=== PATIENT | male | born 1970 | race African-American/Black ===

== ENCOUNTER 2016-08-08 04:26 | Emergency (ER) | payer MEDICAID ==
[~2016-08-08] VITALS: Ht 167.6 cm; Wt 82.0 kg
[~2016-08-08 04:26] MED LIST: ALLO100T PO; ATOR20TA PO; CARI350T27 PO; FOLI-43 PO; GABA-531 PO; KEPP500 PO; MAGN400C PO; OMEP20CA10 PO; ONDA4TAB5 PO; PHEN100C4 PO; QUET300T2 PO; [UNRECOGNIZED DRUG - OTHER]
[2016-08-08] MEDS ORDERED: SODIUM CHLORIDE 0.9% 1,000 ML IV ONE (07:51)
[2016-08-08] MEDS ORDERED: MORPHINE SULFATE 4 MG/ML CPJ (NOT FOR IM USE) IV STA (07:51)
[2016-08-08] MEDS ORDERED: ONDANSETRON HCL 4MG/2ML VIAL IV STA (07:51)
[2016-08-08 08:19] LABS: CLARITY URINE CLEAR (CLEAR); COLOR URINE YELLOW (YELLOW); GLUCOSE URINE NEGATIVE (NEGATIVE); KETONES URINE NEGATIVE (NEGATIVE); LEUKOCYTE ESTERASE URINE NEGATIVE (NEGATIVE); NITRITE URINE NEGATIVE (NEGATIVE); OCCULT BLOOD URINE NEGATIVE (NEGATIVE); PH URINE 7.5 (4.5-8.0); PROTEIN URINE TRACE (NEGATIVE); SPECIFIC GRAVITY URINE 1.008 (1.005-1.030); UROBILINOGEN URINE 0.2 E.U./dL (0.2-1.0)
[2016-08-08 08:21] LABS: HEMATOCRIT. 36.8 % (42.0-52.0); MEAN CORPUSCULAR HEMOGLOBIN 27.4 pg (28.0-32.0); MEAN CORPUSCULAR HGB CONC 32.7 g/dL (31.0-37.0); MEAN CORPUSCULAR VOLUME 83.7 fL (80.0-94.0); MEAN PLATELET VOLUME 7.6 fl (7.4-10.4); PLATELET 222 x1000/uL (130-400); WHITE BLOOD COUNT 5.9 x1000/uL (4.5-11.0)
[2016-08-08 08:22] LABS: BACTERIA URINE NONE SEEN; CALCIUM PHOSPHATE CRYSTALS UR NONE SEEN /lpf; RBC URINE NONE SEEN /hpf (0-2); SQUAMOUS EPITHELIAL CELL URINE NONE SEEN /lpf (RARE/1+); WAXY CASTS URINE NONE SEEN /lpf; WBC URINE NONE SEEN /hpf (0-2); YEAST URINE NONE SEEN
[2016-08-08 08:24] LABS: DIFFERENTIAL COMMENT 1
[2016-08-08 08:27] LABS: CHLORIDE 99 mEq/L (98-107); INDEX HEMOLYSI 1 (1-3); INDEX ICTERIC 1 (1-4); INDEX LIPEMIC 1 (1-3)
[2016-08-08 08:28] LABS: PROTHROMBIN TIME 10.2 sec
[2016-08-08 08:31] LABS: ALBUMIN 3.2 g/dL (3.4-5.0); ANION GAP 11; CALCIUM 9.4 mg/dL (8.5-10.1); CARBON DIOXIDE 33 mEq/L (21-32); LIPASE 399 IU/L (73-393); UREA NITROGEN BLOOD 9 mg/dL (7-21)
[2016-08-08 08:35] LABS: ALANINE AMINOTRANSFERASE 23 IU/L (13-61); PHENYTOIN 4.2 ug/mL (10-20); eGFR > 60 mL/min (>60)
[2016-08-08 08:39] LABS: ANISOCYTOSIS 1+; PLATELET ESTIMATE NORMAL
[2016-08-08] MEDS ORDERED: PHENYTOIN SODIUM 500 MG in SODIUM CHLORIDE 0.9% 50 ML IV NR (09:45)
[2016-08-08] MEDS ORDERED: FAMOTIDINE 20MG/2ML VIAL IV ONE (10:30)
[2016-08-08] MEDS ORDERED: MAGNESIUM/ALUMINUM HYDROXIDE/SIMETHICONE 30ML UDC PO ONE (10:30)
[2016-08-08] MEDS: HYDROCODONE/ACETAMINOPHEN 5/325MG TABLET PO NR ×2 (11:31→11:36)
[2016-08-08 12:10] VITALS: BP 114/77
== END 2016-08-08 12:20 | disposition home or self-care (01) ==
LOC: ER 04:49
DX: R10.9 Unspecified abdominal pain (principal); Z79.899 Other long term (current) drug therapy; J45.909 Unspecified asthma, uncomplicated; S42.402A Unspecified fracture of lower end of left humerus, initial encounter for closed fracture; Y93.89 Activity, other specified; Y99.9 Unspecified external cause status; Y92.89 Other specified places as the place of occurrence of the external cause
CPT/HCPCS: 36415; 73080; 76705; 80053; 80185; 81001; 83690; 85025; 85610; 96361; 96374; 96375; 99285; J1165; J2270; J2405; J3490; Z7610

== ENCOUNTER 2016-08-10 02:31 | Emergency (ER) | payer MEDICAID ==
[~2016-08-10] VITALS: Ht 170.2 cm; Wt 82.0 kg
[2016-08-10 03:34] LABS: HEMATOCRIT. 34.9 % (42.0-52.0); HEMOGLOBIN. 11.5 g/dL (14.0-18.0); MEAN CORPUSCULAR HEMOGLOBIN 27.2 pg (28.0-32.0); MEAN CORPUSCULAR HGB CONC 32.9 g/dL (31.0-37.0); MEAN CORPUSCULAR VOLUME 82.8 fL (80.0-94.0); MEAN PLATELET VOLUME 7.8 fl (7.4-10.4); PLATELET 230 x1000/uL (130-400); RED BLOOD CELL COUNT 4.22 mill/uL (4.7-6.1); RED CELL DISTRIBUTION WIDTH 14.6 % (11.6-14.6); WHITE BLOOD COUNT 4.2 x1000/uL (4.5-11.0)
[2016-08-10 03:35] LABS: DIFFERENTIAL COMMENT 1
[2016-08-10 03:49] LABS: ALANINE AMINOTRANSFERASE 15 IU/L (13-61); ANION GAP 12; CALCIUM 9.5 mg/dL (8.5-10.1); CARBON DIOXIDE 30 mEq/L (21-32); CHLORIDE 102 mEq/L (98-107); INDEX HEMOLYSI 1 (1-3); INDEX ICTERIC 1 (1-4); INDEX LIPEMIC 1 (1-3); UREA NITROGEN BLOOD 15 mg/dL (7-21); eGFR > 60 mL/min (>60)
[2016-08-10] MEDS ORDERED: VISCOUS LIDOCAINE 2% 15 ML UDC PO STA (04:29)
[2016-08-10] MEDS ORDERED: DICYCLOMINE 10 MG/5 ML ORAL SYR PO STA (04:29)
[2016-08-10] MEDS ORDERED: MAGNESIUM/ALUMINUM HYDROXIDE/SIMETHICONE 30ML UDC PO STA (04:29)
[2016-08-10 04:57] LABS: PLATELET ESTIMATE NORMAL
[2016-08-10 05:10] VITALS: BP 124/83
== END 2016-08-10 05:10 | disposition home or self-care (01) ==
LOC: ER 02:35
DX: K21.9 Gastro-esophageal reflux disease without esophagitis (principal); Z79.899 Other long term (current) drug therapy; M19.90 Unspecified osteoarthritis, unspecified site; J45.909 Unspecified asthma, uncomplicated; M10.9 Gout, unspecified; F17.200 Nicotine dependence, unspecified, uncomplicated; B19.20 Unspecified viral hepatitis C without hepatic coma
CPT/HCPCS: 36415; 71010; 80053; 85025; 93005; 99285

== ENCOUNTER 2016-09-16 07:02 | Emergency (ER) | payer MEDICAID ==
[~2016-09-16] VITALS: Ht 177.8 cm; Wt 82.0 kg
[2016-09-16] MEDS ORDERED: FAMOTIDINE 20MG/2ML VIAL IV STA (07:19)
[2016-09-16] MEDS ORDERED: ONDANSETRON HCL 4MG/2ML VIAL IV STA (07:19)
[2016-09-16] MEDS ORDERED: KETOROLAC 30MG/ML VIAL IV STA (07:19)
[2016-09-16] MEDS ORDERED: SODIUM CHLORIDE 0.9% 1,000 ML IV ONE (07:19)
[2016-09-16 07:50] LABS: BASOPHILS % 1.2 % (0.0-2.0); EOSINOPHILS % 0.6 % (0.0-5.0); HEMATOCRIT. 45.8 % (42.0-52.0); HEMOGLOBIN. 15.3 g/dL (14.0-18.0); LYMPHOCYTES % 42.9 % (20.0-50.0); MEAN CORPUSCULAR HEMOGLOBIN 26.8 pg (28.0-32.0); MEAN CORPUSCULAR HGB CONC 33.4 g/dL (31.0-37.0); MEAN CORPUSCULAR VOLUME 80.2 fL (80.0-94.0); MEAN PLATELET VOLUME 8.6 fl (7.4-10.4); NEUTROPHILS % 43.3 % (40.0-76.0); PLATELET 157 x1000/uL (130-400); RED BLOOD CELL COUNT 5.72 mill/uL (4.7-6.1); RED CELL DISTRIBUTION WIDTH 14.9 % (11.6-14.6); WHITE BLOOD COUNT 2.8 x1000/uL (4.5-11.0)
[2016-09-16 08:05] LABS: ALANINE AMINOTRANSFERASE 230 IU/L (13-61); ALBUMIN 3.6 g/dL (3.4-5.0); ANION GAP 21; CALCIUM 9.2 mg/dL (8.5-10.1); CARBON DIOXIDE 26 mEq/L (21-32); CHLORIDE 95 mEq/L (98-107); INDEX HEMOLYSI 1 (1-3); INDEX ICTERIC 1 (1-4); INDEX LIPEMIC 1 (1-3); LIPASE 367 IU/L (73-393); UREA NITROGEN BLOOD 23 mg/dL (7-21); eGFR > 60 mL/min (>60)
[2016-09-16 08:57] LABS: CLARITY URINE CLEAR (CLEAR); COLOR URINE DARK YELLOW (YELLOW); GLUCOSE URINE NEGATIVE (NEGATIVE); KETONES URINE NEGATIVE (NEGATIVE); LEUKOCYTE ESTERASE URINE TRACE (NEGATIVE); NITRITE URINE NEGATIVE (NEGATIVE); OCCULT BLOOD URINE NEGATIVE (NEGATIVE); PH URINE 5.5 (4.5-8.0); PROTEIN URINE 3+ (NEGATIVE); SPECIFIC GRAVITY URINE 1.026 (1.005-1.030)
[2016-09-16 09:20] LABS: BACTERIA URINE 1+
[2016-09-16 09:21] LABS: WBC URINE 15-25 /hpf (0-2)
[2016-09-16 09:22] LABS: MUCUS URINE TRACE /lpf (NONE/TRACE); SQUAMOUS EPITHELIAL CELL URINE FEW /lpf (RARE/1+)
[2016-09-16] MEDS ORDERED: MORPHINE SULFATE 4 MG/ML CPJ (NOT FOR IM USE) IV ONE (09:30)
[2016-09-16] MEDS ORDERED: ONDANSETRON HCL 4MG/2ML VIAL IV ONE (09:30)
[2016-09-16] MEDS ORDERED: LORAZEPAM 2MG/ML CPJ IV ONE (11:00)
[2016-09-16 13:01] LABS: *AMPHETAMINES SCREEN URINE NEGATIVE (NEGATIVE); *BARBITURATES SCREEN URINE NEGATIVE (NEGATIVE); *BENZODIAZEPINES SCREEN URINE NEGATIVE (NEGATIVE); *COCAINE SCREEN URINE NEGATIVE (NEGATIVE); CANNABINOID URINE SCREEN NEGATIVE (NEGATIVE); ECSTASY MDMA SCREEN URINE NEGATIVE (NEGATIVE); METHADONE URINE SCREEN NEGATIVE (NEGATIVE); OPIATES URINE SCREEN NEGATIVE (NEGATIVE); PHENCYCLIDINE URINE SCREEN NEGATIVE (NEGATIVE)
[2016-09-16 13:58] VITALS: BP 121/89
== END 2016-09-16 14:00 | disposition home or self-care (01) ==
LOC: ER 07:23
DX: K85.90 Acute pancreatitis without necrosis or infection, unspecified (principal); J45.909 Unspecified asthma, uncomplicated; F17.210 Nicotine dependence, cigarettes, uncomplicated; Z79.899 Other long term (current) drug therapy; Z82.49 Family history of ischemic heart disease and other diseases of the circulatory system
CPT/HCPCS: 36415; 76705; 80053; 80305; 81001; 83690; 85025; 96374; 96375; 96376; 99285; G0482; J1885; J2060; J2270; J2405; J3490; J7030

== ENCOUNTER 2016-09-25 20:01 | Emergency (ER) | payer MEDICAID ==
[~2016-09-25] VITALS: Ht 175.3 cm; Wt 82.0 kg
[2016-09-25] MEDS ORDERED: SODIUM CHLORIDE 0.9% 1,000 ML IV ONE (20:32)
[2016-09-25] MEDS ORDERED: ONDANSETRON HCL 4MG/2ML VIAL IV STA (20:32)
[2016-09-25 21:16] LABS: BASOPHILS % 1.2 % (0.0-2.0); EOSINOPHILS % 0.1 % (0.0-5.0); HEMATOCRIT. 37.9 % (42.0-52.0); HEMOGLOBIN. 12.6 g/dL (14.0-18.0); LYMPHOCYTES % 59.2 % (20.0-50.0); MEAN CORPUSCULAR HEMOGLOBIN 26.8 pg (28.0-32.0); MEAN CORPUSCULAR VOLUME 80.5 fL (80.0-94.0); MEAN PLATELET VOLUME 8.6 fl (7.4-10.4); MONOCYTES % 7.7 % (2.0-8.0); NEUTROPHILS % 31.8 % (40.0-76.0); PLATELET 157 x1000/uL (130-400); RED BLOOD CELL COUNT 4.71 mill/uL (4.7-6.1); RED CELL DISTRIBUTION WIDTH 14.8 % (11.6-14.6)
[2016-09-25 21:26] LABS: CARBON DIOXIDE 27 mEq/L (21-32); CHLORIDE 102 mEq/L (98-107); ETHANOL BLOOD 250 mg/dL; PHENYTOIN 0.5 ug/mL (10-20)
[2016-09-25] MEDS ORDERED: MAGNESIUM/ALUMINUM HYDROXIDE/SIMETHICONE 30ML UDC PO STA (21:57)
[2016-09-25] MEDS ORDERED: KETOROLAC 30MG/ML VIAL IV STA (21:57)
[2016-09-25] MEDS ORDERED: FAMOTIDINE 20MG/2ML VIAL IV STA (21:57)
[2016-09-25] MEDS ORDERED: PHENYTOIN SODIUM 1,000 MG in SODIUM CHLORIDE 0.9% 100 ML IV ONE (22:00)
[2016-09-26 04:43] VITALS: BP 134/77
== END 2016-09-26 11:14 | disposition home or self-care (01) ==
LOC: ER 20:01
DX: G40.909 Epilepsy, unspecified, not intractable, without status epilepticus (principal); F10.129 Alcohol abuse with intoxication, unspecified; K29.20 Alcoholic gastritis without bleeding; J45.909 Unspecified asthma, uncomplicated; Y90.8 Blood alcohol level of 240 mg/100 ml or more; Z91.018 Allergy to other foods; Z91.14 Patient's other noncompliance with medication regimen
CPT/HCPCS: 36415; 80053; 80185; 83690; 85025; 96361; 96365; 96375; 99285; G0482; J1165; J1885; J2405; J3490; Z7610; J7030; J7050

== ENCOUNTER 2016-09-27 23:24 | Emergency (ER) | payer MEDICAID ==
[~2016-09-27] VITALS: Ht 170.2 cm; Wt 82.2 kg
[2016-09-27] MEDS ORDERED: FAMOTIDINE 20MG/2ML VIAL IV STA (23:59)
[2016-09-27] MEDS ORDERED: MORPHINE SULFATE 4 MG/ML CPJ (NOT FOR IM USE) IV STA (23:59)
[2016-09-27] MEDS ORDERED: ONDANSETRON HCL 4MG/2ML VIAL IV STA (23:59)
[2016-09-28 00:16] LABS: HEMATOCRIT. 41.4 % (42.0-52.0); HEMOGLOBIN. 13.8 g/dL (14.0-18.0); MEAN CORPUSCULAR HEMOGLOBIN 26.7 pg (28.0-32.0); MEAN CORPUSCULAR VOLUME 80.1 fL (80.0-94.0); MEAN PLATELET VOLUME 7.9 fl (7.4-10.4); PLATELET 125 x1000/uL (130-400); RED BLOOD CELL COUNT 5.17 mill/uL (4.7-6.1); RED CELL DISTRIBUTION WIDTH 14.9 % (11.6-14.6)
[2016-09-28 00:26] LABS: CHLORIDE 99 mEq/L (98-107)
[2016-09-28 00:35] LABS: CARBON DIOXIDE 28 mEq/L (21-32)
[2016-09-28 00:43] LABS: PLATELET ESTIMATE SLIGHTLY DECREASED
[2016-09-28 01:33] VITALS: BP 143/73
== END 2016-09-28 02:08 | disposition home or self-care (01) ==
LOC: ER 23:32
DX: K29.20 Alcoholic gastritis without bleeding (principal); M79.671 Pain in right foot; J45.909 Unspecified asthma, uncomplicated
CPT/HCPCS: 36415; 73630; 80053; 83690; 85025; 96374; 96375; 99285; J2270; J2405; J3490; Z7610

== ENCOUNTER 2016-09-28 06:10 | Emergency (ER) | payer MEDICAID ==
[~2016-09-28] VITALS: Ht 170.2 cm; Wt 82.0 kg
[2016-09-28] MEDS ORDERED: ONDANSETRON 4MG ODT PO ONE (08:30)
[2016-09-28] MEDS ORDERED: MORPHINE SULFATE 10 MG/ML CPJ SUBCUT ONE (08:30)
[2016-09-28 08:57] VITALS: BP 142/97
[2016-09-28 09:34] LABS: CLARITY URINE CLEAR (CLEAR); COLOR URINE DARK YELLOW (YELLOW); GLUCOSE URINE NEGATIVE (NEGATIVE); KETONES URINE TRACE (NEGATIVE); LEUKOCYTE ESTERASE URINE TRACE (NEGATIVE); NITRITE URINE NEGATIVE (NEGATIVE); OCCULT BLOOD URINE NEGATIVE (NEGATIVE); PROTEIN URINE 2+ (NEGATIVE); SPECIFIC GRAVITY URINE 1.022 (1.005-1.030)
== END 2016-09-28 10:05 | disposition home or self-care (01) ==
LOC: ER 08:16
DX: N20.0 Calculus of kidney (principal); J45.909 Unspecified asthma, uncomplicated; M10.9 Gout, unspecified; Z79.899 Other long term (current) drug therapy; M79.671 Pain in right foot
CPT/HCPCS: 74176; 81001; 96372; 99285; J2270; Q0162; Z7610

== ENCOUNTER 2016-10-03 20:36 | Emergency (ER) | payer MEDICAID ==
[~2016-10-03] VITALS: Ht 177.8 cm; Wt 84.0 kg
[2016-10-03] MEDS ORDERED: KETOROLAC 30MG/ML VIAL IV STA (22:25)
[2016-10-03] MEDS ORDERED: ONDANSETRON HCL 4MG/2ML VIAL IV STA (22:25)
[2016-10-03] MEDS ORDERED: SODIUM CHLORIDE 0.9% 1,000 ML IV ONE (22:25)
[2016-10-03] MEDS ORDERED: LEVETIRACETAM 500MG/5ML CUP PO ONE (22:30)
[2016-10-03] MEDS ORDERED: PHENYTOIN SODIUM EXTENDED 100MG CAPSULE PO ONE (22:30)
[2016-10-03] MEDS ORDERED: ONDANSETRON 4MG ODT PO ONE (23:00)
[2016-10-03] MEDS ORDERED: KETOROLAC 60MG/2ML VIAL IM ONE (23:00)
[2016-10-04 00:24] LABS: BASOPHILS % 0.9 % (0.0-2.0); HEMATOCRIT. 36.2 % (42.0-52.0); LYMPHOCYTES % 36.9 % (20.0-50.0); MEAN CORPUSCULAR HEMOGLOBIN 26.7 pg (28.0-32.0); MEAN CORPUSCULAR VOLUME 80.7 fL (80.0-94.0); MEAN PLATELET VOLUME 7.9 fl (7.4-10.4); MONOCYTES % 8.2 % (2.0-8.0); PLATELET 155 x1000/uL (130-400); RED BLOOD CELL COUNT 4.49 mill/uL (4.7-6.1); RED CELL DISTRIBUTION WIDTH 15.5 % (11.6-14.6)
[2016-10-04 00:28] LABS: CHLORIDE 100 mEq/L (98-107)
[2016-10-04] MEDS ORDERED: ACETAMINOPHEN WITH CODEINE 300/30MG TABLET PO ONE (00:30)
[2016-10-04 00:37] LABS: CARBON DIOXIDE 34 mEq/L (21-32); ETHANOL BLOOD 200 mg/dL
[2016-10-04] MEDS ORDERED: LORAZEPAM 1MG TABLET PO ONE (01:00)
[2016-10-04 01:14] LABS: CLARITY URINE CLEAR (CLEAR); COLOR URINE YELLOW (YELLOW); GLUCOSE URINE NEGATIVE (NEGATIVE); KETONES URINE NEGATIVE (NEGATIVE); LEUKOCYTE ESTERASE URINE NEGATIVE (NEGATIVE); NITRITE URINE NEGATIVE (NEGATIVE); OCCULT BLOOD URINE NEGATIVE (NEGATIVE); PH URINE 7.5 (4.5-8.0); PROTEIN URINE TRACE (NEGATIVE); SPECIFIC GRAVITY URINE 1.014 (1.005-1.030); UROBILINOGEN URINE 0.2 E.U./dL (0.2-1.0)
[2016-10-04] MEDS ORDERED: PHENYTOIN SODIUM EXTENDED 100MG CAPSULE PO ONE (02:00)
[2016-10-04] MEDS ORDERED: ONDANSETRON HCL 4MG/2ML VIAL IM ONE (02:15)
[2016-10-04] MEDS ORDERED: MORPHINE SULFATE 10 MG/ML CPJ IM ONE (02:15)
[2016-10-04 19:35] VITALS: BP 136/83
== END 2016-10-04 20:30 | disposition home or self-care (01) ==
LOC: ER 21:00
DX: R10.84 Generalized abdominal pain (principal); F10.129 Alcohol abuse with intoxication, unspecified; R56.9 Unspecified convulsions; F32.9 Major depressive disorder, single episode, unspecified; Z98.890 Other specified postprocedural states
CPT/HCPCS: 36415; 80053; 80185; 81001; 83690; 85025; 96372; 99285; G0482; J1885; J2270; J2405; Q0162; Z7610; J7030

== ENCOUNTER 2016-10-17 17:05 | Emergency (ER) | payer MEDICAID ==
[~2016-10-17] VITALS: Ht 172.7 cm; Wt 75.0 kg
[2016-10-17 17:07] VITALS: BP 148/87
== END 2016-10-17 22:40 | disposition left against medical advice (07) ==
LOC: ER 17:21
DX: R45.851 Suicidal ideations (principal); Z53.21 Procedure and treatment not carried out due to patient leaving prior to being seen by health care provider
CPT/HCPCS: Z7610 ×2

== ENCOUNTER 2017-10-29 01:32 | Emergency (ER) | payer MEDICAID ==
[~2017-10-29] VITALS: Ht 172.7 cm; Wt 75.0 kg
[~2017-10-29 01:32] MED LIST changes: +HYDR-4009 MT
[2017-10-29 04:15] VITALS: BP 120/75
== END 2017-10-29 08:13 | disposition left against medical advice (07) ==
LOC: ER 07:01
DX: M79.604 Pain in right leg (principal); Z53.21 Procedure and treatment not carried out due to patient leaving prior to being seen by health care provider
CPT/HCPCS: 99283

== ENCOUNTER 2017-11-17 07:18 | Emergency (ER) | payer MEDICAID ==
[~2017-11-17] VITALS: Ht 177.8 cm; Wt 79.0 kg
[2017-11-17] MEDS ORDERED: MORPHINE SULFATE 4 MG/ML CPJ (NOT FOR IM USE) IV STA (08:43)
[2017-11-17] MEDS ORDERED: SODIUM CHLORIDE 0.9% 1,000 ML IV ONE (08:43)
[2017-11-17] MEDS ORDERED: ONDANSETRON HCL 4MG/2ML VIAL IV STA (08:43)
[2017-11-17 09:27] LABS: BASOPHILS % 0.6 % (0.0-2.0); HEMATOCRIT. 42.8 % (42.0-52.0); HEMOGLOBIN. 14.2 g/dL (14.0-18.0); LYMPHOCYTES % 14.9 % (20.0-50.0); MEAN CORPUSCULAR HEMOGLOBIN 27.6 pg (28.0-32.0); MEAN PLATELET VOLUME 7.9 fl (7.4-10.4); MONOCYTES % 6.5 % (2.0-8.0); PLATELET 174 x1000/uL (130-400); RED BLOOD CELL COUNT 5.16 mill/uL (4.7-6.1); RED CELL DISTRIBUTION WIDTH 15.9 % (11.6-14.6)
[2017-11-17 09:28] LABS: CHLORIDE 101 mEq/L (98-107)
[2017-11-17 09:30] LABS: PROTHROMBIN TIME 10.2 sec (9.4-11.6)
[2017-11-17 09:34] LABS: ETHANOL BLOOD 32 mg/dL
[2017-11-17 09:47] LABS: CARBAMAZEPINE < 0.5 ug/mL (4-12); PHENOBARBITAL < 2.1 ug/mL (15.0-40.0); VALPROIC ACID < 3.0 ug/mL (50-100)
[2017-11-17] MEDS ORDERED: METOCLOPRAMIDE HCL 10MG/2ML VIAL IV ONE (11:00)
[2017-11-17] MEDS ORDERED: IOHEXOL-300 100 ML BOTTLE ONE (11:44)
[2017-11-17 13:11] LABS: CLARITY URINE CLEAR (CLEAR); COLOR URINE YELLOW (YELLOW); KETONES URINE TRACE (NEGATIVE); LEUKOCYTE ESTERASE URINE 1+ (NEGATIVE); NITRITE URINE NEGATIVE (NEGATIVE); OCCULT BLOOD URINE NEGATIVE (NEGATIVE); PROTEIN URINE 3+ (NEGATIVE); SPECIFIC GRAVITY URINE 1.024 (1.005-1.030); UROBILINOGEN URINE 0.2 E.U./dL (0.2-1.0)
[2017-11-17] MEDS ORDERED: LEVOFLOXACIN 250MG TABLET PO ONE (13:45)
[2017-11-17 14:54] VITALS: BP 145/87
== END 2017-11-17 14:56 | disposition home or self-care (01) ==
LOC: ER 07:25
DX: N39.0 Urinary tract infection, site not specified (principal); R19.7 Diarrhea, unspecified; F17.200 Nicotine dependence, unspecified, uncomplicated; I10 Essential (primary) hypertension; F10.20 Alcohol dependence, uncomplicated; Z79.899 Other long term (current) drug therapy; Z86.11 Personal history of tuberculosis; Y90.1 Blood alcohol level of 20-39 mg/100 ml
CPT/HCPCS: 36415; 74177; 80053; 80156; 80165; 80184; 80185; 81003; 83690; 85025; 85610; 87086; 96361; 96374; 96375; 99285; G0482; J2270; J2405; J2765; J7030; Q9967; Z7610

== ENCOUNTER 2017-11-18 05:56 | Emergency (ER) | payer MEDICAID ==
[~2017-11-18] VITALS: Ht 177.8 cm; Wt 82.0 kg
[2017-11-18] MEDS ORDERED: SODIUM CHLORIDE 0.9% 1,000 ML IV ONE (08:53)
[2017-11-18] MEDS ORDERED: ONDANSETRON HCL 4MG/2ML VIAL IV STA (08:53)
[2017-11-18 09:22] LABS: HEMATOCRIT. 37.7 % (42.0-52.0); HEMOGLOBIN. 12.5 g/dL (14.0-18.0); MEAN CORPUSCULAR HEMOGLOBIN 27.6 pg (28.0-32.0); MEAN CORPUSCULAR VOLUME 82.7 fL (80.0-94.0); PLATELET 142 x1000/uL (130-400); RED BLOOD CELL COUNT 4.55 mill/uL (4.7-6.1); RED CELL DISTRIBUTION WIDTH 15.6 % (11.6-14.6)
[2017-11-18 09:24] LABS: CHLORIDE 98 mEq/L (98-107)
[2017-11-18 09:28] LABS: ETHANOL BLOOD < 10 mg/dL
[2017-11-18 09:44] LABS: PLATELET ESTIMATE NORMAL
[2017-11-18 09:51] LABS: INR 1.1; PROTHROMBIN TIME 11.3 sec (9.4-11.6)
[2017-11-18 12:04] LABS: CLARITY URINE CLOUDY (CLEAR); COLOR URINE YELLOW (YELLOW); KETONES URINE 1+ (NEGATIVE); LEUKOCYTE ESTERASE URINE 2+ (NEGATIVE); NITRITE URINE NEGATIVE (NEGATIVE); OCCULT BLOOD URINE TRACE (NEGATIVE); PROTEIN URINE 3+ (NEGATIVE); SPECIFIC GRAVITY URINE 1.025 (1.005-1.030)
[2017-11-18 12:35] VITALS: BP 127/82
== END 2017-11-18 13:54 | disposition home or self-care (01) ==
LOC: ER 05:56
DX: N39.0 Urinary tract infection, site not specified (principal); N28.1 Cyst of kidney, acquired; I10 Essential (primary) hypertension; G40.909 Epilepsy, unspecified, not intractable, without status epilepticus; J45.909 Unspecified asthma, uncomplicated; D64.9 Anemia, unspecified; D72.819 Decreased white blood cell count, unspecified; Z91.018 Allergy to other foods
CPT/HCPCS: 36415; 76770; 80053; 81003; 83690; 84484; 85025; 85610; 93005; 96361; 96374; 99285; G0482; J2405; J7030

== ENCOUNTER 2017-12-11 01:49 | Emergency (ER) | payer MEDICAID ==
[~2017-12-11] VITALS: Ht 172.7 cm; Wt 93.0 kg
[2017-12-11] MEDS ORDERED: SODIUM CHLORIDE 0.9% 1,000 ML IV ONE (02:16)
[2017-12-11] MEDS ORDERED: ONDANSETRON HCL 4MG/2ML VIAL IV STA (02:16)
[2017-12-11] MEDS ORDERED: FAMOTIDINE 20MG/2ML VIAL IV ONE (02:30)
[2017-12-11 03:15] LABS: BASOPHILS % 0.7 % (0.0-2.0); HEMATOCRIT. 42.7 % (42.0-52.0); HEMOGLOBIN. 14.3 g/dL (14.0-18.0); LYMPHOCYTES % 19.4 % (20.0-50.0); MEAN CORPUSCULAR HEMOGLOBIN 27.7 pg (28.0-32.0); MEAN CORPUSCULAR VOLUME 82.5 fL (80.0-94.0); MEAN PLATELET VOLUME 8.2 fl (7.4-10.4); NEUTROPHILS % 71.9 % (40.0-76.0); PLATELET 109 x1000/uL (130-400); RED BLOOD CELL COUNT 5.18 mill/uL (4.7-6.1); RED CELL DISTRIBUTION WIDTH 15.7 % (11.6-14.6)
[2017-12-11 03:22] LABS: INR 1.1; PROTHROMBIN TIME 10.8 sec (9.1-11.1)
[2017-12-11 03:24] LABS: CHLORIDE 97 mEq/L (98-107)
[2017-12-11] MEDS ORDERED: ACETAMINOPHEN 500MG TABLET PO NR (05:00)
[2017-12-11] MEDS ORDERED: POTASSIUM CHLORIDE 20MEQ TABLET SR PO NR (05:30)
[2017-12-11 05:33] VITALS: BP 139/101
[2017-12-11 07:29] LABS: CLARITY URINE CLEAR (CLEAR); COLOR URINE YELLOW (YELLOW); KETONES URINE 1+ (NEGATIVE); LEUKOCYTE ESTERASE URINE 1+ (NEGATIVE); NITRITE URINE NEGATIVE (NEGATIVE); OCCULT BLOOD URINE TRACE (NEGATIVE); PH URINE 6.5 (4.5-8.0); PROTEIN URINE 3+ (NEGATIVE); SPECIFIC GRAVITY URINE 1.023 (1.005-1.030)
== END 2017-12-11 05:54 | disposition home or self-care (01) ==
LOC: ER 01:49
DX: K29.00 Acute gastritis without bleeding (principal); E87.6 Hypokalemia
CPT/HCPCS: 36415; 80053; 81003; 83690; 85025; 85610; 87086; 96361; 96374; 96375; 99284; J2405; J3490; J7030; Z7610

== ENCOUNTER 2017-12-29 19:58 | Inpatient (IN) | payer MEDICAID ==
[~2017-12-29] VITALS: Ht 167.6 cm; Wt 71.7 kg
[2017-12-29] MEDS ORDERED: SODIUM CHLORIDE 0.9% 1,000 ML IV ONE (20:17)
[2017-12-29] MEDS ORDERED: KETOROLAC 30MG/ML VIAL IV STA (20:17)
[2017-12-29] MEDS ORDERED: ONDANSETRON HCL 4MG/2ML VIAL IV STA ×2 (20:17→22:12)
[2017-12-29] MEDS ORDERED: LEVETIRACETAM 500MG TABLET PO ONE (20:30)
[2017-12-29 21:31] LABS: BASOPHILS % 0.6 % (0.0-2.0); EOSINOPHILS % 0.2 % (0.0-5.0); HEMATOCRIT. 41.3 % (42.0-52.0); HEMOGLOBIN. 13.8 g/dL (14.0-18.0); LYMPHOCYTES % 50.7 % (20.0-50.0); MEAN CORPUSCULAR HEMOGLOBIN 27.7 pg (28.0-32.0); MEAN CORPUSCULAR VOLUME 83.1 fL (80.0-94.0); MEAN PLATELET VOLUME 7.9 fl (7.4-10.4); MONOCYTES % 12.7 % (2.0-8.0); NEUTROPHILS % 35.8 % (40.0-76.0); PLATELET 210 x1000/uL (130-400); RED BLOOD CELL COUNT 4.97 mill/uL (4.7-6.1); RED CELL DISTRIBUTION WIDTH 15.7 % (11.6-14.6)
[2017-12-29 21:37] LABS: CHLORIDE 98 mEq/L (98-107)
[2017-12-29 22:10] LABS: ETHANOL BLOOD 362 mg/dL
[2017-12-29] MEDS ORDERED: MORPHINE SULFATE 4 MG/ML CPJ (NOT FOR IM USE) IV STA (22:12)
[2017-12-29] MEDS ORDERED: PHENYTOIN SODIUM 500 MG in SODIUM CHLORIDE 0.9% 50 ML IV ONE (22:15)
[2017-12-29] MEDS ORDERED: PHENYTOIN SODIUM EXTENDED 100MG CAPSULE PO ONE (22:15)
[2017-12-29] MEDS ORDERED: QUETIAPINE FUMARATE 50MG TABLET PO SCH (23:15)
[2017-12-29] MEDS ORDERED: LORAZEPAM 2MG/ML CPJ IV ONE (23:15)
[2017-12-29] MEDS ORDERED: DOCUSATE SODIUM 100MG CAPSULE PO PRN (23:30)
[2017-12-29] MEDS ORDERED: CLONIDINE 0.1MG TABLET PO PRN (23:30)
[2017-12-29] MEDS ORDERED: DIPHENHYDRAMINE 50MG/ML VIAL IV PRN (23:30)
[2017-12-29] MEDS ORDERED: HYDROCODONE/ACETAMINOPHEN 10/325MG TABLET PO PRN (23:30)
[2017-12-29] MEDS ORDERED: ONDANSETRON HCL 4MG/2ML VIAL IV PRN (23:30)
[2017-12-29] MEDS ORDERED: MAGNESIUM/ALUMINUM HYDROXIDE/SIMETHICONE 30ML UDC PO PRN (23:30)
[2017-12-29] MEDS ORDERED: IPRATROPIUM/ALBUTEROL 0.5-3(2.5)MG/3ML NEB INH PRN (23:30)
[2017-12-29] MEDS ORDERED: ACETAMINOPHEN 325MG TABLET PO PRN (23:30)
[2017-12-29] MEDS ORDERED: SODIUM CHLORIDE 0.45% 1,000 ML IV SCH (23:30)
[2017-12-29] MEDS ORDERED: LORAZEPAM 2MG/ML CPJ IV PRN (23:30)
[2017-12-29] MEDS ORDERED: NA PHOS,M-B/NA PHOS,DI-BA ENEMA 118ML PR PRN (23:30)
[2017-12-29] MEDS ORDERED: GUAIFENESIN 200MG/10ML SUGAR FREE UDC PO PRN (23:30)
[2017-12-29] MEDS ORDERED: LEVOFLOXACIN 500MG PREMIX 100 ML IV NR (23:31)
[2017-12-29] MEDS ORDERED: MORPHINE SULFATE 4 MG/ML CPJ (NOT FOR IM USE) IV PRN (23:33)
[2017-12-30 00:10] LABS: CHLORIDE 100 mEq/L (98-107)
[2017-12-30 00:35] VITALS: BP 113/79
[2017-12-30 01:08] VITALS: BP 113/79
[2017-12-30] MEDS ORDERED: LEVOFLOXACIN 500MG PREMIX 100 ML IV SCH (02:00)
[2017-12-30] MEDS ORDERED: METRONIDAZOLE 500 MG PREMIX 100 ML IV SCH (03:00)
[2017-12-30 05:46] VITALS: BP 92/57
[2017-12-30 06:39] VITALS: BP 91/55
[2017-12-30 07:04] LABS: BASOPHILS % 0.5 % (0.0-2.0); HEMATOCRIT. 38.8 % (42.0-52.0); HEMOGLOBIN. 12.8 g/dL (14.0-18.0); LYMPHOCYTES % 26.4 % (20.0-50.0); MEAN CORPUSCULAR HEMOGLOBIN 27.9 pg (28.0-32.0); MEAN CORPUSCULAR VOLUME 84.3 fL (80.0-94.0); MEAN PLATELET VOLUME 8.1 fl (7.4-10.4); MONOCYTES % 8.8 % (2.0-8.0); NEUTROPHILS % 64.3 % (40.0-76.0); PLATELET 157 x1000/uL (130-400); RED CELL DISTRIBUTION WIDTH 15.5 % (11.6-14.6)
[2017-12-30 07:20] LABS: CHLORIDE 101 mEq/L (98-107)
[2017-12-30 07:48] LABS: T4 FREE 0.99 ng/dL (0.76-1.46)
[2017-12-30 07:53] LABS: LDL CHOLESTEROL 97 mg/dL (5-100)
[2017-12-30 08:06] LABS: HDL CHOLESTEROL 141 mg/dL (40-59)
[2017-12-30] MEDS ORDERED: ENOXAPARIN 40MG/0.4ML SYR SUBCUT SCH (09:00)
[2017-12-30 09:01] VITALS: BP 89/50
== END 2017-12-30 09:50 | disposition home or self-care (01) | DRG 282 ==
LOC: ER 19:58 → 8WST 23:03 → EDBEDREQSVC 23:04 → EDBEDREQTM 23:04 → EDBEDREQ 23:04 → ENRESERV 23:45
PROVIDERS: ADMIT Internal Medicine; ATTEND Internal Medicine
DX: K85.20 Alcohol induced acute pancreatitis without necrosis or infection (principal); R56.9 Unspecified convulsions; E86.0 Dehydration; J45.909 Unspecified asthma, uncomplicated; I10 Essential (primary) hypertension; Y90.8 Blood alcohol level of 240 mg/100 ml or more; Z86.11 Personal history of tuberculosis; Z82.49 Family history of ischemic heart disease and other diseases of the circulatory system; Z79.899 Other long term (current) drug therapy; Z91.018 Allergy to other foods
CPT/HCPCS: 36415; 70450; 74176; 80048; 80053; 80061; 80185; 83690; 84439; 84443; 85025; 96365; 96366; 96375; 96376; 99285; G0482; J1165; J1885; J1956; J2060; J2270; J2405; J3490; J7030

== ENCOUNTER 2018-01-02 00:18 | Emergency (ER) | payer MEDICAID ==
[~2018-01-02] VITALS: Ht 177.8 cm; Wt 82.0 kg
[2018-01-02] MEDS ORDERED: ONDANSETRON HCL 4MG/2ML INJ IV STA (02:35)
[2018-01-02] MEDS ORDERED: SODIUM CHLORIDE 0.9% 1,000 ML IV ONE (02:35)
[2018-01-02 03:09] LABS: HEMATOCRIT. 40.5 % (42.0-52.0); HEMOGLOBIN. 13.5 g/dL (14.0-18.0); MEAN CORPUSCULAR HEMOGLOBIN 27.7 pg (28.0-32.0); MEAN CORPUSCULAR VOLUME 83.4 fL (80.0-94.0); MEAN PLATELET VOLUME 8.3 fl (7.4-10.4); PLATELET 136 x1000/uL (130-400); RED BLOOD CELL COUNT 4.86 mill/uL (4.7-6.1); RED CELL DISTRIBUTION WIDTH 15.6 % (11.6-14.6)
[2018-01-02 03:13] LABS: CHLORIDE 105 mEq/L (98-107)
[2018-01-02 03:23] LABS: ETHANOL BLOOD 297 mg/dL
[2018-01-02] MEDS ORDERED: MORPHINE SULFATE 10 MG/ML CPJ IM ONE (04:00)
[2018-01-02 05:13] LABS: PLATELET ESTIMATE NORMAL
[2018-01-02 06:24] LABS: CLARITY URINE CLEAR (CLEAR); COLOR URINE YELLOW (YELLOW); KETONES URINE NEGATIVE (NEGATIVE); LEUKOCYTE ESTERASE URINE NEGATIVE (NEGATIVE); NITRITE URINE NEGATIVE (NEGATIVE); OCCULT BLOOD URINE NEGATIVE (NEGATIVE); PH URINE 5.5 (4.5-8.0); PROTEIN URINE NEGATIVE (NEGATIVE); SPECIFIC GRAVITY URINE 1.002 (1.005-1.030); UROBILINOGEN URINE 0.2 E.U./dL (0.2-1.0)
[2018-01-02 06:45] LABS: *AMPHETAMINES SCREEN URINE NEGATIVE (NEGATIVE); *BARBITURATES SCREEN URINE NEGATIVE (NEGATIVE); *BENZODIAZEPINES SCREEN URINE NEGATIVE (NEGATIVE); *COCAINE SCREEN URINE NEGATIVE (NEGATIVE); CANNABINOID URINE SCREEN NEGATIVE (NEGATIVE); PHENCYCLIDINE URINE SCREEN NEGATIVE (NEGATIVE)
[2018-01-02 06:46] LABS: METHADONE URINE SCREEN NEGATIVE (NEGATIVE); OPIATES URINE SCREEN NEGATIVE (NEGATIVE)
[2018-01-02 06:55] VITALS: BP 109/68
== END 2018-01-02 06:57 | disposition home or self-care (01) ==
LOC: ER 01:29
DX: F10.129 Alcohol abuse with intoxication, unspecified (principal); I10 Essential (primary) hypertension; J45.909 Unspecified asthma, uncomplicated; Y90.8 Blood alcohol level of 240 mg/100 ml or more; Z76.0 Encounter for issue of repeat prescription; Z79.899 Other long term (current) drug therapy
CPT/HCPCS: 36415; 80053; 80305; 81003; 82962; 83690; 85025; 96361; 96372; 96374; 99285; G0482; J2270; J2405; J7030; Z7610

== ENCOUNTER 2018-02-28 06:32 | Inpatient (IN) | payer MEDICAID ==
[~2018-02-28] VITALS: Ht 170.2 cm; Wt 80.7 kg
[2018-02-28] MEDS ORDERED: ONDANSETRON HCL 4MG/2ML INJ IV STA ×2 (07:03→10:32)
[2018-02-28] MEDS ORDERED: MORPHINE SULFATE 4 MG/ML CPJ (NOT FOR IM USE) IV STA ×2 (07:03→09:46)
[2018-02-28 08:29] LABS: HEMATOCRIT. 42.5 % (42.0-52.0); HEMOGLOBIN. 14.1 g/dL (14.0-18.0); MEAN CORPUSCULAR VOLUME 84.6 fL (80.0-94.0); RED BLOOD CELL COUNT 5.02 mill/uL (4.7-6.1); RED CELL DISTRIBUTION WIDTH 16.3 % (11.6-14.6)
[2018-02-28 08:45] LABS: MEAN PLATELET VOLUME 8.6 fl (7.4-10.4); PLATELET 108 x1000/uL (130-400)
[2018-02-28 08:51] LABS: PLATELET ESTIMATE DECREASED
[2018-02-28] MEDS ORDERED: SODIUM CHLORIDE 0.9% 1,000 ML IV ONE ×2 (09:01→10:14)
[2018-02-28 10:24] LABS: CHLORIDE 101 mEq/L (98-107)
[2018-02-28 10:28] LABS: ETHANOL BLOOD 24 mg/dL; LDL CHOLESTEROL 83 mg/dL (5-100)
[2018-02-28 10:51] LABS: CLARITY URINE CLEAR (CLEAR); COLOR URINE YELLOW (YELLOW); KETONES URINE TRACE (NEGATIVE); LEUKOCYTE ESTERASE URINE NEGATIVE (NEGATIVE); NITRITE URINE NEGATIVE (NEGATIVE); OCCULT BLOOD URINE NEGATIVE (NEGATIVE); PROTEIN URINE 3+ (NEGATIVE); SPECIFIC GRAVITY URINE 1.018 (1.005-1.030)
[2018-02-28] MEDS ORDERED: DEXTROSE 50% WATER 50ML SYRINGE IV ONE (11:00)
[2018-02-28 11:07] LABS: HDL CHOLESTEROL 169 mg/dL (40-59)
[2018-02-28 11:12] LABS: *AMPHETAMINES SCREEN URINE NEGATIVE (NEGATIVE); *BARBITURATES SCREEN URINE NEGATIVE (NEGATIVE); *BENZODIAZEPINES SCREEN URINE NEGATIVE (NEGATIVE); *COCAINE SCREEN URINE NEGATIVE (NEGATIVE)
[2018-02-28 11:13] LABS: CANNABINOID URINE SCREEN PRESUMTIVE POSITIVE (NEGATIVE); METHADONE URINE SCREEN NEGATIVE (NEGATIVE); OPIATES URINE SCREEN PRESUMTIVE POSITIVE (NEGATIVE); PHENCYCLIDINE URINE SCREEN NEGATIVE (NEGATIVE)
[2018-02-28] MEDS ORDERED: DIPHENHYDRAMINE 50MG CAPSULE PO ONE (11:45)
[2018-02-28] MEDS ORDERED: LORAZEPAM 2MG/ML CPJ IV PRN (12:45)
[2018-02-28 13:30] VITALS: BP 134/74
[2018-02-28] MEDS: CHLORDIAZEPOXIDE 25MG CAPSULE PO SCH ×2 (14:16→21:13)
[2018-02-28] MEDS: MORPHINE SULFATE 4 MG/ML CPJ (NOT FOR IM USE) IV PRN ×3 (14:25→23:59)
[2018-02-28] MEDS: DEXT 5%/0.45% NACL 1000ML 1,000 ML IV SCH (14:25)
[2018-02-28] MEDS: ONDANSETRON HCL 4MG/2ML INJ IV PRN ×2 (14:32→21:13)
[2018-02-28] MEDS: FOLIC ACID 1 MG, THIAMINE HCL 100 MG, MVI, ADULT NO.1 10 ML in DEXTROSE 5% WATER 1,000 ML IV SCH ×8 (15:00→21:54)
[2018-02-28 16:00] VITALS: BP 134/74
[2018-02-28] MEDS: ALLOPURINOL 100 MG TABLET PO SCH (16:14)
[2018-02-28] MEDS: PANTOPRAZOLE SODIUM 40 MG/VIAL IV SCH (19:01)
[2018-02-28 20:00] VITALS: BP 169/89
[2018-02-28] MEDS ORDERED: LEVETIRACETAM 500MG TABLET PO SCH (23:30)
[2018-02-28] MEDS: QUETIAPINE FUMARATE 100MG TABLET PO SCH (23:30)
[2018-03-01] VITALS: BP 122/85
[2018-03-01 04:00] VITALS: BP 111/72
[2018-03-01] MEDS: CHLORDIAZEPOXIDE 25MG CAPSULE PO SCH ×3 (06:41→22:46)
[2018-03-01] MEDS: OMEPRAZOLE 20MG CAPSULE EXTENDED RELEASE PO SCH (06:42)
[2018-03-01 06:50] LABS: BASOPHILS % 0.8 % (0.0-2.0); EOSINOPHILS % 0.6 % (0.0-5.0); HEMATOCRIT. 36.9 % (42.0-52.0); HEMOGLOBIN. 12.1 g/dL (14.0-18.0); LYMPHOCYTES % 32.7 % (20.0-50.0); MEAN CORPUSCULAR HEMOGLOBIN 27.9 pg (28.0-32.0); MEAN PLATELET VOLUME 8.5 fl (7.4-10.4); MONOCYTES % 13.6 % (2.0-8.0); NEUTROPHILS % 52.3 % (40.0-76.0); PLATELET 71 x1000/uL (130-400); RED BLOOD CELL COUNT 4.35 mill/uL (4.7-6.1)
[2018-03-01 07:37] LABS: CHLORIDE 97 mEq/L (98-107)
[2018-03-01 08:00] VITALS: BP 105/72
[2018-03-01] MEDS: QUETIAPINE FUMARATE 100MG TABLET PO SCH ×2 (09:14→17:45)
[2018-03-01] MEDS: LEVETIRACETAM 500MG TABLET PO SCH ×2 (09:14→22:45)
[2018-03-01] MEDS: ALLOPURINOL 100 MG TABLET PO SCH (09:14)
[2018-03-01] MEDS: PANTOPRAZOLE SODIUM 40 MG/VIAL IV SCH (09:14)
[2018-03-01] MEDS: DEXT 5%/0.45% NACL 1000ML 1,000 ML IV SCH (10:17)
[2018-03-01] MEDS ORDERED: POTASSIUM CHLORIDE 20MEQ TABLET SR PO SCH (11:15)
[2018-03-01 12:00] VITALS: BP 112/78
[2018-03-01 16:00] VITALS: BP 92/62
[2018-03-01] MEDS ORDERED: LORAZEPAM 2MG/ML CPJ IV PRN (18:45)
[2018-03-01] MEDS: MORPHINE SULFATE 4 MG/ML CPJ (NOT FOR IM USE) IV PRN (19:45)
[2018-03-01 20:00] VITALS: BP 104/72
[2018-03-01] MEDS: ONDANSETRON HCL 4MG/2ML INJ IV PRN (20:32)
[2018-03-02] VITALS: BP 120/86
[2018-03-02] MEDS: MORPHINE SULFATE 4 MG/ML CPJ (NOT FOR IM USE) IV PRN (00:12)
[2018-03-02] MEDS: DEXT 5%/0.45% NACL 1000ML 1,000 ML IV SCH (00:51)
[2018-03-02] MEDS ORDERED: QUETIAPINE FUMARATE 100MG TABLET PO SCH (02:30)
[2018-03-02] MEDS ORDERED: HALOPERIDOL LACTATE 5MG/ML VIAL IM PRN (02:30)
[2018-03-02] MEDS: OMEPRAZOLE 20MG CAPSULE EXTENDED RELEASE PO SCH (06:31)
[2018-03-02] MEDS: CHLORDIAZEPOXIDE 25MG CAPSULE PO SCH ×2 (06:34→16:40)
[2018-03-02] MEDS: ALLOPURINOL 100 MG TABLET PO SCH (08:56)
[2018-03-02] MEDS: LEVETIRACETAM 500MG TABLET PO SCH (08:56)
[2018-03-02] MEDS: PANTOPRAZOLE SODIUM 40 MG/VIAL IV SCH (09:00)
[2018-03-02 12:00] VITALS: BP 113/78
[2018-03-02] MEDS ORDERED: HYDROCODONE/ACETAMINOPHEN 5/325MG TABLET PO PRN (14:00)
[2018-03-02 16:00] VITALS: BP 149/91
[2018-03-02 17:06] VITALS: BP 149/91
== END 2018-03-02 18:11 | disposition home or self-care (01) | DRG 241 ==
LOC: ER 06:32 → 6EST 11:31 → EDBEDREQ 11:37 → EDBEDREQSVC 11:37 → ENRESERV 12:21 → 6EST 03-02 03:00
PROVIDERS: ADMIT Internal Medicine; ATTEND Internal Medicine
DX: K29.20 Alcoholic gastritis without bleeding (principal); E44.1 Mild protein-calorie malnutrition; G40.909 Epilepsy, unspecified, not intractable, without status epilepticus; F41.9 Anxiety disorder, unspecified; M10.9 Gout, unspecified; M19.90 Unspecified osteoarthritis, unspecified site; F12.90 Cannabis use, unspecified, uncomplicated; Z71.41 Alcohol abuse counseling and surveillance of alcoholic; F10.10 Alcohol abuse, uncomplicated; Z68.27 Body mass index [BMI] 27.0-27.9, adult; Z91.018 Allergy to other foods; Z79.899 Other long term (current) drug therapy
CPT/HCPCS: 36415; 71045; 74176; 80048; 80061; 80305; 82962; 83605; 84484; 93005; 96361; 96374; 96375; 99285; C9113; G0482; J1630; J2060; J2270; J2405; J3411; J3490; J7030; J7070; Q0163

== ENCOUNTER 2018-03-03 18:32 | Inpatient (IN) | payer MEDICAID ==
[~2018-03-03] VITALS: Ht 165.1 cm; Wt 68.0 kg
[2018-03-03] MEDS ORDERED: FAMOTIDINE 20MG/2ML VIAL IV STA (19:28)
[2018-03-03] MEDS ORDERED: MORPHINE SULFATE 4 MG/ML CPJ (NOT FOR IM USE) IV STA (19:28)
[2018-03-03] MEDS ORDERED: SODIUM CHLORIDE 0.9% 1,000 ML IV ONE (19:28)
[2018-03-03 20:15] LABS: HEMATOCRIT. 34.7 % (42.0-52.0); HEMOGLOBIN. 11.7 g/dL (14.0-18.0); MEAN CORPUSCULAR HEMOGLOBIN 28.7 pg (28.0-32.0); MEAN CORPUSCULAR VOLUME 84.7 fL (80.0-94.0); MEAN PLATELET VOLUME 9.3 fl (7.4-10.4); PLATELET 78 x1000/uL (130-400); RED CELL DISTRIBUTION WIDTH 15.8 % (11.6-14.6)
[2018-03-03 20:20] LABS: CHLORIDE 100 mEq/L (98-107)
[2018-03-03 20:23] LABS: ETHANOL BLOOD < 10 mg/dL
[2018-03-03 20:57] LABS: PLATELET ESTIMATE DECREASED
[2018-03-03] MEDS ORDERED: LEVETIRACETAM 500MG PREMIX 100 ML IV NR (22:00)
[2018-03-04 00:15] LABS: CLARITY URINE CLEAR (CLEAR); COLOR URINE YELLOW (YELLOW); KETONES URINE NEGATIVE (NEGATIVE); LEUKOCYTE ESTERASE URINE NEGATIVE (NEGATIVE); NITRITE URINE NEGATIVE (NEGATIVE); OCCULT BLOOD URINE NEGATIVE (NEGATIVE); PH URINE 6.5 (4.5-8.0); PROTEIN URINE 1+ (NEGATIVE); SPECIFIC GRAVITY URINE 1.012 (1.005-1.030)
[2018-03-04 00:58] LABS: *AMPHETAMINES SCREEN URINE NEGATIVE (NEGATIVE); *BARBITURATES SCREEN URINE NEGATIVE (NEGATIVE); *BENZODIAZEPINES SCREEN URINE PRESUMTIVE POSITIVE (NEGATIVE)
[2018-03-04 01:07] LABS: *COCAINE SCREEN URINE NEGATIVE (NEGATIVE); CANNABINOID URINE SCREEN NEGATIVE (NEGATIVE); METHADONE URINE SCREEN NEGATIVE (NEGATIVE); OPIATES URINE SCREEN PRESUMTIVE POSITIVE (NEGATIVE); PHENCYCLIDINE URINE SCREEN NEGATIVE (NEGATIVE)
[2018-03-04 09:00] VITALS: BP 130/83
[2018-03-04] MEDS: OMEPRAZOLE 20MG CAPSULE EXTENDED RELEASE PO SCH (10:55)
[2018-03-04] MEDS: QUETIAPINE FUMARATE 100MG TABLET PO SCH (10:55)
[2018-03-04] MEDS: LEVETIRACETAM 500MG TABLET PO SCH ×2 (10:56→21:34)
[2018-03-04 12:00] VITALS: BP 128/79
[2018-03-04] MEDS: CHLORDIAZEPOXIDE 25MG CAPSULE PO SCH ×2 (12:27→21:34)
[2018-03-04] MEDS: FOLIC ACID 1 MG, THIAMINE HCL 100 MG, MVI, ADULT NO.1 10 ML in DEXTROSE 5% WATER 1,000 ML IV SCH ×4 (12:27)
[2018-03-04] MEDS: PHENYTOIN SODIUM EXTENDED 100MG CAPSULE PO SCH ×2 (12:27→21:34)
[2018-03-04] MEDS: MORPHINE SULFATE 4 MG/ML CPJ (NOT FOR IM USE) IV PRN (13:25)
[2018-03-04 16:00] VITALS: BP 96/58
[2018-03-05] VITALS: BP 138/87
[2018-03-05] MEDS: MORPHINE SULFATE 4 MG/ML CPJ (NOT FOR IM USE) IV PRN ×2 (01:37→11:51)
[2018-03-05] MEDS: ONDANSETRON HCL 4MG/2ML INJ IV PRN (01:37)
[2018-03-05 04:00] VITALS: BP 113/78
[2018-03-05] MEDS: LORAZEPAM 2MG/ML CPJ IV PRN (05:24)
[2018-03-05] MEDS: CHLORDIAZEPOXIDE 25MG CAPSULE PO SCH ×3 (06:18→22:58)
[2018-03-05] MEDS: PHENYTOIN SODIUM EXTENDED 100MG CAPSULE PO SCH ×3 (06:18→22:58)
[2018-03-05 08:00] VITALS: BP 150/87
[2018-03-05 08:12] LABS: HEMATOCRIT. 33.2 % (42.0-52.0); MEAN CORPUSCULAR HEMOGLOBIN 28.5 pg (28.0-32.0); MEAN CORPUSCULAR VOLUME 85.6 fL (80.0-94.0); PLATELET 97 x1000/uL (130-400); RED BLOOD CELL COUNT 3.88 mill/uL (4.7-6.1); RED CELL DISTRIBUTION WIDTH 15.5 % (11.6-14.6)
[2018-03-05 08:50] LABS: CHLORIDE 98 mEq/L (98-107)
[2018-03-05] MEDS: LEVETIRACETAM 500MG TABLET PO SCH ×2 (09:06→22:57)
[2018-03-05] MEDS: FOLIC ACID 1 MG, THIAMINE HCL 100 MG, MVI, ADULT NO.1 10 ML in DEXTROSE 5% WATER 1,000 ML IV SCH ×4 (09:06)
[2018-03-05] MEDS: QUETIAPINE FUMARATE 100MG TABLET PO SCH (09:06)
[2018-03-05] MEDS: OMEPRAZOLE 20MG CAPSULE EXTENDED RELEASE PO SCH (09:07)
[2018-03-05 12:00] VITALS: BP 127/80
[2018-03-05 13:27] LABS: NUCLEATED RED BLOOD CELLS 2 /100 WBC
[2018-03-05 13:28] LABS: PLATELET ESTIMATE SLIGHTLY DECREASED
[2018-03-05 16:00] VITALS: BP 96/53
[2018-03-05 20:00] VITALS: BP 127/83
[2018-03-05] MEDS: AMLODIPINE 5MG TABLET PO SCH (22:58)
[2018-03-05] MEDS: HYDROCODONE/ACETAMINOPHEN 5/325MG TABLET PO PRN (23:00)
[2018-03-06] VITALS: BP 103/64
[2018-03-06 04:00] VITALS: BP 96/58
[2018-03-06] MEDS: CHLORDIAZEPOXIDE 25MG CAPSULE PO SCH ×3 (06:09→21:36)
[2018-03-06] MEDS: PHENYTOIN SODIUM EXTENDED 100MG CAPSULE PO SCH ×3 (06:09→21:37)
[2018-03-06 08:00] VITALS: BP 162/90
[2018-03-06 08:02] LABS: HEMATOCRIT. 31.3 % (42.0-52.0); HEMOGLOBIN. 10.3 g/dL (14.0-18.0); MEAN CORPUSCULAR HEMOGLOBIN 28.1 pg (28.0-32.0); MEAN CORPUSCULAR VOLUME 85.1 fL (80.0-94.0); MEAN PLATELET VOLUME 9.1 fl (7.4-10.4); PLATELET 139 x1000/uL (130-400); RED BLOOD CELL COUNT 3.68 mill/uL (4.7-6.1); RED CELL DISTRIBUTION WIDTH 15.3 % (11.6-14.6)
[2018-03-06 09:22] LABS: CHLORIDE 97 mEq/L (98-107)
[2018-03-06] MEDS: QUETIAPINE FUMARATE 100MG TABLET PO SCH (09:52)
[2018-03-06] MEDS: AMLODIPINE 5MG TABLET PO SCH ×2 (09:53→21:38)
[2018-03-06] MEDS: LEVETIRACETAM 500MG TABLET PO SCH ×2 (09:53→21:36)
[2018-03-06] MEDS: OMEPRAZOLE 20MG CAPSULE EXTENDED RELEASE PO SCH (09:53)
[2018-03-06] MEDS: ONDANSETRON HCL 4MG/2ML INJ IV PRN (09:54)
[2018-03-06] MEDS: MORPHINE SULFATE 4 MG/ML CPJ (NOT FOR IM USE) IV PRN ×2 (09:55→19:55)
[2018-03-06] MEDS: FOLIC ACID 1 MG, THIAMINE HCL 100 MG, MVI, ADULT NO.1 10 ML in DEXTROSE 5% WATER 1,000 ML IV SCH ×4 (11:33)
[2018-03-06 12:00] VITALS: BP 148/79
[2018-03-06] MEDS: LORAZEPAM 2MG/ML CPJ IV PRN (13:49)
[2018-03-06 15:50] LABS: PLATELET ESTIMATE NORMAL
[2018-03-06 16:00] VITALS: BP 136/83
[2018-03-07 00:35] VITALS: BP 128/82
[2018-03-07] MEDS: PHENYTOIN SODIUM EXTENDED 100MG CAPSULE PO SCH ×3 (05:39→21:12)
[2018-03-07] MEDS: CHLORDIAZEPOXIDE 25MG CAPSULE PO SCH ×3 (05:51→21:10)
[2018-03-07 08:00] VITALS: BP 146/71
[2018-03-07] MEDS: QUETIAPINE FUMARATE 100MG TABLET PO SCH (09:09)
[2018-03-07] MEDS: LEVETIRACETAM 500MG TABLET PO SCH ×2 (09:09→21:10)
[2018-03-07] MEDS: FAMOTIDINE 20MG TABLET PO SCH ×2 (09:09→17:00)
[2018-03-07] MEDS: AMLODIPINE 5MG TABLET PO SCH ×2 (09:10→21:11)
[2018-03-07 12:00] VITALS: BP 109/69
[2018-03-07] MEDS: FOLIC ACID 1 MG, THIAMINE HCL 100 MG, MVI, ADULT NO.1 10 ML in DEXTROSE 5% WATER 1,000 ML IV SCH ×4 (12:00)
[2018-03-07 16:00] VITALS: BP 108/75
[2018-03-07 16:41] LABS: HEMATOCRIT. 30.3 % (42.0-52.0); HEMOGLOBIN. 10.2 g/dL (14.0-18.0); MEAN CORPUSCULAR HEMOGLOBIN 28.4 pg (28.0-32.0); MEAN CORPUSCULAR VOLUME 84.5 fL (80.0-94.0); MEAN PLATELET VOLUME 8.5 fl (7.4-10.4); PLATELET 205 x1000/uL (130-400); RED BLOOD CELL COUNT 3.58 mill/uL (4.7-6.1); RED CELL DISTRIBUTION WIDTH 16.2 % (11.6-14.6)
[2018-03-07 16:51] LABS: CHLORIDE 96 mEq/L (98-107)
[2018-03-07 17:03] LABS: PLATELET ESTIMATE NORMAL
[2018-03-07] MEDS ORDERED: PHENYTOIN SODIUM EXTENDED 100MG CAPSULE PO NR (18:30)
[2018-03-08] VITALS: BP 127/83
[2018-03-08 04:00] VITALS: BP 97/60
[2018-03-08] MEDS: PHENYTOIN SODIUM EXTENDED 100MG CAPSULE PO SCH (05:53)
[2018-03-08] MEDS: CHLORDIAZEPOXIDE 25MG CAPSULE PO SCH ×3 (05:53→21:01)
[2018-03-08 08:00] VITALS: BP_SYST 121; BP_SYST 91; BP_DIAS 61; BP_DIAS 75
[2018-03-08] MEDS: LEVETIRACETAM 500MG TABLET PO SCH ×2 (09:02→21:00)
[2018-03-08] MEDS: QUETIAPINE FUMARATE 100MG TABLET PO SCH (09:03)
[2018-03-08] MEDS: AMLODIPINE 5MG TABLET PO SCH ×2 (09:03→21:00)
[2018-03-08] MEDS: FAMOTIDINE 20MG TABLET PO SCH ×2 (09:03→17:15)
[2018-03-08] MEDS: FOLIC ACID 1 MG, THIAMINE HCL 100 MG, MVI, ADULT NO.1 10 ML in DEXTROSE 5% WATER 1,000 ML IV SCH ×4 (09:11)
[2018-03-08] MEDS ORDERED: PHENYTOIN SODIUM 700 MG in SODIUM CHLORIDE 0.9% 100 ML IV NR (09:30)
[2018-03-08] MEDS: LORAZEPAM 2MG/ML CPJ IV PRN ×2 (09:42→21:33)
[2018-03-08] MEDS: HYDROCODONE/ACETAMINOPHEN 5/325MG TABLET PO PRN (09:43)
[2018-03-08 12:00] VITALS: BP 91/61
[2018-03-08 16:00] VITALS: BP 114/70
[2018-03-08 20:00] VITALS: BP 103/69
[2018-03-08] MEDS ORDERED: PHENYTOIN SODIUM EXTENDED 100MG CAPSULE PO SCH (21:00)
[2018-03-09] VITALS: BP 121/80
[2018-03-09 04:00] VITALS: BP 118/82
[2018-03-09] MEDS: CHLORDIAZEPOXIDE 25MG CAPSULE PO SCH ×2 (05:48→12:43)
[2018-03-09] MEDS: FAMOTIDINE 20MG TABLET PO SCH ×2 (07:55→17:00)
[2018-03-09] MEDS: LEVETIRACETAM 500MG TABLET PO SCH ×2 (07:55→20:36)
[2018-03-09] MEDS: QUETIAPINE FUMARATE 100MG TABLET PO SCH (07:55)
[2018-03-09] MEDS: AMLODIPINE 5MG TABLET PO SCH ×2 (07:56→20:35)
[2018-03-09 08:00] VITALS: BP 115/71
[2018-03-09] MEDS: FOLIC ACID 1 MG, THIAMINE HCL 100 MG, MVI, ADULT NO.1 10 ML in DEXTROSE 5% WATER 1,000 ML IV SCH ×4 (10:17)
[2018-03-09 12:00] VITALS: BP 104/71
[2018-03-09 16:00] VITALS: BP 128/89
[2018-03-09 20:00] VITALS: BP 114/77
[2018-03-09] MEDS: HYDROCODONE/ACETAMINOPHEN 5/325MG TABLET PO PRN (23:56)
[2018-03-10] VITALS: BP 111/74
[2018-03-10 04:00] VITALS: BP 115/69
[2018-03-10 08:00] VITALS: BP 111/75
[2018-03-10] MEDS: FAMOTIDINE 20MG TABLET PO SCH ×2 (09:11→17:16)
[2018-03-10] MEDS: QUETIAPINE FUMARATE 100MG TABLET PO SCH (09:11)
[2018-03-10] MEDS: LEVETIRACETAM 500MG TABLET PO SCH ×2 (09:11→21:48)
[2018-03-10] MEDS: AMLODIPINE 5MG TABLET PO SCH ×2 (09:12→21:00)
[2018-03-10] MEDS: FOLIC ACID 1 MG, THIAMINE HCL 100 MG, MVI, ADULT NO.1 10 ML in DEXTROSE 5% WATER 1,000 ML IV SCH ×4 (10:22)
[2018-03-10 12:00] VITALS: BP 128/96
[2018-03-10] MEDS: HYDROCODONE/ACETAMINOPHEN 5/325MG TABLET PO PRN (12:31)
[2018-03-10 16:00] VITALS: BP 93/58
[2018-03-10] MEDS: ONDANSETRON HCL 4MG/2ML INJ IV PRN (21:46)
[2018-03-10] MEDS: PHENYTOIN SODIUM EXTENDED 100MG CAPSULE PO SCH (21:47)
[2018-03-11 00:28] VITALS: BP 132/77
[2018-03-11 04:00] VITALS: BP 111/77
[2018-03-11] MEDS: AMLODIPINE 5MG TABLET PO SCH ×2 (09:00→21:00)
[2018-03-11] MEDS: LEVETIRACETAM 500MG TABLET PO SCH ×2 (09:00→22:32)
[2018-03-11] MEDS: FAMOTIDINE 20MG TABLET PO SCH ×2 (09:00→11:26)
[2018-03-11] MEDS: QUETIAPINE FUMARATE 100MG TABLET PO SCH (09:00)
[2018-03-11 10:29] LABS: BASOPHILS % 0.8 % (0.0-2.0); EOSINOPHILS % 0.7 % (0.0-5.0); HEMATOCRIT. 34.2 % (42.0-52.0); HEMOGLOBIN. 11.1 g/dL (14.0-18.0); LYMPHOCYTES % 21.1 % (20.0-50.0); MEAN CORPUSCULAR HEMOGLOBIN 27.5 pg (28.0-32.0); MEAN CORPUSCULAR VOLUME 84.3 fL (80.0-94.0); MEAN PLATELET VOLUME 7.4 fl (7.4-10.4); MONOCYTES % 9.7 % (2.0-8.0); NEUTROPHILS % 67.7 % (40.0-76.0); PLATELET 422 x1000/uL (130-400); RED BLOOD CELL COUNT 4.05 mill/uL (4.7-6.1); RED CELL DISTRIBUTION WIDTH 15.9 % (11.6-14.6)
[2018-03-11 10:40] LABS: CHLORIDE 96 mEq/L (98-107)
[2018-03-11 12:00] VITALS: BP 115/77
[2018-03-11 16:00] VITALS: BP 104/60
[2018-03-11] MEDS: HYDROCODONE/ACETAMINOPHEN 10/325MG TABLET PO PRN (19:05)
[2018-03-11 21:20] VITALS: BP 99/62
[2018-03-11] MEDS: PHENYTOIN SODIUM EXTENDED 100MG CAPSULE PO SCH (22:32)
[2018-03-12] VITALS: BP 92/58
[2018-03-12 04:00] VITALS: BP 134/90
[2018-03-12 08:00] VITALS: BP 152/100
[2018-03-12] MEDS: QUETIAPINE FUMARATE 100MG TABLET PO SCH (08:30)
[2018-03-12] MEDS: AMLODIPINE 5MG TABLET PO SCH ×2 (08:31→21:00)
[2018-03-12] MEDS: LEVETIRACETAM 500MG TABLET PO SCH ×2 (08:31→22:20)
[2018-03-12] MEDS: FAMOTIDINE 20MG TABLET PO SCH ×2 (08:31→16:30)
[2018-03-12 12:00] VITALS: BP 100/65
[2018-03-12 16:00] VITALS: BP 116/76
[2018-03-12] MEDS: ONDANSETRON HCL 4MG/2ML INJ IV PRN (16:28)
[2018-03-12] MEDS: HYDROCODONE/ACETAMINOPHEN 10/325MG TABLET PO PRN (16:30)
[2018-03-12 20:00] VITALS: BP 99/65
[2018-03-12] MEDS: PHENYTOIN SODIUM EXTENDED 100MG CAPSULE PO SCH (22:20)
[2018-03-13] VITALS (7 sets, daily range): BP systolic 99–121; BP diastolic 54–99
[2018-03-13] MEDS: HYDROCODONE/ACETAMINOPHEN 10/325MG TABLET PO PRN ×4 (00:49→20:10)
[2018-03-13] MEDS: LEVETIRACETAM 500MG TABLET PO SCH ×2 (09:58→20:09)
[2018-03-13] MEDS: FAMOTIDINE 20MG TABLET PO SCH ×2 (09:58→17:00)
[2018-03-13] MEDS: QUETIAPINE FUMARATE 100MG TABLET PO SCH (09:58)
[2018-03-13] MEDS: AMLODIPINE 5MG TABLET PO SCH ×2 (09:58→20:09)
[2018-03-13] MEDS: PHENYTOIN SODIUM EXTENDED 100MG CAPSULE PO SCH (20:09)
[2018-03-14] VITALS: BP 107/78
[2018-03-14] MEDS: ONDANSETRON HCL 4MG/2ML INJ IV PRN (00:38)
[2018-03-14] MEDS: HYDROCODONE/ACETAMINOPHEN 10/325MG TABLET PO PRN ×3 (01:39→18:04)
[2018-03-14 04:00] VITALS: BP 117/81
[2018-03-14 08:00] VITALS: BP 128/93
[2018-03-14] MEDS: AMLODIPINE 5MG TABLET PO SCH ×2 (08:39→20:42)
[2018-03-14] MEDS: QUETIAPINE FUMARATE 100MG TABLET PO SCH (08:40)
[2018-03-14] MEDS: FAMOTIDINE 20MG TABLET PO SCH ×2 (08:41→17:36)
[2018-03-14] MEDS: LEVETIRACETAM 500MG TABLET PO SCH ×2 (08:41→20:43)
[2018-03-14] MEDS ORDERED: HALOPERIDOL 2MG TABLET PO PRN (11:45)
[2018-03-14 12:00] VITALS: BP 103/78
[2018-03-14 16:00] VITALS: BP 105/68
[2018-03-14 20:00] VITALS: BP 108/71
[2018-03-14] MEDS: PHENYTOIN SODIUM EXTENDED 100MG CAPSULE PO SCH (20:43)
[2018-03-15] VITALS: BP_SYST 104; BP_SYST 92; BP_DIAS 53; BP_DIAS 67
[2018-03-15 04:00] VITALS: BP 115/59
[2018-03-15] MEDS: HYDROCODONE/ACETAMINOPHEN 10/325MG TABLET PO PRN (05:00)
[2018-03-15 08:00] VITALS: BP 114/75
[2018-03-15] MEDS: LEVETIRACETAM 500MG TABLET PO SCH (08:45)
[2018-03-15] MEDS: QUETIAPINE FUMARATE 100MG TABLET PO SCH (08:46)
[2018-03-15] MEDS: AMLODIPINE 5MG TABLET PO SCH (08:50)
[2018-03-15] MEDS: FAMOTIDINE 20MG TABLET PO SCH (08:51)
[2018-03-15 10:39] VITALS: BP 111/71
[2018-03-15 12:00] VITALS: BP 102/70
== END 2018-03-15 15:46 | disposition home or self-care (01) | DRG 241 ==
LOC: ER 18:32 → 7WST 21:36 → ENRESERV 03-04 07:33
PROVIDERS: ADMIT Internal Medicine; ATTEND Internal Medicine
PROC: 02HV33Z Insertion of Infusion Device into Superior Vena Cava, Percutaneous Approach (ICD-10-PCS; 2018-03-04)
PROC: B5181ZA Fluoroscopy of Superior Vena Cava using Low Osmolar Contrast, Guidance (ICD-10-PCS; 2018-03-04)
PROC: B548ZZA Ultrasonography of Superior Vena Cava, Guidance (ICD-10-PCS; 2018-03-04)
PROC: 4A00X4Z Measurement of Central Nervous Electrical Activity, External Approach (ICD-10-PCS; principal; 2018-03-06)
DX: K29.70 Gastritis, unspecified, without bleeding (principal); D69.6 Thrombocytopenia, unspecified; E44.0 Moderate protein-calorie malnutrition; G40.409 Other generalized epilepsy and epileptic syndromes, not intractable, without status epilepticus; F20.9 Schizophrenia, unspecified; D64.9 Anemia, unspecified; E11.9 Type 2 diabetes mellitus without complications; E78.00 Pure hypercholesterolemia, unspecified; E87.6 Hypokalemia; F10.10 Alcohol abuse, uncomplicated; Y90.0 Blood alcohol level of less than 20 mg/100 ml; G31.9 Degenerative disease of nervous system, unspecified; I10 Essential (primary) hypertension; S62.307A Unspecified fracture of fifth metacarpal bone, left hand, initial encounter for closed fracture; J45.909 Unspecified asthma, uncomplicated; M10.9 Gout, unspecified; M79.641 Pain in right hand; Z91.14 Patient's other noncompliance with medication regimen; Z91.19 Patient's noncompliance with other medical treatment and regimen; Z68.25 Body mass index [BMI] 25.0-25.9, adult; Z91.018 Allergy to other foods; Z86.11 Personal history of tuberculosis; Z79.899 Other long term (current) drug therapy; W18.39XA Other fall on same level, initial encounter; Y93.89 Activity, other specified; Y92.89 Other specified places as the place of occurrence of the external cause; Y99.8 Other external cause status
CPT/HCPCS: 36415; 36569; 70551; 73110; 73120; 73130; 73560; 76937; 77001; 80048; 80185; 80305; 82140; 82962; 93005; 96361; 96365; 96375; 97162; 97166; 97530; 97535; 99285; A6261; C1725; G0482; J1165; J1953; J2060; J2270; J2405; J3411; J3490; J7030; J7050; J7070

== ENCOUNTER 2018-04-23 15:30 | Emergency (ER) | payer MEDICAID ==
[~2018-04-23] VITALS: Ht 170.2 cm; Wt 91.0 kg
[2018-04-23] MEDS: SODIUM CHLORIDE 0.9% 1,000 ML IV ONE (21:11)
[2018-04-23] MEDS: ONDANSETRON HCL 4MG/2ML INJ IV STA (21:12)
[2018-04-23] MEDS: FAMOTIDINE 20MG/2ML VIAL IV STA (21:12)
[2018-04-23] MEDS: KETOROLAC 30MG/ML VIAL IV STA (21:12)
[2018-04-23 21:55] LABS: CLARITY URINE CLEAR (CLEAR); COLOR URINE YELLOW (YELLOW); KETONES URINE 1+ (NEGATIVE); LEUKOCYTE ESTERASE URINE NEGATIVE (NEGATIVE); NITRITE URINE NEGATIVE (NEGATIVE); OCCULT BLOOD URINE TRACE (NEGATIVE); PROTEIN URINE 3+ (NEGATIVE); SPECIFIC GRAVITY URINE 1.022 (1.005-1.030)
[2018-04-23 21:57] LABS: BASOPHILS % 0.7 % (0.0-2.0); HEMATOCRIT. 42.7 % (42.0-52.0); HEMOGLOBIN. 14.1 g/dL (14.0-18.0); LYMPHOCYTES % 19.8 % (20.0-50.0); MEAN CORPUSCULAR HEMOGLOBIN 27.7 pg (28.0-32.0); MEAN PLATELET VOLUME 8.6 fl (7.4-10.4); NEUTROPHILS % 69.5 % (40.0-76.0); PLATELET 136 x1000/uL (130-400); RED BLOOD CELL COUNT 5.08 mill/uL (4.7-6.1); RED CELL DISTRIBUTION WIDTH 17.1 % (11.6-14.6)
[2018-04-23 22:00] LABS: CHLORIDE 97 mEq/L (98-107)
[2018-04-23 22:02] LABS: INR 1.1; PROTHROMBIN TIME 10.7 sec (9.1-11.1)
[2018-04-23 22:05] LABS: *AMPHETAMINES SCREEN URINE NEGATIVE (NEGATIVE); *BARBITURATES SCREEN URINE NEGATIVE (NEGATIVE); *BENZODIAZEPINES SCREEN URINE PRESUMTIVE POSITIVE (NEGATIVE); *COCAINE SCREEN URINE NEGATIVE (NEGATIVE)
[2018-04-23 22:06] LABS: ETHANOL BLOOD < 10 mg/dL
[2018-04-23 22:06] LABS: CANNABINOID URINE SCREEN NEGATIVE (NEGATIVE); METHADONE URINE SCREEN NEGATIVE (NEGATIVE); OPIATES URINE SCREEN NEGATIVE (NEGATIVE); PHENCYCLIDINE URINE SCREEN NEGATIVE (NEGATIVE)
[2018-04-24] MEDS: LEVETIRACETAM 500MG TABLET PO ONE (00:02)
[2018-04-24 00:08] VITALS: BP 141/89
== END 2018-04-24 00:53 | disposition home or self-care (01) ==
LOC: ER 15:30
DX: R10.13 Epigastric pain (principal); R11.2 Nausea with vomiting, unspecified; F10.10 Alcohol abuse, uncomplicated; J45.909 Unspecified asthma, uncomplicated; E11.9 Type 2 diabetes mellitus without complications; I10 Essential (primary) hypertension; R56.9 Unspecified convulsions; Z79.899 Other long term (current) drug therapy; Y90.0 Blood alcohol level of less than 20 mg/100 ml
CPT/HCPCS: 36415; 80053; 80185; 80305; 81003; 83690; 85025; 85610; 96361; 96374; 96375; 99283; G0482; J1885; J2405; J3490; J7030

== ENCOUNTER 2018-04-24 05:26 | Emergency (ER) | payer MEDICAID ==
[~2018-04-24] VITALS: Ht 167.6 cm; Wt 73.0 kg
[2018-04-24] MEDS ORDERED: ONDANSETRON 4MG ODT PO ONE (06:30)
[2018-04-24 06:52] VITALS: BP 124/75
== END 2018-04-24 06:53 | disposition home or self-care (01) ==
LOC: ER 05:26
DX: R11.0 Nausea (principal); E11.9 Type 2 diabetes mellitus without complications; J45.909 Unspecified asthma, uncomplicated; I10 Essential (primary) hypertension; Z79.899 Other long term (current) drug therapy
CPT/HCPCS: 99283; Q0162

== ENCOUNTER 2018-05-06 06:34 | Emergency (ER) | payer MEDICAID ==
[~2018-05-06] VITALS: Ht 167.6 cm; Wt 100.0 kg
[2018-05-06] MEDS ORDERED: SODIUM CHLORIDE 0.9% 1,000 ML IV ONE (09:48)
[2018-05-06] MEDS ORDERED: MORPHINE SULFATE 4 MG/ML CPJ (NOT FOR IM USE) IV STA (09:48)
[2018-05-06] MEDS ORDERED: FAMOTIDINE 20MG/2ML VIAL IV STA (09:48)
[2018-05-06] MEDS ORDERED: ONDANSETRON HCL 4MG/2ML INJ IV STA (09:48)
[2018-05-06 11:05] LABS: CLARITY URINE CLEAR (CLEAR); COLOR URINE YELLOW (YELLOW); KETONES URINE 1+ (NEGATIVE); LEUKOCYTE ESTERASE URINE NEGATIVE (NEGATIVE); NITRITE URINE NEGATIVE (NEGATIVE); OCCULT BLOOD URINE 1+ (NEGATIVE); PH URINE 6.5 (4.5-8.0); PROTEIN URINE 3+ (NEGATIVE); SPECIFIC GRAVITY URINE 1.021 (1.005-1.030)
[2018-05-06 11:44] LABS: *AMPHETAMINES SCREEN URINE NEGATIVE (NEGATIVE); *BARBITURATES SCREEN URINE NEGATIVE (NEGATIVE); *BENZODIAZEPINES SCREEN URINE NEGATIVE (NEGATIVE); *COCAINE SCREEN URINE NEGATIVE (NEGATIVE)
[2018-05-06 11:45] LABS: CANNABINOID URINE SCREEN NEGATIVE (NEGATIVE); METHADONE URINE SCREEN NEGATIVE (NEGATIVE); OPIATES URINE SCREEN NEGATIVE (NEGATIVE); PHENCYCLIDINE URINE SCREEN NEGATIVE (NEGATIVE)
[2018-05-06 12:48] LABS: BASOPHILS % 0.9 % (0.0-2.0); CHLORIDE 100 mEq/L (98-107); EOSINOPHILS % 0.1 % (0.0-5.0); HEMATOCRIT. 38.5 % (42.0-52.0); HEMOGLOBIN. 12.9 g/dL (14.0-18.0); LYMPHOCYTES % 19.7 % (20.0-50.0); MEAN CORPUSCULAR HEMOGLOBIN 27.8 pg (28.0-32.0); MEAN CORPUSCULAR VOLUME 83.1 fL (80.0-94.0); MEAN PLATELET VOLUME 8.2 fl (7.4-10.4); MONOCYTES % 10.4 % (2.0-8.0); NEUTROPHILS % 68.9 % (40.0-76.0); RED BLOOD CELL COUNT 4.64 mill/uL (4.7-6.1); RED CELL DISTRIBUTION WIDTH 16.9 % (11.6-14.6)
[2018-05-06 12:49] LABS: INR 1.1; PROTHROMBIN TIME 10.7 sec (9.1-11.1)
[2018-05-06 12:50] LABS: PLATELET 121 x1000/uL (130-400)
[2018-05-06 12:52] LABS: ETHANOL BLOOD 10 mg/dL
[2018-05-06] MEDS ORDERED: FENTANYL CITRATE/PF 50MCG/ML 2ML VIAL IV ONE (16:00)
[2018-05-06] MEDS ORDERED: PIPERACILLIN/TAZ 3.375G PREMIX 50 ML IV ONE (16:00)
[2018-05-06] MEDS ORDERED: IOHEXOL-300 100 ML BOTTLE ONE (18:59)
[2018-05-06 19:55] VITALS: BP 142/89
== END 2018-05-06 19:58 | disposition home or self-care (01) ==
LOC: ER 06:34 → CANBEDREQ 21:18
DX: S02.609A Fracture of mandible, unspecified, initial encounter for closed fracture (principal); R10.817 Generalized abdominal tenderness; R10.13 Epigastric pain; J45.909 Unspecified asthma, uncomplicated; E11.9 Type 2 diabetes mellitus without complications; I10 Essential (primary) hypertension; R19.7 Diarrhea, unspecified; R11.10 Vomiting, unspecified; Z79.899 Other long term (current) drug therapy; X58.XXXA Exposure to other specified factors, initial encounter; Y93.89 Activity, other specified; Y92.89 Other specified places as the place of occurrence of the external cause; Y99.8 Other external cause status
CPT/HCPCS: 36415; 70486; 71045; 74177; 80053; 80305; 81003; 83605; 83690; 85025; 85610; 93005; 96361; 96365; 96375; 99284; G0482; J2270; J2405; J2543; J3010; J3490; J7030; Q9967

== ENCOUNTER 2018-05-17 18:20 | Inpatient (IN) | payer MEDICAID ==
[~2018-05-17] VITALS: Ht 175.3 cm; Wt 99.8 kg
[2018-05-17] MEDS ORDERED: ACETAMINOPHEN 325MG TABLET PO STA (19:27)
[2018-05-17] MEDS ORDERED: SODIUM CHLORIDE 0.9% 1,000 ML IV ONE (19:27)
[2018-05-17 21:59] LABS: BASOPHILS % 0.9 % (0.0-2.0); EOSINOPHILS % 0.1 % (0.0-5.0); HEMATOCRIT. 38.6 % (42.0-52.0); HEMOGLOBIN. 12.6 g/dL (14.0-18.0); LYMPHOCYTES % 45.9 % (20.0-50.0); MEAN CORPUSCULAR HEMOGLOBIN 27.6 pg (28.0-32.0); MEAN CORPUSCULAR VOLUME 84.7 fL (80.0-94.0); MEAN PLATELET VOLUME 7.3 fl (7.4-10.4); MONOCYTES % 11.5 % (2.0-8.0); NEUTROPHILS % 41.6 % (40.0-76.0); PLATELET 135 x1000/uL (130-400); RED BLOOD CELL COUNT 4.55 mill/uL (4.7-6.1); RED CELL DISTRIBUTION WIDTH 15.9 % (11.6-14.6)
[2018-05-17 22:00] LABS: CLARITY URINE CLEAR (CLEAR); COLOR URINE YELLOW (YELLOW); KETONES URINE NEGATIVE (NEGATIVE); LEUKOCYTE ESTERASE URINE NEGATIVE (NEGATIVE); NITRITE URINE NEGATIVE (NEGATIVE); OCCULT BLOOD URINE TRACE (NEGATIVE); PROTEIN URINE 1+ (NEGATIVE); SPECIFIC GRAVITY URINE 1.003 (1.005-1.030); UROBILINOGEN URINE 0.2 E.U./dL (0.2-1.0)
[2018-05-17 22:04] LABS: CHLORIDE 103 mEq/L (98-107)
[2018-05-17 22:06] LABS: PROTHROMBIN TIME 9.7 sec (9.1-11.1)
[2018-05-17] MEDS ORDERED: MORPHINE SULFATE 4 MG/ML CPJ (NOT FOR IM USE) IV ONE (22:30)
[2018-05-17 23:06] LABS: *COCAINE SCREEN URINE NEGATIVE (NEGATIVE)
[2018-05-17 23:07] LABS: *AMPHETAMINES SCREEN URINE NEGATIVE (NEGATIVE); *BARBITURATES SCREEN URINE NEGATIVE (NEGATIVE); CANNABINOID URINE SCREEN NEGATIVE (NEGATIVE); METHADONE URINE SCREEN NEGATIVE (NEGATIVE); OPIATES URINE SCREEN NEGATIVE (NEGATIVE); PHENCYCLIDINE URINE SCREEN NEGATIVE (NEGATIVE)
[2018-05-17 23:08] LABS: *BENZODIAZEPINES SCREEN URINE NEGATIVE (NEGATIVE)
[2018-05-18 03:15] VITALS: BP 128/78
[2018-05-18 04:00] VITALS: BP_SYST 116; BP_SYST 124; BP_DIAS 79; BP_DIAS 80
[2018-05-18] MEDS: DEXT 5%/0.45% NACL 1000ML 1,000 ML IV SCH (04:30)
[2018-05-18] MEDS: ONDANSETRON HCL 4MG/2ML INJ IV PRN ×3 (04:52→16:52)
[2018-05-18] MEDS: MORPHINE SULFATE 4 MG/ML CPJ (NOT FOR IM USE) IV PRN ×4 (04:53→16:53)
[2018-05-18] MEDS ORDERED: FOLIC ACID 1 MG, MVI, ADULT NO.1 10 ML in DEXTROSE 5% WATER 1,000 ML IV SCH ×3 (05:00)
[2018-05-18 08:00] VITALS: BP 128/84
[2018-05-18] MEDS ORDERED: PANTOPRAZOLE SODIUM 40 MG/VIAL IV SCH (09:00)
[2018-05-18] MEDS ORDERED: QUETIAPINE FUMARATE 100MG TABLET PO SCH ×2 (09:45→21:00)
[2018-05-18 09:58] LABS: HEMOGLOBIN. 12.1 g/dL (14.0-18.0); MEAN CORPUSCULAR HEMOGLOBIN 27.7 pg (28.0-32.0); MEAN PLATELET VOLUME 7.7 fl (7.4-10.4); PLATELET 115 x1000/uL (130-400); RED BLOOD CELL COUNT 4.35 mill/uL (4.7-6.1); RED CELL DISTRIBUTION WIDTH 15.8 % (11.6-14.6)
[2018-05-18] MEDS: ALLOPURINOL 100 MG TABLET PO SCH (10:18)
[2018-05-18] MEDS: LEVETIRACETAM 500MG TABLET PO SCH ×2 (10:18→18:03)
[2018-05-18 10:25] LABS: CHLORIDE 103 mEq/L (98-107)
[2018-05-18 10:30] LABS: PLATELET ESTIMATE SLIGHTLY DECREASED
[2018-05-18 10:35] LABS: LDL CHOLESTEROL 75 mg/dL (5-100)
[2018-05-18 10:39] LABS: HDL CHOLESTEROL 144 mg/dL (40-59)
[2018-05-18 12:00] VITALS: BP 132/85
[2018-05-18] MEDS: GABAPENTIN 300MG CAPSULE PO SCH ×3 (12:31→18:03)
[2018-05-18] MEDS: PHENYTOIN SODIUM EXTENDED 100MG CAPSULE PO SCH ×2 (13:38→21:05)
[2018-05-18] MEDS: CHLORDIAZEPOXIDE 25MG CAPSULE PO SCH ×2 (13:38→21:05)
[2018-05-18] MEDS ORDERED: LIDOCAINE HCL 1% 20ML VIAL (Pyxis) INJ ONE (15:00)
[2018-05-18] MEDS ORDERED: SODIUM BICARBONATE 4% (2.4MEQ) 5ML VIAL IV ONE (15:00)
[2018-05-18 16:00] VITALS: BP 113/71
[2018-05-18] MEDS: CARISOPRODOL 350 MG TABLET PO SCH (18:03)
[2018-05-18 20:00] VITALS: BP 132/86
[2018-05-18] MEDS: ENOXAPARIN 30MG/0.3ML SYR SUBCUT SCH (20:07)
[2018-05-18] MEDS ORDERED: ATORVASTATIN CALCIUM 20MG TABLET PO SCH (21:00)
[2018-05-19] VITALS: BP 105/62
[2018-05-19] MEDS: DEXT 5%/0.45% NACL 1000ML 1,000 ML IV SCH ×2 (01:02→12:09)
[2018-05-19 04:00] VITALS: BP 143/68
[2018-05-19] MEDS: PHENYTOIN SODIUM EXTENDED 100MG CAPSULE PO SCH ×2 (05:53→13:19)
[2018-05-19] MEDS: CHLORDIAZEPOXIDE 25MG CAPSULE PO SCH ×2 (05:53→13:19)
[2018-05-19] MEDS ORDERED: FOLIC ACID 1 MG, MVI, ADULT NO.1 10 ML in DEXTROSE 5% WATER 1,000 ML IV SCH ×3 (06:00)
[2018-05-19] MEDS ORDERED: OMEPRAZOLE 20MG CAPSULE EXTENDED RELEASE PO SCH (07:20)
[2018-05-19 08:00] VITALS: BP 106/67
[2018-05-19 08:10] LABS: CHLORIDE 98 mEq/L (98-107)
[2018-05-19] MEDS ORDERED: FOLIC ACID 1MG TABLET PO SCH (09:00)
[2018-05-19] MEDS ORDERED: THIAMINE HCL 100MG TABLET PO SCH (09:00)
[2018-05-19] MEDS: GABAPENTIN 300MG CAPSULE PO SCH ×3 (09:18→17:00)
[2018-05-19] MEDS: ENOXAPARIN 30MG/0.3ML SYR SUBCUT SCH (09:18)
[2018-05-19] MEDS: ALLOPURINOL 100 MG TABLET PO SCH (09:18)
[2018-05-19] MEDS: CARISOPRODOL 350 MG TABLET PO SCH ×2 (09:19→17:00)
[2018-05-19] MEDS: LEVETIRACETAM 500MG TABLET PO SCH ×2 (09:19→17:00)
[2018-05-19 10:37] LABS: BASOPHILS % 0.6 % (0.0-2.0); EOSINOPHILS % 0.3 % (0.0-5.0); HEMATOCRIT. 40.5 % (42.0-52.0); LYMPHOCYTES % 21.7 % (20.0-50.0); MEAN CORPUSCULAR HEMOGLOBIN 27.7 pg (28.0-32.0); MEAN CORPUSCULAR VOLUME 86.3 fL (80.0-94.0); MEAN PLATELET VOLUME 8.4 fl (7.4-10.4); MONOCYTES % 13.8 % (2.0-8.0); NEUTROPHILS % 63.6 % (40.0-76.0); PLATELET 81 x1000/uL (130-400); RED BLOOD CELL COUNT 4.69 mill/uL (4.7-6.1); RED CELL DISTRIBUTION WIDTH 15.8 % (11.6-14.6)
[2018-05-19] MEDS: MORPHINE SULFATE 4 MG/ML CPJ (NOT FOR IM USE) IV PRN (11:57)
[2018-05-19] MEDS: ONDANSETRON HCL 4MG/2ML INJ IV PRN (11:58)
[2018-05-19 12:00] VITALS: BP 121/74
[2018-05-19 16:00] VITALS: BP 120/60
[2018-05-19 16:26] VITALS: BP 121/74
== END 2018-05-19 17:40 | disposition home or self-care (01) | DRG 282 ==
LOC: ER 18:20 → 6EST 22:29 → ENRESERV 05-18 01:47
PROVIDERS: ADMIT Internal Medicine; ATTEND Internal Medicine
PROC: B548ZZA Ultrasonography of Superior Vena Cava, Guidance (ICD-10-PCS; principal; 2018-05-18)
PROC: B548ZZA Ultrasonography of Superior Vena Cava, Guidance (ICD-10-PCS; 2018-05-18)
PROC: 02HV33Z Insertion of Infusion Device into Superior Vena Cava, Percutaneous Approach (ICD-10-PCS; 2018-05-18)
DX: K85.20 Alcohol induced acute pancreatitis without necrosis or infection (principal); D61.818 Other pancytopenia; E44.1 Mild protein-calorie malnutrition; F20.9 Schizophrenia, unspecified; E66.9 Obesity, unspecified; E78.5 Hyperlipidemia, unspecified; F10.10 Alcohol abuse, uncomplicated; F44.5 Conversion disorder with seizures or convulsions; G89.29 Other chronic pain; I10 Essential (primary) hypertension; J45.909 Unspecified asthma, uncomplicated; Y90.8 Blood alcohol level of 240 mg/100 ml or more; M10.9 Gout, unspecified; M19.90 Unspecified osteoarthritis, unspecified site; Z79.899 Other long term (current) drug therapy; Z82.49 Family history of ischemic heart disease and other diseases of the circulatory system; Z79.1 Long term (current) use of non-steroidal anti-inflammatories (NSAID); Z68.32 Body mass index [BMI] 32.0-32.9, adult
CPT/HCPCS: 36415; 36569; 76937; 77001; 80048; 80061; 80305; 96361; 96365; 96375; 97162; 99285; C1725; C1893; C9113; G0482; J1650; J2270; J2405; J3490; J7030; J7070

== ENCOUNTER 2018-05-20 07:17 | Emergency (ER) | payer MEDICAID ==
[~2018-05-20] VITALS: Ht 172.7 cm; Wt 82.0 kg
[2018-05-20 07:21] VITALS: BP 134/80
== END 2018-05-20 09:01 | disposition left against medical advice (07) ==
LOC: ER 07:35
DX: R11.2 Nausea with vomiting, unspecified (principal); Z53.21 Procedure and treatment not carried out due to patient leaving prior to being seen by health care provider

== ENCOUNTER 2018-06-03 20:01 | Inpatient (IN) | payer MEDICAID ==
[~2018-06-03] VITALS: Ht 170.2 cm; Wt 82.1 kg
[~2018-06-03 20:01] MED LIST changes: -[UNRECOGNIZED DRUG - OTHER]
[2018-06-03] MEDS ORDERED: KETOROLAC 30MG/ML VIAL IV STA (20:29)
[2018-06-03] MEDS ORDERED: SODIUM CHLORIDE 0.9% 1,000 ML IV ONE (20:29)
[2018-06-03 21:49] LABS: CLARITY URINE CLEAR (CLEAR); COLOR URINE YELLOW (YELLOW); KETONES URINE NEGATIVE (NEGATIVE); LEUKOCYTE ESTERASE URINE NEGATIVE (NEGATIVE); NITRITE URINE NEGATIVE (NEGATIVE); OCCULT BLOOD URINE NEGATIVE (NEGATIVE); PROTEIN URINE 1+ (NEGATIVE); SPECIFIC GRAVITY URINE 1.004 (1.005-1.030); UROBILINOGEN URINE 0.2 E.U./dL (0.2-1.0)
[2018-06-03 22:12] LABS: *BENZODIAZEPINES SCREEN URINE NEGATIVE (NEGATIVE); *COCAINE SCREEN URINE NEGATIVE (NEGATIVE)
[2018-06-03 22:13] LABS: *BARBITURATES SCREEN URINE NEGATIVE (NEGATIVE); CANNABINOID URINE SCREEN NEGATIVE (NEGATIVE); METHADONE URINE SCREEN NEGATIVE (NEGATIVE); OPIATES URINE SCREEN NEGATIVE (NEGATIVE); PHENCYCLIDINE URINE SCREEN NEGATIVE (NEGATIVE)
[2018-06-03 22:14] LABS: *AMPHETAMINES SCREEN URINE NEGATIVE (NEGATIVE)
[2018-06-04 00:01] LABS: BASOPHILS % 0.9 % (0.0-2.0); EOSINOPHILS % 0.2 % (0.0-5.0); HEMATOCRIT. 37.5 % (42.0-52.0); HEMOGLOBIN. 12.2 g/dL (14.0-18.0); LYMPHOCYTES % 51.9 % (20.0-50.0); MEAN CORPUSCULAR HEMOGLOBIN 27.6 pg (28.0-32.0); MEAN CORPUSCULAR VOLUME 84.7 fL (80.0-94.0); MONOCYTES % 10.8 % (2.0-8.0); NEUTROPHILS % 36.2 % (40.0-76.0); PLATELET 129 x1000/uL (130-400); RED BLOOD CELL COUNT 4.42 mill/uL (4.7-6.1); RED CELL DISTRIBUTION WIDTH 15.8 % (11.6-14.6)
[2018-06-04 00:08] LABS: CHLORIDE 102 mEq/L (98-107)
[2018-06-04] MEDS ORDERED: LEVETIRACETAM 500MG TABLET PO ONE (00:45)
[2018-06-04 00:47] LABS: ETHANOL BLOOD 302 mg/dL
[2018-06-04] MEDS ORDERED: PHENYTOIN SODIUM EXTENDED 100MG CAPSULE PO ONE (01:00)
[2018-06-04 03:41] VITALS: BP 130/82
[2018-06-04 04:00] VITALS: BP 130/82
[2018-06-04] MEDS ORDERED: IPRATROPIUM/ALBUTEROL 0.5-3(2.5)MG/3ML NEB HHN PRN (06:45)
[2018-06-04] MEDS ORDERED: PHENYTOIN SODIUM EXTENDED 100MG CAPSULE PO SCH (07:00)
[2018-06-04] MEDS: HYDROMORPHONE HCL/PF 2MG/ML CPJ IV PRN ×4 (07:01→21:09)
[2018-06-04] MEDS: SODIUM CHLORIDE 0.9% 1,000 ML IV SCH ×2 (07:07→16:55)
[2018-06-04] MEDS: ONDANSETRON HCL 4MG/2ML INJ IV PRN ×3 (07:07→22:56)
[2018-06-04 08:00] VITALS: BP_SYST 113; BP_SYST 128; BP_DIAS 64; BP_DIAS 66
[2018-06-04] MEDS: CARISOPRODOL 350 MG TABLET PO SCH ×2 (08:54→16:55)
[2018-06-04] MEDS: OMEPRAZOLE 20MG CAPSULE EXTENDED RELEASE PO SCH (08:54)
[2018-06-04] MEDS: ENOXAPARIN 40MG/0.4ML SYR SUBCUT SCH (08:54)
[2018-06-04] MEDS: GABAPENTIN 300MG CAPSULE PO SCH ×3 (08:54→16:55)
[2018-06-04] MEDS: LEVETIRACETAM 500MG TABLET PO SCH ×2 (08:54→16:55)
[2018-06-04] MEDS: FOLIC ACID 1MG TABLET PO SCH (08:54)
[2018-06-04] MEDS: ALLOPURINOL 100 MG TABLET PO SCH (08:55)
[2018-06-04] MEDS: MAGNESIUM OXIDE 400MG TABLET PO SCH ×2 (08:55→16:55)
[2018-06-04] MEDS ORDERED: MEDICATION NOT ON FORMULARY EA (Folic Acid 1 TAB) PO SCH (09:00)
[2018-06-04] MEDS ORDERED: MEDICATION NOT ON FORMULARY EA (Gabapentin 300 MG) PO SCH (09:00)
[2018-06-04] MEDS ORDERED: MEDICATION NOT ON FORMULARY EA (Carisoprodol 350 MG) PO SCH (09:00)
[2018-06-04] MEDS ORDERED: FOLIC ACID 1 MG, THIAMINE HCL 100 MG, MVI, ADULT NO.1 10 ML in DEXTROSE 5% WATER 1,000 ML IV SCH ×4 (09:00)
[2018-06-04] MEDS ORDERED: MEDICATION NOT ON FORMULARY EA (Quetiapine Fumarate (Seroquel) 300 MG) PO SCH (09:00)
[2018-06-04] MEDS ORDERED: MAGNESIUM OXIDE PO SCH (09:00)
[2018-06-04] MEDS ORDERED: MEDICATION NOT ON FORMULARY EA (Allopurinol 100 MG) PO SCH (09:00)
[2018-06-04] MEDS: FOLIC ACID 1 MG, MVI, ADULT NO.1 10 ML in DEXTROSE 5% WATER 1,000 ML IV SCH ×3 (09:49)
[2018-06-04 12:00] VITALS: BP_SYST 109; BP_SYST 126; BP_DIAS 62; BP_DIAS 68
[2018-06-04 13:24] LABS: BASOPHILS % 0.6 % (0.0-2.0); EOSINOPHILS % 0.4 % (0.0-5.0); HEMATOCRIT. 36.2 % (42.0-52.0); HEMOGLOBIN. 11.8 g/dL (14.0-18.0); LYMPHOCYTES % 37.6 % (20.0-50.0); MEAN CORPUSCULAR HEMOGLOBIN 27.8 pg (28.0-32.0); MEAN CORPUSCULAR VOLUME 85.3 fL (80.0-94.0); NEUTROPHILS % 50.4 % (40.0-76.0); PLATELET 106 x1000/uL (130-400); RED BLOOD CELL COUNT 4.24 mill/uL (4.7-6.1); RED CELL DISTRIBUTION WIDTH 15.7 % (11.6-14.6)
[2018-06-04 13:42] LABS: CHLORIDE 104 mEq/L (98-107)
[2018-06-04 13:51] LABS: AMYLASE 182 IU/L (25-115)
[2018-06-04] MEDS: PHENYTOIN SODIUM EXTENDED 100MG CAPSULE PO SCH ×2 (14:30→21:09)
[2018-06-04 16:00] VITALS: BP_SYST 126; BP_DIAS 70; BP_DIAS 83
[2018-06-04 20:00] VITALS: BP 116/63
[2018-06-04] MEDS: ATORVASTATIN CALCIUM 20MG TABLET PO SCH (21:09)
[2018-06-04] MEDS: QUETIAPINE FUMARATE 100MG TABLET PO SCH (21:09)
[2018-06-05] VITALS: BP_SYST 110; BP_SYST 120; BP_DIAS 69; BP_DIAS 75
[2018-06-05] MEDS: SODIUM CHLORIDE 0.9% 1,000 ML IV SCH ×3 (02:46→22:45)
[2018-06-05 04:00] VITALS: BP 101/53
[2018-06-05] MEDS: PHENYTOIN SODIUM EXTENDED 100MG CAPSULE PO SCH ×3 (06:21→22:14)
[2018-06-05] MEDS: OMEPRAZOLE 20MG CAPSULE EXTENDED RELEASE PO SCH (06:21)
[2018-06-05] MEDS: FOLIC ACID 1MG TABLET PO SCH (08:43)
[2018-06-05] MEDS: GABAPENTIN 300MG CAPSULE PO SCH ×3 (08:43→17:41)
[2018-06-05] MEDS: ALLOPURINOL 100 MG TABLET PO SCH (08:43)
[2018-06-05] MEDS: MAGNESIUM OXIDE 400MG TABLET PO SCH ×2 (08:43→17:40)
[2018-06-05] MEDS: LEVETIRACETAM 500MG TABLET PO SCH ×2 (08:43→17:41)
[2018-06-05] MEDS: CARISOPRODOL 350 MG TABLET PO SCH ×2 (08:43→17:40)
[2018-06-05] MEDS: ENOXAPARIN 40MG/0.4ML SYR SUBCUT SCH (08:44)
[2018-06-05] MEDS: FOLIC ACID 1 MG, MVI, ADULT NO.1 10 ML in DEXTROSE 5% WATER 1,000 ML IV SCH ×3 (08:57)
[2018-06-05 10:50] LABS: AMYLASE 125 IU/L (25-115)
[2018-06-05] MEDS ORDERED: FOLIC ACID 1 MG, THIAMINE HCL 100 MG, MVI, ADULT NO.1 10 ML in DEXTROSE 5% WATER 1,000 ML IV ONE ×4 (12:15)
[2018-06-05 12:26] VITALS: BP 141/88
[2018-06-05] MEDS: MULTIVITAMINS,THER W-MINERALS TABLET PO SCH (15:46)
[2018-06-05] MEDS: THIAMINE HCL 100MG TABLET PO SCH (15:46)
[2018-06-05 16:00] VITALS: BP 105/60
[2018-06-05 20:00] VITALS: BP 112/61
[2018-06-05] MEDS: QUETIAPINE FUMARATE 100MG TABLET PO SCH (22:14)
[2018-06-05] MEDS: ATORVASTATIN CALCIUM 20MG TABLET PO SCH (22:14)
[2018-06-06] VITALS: BP 120/75
[2018-06-06] MEDS: ONDANSETRON HCL 4MG/2ML INJ IV PRN (03:23)
[2018-06-06] MEDS: HYDROMORPHONE HCL/PF 2MG/ML CPJ IV PRN (03:23)
[2018-06-06 04:00] VITALS: BP 138/85
[2018-06-06] MEDS: OMEPRAZOLE 20MG CAPSULE EXTENDED RELEASE PO SCH (06:24)
[2018-06-06] MEDS: PHENYTOIN SODIUM EXTENDED 100MG CAPSULE PO SCH ×2 (06:25→13:25)
[2018-06-06 08:00] VITALS: BP 108/77
[2018-06-06] MEDS: MAGNESIUM OXIDE 400MG TABLET PO SCH (08:12)
[2018-06-06] MEDS: LEVETIRACETAM 500MG TABLET PO SCH (08:12)
[2018-06-06] MEDS: THIAMINE HCL 100MG TABLET PO SCH (08:12)
[2018-06-06] MEDS: GABAPENTIN 300MG CAPSULE PO SCH ×2 (08:12→13:25)
[2018-06-06] MEDS: ALLOPURINOL 100 MG TABLET PO SCH (08:12)
[2018-06-06] MEDS: CARISOPRODOL 350 MG TABLET PO SCH (08:12)
[2018-06-06] MEDS: ENOXAPARIN 40MG/0.4ML SYR SUBCUT SCH (08:13)
[2018-06-06] MEDS: FOLIC ACID 1MG TABLET PO SCH (08:13)
[2018-06-06] MEDS: MULTIVITAMINS,THER W-MINERALS TABLET PO SCH (08:13)
[2018-06-06] MEDS: SODIUM CHLORIDE 0.9% 1,000 ML IV SCH (08:13)
[2018-06-06 12:00] VITALS: BP 110/74
[2018-06-06 12:36] VITALS: BP 110/74
== END 2018-06-06 13:56 | disposition home or self-care (01) | DRG 282 ==
LOC: ER 20:01 → 6EST 06-04 00:47 → ENRESERV 06-04 02:13
PROVIDERS: ADMIT Internal Medicine; ATTEND Internal Medicine
DX: K85.90 Acute pancreatitis without necrosis or infection, unspecified (principal); D61.818 Other pancytopenia; K76.0 Fatty (change of) liver, not elsewhere classified; F20.9 Schizophrenia, unspecified; E44.1 Mild protein-calorie malnutrition; N13.30 Unspecified hydronephrosis; K86.0 Alcohol-induced chronic pancreatitis; F10.229 Alcohol dependence with intoxication, unspecified; F17.200 Nicotine dependence, unspecified, uncomplicated; G40.909 Epilepsy, unspecified, not intractable, without status epilepticus; I10 Essential (primary) hypertension; J45.909 Unspecified asthma, uncomplicated; M19.90 Unspecified osteoarthritis, unspecified site; M10.9 Gout, unspecified; Z82.49 Family history of ischemic heart disease and other diseases of the circulatory system
CPT/HCPCS: 36415; 74176; 80048; 80185; 80305; 82150; 84450; 96374; 99285; C1893; J1170; J1650; J1885; J2405; J3411; J3490; J7030; J7070

== ENCOUNTER 2018-06-06 23:19 | Inpatient (IN) | payer MEDICAID ==
[~2018-06-06] VITALS: Ht 165.1 cm; Wt 81.2 kg
[2018-06-06] MEDS ORDERED: ONDANSETRON HCL 4MG/2ML INJ IV STA (23:34)
[2018-06-06] MEDS ORDERED: SODIUM CHLORIDE 0.9% 1000ML BAG (SEPSIS BOLUS) IV ONE (23:45)
[2018-06-06] MEDS ORDERED: CEFTRIAXONE 1 G PREMIX 50 ML IV ONE (23:45)
[2018-06-07 00:35] LABS: BASOPHILS % 0.3 % (0.0-2.0); EOSINOPHILS % 0.4 % (0.0-5.0); HEMATOCRIT. 39.2 % (42.0-52.0); HEMOGLOBIN. 12.7 g/dL (14.0-18.0); LYMPHOCYTES % 11.6 % (20.0-50.0); MEAN CORPUSCULAR HEMOGLOBIN 27.6 pg (28.0-32.0); MEAN CORPUSCULAR VOLUME 85.2 fL (80.0-94.0); MEAN PLATELET VOLUME 8.3 fl (7.4-10.4); MONOCYTES % 8.7 % (2.0-8.0); PLATELET 71 x1000/uL (130-400); RED CELL DISTRIBUTION WIDTH 15.3 % (11.6-14.6)
[2018-06-07 00:39] LABS: CHLORIDE 102 mEq/L (98-107)
[2018-06-07 00:59] LABS: PROTHROMBIN TIME 10.1 sec (9.1-11.1)
[2018-06-07] MEDS ORDERED: KETOROLAC 30MG/ML VIAL IV SCH (05:00)
[2018-06-07] MEDS ORDERED: KETOROLAC 30MG/ML VIAL ONE (05:06)
[2018-06-07 10:12] VITALS: BP 128/89
[2018-06-07 12:00] VITALS: BP 149/96
[2018-06-07] MEDS ORDERED: ACETAMINOPHEN 325MG TABLET PO PRN (12:00)
[2018-06-07] MEDS ORDERED: KETOROLAC 10MG TABLET PO PRN (12:00)
[2018-06-07] MEDS: SODIUM CHLORIDE 0.9% 1,000 ML IV SCH (12:00)
[2018-06-07] MEDS ORDERED: ONDANSETRON HCL 4MG TABLET PO PRN (12:15)
[2018-06-07] MEDS ORDERED: OMEPRAZOLE 20MG CAPSULE EXTENDED RELEASE PO SCH (12:15)
[2018-06-07] MEDS ORDERED: KETOROLAC 30MG/ML VIAL IV PRN (12:30)
[2018-06-07] MEDS: QUETIAPINE FUMARATE 100MG TABLET PO SCH ×2 (13:05→20:10)
[2018-06-07] MEDS: PHENYTOIN SODIUM EXTENDED 100MG CAPSULE PO SCH ×2 (13:05→20:09)
[2018-06-07] MEDS: PANTOPRAZOLE SODIUM 40 MG/VIAL IV SCH (13:05)
[2018-06-07] MEDS: GABAPENTIN 300MG CAPSULE PO SCH ×2 (13:05→20:10)
[2018-06-07] MEDS: ONDANSETRON HCL 4MG/2ML INJ IV PRN ×2 (13:06→20:17)
[2018-06-07 16:00] VITALS: BP 122/64
[2018-06-07] MEDS: MAGNESIUM OXIDE 400MG TABLET PO SCH (17:00)
[2018-06-07] MEDS: CARISOPRODOL 350 MG TABLET PO SCH (17:00)
[2018-06-07 20:00] VITALS: BP 112/72
[2018-06-07] MEDS: LEVETIRACETAM 500MG TABLET PO SCH (20:10)
[2018-06-07] MEDS: COLCHICINE 0.6MG TABLET PO SCH (20:10)
[2018-06-07] MEDS: KETOROLAC 15MG/ML VIAL IV PRN (20:11)
[2018-06-07] MEDS ORDERED: ATORVASTATIN CALCIUM 20MG TABLET PO SCH (21:00)
[2018-06-07] MEDS: GUAIFENESIN 200MG/10ML SUGAR FREE UDC PO PRN (22:08)
[2018-06-08] VITALS: BP 129/82
[2018-06-08] MEDS: SODIUM CHLORIDE 0.9% 1,000 ML IV SCH (01:20)
[2018-06-08] MEDS: KETOROLAC 15MG/ML VIAL IV PRN ×2 (02:24→09:23)
[2018-06-08] MEDS: ONDANSETRON HCL 4MG/2ML INJ IV PRN (02:24)
[2018-06-08] MEDS: GUAIFENESIN 200MG/10ML SUGAR FREE UDC PO PRN (02:26)
[2018-06-08 04:00] VITALS: BP 133/90
[2018-06-08] MEDS: QUETIAPINE FUMARATE 100MG TABLET PO SCH (05:36)
[2018-06-08] MEDS: PHENYTOIN SODIUM EXTENDED 100MG CAPSULE PO SCH (05:36)
[2018-06-08] MEDS: GABAPENTIN 300MG CAPSULE PO SCH (05:36)
[2018-06-08 07:59] LABS: EOSINOPHILS % 1.6 % (0.0-5.0); HEMATOCRIT. 36.1 % (42.0-52.0); HEMOGLOBIN. 11.6 g/dL (14.0-18.0); LYMPHOCYTES % 20.7 % (20.0-50.0); MEAN CORPUSCULAR HEMOGLOBIN 27.8 pg (28.0-32.0); MEAN CORPUSCULAR VOLUME 86.8 fL (80.0-94.0); MONOCYTES % 12.1 % (2.0-8.0); NEUTROPHILS % 64.6 % (40.0-76.0); RED BLOOD CELL COUNT 4.16 mill/uL (4.7-6.1); RED CELL DISTRIBUTION WIDTH 15.2 % (11.6-14.6)
[2018-06-08 08:00] VITALS: BP 138/96
[2018-06-08 08:06] LABS: CHLORIDE 106 mEq/L (98-107)
[2018-06-08 08:16] LABS: AMYLASE 136 IU/L (25-115)
[2018-06-08] MEDS ORDERED: FOLIC ACID 1MG TABLET PO SCH (09:00)
[2018-06-08] MEDS ORDERED: ALLOPURINOL 100 MG TABLET PO SCH (09:00)
[2018-06-08] MEDS: MAGNESIUM OXIDE 400MG TABLET PO SCH (09:23)
[2018-06-08] MEDS: CARISOPRODOL 350 MG TABLET PO SCH (09:23)
[2018-06-08] MEDS: COLCHICINE 0.6MG TABLET PO SCH (09:23)
[2018-06-08] MEDS: PANTOPRAZOLE SODIUM 40 MG/VIAL IV SCH (09:23)
[2018-06-08] MEDS: LEVETIRACETAM 500MG TABLET PO SCH (09:23)
[2018-06-08 12:41] VITALS: BP 119/84
== END 2018-06-08 14:06 | disposition home or self-care (01) | DRG 720 ==
LOC: ER 23:19 → EDBEDREQSVC 06-07 06:32 → EDBEDREQTM 06-07 06:32 → EDBEDREQ 06-07 06:32 → 7WST 06-07 06:35 → ENRESERV 06-07 07:08
PROVIDERS: ADMIT Internal Medicine; ATTEND Internal Medicine
DX: A41.9 Sepsis, unspecified organism (principal); D61.818 Other pancytopenia; F20.9 Schizophrenia, unspecified; K86.1 Other chronic pancreatitis; E44.1 Mild protein-calorie malnutrition; G40.909 Epilepsy, unspecified, not intractable, without status epilepticus; F17.200 Nicotine dependence, unspecified, uncomplicated; I10 Essential (primary) hypertension; J45.909 Unspecified asthma, uncomplicated; M10.9 Gout, unspecified; M19.90 Unspecified osteoarthritis, unspecified site; F10.20 Alcohol dependence, uncomplicated; K29.20 Alcoholic gastritis without bleeding; Z82.49 Family history of ischemic heart disease and other diseases of the circulatory system
CPT/HCPCS: 36415; 71045; 80048; 82150; 83605; 84145; 84484; 87804; 93005; 96365; 96375; 99285; C9113; J0696; J1885; J2405; J7030

== ENCOUNTER 2018-07-07 18:28 | Emergency (ER) | payer MEDICAID ==
[~2018-07-07] VITALS: Ht 180.3 cm; Wt 80.0 kg
[~2018-07-07 18:28] MED LIST changes: -HYDR-4009 MT
[2018-07-07] MEDS ORDERED: ONDANSETRON HCL 4MG/2ML INJ IV ONE (19:30)
[2018-07-07] MEDS ORDERED: SODIUM CHLORIDE 0.9% 1,000 ML IV ONE (19:30)
[2018-07-07 19:45] LABS: BASOPHILS % 1.1 % (0.0-2.0); EOSINOPHILS % 0.1 % (0.0-5.0); HEMATOCRIT. 40.3 % (42.0-52.0); HEMOGLOBIN. 13.2 g/dL (14.0-18.0); LYMPHOCYTES % 38.7 % (20.0-50.0); MEAN CORPUSCULAR HEMOGLOBIN 27.6 pg (28.0-32.0); MEAN CORPUSCULAR VOLUME 84.4 fL (80.0-94.0); MEAN PLATELET VOLUME 7.4 fl (7.4-10.4); MONOCYTES % 4.1 % (2.0-8.0); PLATELET 299 x1000/uL (130-400); RED BLOOD CELL COUNT 4.78 mill/uL (4.7-6.1); RED CELL DISTRIBUTION WIDTH 15.5 % (11.6-14.6)
[2018-07-07 19:51] LABS: CHLORIDE 101 mEq/L (98-107)
[2018-07-07 20:16] LABS: ETHANOL BLOOD 322 mg/dL
[2018-07-07 21:12] LABS: *COCAINE SCREEN URINE NEGATIVE (NEGATIVE); CANNABINOID URINE SCREEN NEGATIVE (NEGATIVE); METHADONE URINE SCREEN NEGATIVE (NEGATIVE); OPIATES URINE SCREEN NEGATIVE (NEGATIVE); PHENCYCLIDINE URINE SCREEN NEGATIVE (NEGATIVE)
[2018-07-07 21:13] LABS: *AMPHETAMINES SCREEN URINE NEGATIVE (NEGATIVE); *BARBITURATES SCREEN URINE NEGATIVE (NEGATIVE); *BENZODIAZEPINES SCREEN URINE NEGATIVE (NEGATIVE)
[2018-07-07] MEDS ORDERED: KETOROLAC 30MG/ML VIAL IV NR (23:00)
[2018-07-08 00:26] VITALS: BP 126/66
== END 2018-07-08 00:32 | disposition home or self-care (01) ==
LOC: ER 18:53
DX: F10.229 Alcohol dependence with intoxication, unspecified (principal); I10 Essential (primary) hypertension; J45.909 Unspecified asthma, uncomplicated; R56.9 Unspecified convulsions; Z79.899 Other long term (current) drug therapy; Y90.8 Blood alcohol level of 240 mg/100 ml or more
CPT/HCPCS: 36415; 71045; 80053; 80305; 80320; 83880; 84484; 85025; 93005; 96361; 96374; 96375; 99284; J1885; J2405; J7030; G0480

== ENCOUNTER 2018-07-26 23:00 | Emergency (ER) | payer MEDICAID ==
[~2018-07-26] VITALS: Ht 177.8 cm; Wt 77.0 kg
[2018-07-26] MEDS ORDERED: SODIUM CHLORIDE 0.9% 1,000 ML IV ONE (23:38)
[2018-07-27 01:04] LABS: BASOPHILS % 0.7 % (0.0-2.0); EOSINOPHILS % 0.2 % (0.0-5.0); HEMATOCRIT. 37.2 % (42.0-52.0); HEMOGLOBIN. 12.1 g/dL (14.0-18.0); LYMPHOCYTES % 48.3 % (20.0-50.0); MEAN CORPUSCULAR HEMOGLOBIN 27.2 pg (28.0-32.0); MEAN CORPUSCULAR VOLUME 83.4 fL (80.0-94.0); MEAN PLATELET VOLUME 7.4 fl (7.4-10.4); MONOCYTES % 11.1 % (2.0-8.0); NEUTROPHILS % 39.7 % (40.0-76.0); PLATELET 135 x1000/uL (130-400); RED BLOOD CELL COUNT 4.47 mill/uL (4.7-6.1); RED CELL DISTRIBUTION WIDTH 17.1 % (11.6-14.6)
[2018-07-27 01:10] LABS: CHLORIDE 104 mEq/L (98-107)
[2018-07-27] MEDS ORDERED: MAGNESIUM/ALUMINUM HYDROXIDE/SIMETHICONE 30ML UDC PO STA (01:10)
[2018-07-27 01:14] LABS: PROTHROMBIN TIME 10.4 sec (9.1-11.1)
[2018-07-27 01:45] LABS: ETHANOL BLOOD 377 mg/dL
[2018-07-27] MEDS ORDERED: ACETAMINOPHEN 325MG TABLET PO ONE (08:45)
[2018-07-27 09:52] VITALS: BP 100/64
== END 2018-07-27 10:15 | disposition home or self-care (01) ==
LOC: ER 23:00
DX: F10.229 Alcohol dependence with intoxication, unspecified (principal); Y90.8 Blood alcohol level of 240 mg/100 ml or more; J45.909 Unspecified asthma, uncomplicated; I10 Essential (primary) hypertension; K85.20 Alcohol induced acute pancreatitis without necrosis or infection; Z79.899 Other long term (current) drug therapy
CPT/HCPCS: 36415; 70450; 80053; 80320; 83690; 85025; 85610; 99284; J7030; G0480

== ENCOUNTER 2018-07-29 19:57 | Inpatient (IN) | payer MEDICAID ==
[~2018-07-29] VITALS: Ht 170.2 cm; Wt 75.7 kg
[2018-07-30] MEDS ORDERED: MORPHINE SULFATE 4 MG/ML CPJ (NOT FOR IM USE) IV STA (00:13)
[2018-07-30] MEDS ORDERED: SODIUM CHLORIDE 0.9% 1,000 ML IV ONE (00:13)
[2018-07-30] MEDS ORDERED: ONDANSETRON HCL 4MG/2ML INJ IV STA (00:13)
[2018-07-30 00:50] LABS: BASOPHILS % 1.1 % (0.0-2.0); EOSINOPHILS % 0.1 % (0.0-5.0); HEMATOCRIT. 38.1 % (42.0-52.0); HEMOGLOBIN. 12.6 g/dL (14.0-18.0); LYMPHOCYTES % 45.5 % (20.0-50.0); MEAN CORPUSCULAR HEMOGLOBIN 27.6 pg (28.0-32.0); MEAN CORPUSCULAR VOLUME 83.5 fL (80.0-94.0); MEAN PLATELET VOLUME 7.4 fl (7.4-10.4); MONOCYTES % 7.8 % (2.0-8.0); NEUTROPHILS % 45.5 % (40.0-76.0); PLATELET 151 x1000/uL (130-400); RED BLOOD CELL COUNT 4.56 mill/uL (4.7-6.1); RED CELL DISTRIBUTION WIDTH 17.4 % (11.6-14.6)
[2018-07-30 00:55] LABS: CHLORIDE 103 mEq/L (98-107)
[2018-07-30 01:02] LABS: INR 1.1; PARTIAL THROMBOPLASTIN TIME 26.8 sec (23.4-31.0); PROTHROMBIN TIME 10.6 sec (9.1-11.1)
[2018-07-30 01:08] LABS: CLARITY URINE CLEAR (CLEAR); COLOR URINE YELLOW (YELLOW); KETONES URINE NEGATIVE (NEGATIVE); LEUKOCYTE ESTERASE URINE NEGATIVE (NEGATIVE); NITRITE URINE NEGATIVE (NEGATIVE); OCCULT BLOOD URINE TRACE (NEGATIVE); PROTEIN URINE 3+ (NEGATIVE); SPECIFIC GRAVITY URINE 1.009 (1.005-1.030); UROBILINOGEN URINE 0.2 E.U./dL (0.2-1.0)
[2018-07-30] MEDS ORDERED: PHENYTOIN SODIUM 1,000 MG in SODIUM CHLORIDE 0.9% 100 ML IV ONE (01:30)
[2018-07-30 02:10] LABS: *AMPHETAMINES SCREEN URINE NEGATIVE (NEGATIVE); *BARBITURATES SCREEN URINE NEGATIVE (NEGATIVE); *BENZODIAZEPINES SCREEN URINE NEGATIVE (NEGATIVE); *COCAINE SCREEN URINE NEGATIVE (NEGATIVE)
[2018-07-30 02:11] LABS: CANNABINOID URINE SCREEN NEGATIVE (NEGATIVE); METHADONE URINE SCREEN NEGATIVE (NEGATIVE); OPIATES URINE SCREEN NEGATIVE (NEGATIVE); PHENCYCLIDINE URINE SCREEN NEGATIVE (NEGATIVE)
[2018-07-30 02:17] LABS: ETHANOL BLOOD 301 mg/dL
[2018-07-30] MEDS ORDERED: MORPHINE SULFATE 4 MG/ML CPJ (NOT FOR IM USE) IV ONE (04:30)
[2018-07-30 06:00] VITALS: BP 138/70
[2018-07-30 08:00] VITALS: BP 103/60
[2018-07-30] MEDS ORDERED: GUAIFENESIN 200MG/10ML SUGAR FREE UDC PO PRN (09:15)
[2018-07-30] MEDS ORDERED: MAGNESIUM/ALUMINUM HYDROXIDE/SIMETHICONE 30ML UDC PO PRN (09:15)
[2018-07-30] MEDS ORDERED: DOCUSATE SODIUM 100MG CAPSULE PO PRN (09:15)
[2018-07-30] MEDS ORDERED: NA PHOS,M-B/NA PHOS,DI-BA ENEMA 118ML PR PRN (09:15)
[2018-07-30] MEDS ORDERED: HYDROCODONE/ACETAMINOPHEN 5/325MG TABLET PO PRN (09:15)
[2018-07-30] MEDS ORDERED: LORAZEPAM 2MG/ML CPJ IV PRN (09:15)
[2018-07-30] MEDS ORDERED: ACETAMINOPHEN 325MG TABLET PO PRN (09:15)
[2018-07-30] MEDS ORDERED: CLONIDINE 0.1MG TABLET PO PRN (09:15)
[2018-07-30] MEDS ORDERED: IPRATROPIUM/ALBUTEROL 0.5-3(2.5)MG/3ML NEB INH PRN (09:15)
[2018-07-30] MEDS: SODIUM CHLORIDE 0.45% 1,000 ML IV SCH ×2 (10:00→20:11)
[2018-07-30] MEDS: HYDROMORPHONE HCL/PF 2MG/ML CPJ IV PRN ×2 (10:00→21:52)
[2018-07-30] MEDS: ENOXAPARIN 40MG/0.4ML SYR SUBCUT SCH (10:01)
[2018-07-30 11:44] LABS: CHLORIDE 103 mEq/L (98-107)
[2018-07-30] MEDS: ONDANSETRON HCL 4MG/2ML INJ IV PRN (13:20)
[2018-07-30] MEDS: DIPHENHYDRAMINE 50MG/ML VIAL IV PRN (14:57)
[2018-07-30 16:00] VITALS: BP 126/63
[2018-07-30 20:00] VITALS: BP 114/76
[2018-07-31] VITALS: BP 137/94
[2018-07-31] MEDS: DIPHENHYDRAMINE 50MG/ML VIAL IV PRN ×3 (00:25→23:17)
[2018-07-31 04:00] VITALS: BP 132/87
[2018-07-31] MEDS: ONDANSETRON HCL 4MG/2ML INJ IV PRN ×3 (05:06→20:32)
[2018-07-31] MEDS: HYDROMORPHONE HCL/PF 2MG/ML CPJ IV PRN ×5 (05:09→22:01)
[2018-07-31 06:32] LABS: HEMATOCRIT. 35.8 % (42.0-52.0); HEMOGLOBIN. 11.8 g/dL (14.0-18.0); MEAN CORPUSCULAR HEMOGLOBIN 27.6 pg (28.0-32.0); MEAN CORPUSCULAR VOLUME 84.2 fL (80.0-94.0); MEAN PLATELET VOLUME 7.9 fl (7.4-10.4); PLATELET 113 x1000/uL (130-400); RED BLOOD CELL COUNT 4.26 mill/uL (4.7-6.1); RED CELL DISTRIBUTION WIDTH 17.2 % (11.6-14.6)
[2018-07-31 07:01] LABS: CHLORIDE 97 mEq/L (98-107)
[2018-07-31 07:10] LABS: LDL CHOLESTEROL 84 mg/dL (5-100)
[2018-07-31 07:12] LABS: T4 FREE 1.17 ng/dL (0.76-1.46)
[2018-07-31 08:00] VITALS: BP 135/83
[2018-07-31] MEDS: ENOXAPARIN 40MG/0.4ML SYR SUBCUT SCH (08:10)
[2018-07-31 09:42] LABS: HDL CHOLESTEROL 153 mg/dL (40-59)
[2018-07-31] MEDS: SODIUM CHLORIDE 0.45% 1,000 ML IV SCH (11:38)
[2018-07-31 12:00] VITALS: BP 132/94
[2018-07-31 13:13] LABS: PLATELET ESTIMATE SLIGHTLY DECREASED
[2018-07-31 16:00] VITALS: BP 135/87
[2018-07-31 20:00] VITALS: BP 120/87
[2018-08-01] VITALS: BP 120/90
[2018-08-01] MEDS: ONDANSETRON HCL 4MG/2ML INJ IV PRN ×2 (02:40→14:07)
[2018-08-01] MEDS: HYDROMORPHONE HCL/PF 2MG/ML CPJ IV PRN ×2 (02:43→09:24)
[2018-08-01 04:00] VITALS: BP 135/89
[2018-08-01] MEDS: SODIUM CHLORIDE 0.45% 1,000 ML IV SCH ×2 (04:29→14:54)
[2018-08-01] MEDS: DIPHENHYDRAMINE 50MG/ML VIAL IV PRN ×2 (05:51→14:07)
[2018-08-01 08:10] VITALS: BP 122/72
[2018-08-01] MEDS: ENOXAPARIN 40MG/0.4ML SYR SUBCUT SCH (09:17)
[2018-08-01 12:00] VITALS: BP 134/85
[2018-08-01 14:14] VITALS: BP 134/85
== END 2018-08-01 15:15 | disposition home or self-care (01) | DRG 53 ==
LOC: ER 20:07 → ENRESERV 07-30 03:43 → 5WST 07-30 05:22
PROVIDERS: ADMIT Internal Medicine; ATTEND Internal Medicine
DX: G40.909 Epilepsy, unspecified, not intractable, without status epilepticus (principal); K85.90 Acute pancreatitis without necrosis or infection, unspecified; D64.9 Anemia, unspecified; I10 Essential (primary) hypertension; K21.9 Gastro-esophageal reflux disease without esophagitis; J45.909 Unspecified asthma, uncomplicated; F10.20 Alcohol dependence, uncomplicated; S00.81XA Abrasion of other part of head, initial encounter; X58.XXXA Exposure to other specified factors, initial encounter; Y93.89 Activity, other specified; Y92.89 Other specified places as the place of occurrence of the external cause; Y99.8 Other external cause status; Z82.49 Family history of ischemic heart disease and other diseases of the circulatory system; Z79.899 Other long term (current) drug therapy; Z91.018 Allergy to other foods
CPT/HCPCS: 36415; 71045; 74176; 80048; 80061; 80185; 80305; 80320; 84439; 84443; 84484; 93005; 96361; 96365; 96372; 96375; 96376; 99285; J1165; J1170; J1200; J1650; J2270; J2405; J7030; J7050; G0480

== ENCOUNTER 2018-08-02 21:01 | Emergency (ER) | payer MEDICAID ==
[~2018-08-02] VITALS: Ht 177.8 cm; Wt 73.0 kg
[2018-08-02] MEDS ORDERED: LORAZEPAM 2MG/ML CPJ IV ONE (21:45)
[2018-08-02] MEDS ORDERED: LEVETIRACETAM 1000MG/100ML 100 ML IV ONE (21:45)
[2018-08-02 22:34] LABS: HEMATOCRIT. 34.5 % (42.0-52.0); HEMOGLOBIN. 11.5 g/dL (14.0-18.0); MEAN CORPUSCULAR HEMOGLOBIN 27.8 pg (28.0-32.0); MEAN CORPUSCULAR VOLUME 83.6 fL (80.0-94.0); PLATELET 124 x1000/uL (130-400); RED BLOOD CELL COUNT 4.13 mill/uL (4.7-6.1); RED CELL DISTRIBUTION WIDTH 16.6 % (11.6-14.6)
[2018-08-02 22:37] LABS: CHLORIDE 102 mEq/L (98-107)
[2018-08-02 22:39] LABS: INR 0.9; PROTHROMBIN TIME 9.4 sec (9.6-11.0)
[2018-08-02 22:41] LABS: ETHANOL BLOOD 228 mg/dL
[2018-08-02 23:02] LABS: PLATELET ESTIMATE DECREASED
[2018-08-02 23:30] LABS: CLARITY URINE CLEAR (CLEAR); COLOR URINE YELLOW (YELLOW); KETONES URINE NEGATIVE (NEGATIVE); LEUKOCYTE ESTERASE URINE NEGATIVE (NEGATIVE); NITRITE URINE NEGATIVE (NEGATIVE); OCCULT BLOOD URINE NEGATIVE (NEGATIVE); PH URINE 5.5 (4.5-8.0); PROTEIN URINE NEGATIVE (NEGATIVE); SPECIFIC GRAVITY URINE 1.003 (1.005-1.030); UROBILINOGEN URINE 0.2 E.U./dL (0.2-1.0)
[2018-08-02 23:46] LABS: METHADONE URINE SCREEN NEGATIVE (NEGATIVE)
[2018-08-02 23:47] LABS: *AMPHETAMINES SCREEN URINE NEGATIVE (NEGATIVE); *BARBITURATES SCREEN URINE NEGATIVE (NEGATIVE); *BENZODIAZEPINES SCREEN URINE NEGATIVE (NEGATIVE); CANNABINOID URINE SCREEN NEGATIVE (NEGATIVE); OPIATES URINE SCREEN NEGATIVE (NEGATIVE); PHENCYCLIDINE URINE SCREEN NEGATIVE (NEGATIVE)
[2018-08-02 23:48] LABS: *COCAINE SCREEN URINE NEGATIVE (NEGATIVE)
[2018-08-03] MEDS ORDERED: PHENYTOIN 100 MG/4 ML UDC NG ONE
[2018-08-03 02:09] VITALS: BP 120/70
== END 2018-08-03 02:09 | disposition home or self-care (01) ==
LOC: ER 21:01
DX: T51.0X1A Toxic effect of ethanol, accidental (unintentional), initial encounter (principal); R10.13 Epigastric pain; G40.909 Epilepsy, unspecified, not intractable, without status epilepticus; J45.909 Unspecified asthma, uncomplicated; E11.9 Type 2 diabetes mellitus without complications; K75.9 Inflammatory liver disease, unspecified; F20.9 Schizophrenia, unspecified; A15.9 Respiratory tuberculosis unspecified; F17.200 Nicotine dependence, unspecified, uncomplicated; Z79.899 Other long term (current) drug therapy; Z98.890 Other specified postprocedural states; Y92.89 Other specified places as the place of occurrence of the external cause
CPT/HCPCS: 36415; 80053; 80185; 80305; 80320; 81003; 83690; 85025; 85610; 96365; 96375; 99283; J1953; J2060; Z7610; G0480

== ENCOUNTER 2018-08-26 01:08 | Emergency (ER) | payer MEDICAID ==
[~2018-08-26] VITALS: Ht 180.3 cm; Wt 82.0 kg
[2018-08-26 01:10] VITALS: BP 162/89
== END 2018-08-26 07:02 | disposition left against medical advice (07) ==
LOC: ER 01:08
DX: F10.129 Alcohol abuse with intoxication, unspecified (principal); Y90.0 Blood alcohol level of less than 20 mg/100 ml; Z53.21 Procedure and treatment not carried out due to patient leaving prior to being seen by health care provider
CPT/HCPCS: 82962

== ENCOUNTER 2018-10-07 17:53 | Emergency (ER) | payer MEDICAID ==
[~2018-10-07] VITALS: Ht 177.8 cm; Wt 82.0 kg
[~2018-10-07 17:53] MED LIST changes: -OMEP20CA10 PO; +OMEP20CA5 PO
[2018-10-07] MEDS ORDERED: SODIUM CHLORIDE 0.9% 1,000 ML IV ONE (18:38)
[2018-10-07] MEDS ORDERED: KETOROLAC 30MG/ML VIAL IV STA (18:38)
[2018-10-07] MEDS ORDERED: ONDANSETRON HCL 4MG/2ML INJ IV STA (18:38)
[2018-10-07 19:21] LABS: CLARITY URINE CLEAR (CLEAR); COLOR URINE YELLOW (YELLOW); KETONES URINE NEGATIVE (NEGATIVE); LEUKOCYTE ESTERASE URINE NEGATIVE (NEGATIVE); NITRITE URINE NEGATIVE (NEGATIVE); OCCULT BLOOD URINE NEGATIVE (NEGATIVE); PROTEIN URINE 2+ (NEGATIVE); SPECIFIC GRAVITY URINE 1.005 (1.005-1.030); UROBILINOGEN URINE 0.2 E.U./dL (0.2-1.0)
[2018-10-07 19:37] LABS: *AMPHETAMINES SCREEN URINE NEGATIVE (NEGATIVE); *BARBITURATES SCREEN URINE NEGATIVE (NEGATIVE); *BENZODIAZEPINES SCREEN URINE NEGATIVE (NEGATIVE); *COCAINE SCREEN URINE NEGATIVE (NEGATIVE); CANNABINOID URINE SCREEN NEGATIVE (NEGATIVE); METHADONE URINE SCREEN NEGATIVE (NEGATIVE); OPIATES URINE SCREEN NEGATIVE (NEGATIVE); PHENCYCLIDINE URINE SCREEN NEGATIVE (NEGATIVE)
[2018-10-07 19:43] LABS: BASOPHILS % 0.9 % (0.0-2.0); EOSINOPHILS % 0.1 % (0.0-5.0); HEMATOCRIT. 40.2 % (42.0-52.0); HEMOGLOBIN. 13.3 g/dL (14.0-18.0); LYMPHOCYTES % 41.9 % (20.0-50.0); MEAN CORPUSCULAR HEMOGLOBIN 28.1 pg (28.0-32.0); MEAN CORPUSCULAR VOLUME 84.7 fL (80.0-94.0); MEAN PLATELET VOLUME 7.6 fl (7.4-10.4); MONOCYTES % 13.6 % (2.0-8.0); NEUTROPHILS % 43.5 % (40.0-76.0); PLATELET 163 x1000/uL (130-400); RED BLOOD CELL COUNT 4.74 mill/uL (4.7-6.1); RED CELL DISTRIBUTION WIDTH 14.8 % (11.6-14.6)
[2018-10-07 19:50] LABS: CHLORIDE 96 mEq/L (98-107)
[2018-10-07 19:56] LABS: ETHANOL BLOOD 255 mg/dL
[2018-10-07] MEDS ORDERED: PHENYTOIN SODIUM EXTENDED 100MG CAPSULE PO ONE (20:30)
[2018-10-07] MEDS ORDERED: POTASSIUM CHLORIDE 20MEQ TABLET SR PO ONE (20:30)
[2018-10-07] MEDS ORDERED: PHENYTOIN 100 MG/4 ML UDC NG ONE (20:30)
[2018-10-07 23:24] VITALS: BP 131/87
== END 2018-10-07 23:28 | disposition home or self-care (01) ==
LOC: ER 17:55
DX: T51.0X1A Toxic effect of ethanol, accidental (unintentional), initial encounter (principal); Y92.89 Other specified places as the place of occurrence of the external cause; R10.13 Epigastric pain; E11.9 Type 2 diabetes mellitus without complications; Z79.899 Other long term (current) drug therapy
CPT/HCPCS: 36415; 80053; 80185; 80305; 80320; 81003; 83690; 85025; 96361; 96374; 96375; 99283; J1885; J2405; J7030; Z7610; G0480

== ENCOUNTER 2018-10-27 08:18 | Emergency (ER) | payer MEDICAID ==
[~2018-10-27] VITALS: Ht 177.8 cm; Wt 82.0 kg
[2018-10-27] MEDS ORDERED: SODIUM CHLORIDE 0.9% 1,000 ML IV ONE (08:48)
[2018-10-27] MEDS ORDERED: ONDANSETRON HCL 4MG/2ML INJ IV STA (08:48)
[2018-10-27 09:57] LABS: BASOPHILS % 0.2 % (0.0-2.0); EOSINOPHILS % 0.2 % (0.0-5.0); HEMATOCRIT. 47.9 % (42.0-52.0); HEMOGLOBIN. 15.9 g/dL (14.0-18.0); LYMPHOCYTES % 12.9 % (20.0-50.0); MEAN CORPUSCULAR VOLUME 84.3 fL (80.0-94.0); MONOCYTES % 11.5 % (2.0-8.0); NEUTROPHILS % 75.2 % (40.0-76.0); PLATELET 144 x1000/uL (130-400); RED BLOOD CELL COUNT 5.67 mill/uL (4.7-6.1); RED CELL DISTRIBUTION WIDTH 14.9 % (11.6-14.6)
[2018-10-27 10:02] LABS: CLARITY URINE CLOUDY (CLEAR); COLOR URINE DARK YELLOW (YELLOW); KETONES URINE 1+ (NEGATIVE); LEUKOCYTE ESTERASE URINE 1+ (NEGATIVE); NITRITE URINE NEGATIVE (NEGATIVE); OCCULT BLOOD URINE 1+ (NEGATIVE); PH URINE 6.5 (4.5-8.0); PROTEIN URINE 4+ (NEGATIVE); SPECIFIC GRAVITY URINE 1.027 (1.005-1.030)
[2018-10-27 10:04] LABS: CHLORIDE 96 mEq/L (98-107)
[2018-10-27 10:05] LABS: INR 1.1; PROTHROMBIN TIME 10.8 sec (9.6-11.0)
[2018-10-27 10:08] LABS: ETHANOL BLOOD < 10 mg/dL
[2018-10-27 10:10] LABS: *BENZODIAZEPINES SCREEN URINE NEGATIVE (NEGATIVE); *COCAINE SCREEN URINE NEGATIVE (NEGATIVE); METHADONE URINE SCREEN NEGATIVE (NEGATIVE); OPIATES URINE SCREEN NEGATIVE (NEGATIVE)
[2018-10-27 10:11] LABS: *AMPHETAMINES SCREEN URINE NEGATIVE (NEGATIVE); *BARBITURATES SCREEN URINE NEGATIVE (NEGATIVE); CANNABINOID URINE SCREEN NEGATIVE (NEGATIVE); PHENCYCLIDINE URINE SCREEN NEGATIVE (NEGATIVE)
[2018-10-27] MEDS ORDERED: MORPHINE SULFATE 4 MG/ML CPJ (NOT FOR IM USE) IV NR (11:52)
[2018-10-27 12:17] VITALS: BP 133/94
[2018-10-27] MEDS ORDERED: IOHEXOL-300 100 ML BOTTLE ONE (13:06)
== END 2018-10-27 14:52 | disposition home or self-care (01) ==
LOC: ER 08:18
DX: R10.0 Acute abdomen (principal)
CPT/HCPCS: 36415; 70450; 74177; 80053; 80305; 80320; 81003; 83690; 85025; 85610; 86850; 86900; 86901; 87086; 96361; 96374; 96375; 99284; J2270; J2405; J7030; Q9967; G0480

== ENCOUNTER 2018-11-11 07:57 | Inpatient (IN) | payer MEDICAID ==
[~2018-11-11] VITALS: Ht 170.2 cm; Wt 81.6 kg
[2018-11-11] MEDS ORDERED: SODIUM CHLORIDE 0.9% 1,000 ML IV ONE (08:44)
[2018-11-11] MEDS ORDERED: MORPHINE SULFATE 4 MG/ML CPJ (NOT FOR IM USE) IV STA (08:44)
[2018-11-11] MEDS ORDERED: ONDANSETRON HCL 4MG/2ML INJ IV STA (08:44)
[2018-11-11 09:02] LABS: BASOPHILS % 0.9 % (0.0-2.0); EOSINOPHILS % 0.1 % (0.0-5.0); HEMATOCRIT. 42.6 % (42.0-52.0); HEMOGLOBIN. 14.7 g/dL (14.0-18.0); LYMPHOCYTES % 15.7 % (20.0-50.0); MEAN CORPUSCULAR HEMOGLOBIN 28.7 pg (28.0-32.0); MEAN PLATELET VOLUME 7.6 fl (7.4-10.4); NEUTROPHILS % 75.3 % (40.0-76.0); PLATELET 181 x1000/uL (130-400); RED BLOOD CELL COUNT 5.13 mill/uL (4.7-6.1)
[2018-11-11 09:10] LABS: CHLORIDE 102 mEq/L (98-107)
[2018-11-11 09:14] LABS: ETHANOL BLOOD 84 mg/dL
[2018-11-11] MEDS ORDERED: PANTOPRAZOLE SODIUM 40 MG/VIAL IV ONE (10:00)
[2018-11-11] MEDS ORDERED: MORPHINE SULFATE 4 MG/ML CPJ (NOT FOR IM USE) IV ONE (12:00)
[2018-11-11] MEDS ORDERED: ONDANSETRON HCL 4MG/2ML INJ IV ONE (12:00)
[2018-11-11] MEDS ORDERED: LORAZEPAM 2MG/ML CPJ IV PRN (13:00)
[2018-11-11 15:17] VITALS: BP 139/98
[2018-11-11 16:27] VITALS: BP 139/98
[2018-11-11] MEDS ORDERED: FOLIC ACID 1 MG, THIAMINE HCL 100 MG, MVI, ADULT NO.1 10 ML in DEXTROSE 5% WATER 1,000 ML IV SCH ×4 (18:00)
[2018-11-11] MEDS: LEVETIRACETAM 500MG TABLET PO SCH (18:03)
[2018-11-11] MEDS: ONDANSETRON HCL 4MG/2ML INJ IV PRN ×2 (18:08→22:58)
[2018-11-11 20:00] VITALS: BP 147/85
[2018-11-11] MEDS ORDERED: PHENYTOIN SODIUM EXTENDED 100MG CAPSULE PO SCH (21:00)
[2018-11-11] MEDS: MORPHINE SULFATE 2 MG/ML CPJ (NOT FOR IM USE) IV PRN (21:12)
[2018-11-12] VITALS (7 sets, daily range): BP systolic 116–138; BP diastolic 63–93
[2018-11-12] MEDS: ONDANSETRON HCL 4MG/2ML INJ IV PRN (06:36)
[2018-11-12 07:05] LABS: BASOPHILS % 0.7 % (0.0-2.0); CHLORIDE 99 mEq/L (98-107); EOSINOPHILS % 0.2 % (0.0-5.0); HEMATOCRIT. 40.3 % (42.0-52.0); HEMOGLOBIN. 13.4 g/dL (14.0-18.0); LYMPHOCYTES % 19.7 % (20.0-50.0); MEAN CORPUSCULAR HEMOGLOBIN 28.1 pg (28.0-32.0); MEAN CORPUSCULAR VOLUME 84.6 fL (80.0-94.0); MEAN PLATELET VOLUME 8.2 fl (7.4-10.4); MONOCYTES % 10.7 % (2.0-8.0); NEUTROPHILS % 68.7 % (40.0-76.0); PLATELET 111 x1000/uL (130-400); RED BLOOD CELL COUNT 4.76 mill/uL (4.7-6.1); RED CELL DISTRIBUTION WIDTH 15.2 % (11.6-14.6)
[2018-11-12] MEDS ORDERED: DEXTROSE 50% WATER 50ML SYRINGE IV PRN (08:00)
[2018-11-12] MEDS: BLOOD SUGAR DIAGNOSTIC STRIP TEST SCH ×3 (08:12→17:16)
[2018-11-12] MEDS: INSULIN LISPRO 100 UNITS/ML SUBCUT SCH ×3 (08:13→17:50)
[2018-11-12] MEDS ORDERED: PANTOPRAZOLE SODIUM 40 MG/VIAL IV SCH (09:00)
[2018-11-12] MEDS: LEVETIRACETAM 500MG TABLET PO SCH ×2 (09:30→17:22)
[2018-11-12] MEDS: MORPHINE SULFATE 2 MG/ML CPJ (NOT FOR IM USE) IV PRN (11:12)
[2018-11-12] MEDS ORDERED: DIPHENHYDRAMINE 25MG CAPSULE PO NR (15:33)
== END 2018-11-12 18:15 | disposition home or self-care (01) | DRG 241 ==
LOC: ER 08:10 → EDBEDREQ 12:36 → 6EST 12:40 → EDBEDREQ 12:50 → ENRESERV 14:17 → 6EST 18:11
PROVIDERS: ADMIT Internal Medicine; ATTEND Internal Medicine
DX: K29.20 Alcoholic gastritis without bleeding (principal); E11.9 Type 2 diabetes mellitus without complications; F10.10 Alcohol abuse, uncomplicated; G40.909 Epilepsy, unspecified, not intractable, without status epilepticus; F17.210 Nicotine dependence, cigarettes, uncomplicated; Z91.018 Allergy to other foods; Z79.899 Other long term (current) drug therapy; Z71.6 Tobacco abuse counseling; Z71.41 Alcohol abuse counseling and surveillance of alcoholic
CPT/HCPCS: 36415; 74176; 80048; 80185; 80320; 82962; 93970; 96361; 96374; 96375; 96376; 99285; C9113; J2060; J2270; J2405; J3411; J3490; J7030; J7070; Q0163; G0480

== ENCOUNTER 2018-11-15 20:49 | Emergency (ER) | payer MEDICAID ==
[~2018-11-15] VITALS: Ht 180.3 cm; Wt 104.0 kg
[2018-11-15] MEDS ORDERED: ONDANSETRON HCL 4MG/2ML INJ IV STA (22:45)
[2018-11-15] MEDS ORDERED: PHENYTOIN SODIUM 500 MG in SODIUM CHLORIDE 0.9% 50 ML IV ONE (22:45)
[2018-11-15] MEDS ORDERED: AMOXICILLIN/POTASSIUM CLAVULANATE 875/125MG TAB PO ONE (22:45)
[2018-11-15] MEDS ORDERED: KETOROLAC 30MG/ML VIAL IV STA (22:45)
[2018-11-15] MEDS ORDERED: TETANUS, DIPHTHERIA, PERTUSSIS VAC/PF 0.5ML (>7YR OLD) IM ONE (22:45)
[2018-11-16 00:06] LABS: BASOPHILS % 0.6 % (0.0-2.0); EOSINOPHILS % 0.5 % (0.0-5.0); HEMOGLOBIN. 12.8 g/dL (14.0-18.0); LYMPHOCYTES % 33.5 % (20.0-50.0); MEAN CORPUSCULAR HEMOGLOBIN 28.2 pg (28.0-32.0); MEAN CORPUSCULAR VOLUME 83.9 fL (80.0-94.0); MEAN PLATELET VOLUME 8.3 fl (7.4-10.4); MONOCYTES % 11.1 % (2.0-8.0); NEUTROPHILS % 54.3 % (40.0-76.0); PLATELET 133 x1000/uL (130-400); RED BLOOD CELL COUNT 4.53 mill/uL (4.7-6.1); RED CELL DISTRIBUTION WIDTH 15.2 % (11.6-14.6)
[2018-11-16 00:15] LABS: CHLORIDE 101 mEq/L (98-107); PROTHROMBIN TIME 10.3 sec (9.6-11.0)
[2018-11-16 03:00] VITALS: BP 135/86
== END 2018-11-16 03:23 | disposition home or self-care (01) ==
LOC: ER 21:45
DX: S80.212A Abrasion, left knee, initial encounter (principal); F10.20 Alcohol dependence, uncomplicated; Y90.0 Blood alcohol level of less than 20 mg/100 ml; Z91.14 Patient's other noncompliance with medication regimen; W54.0XXA Bitten by dog, initial encounter; Y93.89 Activity, other specified; Y92.89 Other specified places as the place of occurrence of the external cause; Y99.8 Other external cause status; J45.909 Unspecified asthma, uncomplicated; E11.9 Type 2 diabetes mellitus without complications; Z79.899 Other long term (current) drug therapy; Z91.018 Allergy to other foods
CPT/HCPCS: 36415; 70450; 80053; 80185; 83690; 85025; 85610; 85730; 86850; 86900; 86901; 90471; 90715; 96365; 96375; 99284; J1165; J1885; J2405; Z7610

== ENCOUNTER 2019-03-15 21:11 | Emergency (ER) | payer MEDICAID ==
[~2019-03-15] VITALS: Ht 167.6 cm; Wt 75.0 kg
[2019-03-15] MEDS ORDERED: ACETAMINOPHEN 325MG TABLET PO STA (22:51)
[2019-03-15 23:30] VITALS: BP 132/93
[2019-03-16 00:32] LABS: CHLORIDE 98 mEq/L (98-107)
[2019-03-16 00:40] LABS: HEMATOCRIT. 37.6 % (42.0-52.0); HEMOGLOBIN. 12.6 g/dL (14.0-18.0); MEAN CORPUSCULAR HEMOGLOBIN 28.1 pg (28.0-32.0); MEAN PLATELET VOLUME 7.6 fl (7.4-10.4); PLATELET 138 x1000/uL (130-400); RED BLOOD CELL COUNT 4.48 mill/uL (4.7-6.1); RED CELL DISTRIBUTION WIDTH 14.9 % (11.6-14.6)
[2019-03-16 01:31] LABS: ATYPICAL LYMPHOCYTES 1; PLATELET ESTIMATE NORMAL
[2019-03-16] MEDS ORDERED: IBUPROFEN 600MG TABLET PO ONE (03:00)
== END 2019-03-16 04:00 | disposition home or self-care (01) ==
LOC: ER 21:11
DX: F10.229 Alcohol dependence with intoxication, unspecified (principal); Y90.6 Blood alcohol level of 120-199 mg/100 ml; R10.9 Unspecified abdominal pain; G89.29 Other chronic pain; M25.561 Pain in right knee
CPT/HCPCS: 36415; 80320; 99283; G0480

== ENCOUNTER 2019-03-16 05:29 | Emergency (ER) | payer MEDICAID ==
[~2019-03-16] VITALS: Ht 170.2 cm; Wt 83.0 kg
[2019-03-16] MEDS ORDERED: KETOROLAC 30MG/ML VIAL IV STA (06:43)
[2019-03-16] MEDS ORDERED: ONDANSETRON HCL 4MG/2ML INJ IV STA (06:43)
[2019-03-16 07:22] LABS: CLARITY URINE CLEAR (CLEAR); COLOR URINE YELLOW (YELLOW); KETONES URINE NEGATIVE (NEGATIVE); LEUKOCYTE ESTERASE URINE 1+ (NEGATIVE); NITRITE URINE NEGATIVE (NEGATIVE); OCCULT BLOOD URINE NEGATIVE (NEGATIVE); PROTEIN URINE 2+ (NEGATIVE); SPECIFIC GRAVITY URINE 1.005 (1.005-1.030); UROBILINOGEN URINE 0.2 E.U./dL (0.2-1.0)
[2019-03-16 08:37] LABS: HEMATOCRIT. 40.4 % (42.0-52.0); HEMOGLOBIN. 13.4 g/dL (14.0-18.0); MEAN CORPUSCULAR VOLUME 84.5 fL (80.0-94.0); PLATELET 142 x1000/uL (130-400); RED BLOOD CELL COUNT 4.78 mill/uL (4.7-6.1); RED CELL DISTRIBUTION WIDTH 15.1 % (11.6-14.6)
[2019-03-16 08:42] LABS: PROTHROMBIN TIME 10.2 sec (9.6-11.0)
[2019-03-16 08:44] LABS: CHLORIDE 98 mEq/L (98-107)
[2019-03-16] MEDS ORDERED: LEVETIRACETAM 500MG TABLET PO ONE (08:45)
[2019-03-16 09:47] LABS: PLATELET ESTIMATE NORMAL
[2019-03-16 10:12] VITALS: BP 116/78
== END 2019-03-16 10:13 | disposition home or self-care (01) ==
LOC: ER 05:29
DX: R10.30 Lower abdominal pain, unspecified (principal); R11.2 Nausea with vomiting, unspecified; R19.7 Diarrhea, unspecified; G89.29 Other chronic pain; M25.561 Pain in right knee; F17.210 Nicotine dependence, cigarettes, uncomplicated; Z71.6 Tobacco abuse counseling
CPT/HCPCS: 36415; 80053; 81003; 83690; 85025; 85610; 93005; 96374; 96375; 99284; 99406; J1885; J2405; Z7610

== ENCOUNTER 2019-08-12 02:36 | Emergency (ER) | payer MEDICAID ==
[~2019-08-12] VITALS: Ht 170.2 cm; Wt 83.0 kg
[~2019-08-12 02:36] MED LIST changes: +OMEP20CA14 PO; -OMEP20CA5 PO
[2019-08-12] MEDS ORDERED: SODIUM CHLORIDE 0.9% 1,000 ML IV ONE ×2 (03:19→06:24)
[2019-08-12] MEDS ORDERED: ONDANSETRON HCL 4MG/2ML INJ IV STA (03:19)
[2019-08-12 03:29] LABS: HEMATOCRIT. 40.7 % (42.0-52.0); HEMOGLOBIN. 13.7 g/dL (14.0-18.0); MEAN CORPUSCULAR HEMOGLOBIN 28.7 pg (28.0-32.0); MEAN CORPUSCULAR VOLUME 84.9 fL (80.0-94.0); MEAN PLATELET VOLUME 7.9 fl (7.4-10.4); PLATELET 70 x1000/uL (130-400); RED BLOOD CELL COUNT 4.79 mill/uL (4.7-6.1); RED CELL DISTRIBUTION WIDTH 15.5 % (11.6-14.6)
[2019-08-12 03:33] LABS: INR 1.1; PROTHROMBIN TIME 11.4 sec (9.6-11.0)
[2019-08-12 03:34] LABS: CHLORIDE 100 mEq/L (98-107)
[2019-08-12] MEDS ORDERED: KETOROLAC 30MG/ML VIAL IV ONE (03:45)
[2019-08-12 03:50] LABS: CLARITY URINE CLEAR (CLEAR); COLOR URINE DARK YELLOW (YELLOW); KETONES URINE TRACE (NEGATIVE); LEUKOCYTE ESTERASE URINE 2+ (NEGATIVE); NITRITE URINE POSITIVE (NEGATIVE); OCCULT BLOOD URINE NEGATIVE (NEGATIVE); PROTEIN URINE 3+ (NEGATIVE); SPECIFIC GRAVITY URINE 1.025 (1.005-1.030)
[2019-08-12] MEDS ORDERED: DEXT 5%/0.45% NACL 500ML 500 ML IV ONE (04:30)
[2019-08-12 05:55] LABS: PLATELET ESTIMATE DECREASED
[2019-08-12] MEDS ORDERED: CEFTRIAXONE 1 G PREMIX 50 ML IV ONE (06:30)
[2019-08-12] MEDS ORDERED: ONDANSETRON HCL 4MG/2ML INJ IV ONE (06:30)
[2019-08-12 09:17] LABS: CREATINE KINASE 178 IU/L (39-308)
[2019-08-12 11:16] LABS: *AMPHETAMINES SCREEN URINE NEGATIVE (NEGATIVE); *BARBITURATES SCREEN URINE NEGATIVE (NEGATIVE); *BENZODIAZEPINES SCREEN URINE NEGATIVE (NEGATIVE)
[2019-08-12 11:17] LABS: *COCAINE SCREEN URINE NEGATIVE (NEGATIVE); CANNABINOID URINE SCREEN NEGATIVE (NEGATIVE); METHADONE URINE SCREEN NEGATIVE (NEGATIVE); OPIATES URINE SCREEN NEGATIVE (NEGATIVE); PHENCYCLIDINE URINE SCREEN NEGATIVE (NEGATIVE)
[2019-08-12] MEDS ORDERED: ACETAMINOPHEN WITH CODEINE 300/30MG TABLET PO ONE (11:45)
[2019-08-12 12:03] VITALS: BP 141/85
== END 2019-08-12 12:14 | disposition home or self-care (01) ==
LOC: ER 02:36
DX: N30.00 Acute cystitis without hematuria (principal); J44.9 Chronic obstructive pulmonary disease, unspecified; J45.909 Unspecified asthma, uncomplicated; G40.909 Epilepsy, unspecified, not intractable, without status epilepticus; Z87.19 Personal history of other diseases of the digestive system; Z87.39 Personal history of other diseases of the musculoskeletal system and connective tissue
CPT/HCPCS: 36415; 71045; 74176; 80053; 80305; 80320; 81003; 82550; 82962; 83605; 83690; 83880; 84484; 85025; 85610; 87040; 87086; 93005; 96361; 96365; 96375; 99285; J0696; J1885; J2405; J7030; G0480

== ENCOUNTER 2019-09-05 20:45 | Emergency (ER) | payer MEDICAID ==
[~2019-09-05] VITALS: Ht 172.7 cm; Wt 68.0 kg
[2019-09-05 23:14] LABS: HEMATOCRIT 43.2 % (42.0-52.0); HEMOGLOBIN 14.3 g/dL (14.0-18.0); MEAN CORPUSCULAR HEMOGLOBIN 28.8 pg (28.0-32.0); MEAN CORPUSCULAR VOLUME 86.9 fL (80.0-94.0); PLATELET 90 x1000/uL (130-400); RED BLOOD CELL COUNT 4.97 mill/uL (4.7-6.1); RED CELL DISTRIBUTION WIDTH 15.8 % (11.6-14.6)
[2019-09-05 23:18] LABS: CHLORIDE 102 mEq/L (98-107)
[2019-09-05 23:42] LABS: ETHANOL BLOOD 373 mg/dL
[2019-09-06] MEDS ORDERED: ACETAMINOPHEN 325MG TABLET PO ONE (03:15)
[2019-09-06] MEDS ORDERED: ACETAMINOPHEN 325MG TABLET PO STA (05:50)
[2019-09-06 06:10] VITALS: BP 118/78
== END 2019-09-06 07:03 | disposition home or self-care (01) ==
LOC: ER 20:45
DX: F10.129 Alcohol abuse with intoxication, unspecified (principal); Y90.0 Blood alcohol level of less than 20 mg/100 ml; J45.909 Unspecified asthma, uncomplicated; I10 Essential (primary) hypertension; Z85.9 Personal history of malignant neoplasm, unspecified; Z79.899 Other long term (current) drug therapy; Z91.018 Allergy to other foods
CPT/HCPCS: 36415; 80048; 80320; 84484; 85027; 99285; G0480

== ENCOUNTER 2019-09-17 00:14 | Inpatient (IN) | payer MEDICAID ==
[~2019-09-17] VITALS: Ht 170.2 cm; Wt 82.1 kg
[2019-09-17] MEDS ORDERED: SODIUM CHLORIDE 0.9% 1,000 ML IV ONE (01:50)
[2019-09-17] MEDS ORDERED: FAMOTIDINE 20MG/2ML VIAL IV STA (01:50)
[2019-09-17] MEDS ORDERED: ONDANSETRON HCL 4MG/2ML INJ IV STA (01:50)
[2019-09-17] MEDS ORDERED: MORPHINE SULFATE 4 MG/ML CPJ (NOT FOR IM USE) IV STA (01:50)
[2019-09-17 03:29] LABS: CHLORIDE 100 mEq/L (98-107)
[2019-09-17 03:49] LABS: HEMATOCRIT. 43.5 % (42.0-52.0); HEMOGLOBIN. 14.5 g/dL (14.0-18.0); MEAN CORPUSCULAR HEMOGLOBIN 29.3 pg (28.0-32.0); MEAN CORPUSCULAR VOLUME 87.9 fL (80.0-94.0); MEAN PLATELET VOLUME 7.3 fl (7.4-10.4); PLATELET 81 x1000/uL (130-400); RED BLOOD CELL COUNT 4.95 mill/uL (4.7-6.1); RED CELL DISTRIBUTION WIDTH 15.6 % (11.6-14.6)
[2019-09-17] MEDS ORDERED: KETOROLAC 30MG/ML VIAL IV ONE (04:45)
[2019-09-17 05:25] LABS: PLATELET ESTIMATE DECREASED
[2019-09-17] MEDS ORDERED: ACETAMINOPHEN 325MG TABLET PO PRN (09:30)
[2019-09-17] MEDS ORDERED: KETOROLAC 30MG/ML VIAL IV PRN (09:30)
[2019-09-17] MEDS: HYDROCODONE/ACETAMINOPHEN 5/325MG TABLET PO PRN ×2 (10:33→22:59)
[2019-09-17] MEDS: SODIUM CHLORIDE 0.9% 1,000 ML IV SCH (19:30)
[2019-09-17] MEDS: FAMOTIDINE 20MG TABLET PO SCH (22:57)
[2019-09-17] MEDS: THIAMINE HCL 100MG TABLET PO SCH (22:57)
[2019-09-18] VITALS (7 sets, daily range): BP systolic 101–155; BP diastolic 66–95
[2019-09-18] MEDS: ONDANSETRON HCL 4MG/2ML INJ IV PRN ×2 (03:42→10:31)
[2019-09-18] MEDS: HYDROCODONE/ACETAMINOPHEN 5/325MG TABLET PO PRN ×2 (03:44→08:07)
[2019-09-18] MEDS ORDERED: ONDANSETRON HCL 4MG TABLET PO PRN (06:00)
[2019-09-18 07:01] LABS: HEMATOCRIT. 37.2 % (42.0-52.0); HEMOGLOBIN. 12.4 g/dL (14.0-18.0); MEAN CORPUSCULAR HEMOGLOBIN 29.5 pg (28.0-32.0); MEAN CORPUSCULAR VOLUME 88.4 fL (80.0-94.0); MEAN PLATELET VOLUME 8.3 fl (7.4-10.4); PLATELET 71 x1000/uL (130-400); RED CELL DISTRIBUTION WIDTH 15.4 % (11.6-14.6)
[2019-09-18] MEDS ORDERED: OMEPRAZOLE 20MG CAPSULE EXTENDED RELEASE PO SCH (07:20)
[2019-09-18 07:52] LABS: CHLORIDE 100 mEq/L (98-107)
[2019-09-18] MEDS: LEVETIRACETAM 500MG TABLET PO SCH ×2 (08:05→21:01)
[2019-09-18] MEDS: ALLOPURINOL 100 MG TABLET PO SCH (08:05)
[2019-09-18] MEDS: THIAMINE HCL 100MG TABLET PO SCH (08:05)
[2019-09-18] MEDS: FOLIC ACID 1MG TABLET PO SCH ×2 (08:06→08:07)
[2019-09-18] MEDS: SODIUM CHLORIDE 0.9% 1,000 ML IV SCH (08:51)
[2019-09-18 09:00] LABS: PLATELET ESTIMATE DECREASED
[2019-09-18] MEDS ORDERED: DIPHENHYDRAMINE 25MG CAPSULE PO PRN (10:45)
[2019-09-18] MEDS: CARISOPRODOL 350 MG TABLET PO SCH ×2 (10:57→17:51)
[2019-09-18] MEDS: GABAPENTIN 300MG CAPSULE PO SCH ×2 (14:38→21:03)
[2019-09-18] MEDS: PHENYTOIN SODIUM EXTENDED 100MG CAPSULE PO SCH ×2 (14:38→21:03)
[2019-09-18] MEDS ORDERED: QUETIAPINE FUMARATE 50MG TABLET PO SCH (21:00)
[2019-09-18] MEDS ORDERED: ATORVASTATIN CALCIUM 20MG TABLET PO SCH (21:00)
[2019-09-18] MEDS: FAMOTIDINE 20MG TABLET PO SCH (21:02)
[2019-09-18] MEDS: COLCHICINE 0.6MG TABLET PO SCH (21:03)
[2019-09-19] VITALS: BP 127/93
[2019-09-19 04:00] VITALS: BP 128/91
[2019-09-19] MEDS: GABAPENTIN 300MG CAPSULE PO SCH ×2 (05:29→13:11)
[2019-09-19] MEDS: PHENYTOIN SODIUM EXTENDED 100MG CAPSULE PO SCH ×2 (05:29→13:11)
[2019-09-19] MEDS: ONDANSETRON HCL 4MG/2ML INJ IV PRN (06:45)
[2019-09-19 08:00] VITALS: BP 127/95
[2019-09-19] MEDS: LEVETIRACETAM 500MG TABLET PO SCH (08:56)
[2019-09-19] MEDS: THIAMINE HCL 100MG TABLET PO SCH (08:56)
[2019-09-19] MEDS: CARISOPRODOL 350 MG TABLET PO SCH (08:56)
[2019-09-19] MEDS: FOLIC ACID 1MG TABLET PO SCH ×2 (08:56→08:57)
[2019-09-19] MEDS: ALLOPURINOL 100 MG TABLET PO SCH (08:56)
[2019-09-19] MEDS: COLCHICINE 0.6MG TABLET PO SCH (08:57)
[2019-09-19] MEDS: SODIUM CHLORIDE 0.9% 1,000 ML IV SCH (11:53)
[2019-09-19 12:00] VITALS: BP 146/88
[2019-09-19] MEDS ORDERED: COLC0.6C3 MT (12:08)
[2019-09-19] MEDS ORDERED: THIA100T88 MT (12:08)
[2019-09-19 13:26] VITALS: BP 136/88
== END 2019-09-19 14:55 | disposition home or self-care (01) | DRG 282 ==
LOC: ER 00:14 → ENRESERV 20:47 → 6EST 21:48 → UNDOADMIN 21:48
PROVIDERS: ADMIT Internal Medicine; ATTEND Internal Medicine
DX: K85.90 Acute pancreatitis without necrosis or infection, unspecified (principal); D69.6 Thrombocytopenia, unspecified; K76.0 Fatty (change of) liver, not elsewhere classified; E44.1 Mild protein-calorie malnutrition; F10.10 Alcohol abuse, uncomplicated; D72.819 Decreased white blood cell count, unspecified; M10.9 Gout, unspecified; J45.909 Unspecified asthma, uncomplicated; F17.210 Nicotine dependence, cigarettes, uncomplicated; I10 Essential (primary) hypertension; Z71.6 Tobacco abuse counseling; Z79.899 Other long term (current) drug therapy; Z68.28 Body mass index [BMI] 28.0-28.9, adult
CPT/HCPCS: 36415; 80048; 80053; 84550; 85025; 96374; 97162; 99285; G0378; J1885; J2270; J2405; J3490; J7030; Q0163

== ENCOUNTER 2019-10-02 20:55 | Emergency (ER) | payer MEDICAID ==
[~2019-10-02] VITALS: Ht 165.1 cm; Wt 81.0 kg
[~2019-10-02 20:55] MED LIST changes: +COLC0.6C3 MT; +THIA100T88 MT
[2019-10-02] MEDS ORDERED: SODIUM CHLORIDE 0.9% 1,000 ML IV ONE (22:59)
[2019-10-02] MEDS ORDERED: ONDANSETRON HCL 4MG/2ML INJ IV STA (22:59)
[2019-10-02] MEDS ORDERED: MORPHINE SULFATE 4 MG/ML CPJ (NOT FOR IM USE) IV STA (22:59)
[2019-10-02 23:37] LABS: EOSINOPHILS % 0.2 % (0.0-5.0); HEMATOCRIT. 41.8 % (42.0-52.0); LYMPHOCYTES % 47.5 % (20.0-50.0); MEAN CORPUSCULAR HEMOGLOBIN 29.5 pg (28.0-32.0); MEAN CORPUSCULAR VOLUME 88.3 fL (80.0-94.0); MEAN PLATELET VOLUME 7.7 fl (7.4-10.4); MONOCYTES % 10.9 % (2.0-8.0); NEUTROPHILS % 40.4 % (40.0-76.0); PLATELET 184 x1000/uL (130-400); RED BLOOD CELL COUNT 4.73 mill/uL (4.7-6.1); RED CELL DISTRIBUTION WIDTH 15.4 % (11.6-14.6)
[2019-10-02 23:41] LABS: CLARITY URINE CLEAR (CLEAR); COLOR URINE YELLOW (YELLOW); KETONES URINE NEGATIVE (NEGATIVE); LEUKOCYTE ESTERASE URINE NEGATIVE (NEGATIVE); NITRITE URINE NEGATIVE (NEGATIVE); OCCULT BLOOD URINE NEGATIVE (NEGATIVE); PROTEIN URINE 3+ (NEGATIVE); SPECIFIC GRAVITY URINE 1.007 (1.005-1.030); UROBILINOGEN URINE 0.2 E.U./dL (0.2-1.0)
[2019-10-02 23:42] LABS: CHLORIDE 101 mEq/L (98-107)
[2019-10-02 23:45] LABS: PROTHROMBIN TIME 10.5 sec (9.6-11.0)
[2019-10-03 08:11] VITALS: BP 120/84
== END 2019-10-03 08:17 | disposition home or self-care (01) ==
LOC: ER 20:55
DX: K86.0 Alcohol-induced chronic pancreatitis (principal); F10.288 Alcohol dependence with other alcohol-induced disorder; Y90.9 Presence of alcohol in blood, level not specified; I10 Essential (primary) hypertension; E11.9 Type 2 diabetes mellitus without complications; G40.909 Epilepsy, unspecified, not intractable, without status epilepticus; J45.909 Unspecified asthma, uncomplicated
CPT/HCPCS: 36415; 80053; 81003; 83690; 85025; 85610; 96361; 96374; 96375; 99285; J2270; J2405; J7030

== ENCOUNTER 2019-10-06 19:35 | Inpatient (IN) | payer MEDICAID ==
[~2019-10-06] VITALS: Ht 170.2 cm; Wt 80.7 kg
[2019-10-06] MEDS ORDERED: LORAZEPAM 2MG/ML CPJ IM ONE (21:30)
[2019-10-06] MEDS ORDERED: OLANZAPINE 10 MG/VIAL IM ONE (22:15)
[2019-10-07 00:23] LABS: CHLORIDE 107 mEq/L (98-107)
[2019-10-07 00:30] LABS: BASOPHILS % 1.3 % (0.0-2.0); EOSINOPHILS % 0.2 % (0.0-5.0); HEMATOCRIT. 36.5 % (42.0-52.0); HEMOGLOBIN. 12.4 g/dL (14.0-18.0); LYMPHOCYTES % 45.5 % (20.0-50.0); MEAN CORPUSCULAR HEMOGLOBIN 29.6 pg (28.0-32.0); MEAN PLATELET VOLUME 7.4 fl (7.4-10.4); MONOCYTES % 12.5 % (2.0-8.0); NEUTROPHILS % 40.5 % (40.0-76.0); PLATELET 136 x1000/uL (130-400); RED CELL DISTRIBUTION WIDTH 15.1 % (11.6-14.6)
[2019-10-07 11:54] LABS: HEPATITIS B SURFACE ANTIGEN NEGATIVE
[2019-10-07 12:24] LABS: HEPATITIS A AB IGM NEGATIVE (NEGATIVE)
[2019-10-07] MEDS ORDERED: GUAIFENESIN 200MG/10ML SUGAR FREE UDC PO PRN (17:15)
[2019-10-07] MEDS ORDERED: IPRATROPIUM/ALBUTEROL 0.5-3(2.5)MG/3ML NEB HHN PRN (17:15)
[2019-10-07] MEDS ORDERED: DOCUSATE SODIUM 100MG CAPSULE PO PRN (17:15)
[2019-10-07] MEDS ORDERED: ACETAMINOPHEN 325MG TABLET PO PRN (17:15)
[2019-10-07] MEDS ORDERED: CLONIDINE 0.1MG TABLET PO PRN (17:15)
[2019-10-07] MEDS ORDERED: HYDROMORPHONE HCL/PF 2MG/ML CPJ IV PRN (17:15)
[2019-10-07] MEDS ORDERED: LORAZEPAM 2MG/ML CPJ IV PRN ×2 (17:15)
[2019-10-07] MEDS ORDERED: ONDANSETRON HCL 4MG/2ML INJ IV PRN (17:15)
[2019-10-07] MEDS: MULTIVITAMINS,THER W-MINERALS TABLET PO SCH (17:45)
[2019-10-07] MEDS: FOLIC ACID 1MG TABLET PO SCH (17:45)
[2019-10-07] MEDS: OMEPRAZOLE 20MG CAPSULE EXTENDED RELEASE PO SCH (17:50)
[2019-10-07] MEDS ORDERED: FOLIC ACID 1 MG, THIAMINE HCL 100 MG, MVI, ADULT NO.1 10 ML in DEXTROSE 5% WATER 1,000 ML IV NR ×4 (18:00)
[2019-10-07 18:54] LABS: TOTAL IRON BINDING CAPACITY 337 ug/dL (250-450)
[2019-10-07] MEDS: LEVETIRACETAM 500MG TABLET PO SCH (18:55)
[2019-10-07] MEDS: NICOTINE 14MG PATCH TD SCH (18:56)
[2019-10-07 19:15] LABS: FOLIC ACID (FOLATE) SERUM 12.3 ng/mL (>5.38)
[2019-10-07 20:25] LABS: PROTHROMBIN TIME 10.9 sec (9.6-11.0)
[2019-10-07] MEDS: CHLORDIAZEPOXIDE 25MG CAPSULE PO SCH (21:49)
[2019-10-07] MEDS: HYDROCODONE/ACETAMINOPHEN 5/325MG TABLET PO PRN (21:49)
[2019-10-07] MEDS: PHENYTOIN SODIUM EXTENDED 100MG CAPSULE PO SCH (23:43)
[2019-10-07] MEDS: ATORVASTATIN CALCIUM 20MG TABLET PO SCH (23:43)
[2019-10-08] VITALS (7 sets, daily range): BP systolic 112–144; BP diastolic 65–102
[2019-10-08] MEDS: LACTATED RINGERS 1,000 ML IV SCH ×4 (01:15→20:00)
[2019-10-08] MEDS: CHLORDIAZEPOXIDE 25MG CAPSULE PO SCH ×3 (05:43→22:35)
[2019-10-08] MEDS: PHENYTOIN SODIUM EXTENDED 100MG CAPSULE PO SCH ×3 (05:47→22:35)
[2019-10-08 07:26] LABS: BASOPHILS % 0.3 % (0.0-2.0); EOSINOPHILS % 0.4 % (0.0-5.0); HEMATOCRIT. 36.9 % (42.0-52.0); HEMOGLOBIN. 12.3 g/dL (14.0-18.0); LYMPHOCYTES % 26.5 % (20.0-50.0); MEAN CORPUSCULAR HEMOGLOBIN 29.1 pg (28.0-32.0); MEAN CORPUSCULAR VOLUME 87.4 fL (80.0-94.0); MEAN PLATELET VOLUME 8.1 fl (7.4-10.4); MONOCYTES % 8.1 % (2.0-8.0); NEUTROPHILS % 64.7 % (40.0-76.0); PLATELET 114 x1000/uL (130-400); RED BLOOD CELL COUNT 4.22 mill/uL (4.7-6.1); RED CELL DISTRIBUTION WIDTH 15.3 % (11.6-14.6)
[2019-10-08 07:43] LABS: CHLORIDE 99 mEq/L (98-107)
[2019-10-08 07:49] LABS: AMYLASE 136 IU/L (25-115)
[2019-10-08 07:53] LABS: PHOSPHORUS 3.4 mg/dL (2.5-4.9)
[2019-10-08] MEDS: MULTIVITAMINS,THER W-MINERALS TABLET PO SCH (09:04)
[2019-10-08] MEDS: OMEPRAZOLE 20MG CAPSULE EXTENDED RELEASE PO SCH (09:04)
[2019-10-08] MEDS: THIAMINE HCL 100MG TABLET PO SCH (09:04)
[2019-10-08] MEDS: NICOTINE 14MG PATCH TD SCH (09:07)
[2019-10-08] MEDS: HYDROCODONE/ACETAMINOPHEN 5/325MG TABLET PO PRN (09:19)
[2019-10-08] MEDS: LEVETIRACETAM 500MG TABLET PO SCH ×2 (09:20→17:55)
[2019-10-08] MEDS: ALLOPURINOL 100 MG TABLET PO SCH (09:20)
[2019-10-08] MEDS: FOLIC ACID 1MG TABLET PO SCH (09:20)
[2019-10-08] MEDS: GABAPENTIN 300MG CAPSULE PO SCH ×3 (09:21→18:01)
[2019-10-08] MEDS: QUETIAPINE FUMARATE 50MG TABLET PO SCH ×2 (10:27→17:56)
[2019-10-08] MEDS ORDERED: MAGNESIUM 4 G PREMIX 100 ML IV NR (13:00)
[2019-10-08] MEDS: ATORVASTATIN CALCIUM 20MG TABLET PO SCH (22:35)
[2019-10-09] VITALS: BP 130/88
[2019-10-09 04:00] VITALS: BP 154/95
[2019-10-09] MEDS: PHENYTOIN SODIUM EXTENDED 100MG CAPSULE PO SCH ×2 (05:48→13:42)
[2019-10-09] MEDS: CHLORDIAZEPOXIDE 25MG CAPSULE PO SCH ×2 (05:48→13:42)
[2019-10-09 08:00] VITALS: BP 129/85
[2019-10-09 08:10] LABS: HIV SCREEN 4G Non Reactive (Non Reactive)
[2019-10-09] MEDS: QUETIAPINE FUMARATE 50MG TABLET PO SCH (08:36)
[2019-10-09] MEDS: MULTIVITAMINS,THER W-MINERALS TABLET PO SCH (08:37)
[2019-10-09] MEDS: OMEPRAZOLE 20MG CAPSULE EXTENDED RELEASE PO SCH (08:37)
[2019-10-09] MEDS: NICOTINE 14MG PATCH TD SCH (08:37)
[2019-10-09] MEDS: GABAPENTIN 300MG CAPSULE PO SCH ×2 (08:37→13:42)
[2019-10-09] MEDS: ALLOPURINOL 100 MG TABLET PO SCH (08:37)
[2019-10-09] MEDS: FOLIC ACID 1MG TABLET PO SCH (08:37)
[2019-10-09] MEDS: LEVETIRACETAM 500MG TABLET PO SCH (08:37)
[2019-10-09] MEDS: THIAMINE HCL 100MG TABLET PO SCH (08:37)
[2019-10-09] MEDS: LACTATED RINGERS 1,000 ML IV SCH (10:12)
[2019-10-09 12:00] VITALS: BP 131/80
[2019-10-09 16:00] VITALS: BP 136/91
[2019-10-09 16:18] VITALS: BP 125/80
[2019-10-09] MEDS ORDERED: MAGNESIUM GLUCONATE 500MG TABLET PO NR (16:30)
== END 2019-10-09 17:35 | disposition home or self-care (01) | DRG 282 ==
LOC: ER 19:35 → EDBEDREQSVC 10-07 14:20 → ENRESERV 10-07 20:37 → 6EST 10-07 22:06
PROVIDERS: ADMIT Internal Medicine; ATTEND Internal Medicine
DX: K85.90 Acute pancreatitis without necrosis or infection, unspecified (principal); D69.6 Thrombocytopenia, unspecified; K70.30 Alcoholic cirrhosis of liver without ascites; F20.9 Schizophrenia, unspecified; K76.0 Fatty (change of) liver, not elsewhere classified; F10.129 Alcohol abuse with intoxication, unspecified; K86.1 Other chronic pancreatitis; D64.9 Anemia, unspecified; G40.909 Epilepsy, unspecified, not intractable, without status epilepticus; R74.0 Nonspecific elevation of levels of transaminase and lactic acid dehydrogenase [LDH]; M10.9 Gout, unspecified; I10 Essential (primary) hypertension; T51.0X1A Toxic effect of ethanol, accidental (unintentional), initial encounter; M47.9 Spondylosis, unspecified; Z86.11 Personal history of tuberculosis; Z72.0 Tobacco use; Y92.89 Other specified places as the place of occurrence of the external cause; Z79.899 Other long term (current) drug therapy; Z72.89 Other problems related to lifestyle
CPT/HCPCS: 36415; 76700; 80048; 80053; 80076; 82150; 82248; 82607; 82728; 82746; 83540; 83550; 83735; 84100; 85025; 86705; 86709; 86803; 87340; 87389; 96372; 99285; J1170; J2060; J2405; J3411; J3475; J3490; J7070

== ENCOUNTER 2019-10-12 03:16 | Emergency (ER) | payer MEDICAID ==
[~2019-10-12] VITALS: Ht 167.6 cm; Wt 82.0 kg
[2019-10-12] MEDS ORDERED: IBUPROFEN 600MG TABLET PO STA (03:27)
[2019-10-12 03:56] LABS: CHLORIDE 105 mEq/L (98-107)
[2019-10-12 04:00] LABS: ETHANOL BLOOD 117 mg/dL
[2019-10-12] MEDS ORDERED: CHLORDIAZEPOXIDE 25MG CAPSULE PO ONE (04:15)
[2019-10-12 04:31] LABS: BASOPHILS % 0.3 % (0.0-2.0); EOSINOPHILS % 0.4 % (0.0-5.0); HEMOGLOBIN. 12.1 g/dL (14.0-18.0); LYMPHOCYTES % 18.1 % (20.0-50.0); MEAN CORPUSCULAR HEMOGLOBIN 29.7 pg (28.0-32.0); MEAN CORPUSCULAR VOLUME 88.3 fL (80.0-94.0); MEAN PLATELET VOLUME 8.4 fl (7.4-10.4); MONOCYTES % 14.9 % (2.0-8.0); NEUTROPHILS % 66.3 % (40.0-76.0); PLATELET 105 x1000/uL (130-400); RED BLOOD CELL COUNT 4.08 mill/uL (4.7-6.1); RED CELL DISTRIBUTION WIDTH 14.8 % (11.6-14.6)
[2019-10-12 05:06] VITALS: BP 121/78
== END 2019-10-12 05:08 | disposition home or self-care (01) ==
LOC: ER 03:16
DX: F10.129 Alcohol abuse with intoxication, unspecified (principal); Y90.5 Blood alcohol level of 100-119 mg/100 ml; I10 Essential (primary) hypertension; E11.9 Type 2 diabetes mellitus without complications; J45.909 Unspecified asthma, uncomplicated; Z79.899 Other long term (current) drug therapy
CPT/HCPCS: 36415; 80053; 80320; 85025; 99283; G0480

== ENCOUNTER 2019-10-13 08:23 | Emergency (ER) | payer MEDICAID ==
[~2019-10-13] VITALS: Ht 172.7 cm; Wt 75.0 kg
[2019-10-13] MEDS ORDERED: MAGNESIUM/ALUMINUM HYDROXIDE/SIMETHICONE 30ML UDC PO STA (08:46)
[2019-10-13] MEDS ORDERED: ONDANSETRON HCL 4MG/2ML INJ IV STA (08:46)
[2019-10-13] MEDS ORDERED: FAMOTIDINE 20MG/2ML VIAL IV STA (08:46)
[2019-10-13] MEDS ORDERED: KETOROLAC 30MG/ML VIAL IV STA (08:46)
[2019-10-13 09:53] LABS: BASOPHILS % 0.7 % (0.0-2.0); EOSINOPHILS % 0.2 % (0.0-5.0); HEMATOCRIT. 31.7 % (42.0-52.0); HEMOGLOBIN. 10.8 g/dL (14.0-18.0); LYMPHOCYTES % 10.3 % (20.0-50.0); MEAN CORPUSCULAR HEMOGLOBIN 29.8 pg (28.0-32.0); MEAN CORPUSCULAR VOLUME 87.6 fL (80.0-94.0); MEAN PLATELET VOLUME 7.8 fl (7.4-10.4); MONOCYTES % 11.8 % (2.0-8.0); PLATELET 145 x1000/uL (130-400); RED BLOOD CELL COUNT 3.62 mill/uL (4.7-6.1); RED CELL DISTRIBUTION WIDTH 14.4 % (11.6-14.6)
[2019-10-13 09:59] LABS: CHLORIDE 105 mEq/L (98-107)
[2019-10-13 10:03] LABS: ETHANOL BLOOD 12 mg/dL
[2019-10-13 10:15] LABS: CLARITY URINE CLEAR (CLEAR); COLOR URINE YELLOW (YELLOW); KETONES URINE NEGATIVE (NEGATIVE); LEUKOCYTE ESTERASE URINE NEGATIVE (NEGATIVE); NITRITE URINE NEGATIVE (NEGATIVE); OCCULT BLOOD URINE NEGATIVE (NEGATIVE); PROTEIN URINE 2+ (NEGATIVE); SPECIFIC GRAVITY URINE 1.013 (1.005-1.030); UROBILINOGEN URINE 0.2 E.U./dL (0.2-1.0)
[2019-10-13 10:28] LABS: *AMPHETAMINES SCREEN URINE NEGATIVE (NEGATIVE)
[2019-10-13 10:29] LABS: *BARBITURATES SCREEN URINE NEGATIVE (NEGATIVE); *BENZODIAZEPINES SCREEN URINE PRESUMTIVE POSITIVE (NEGATIVE); *COCAINE SCREEN URINE NEGATIVE (NEGATIVE); METHADONE URINE SCREEN NEGATIVE (NEGATIVE); OPIATES URINE SCREEN NEGATIVE (NEGATIVE)
[2019-10-13 10:30] LABS: CANNABINOID URINE SCREEN NEGATIVE (NEGATIVE); PHENCYCLIDINE URINE SCREEN NEGATIVE (NEGATIVE)
[2019-10-13] MEDS ORDERED: IOHEXOL-300 100 ML BOTTLE ONE (11:59)
[2019-10-13 12:10] VITALS: BP 140/91
[2019-10-13] MEDS ORDERED: ACETAMINOPHEN 325MG TABLET PO ONE (13:30)
== END 2019-10-13 13:56 | disposition home or self-care (01) ==
LOC: ER 08:23
DX: R10.9 Unspecified abdominal pain (principal); F10.129 Alcohol abuse with intoxication, unspecified; Y90.0 Blood alcohol level of less than 20 mg/100 ml; J45.909 Unspecified asthma, uncomplicated; E11.9 Type 2 diabetes mellitus without complications; I10 Essential (primary) hypertension; Z79.899 Other long term (current) drug therapy
CPT/HCPCS: 36415; 74177; 80053; 80305; 80320; 81003; 83690; 85025; 96374; 96375; 99285; J1885; J2405; J3490; Q9967; G0480

== ENCOUNTER 2019-10-18 19:12 | Emergency (ER) | payer MEDICAID ==
[~2019-10-18] VITALS: Ht 172.7 cm; Wt 79.0 kg
[2019-10-18 20:59] VITALS: BP 115/81
== END 2019-10-18 21:50 | disposition left against medical advice (07) ==
LOC: ER 19:12
DX: F10.129 Alcohol abuse with intoxication, unspecified (principal); Z53.21 Procedure and treatment not carried out due to patient leaving prior to being seen by health care provider

== ENCOUNTER 2019-10-23 00:59 | Emergency (ER) | payer MEDICAID ==
[~2019-10-23] VITALS: Ht 172.7 cm; Wt 83.0 kg
[2019-10-23 01:02] VITALS: BP 135/88
== END 2019-10-23 02:41 | disposition left against medical advice (07) ==
LOC: ER 00:59
DX: Z53.21 Procedure and treatment not carried out due to patient leaving prior to being seen by health care provider (principal)

== ENCOUNTER 2019-11-06 17:33 | Emergency (ER) | payer MEDICAID ==
[~2019-11-06] VITALS: Ht 170.2 cm; Wt 91.0 kg
[2019-11-06] MEDS ORDERED: SODIUM CHLORIDE 0.9% 1,000 ML IV ONE (18:17)
[2019-11-06] MEDS ORDERED: ONDANSETRON HCL 4MG/2ML INJ IV STA (18:17)
[2019-11-06] MEDS ORDERED: MORPHINE SULFATE 4 MG/ML CPJ (NOT FOR IM USE) IV STA (18:17)
[2019-11-06 20:52] LABS: BASOPHILS % 0.6 % (0.0-2.0); HEMOGLOBIN. 13.7 g/dL (14.0-18.0); LYMPHOCYTES % 16.1 % (20.0-50.0); MEAN CORPUSCULAR HEMOGLOBIN 28.7 pg (28.0-32.0); MEAN CORPUSCULAR VOLUME 86.2 fL (80.0-94.0); MEAN PLATELET VOLUME 7.4 fl (7.4-10.4); MONOCYTES % 11.9 % (2.0-8.0); NEUTROPHILS % 71.4 % (40.0-76.0); PLATELET 182 x1000/uL (130-400); RED BLOOD CELL COUNT 4.76 mill/uL (4.7-6.1); RED CELL DISTRIBUTION WIDTH 14.5 % (11.6-14.6)
[2019-11-06 20:56] LABS: CHLORIDE 98 mEq/L (98-107)
[2019-11-06 21:00] LABS: ETHANOL BLOOD 40 mg/dL
[2019-11-06 22:18] LABS: CLARITY URINE CLEAR (CLEAR); COLOR URINE YELLOW (YELLOW); KETONES URINE TRACE (NEGATIVE); LEUKOCYTE ESTERASE URINE TRACE (NEGATIVE); NITRITE URINE NEGATIVE (NEGATIVE); OCCULT BLOOD URINE TRACE (NEGATIVE); PROTEIN URINE 4+ (NEGATIVE); SPECIFIC GRAVITY URINE 1.024 (1.005-1.030)
[2019-11-06 22:32] LABS: *BARBITURATES SCREEN URINE NEGATIVE (NEGATIVE); *BENZODIAZEPINES SCREEN URINE PRESUMTIVE POSITIVE (NEGATIVE)
[2019-11-06 22:33] LABS: *AMPHETAMINES SCREEN URINE NEGATIVE (NEGATIVE); *COCAINE SCREEN URINE NEGATIVE (NEGATIVE); CANNABINOID URINE SCREEN NEGATIVE (NEGATIVE); METHADONE URINE SCREEN NEGATIVE (NEGATIVE); OPIATES URINE SCREEN PRESUMTIVE POSITIVE (NEGATIVE); PHENCYCLIDINE URINE SCREEN NEGATIVE (NEGATIVE)
[2019-11-06] MEDS ORDERED: ONDANSETRON 4MG ODT PO NR (23:30)
[2019-11-07 06:11] VITALS: BP 119/65
[2020-01-09] MEDS ORDERED: AMLO5TAB88 PO (14:34)
[2020-01-09] MEDS ORDERED: MAGN400T26 MT (14:34)
[2020-01-09] MEDS ORDERED: PANT40TA4 MT (14:34)
[2020-01-09] MEDS ORDERED: COLC0.6C3 MT (14:34)
== END 2019-11-07 06:15 | disposition home or self-care (01) ==
LOC: ER 17:33
DX: K29.20 Alcoholic gastritis without bleeding (principal); F10.20 Alcohol dependence, uncomplicated; G40.909 Epilepsy, unspecified, not intractable, without status epilepticus; M10.9 Gout, unspecified; F32.9 Major depressive disorder, single episode, unspecified; J45.909 Unspecified asthma, uncomplicated; Y90.2 Blood alcohol level of 40-59 mg/100 ml; Z91.018 Allergy to other foods
CPT/HCPCS: 36415; 71045; 76700; 80053; 80305; 80320; 81003; 83690; 85025; 96361; 96374; 96375; 99285; J2270; J2405; J7030; Q0162; G0480

== ENCOUNTER 2019-11-16 20:24 | Inpatient (IN) | payer MEDICAID ==
[~2019-11-16] VITALS: Ht 170.2 cm; Wt 82.6 kg
[2019-11-16] MEDS ORDERED: ONDANSETRON HCL 4MG/2ML INJ IV STA (20:57)
[2019-11-16] MEDS ORDERED: SODIUM CHLORIDE 0.9% 1,000 ML IV ONE (20:57)
[2019-11-16] MEDS ORDERED: FAMOTIDINE 20MG/2ML VIAL IV STA (20:57)
[2019-11-16 23:32] LABS: CHLORIDE 109 mEq/L (98-107)
[2019-11-16 23:34] LABS: BASOPHILS % 0.8 % (0.0-2.0); EOSINOPHILS % 0.5 % (0.0-5.0); HEMATOCRIT. 35.4 % (42.0-52.0); HEMOGLOBIN. 11.6 g/dL (14.0-18.0); LYMPHOCYTES % 49.2 % (20.0-50.0); MEAN CORPUSCULAR HEMOGLOBIN 28.3 pg (28.0-32.0); MEAN CORPUSCULAR VOLUME 86.7 fL (80.0-94.0); MEAN PLATELET VOLUME 7.4 fl (7.4-10.4); MONOCYTES % 14.5 % (2.0-8.0); PLATELET 151 x1000/uL (130-400); RED BLOOD CELL COUNT 4.09 mill/uL (4.7-6.1); RED CELL DISTRIBUTION WIDTH 14.8 % (11.6-14.6)
[2019-11-16 23:38] LABS: PROTHROMBIN TIME 10.9 sec (9.6-11.0)
[2019-11-17] VITALS (7 sets, daily range): BP systolic 121–152; BP diastolic 83–100
[2019-11-17] MEDS ORDERED: KETOROLAC 30MG/ML VIAL IV ONE
[2019-11-17 00:06] LABS: ETHANOL BLOOD 323 mg/dL
[2019-11-17 00:18] LABS: CLARITY URINE CLEAR (CLEAR); COLOR URINE YELLOW (YELLOW); KETONES URINE NEGATIVE (NEGATIVE); LEUKOCYTE ESTERASE URINE NEGATIVE (NEGATIVE); NITRITE URINE NEGATIVE (NEGATIVE); OCCULT BLOOD URINE NEGATIVE (NEGATIVE); PH URINE 5.5 (4.5-8.0); PROTEIN URINE 2+ (NEGATIVE); SPECIFIC GRAVITY URINE 1.009 (1.005-1.030); UROBILINOGEN URINE 0.2 E.U./dL (0.2-1.0)
[2019-11-17 00:30] LABS: *BENZODIAZEPINES SCREEN URINE NEGATIVE (NEGATIVE); *COCAINE SCREEN URINE NEGATIVE (NEGATIVE); CANNABINOID URINE SCREEN NEGATIVE (NEGATIVE); METHADONE URINE SCREEN NEGATIVE (NEGATIVE); OPIATES URINE SCREEN NEGATIVE (NEGATIVE); PHENCYCLIDINE URINE SCREEN NEGATIVE (NEGATIVE)
[2019-11-17 00:31] LABS: *AMPHETAMINES SCREEN URINE NEGATIVE (NEGATIVE); *BARBITURATES SCREEN URINE NEGATIVE (NEGATIVE)
[2019-11-17] MEDS ORDERED: SODIUM CHLORIDE 0.45% 1,000 ML IV SCH (01:11)
[2019-11-17] MEDS ORDERED: SODIUM CHLORIDE 0.9% 1,000 ML IV ONE (01:15)
[2019-11-17] MEDS ORDERED: NA PHOS,M-B/NA PHOS,DI-BA ENEMA 118ML PR PRN (01:15)
[2019-11-17] MEDS ORDERED: IPRATROPIUM/ALBUTEROL 0.5-3(2.5)MG/3ML NEB NEB PRN (01:15)
[2019-11-17] MEDS ORDERED: DOCUSATE SODIUM 100MG CAPSULE PO PRN (01:15)
[2019-11-17] MEDS ORDERED: MAGNESIUM/ALUMINUM HYDROXIDE/SIMETHICONE 30ML UDC PO PRN (01:15)
[2019-11-17] MEDS ORDERED: GUAIFENESIN 200MG/10ML SUGAR FREE UDC PO PRN (01:15)
[2019-11-17] MEDS ORDERED: ACETAMINOPHEN 325MG TABLET PO PRN (01:15)
[2019-11-17] MEDS: ONDANSETRON HCL 4MG/2ML INJ IV PRN ×2 (03:15→14:59)
[2019-11-17] MEDS: MORPHINE SULFATE 2 MG/ML CPJ (NOT FOR IM USE) IV PRN ×3 (03:16→20:59)
[2019-11-17] MEDS: DIPHENHYDRAMINE 50MG/ML VIAL IV PRN ×2 (03:58→11:20)
[2019-11-17] MEDS: ENOXAPARIN 40MG/0.4ML SYR SUBCUT SCH (09:10)
[2019-11-17] MEDS: FOLIC ACID 1 MG, THIAMINE HCL 100 MG, MVI, ADULT NO.1 10 ML in DEXTROSE 5% WATER 1,000 ML IV SCH ×8 (12:44→20:57)
[2019-11-17] MEDS: LORAZEPAM 2MG/ML CPJ IV PRN (15:36)
[2019-11-17] MEDS: CLONIDINE 0.1MG TABLET PO PRN (16:43)
[2019-11-18] VITALS: BP 139/84
[2019-11-18] MEDS: LORAZEPAM 2MG/ML CPJ IV PRN ×3 (00:05→19:42)
[2019-11-18] MEDS: DIPHENHYDRAMINE 50MG/ML VIAL IV PRN ×3 (01:39→23:45)
[2019-11-18 04:00] VITALS: BP 134/94
[2019-11-18] MEDS: MORPHINE SULFATE 2 MG/ML CPJ (NOT FOR IM USE) IV PRN ×4 (04:11→21:55)
[2019-11-18] MEDS: CLONIDINE 0.1MG TABLET PO PRN (04:58)
[2019-11-18 06:17] LABS: HEMATOCRIT. 41.6 % (42.0-52.0); HEMOGLOBIN. 13.7 g/dL (14.0-18.0); MEAN CORPUSCULAR HEMOGLOBIN 28.3 pg (28.0-32.0); MEAN CORPUSCULAR VOLUME 86.1 fL (80.0-94.0); MEAN PLATELET VOLUME 7.3 fl (7.4-10.4); PLATELET 129 x1000/uL (130-400); RED BLOOD CELL COUNT 4.84 mill/uL (4.7-6.1); RED CELL DISTRIBUTION WIDTH 14.6 % (11.6-14.6)
[2019-11-18 06:36] LABS: CHLORIDE 98 mEq/L (98-107)
[2019-11-18 06:49] LABS: LDL CHOLESTEROL 147 mg/dL (5-100)
[2019-11-18 06:51] LABS: T4 FREE 1.05 ng/dL (0.76-1.46)
[2019-11-18 06:52] LABS: HDL CHOLESTEROL 111 mg/dL (40-59)
[2019-11-18 08:00] VITALS: BP 115/99
[2019-11-18] MEDS: ONDANSETRON HCL 4MG/2ML INJ IV PRN ×2 (09:11→16:04)
[2019-11-18] MEDS: ENOXAPARIN 40MG/0.4ML SYR SUBCUT SCH (09:11)
[2019-11-18 12:00] VITALS: BP 121/88
[2019-11-18 12:30] LABS: PLATELET ESTIMATE SLIGHTLY DECREASED
[2019-11-18 16:00] VITALS: BP 117/86
[2019-11-18 20:00] VITALS: BP 129/96
[2019-11-19] VITALS: BP 117/78
[2019-11-19] MEDS: HYDROCODONE/ACETAMINOPHEN 5/325MG TABLET PO PRN ×2 (02:17→08:26)
[2019-11-19] MEDS: LORAZEPAM 2MG/ML CPJ IV PRN (03:10)
[2019-11-19 04:00] VITALS: BP 124/81
[2019-11-19] MEDS: MORPHINE SULFATE 2 MG/ML CPJ (NOT FOR IM USE) IV PRN (05:45)
[2019-11-19 06:54] LABS: CHLORIDE 98 mEq/L (98-107)
[2019-11-19 07:01] LABS: HEMATOCRIT. 39.2 % (42.0-52.0); HEMOGLOBIN. 13.1 g/dL (14.0-18.0); MEAN CORPUSCULAR HEMOGLOBIN 28.6 pg (28.0-32.0); MEAN CORPUSCULAR VOLUME 85.5 fL (80.0-94.0); MEAN PLATELET VOLUME 7.9 fl (7.4-10.4); PLATELET 139 x1000/uL (130-400); RED BLOOD CELL COUNT 4.58 mill/uL (4.7-6.1); RED CELL DISTRIBUTION WIDTH 14.4 % (11.6-14.6)
[2019-11-19 08:00] VITALS: BP 122/87
[2019-11-19] MEDS: ENOXAPARIN 40MG/0.4ML SYR SUBCUT SCH (08:27)
[2019-11-19 09:22] VITALS: BP 122/87
[2019-11-19 17:31] LABS: PLATELET ESTIMATE NORMAL
[2019-11-20 07:55] VITALS: BP 171/89
[2019-11-20 16:14] VITALS: BP 140/85
[2020-01-09] MEDS ORDERED: MAGN400T26 MT (14:34)
[2020-01-09] MEDS ORDERED: AMLO5TAB88 PO (14:34)
[2020-01-09] MEDS ORDERED: PANT40TA4 MT (14:34)
[2020-01-09] MEDS ORDERED: COLC0.6C3 MT (14:34)
== END 2019-11-19 11:00 | disposition home or self-care (01) | DRG 282 ==
LOC: ER 20:28 → 5WST 11-17 01:05 → EDBEDREQ 11-17 01:20 → EDBEDREQSVC 11-17 01:20 → ENRESERV 11-17 01:51
PROVIDERS: ADMIT Internal Medicine; ATTEND Internal Medicine
DX: K85.20 Alcohol induced acute pancreatitis without necrosis or infection (principal); D61.818 Other pancytopenia; D63.8 Anemia in other chronic diseases classified elsewhere; E86.0 Dehydration; E87.1 Hypo-osmolality and hyponatremia; Y90.8 Blood alcohol level of 240 mg/100 ml or more; I10 Essential (primary) hypertension; F20.9 Schizophrenia, unspecified; Z86.11 Personal history of tuberculosis; K76.0 Fatty (change of) liver, not elsewhere classified; F10.288 Alcohol dependence with other alcohol-induced disorder; G40.909 Epilepsy, unspecified, not intractable, without status epilepticus; J45.909 Unspecified asthma, uncomplicated; K86.1 Other chronic pancreatitis; F32.9 Major depressive disorder, single episode, unspecified; M10.9 Gout, unspecified; Z88.8 Allergy status to other drugs, medicaments and biological substances; Z79.899 Other long term (current) drug therapy; E44.0 Moderate protein-calorie malnutrition
CPT/HCPCS: 36415; 71045; 74176; 80048; 80053; 80061; 80305; 80320; 81003; 84439; 84443; 84484; 85025; 96374; 99285; J1200; J1650; J1885; J2060; J2270; J2405; J3411; J3490; J7030; J7070; G0480

== ENCOUNTER 2019-11-30 22:17 | Inpatient (IN) | payer MEDICAID ==
[~2019-11-30] VITALS: Ht 180.3 cm; Wt 86.0 kg
[2019-11-30] MEDS ORDERED: SODIUM CHLORIDE 0.9% 1,000 ML IV ONE (22:39)
[2019-11-30] MEDS ORDERED: MORPHINE SULFATE 4 MG/ML CPJ (NOT FOR IM USE) IV STA (22:39)
[2019-11-30] MEDS ORDERED: ONDANSETRON HCL 4MG/2ML INJ IV STA (22:39)
[2019-11-30 23:15] LABS: CHLORIDE 101 mEq/L (98-107); EOSINOPHILS % 0.2 % (0.0-5.0); HEMATOCRIT. 41.1 % (42.0-52.0); HEMOGLOBIN. 13.5 g/dL (14.0-18.0); LYMPHOCYTES % 43.2 % (20.0-50.0); MEAN CORPUSCULAR HEMOGLOBIN 28.3 pg (28.0-32.0); MEAN CORPUSCULAR VOLUME 86.2 fL (80.0-94.0); MEAN PLATELET VOLUME 7.8 fl (7.4-10.4); MONOCYTES % 10.3 % (2.0-8.0); NEUTROPHILS % 45.3 % (40.0-76.0); PLATELET 187 x1000/uL (130-400); RED BLOOD CELL COUNT 4.77 mill/uL (4.7-6.1)
[2019-11-30 23:18] LABS: PROTHROMBIN TIME 10.9 sec (9.6-11.0)
[2019-11-30 23:44] LABS: ETHANOL BLOOD 324 mg/dL
[2019-12-01] VITALS (8 sets, daily range): BP systolic 65–142; BP diastolic 27–87
[2019-12-01] MEDS ORDERED: PHENYTOIN SODIUM EXTENDED 100MG CAPSULE PO SCH
[2019-12-01] MEDS ORDERED: DIPHENHYDRAMINE 25MG CAPSULE PO ONE (00:30)
[2019-12-01 01:11] LABS: CLARITY URINE CLEAR (CLEAR); COLOR URINE YELLOW (YELLOW); KETONES URINE NEGATIVE (NEGATIVE); LEUKOCYTE ESTERASE URINE NEGATIVE (NEGATIVE); NITRITE URINE NEGATIVE (NEGATIVE); OCCULT BLOOD URINE TRACE (NEGATIVE); PROTEIN URINE 3+ (NEGATIVE); SPECIFIC GRAVITY URINE 1.016 (1.005-1.030); UROBILINOGEN URINE 0.2 E.U./dL (0.2-1.0)
[2019-12-01] MEDS ORDERED: MORPHINE SULFATE 4 MG/ML CPJ (NOT FOR IM USE) IV ONE (01:15)
[2019-12-01] MEDS ORDERED: LEVETIRACETAM 500 MG in SODIUM CHLORIDE 0.9% 100 ML IV SCH (10:30)
[2019-12-01] MEDS ORDERED: HYDROCODONE/ACETAMINOPHEN 5/325MG TABLET PO PRN (10:30)
[2019-12-01] MEDS ORDERED: CLONIDINE 0.1MG TABLET PO PRN (10:30)
[2019-12-01] MEDS ORDERED: PANTOPRAZOLE SODIUM 40 MG/VIAL IV SCH (10:30)
[2019-12-01] MEDS ORDERED: ACETAMINOPHEN 325MG TABLET PO PRN ×2 (10:30)
[2019-12-01] MEDS ORDERED: ONDANSETRON HCL 4MG/2ML INJ IV PRN (10:30)
[2019-12-01] MEDS ORDERED: DOCUSATE SODIUM 100MG CAPSULE PO PRN (10:30)
[2019-12-01] MEDS ORDERED: IPRATROPIUM/ALBUTEROL 0.5-3(2.5)MG/3ML NEB HHN PRN (10:30)
[2019-12-01] MEDS ORDERED: LORAZEPAM 2MG/ML CPJ IV PRN (10:30)
[2019-12-01] MEDS: HYDROMORPHONE HCL/PF 2MG/ML CPJ IV PRN (10:54)
[2019-12-01 11:51] LABS: *BENZODIAZEPINES SCREEN URINE NEGATIVE (NEGATIVE); *COCAINE SCREEN URINE NEGATIVE (NEGATIVE)
[2019-12-01 11:52] LABS: *AMPHETAMINES SCREEN URINE NEGATIVE (NEGATIVE); CANNABINOID URINE SCREEN NEGATIVE (NEGATIVE); METHADONE URINE SCREEN NEGATIVE (NEGATIVE); OPIATES URINE SCREEN PRESUMTIVE POSITIVE (NEGATIVE); PHENCYCLIDINE URINE SCREEN NEGATIVE (NEGATIVE)
[2019-12-01 11:54] LABS: *BARBITURATES SCREEN URINE NEGATIVE (NEGATIVE)
[2019-12-01] MEDS: LEVETIRACETAM 500MG PREMIX 100 ML IV SCH ×2 (12:12→22:15)
[2019-12-01] MEDS: QUETIAPINE FUMARATE 50MG TABLET PO SCH ×2 (12:13→16:56)
[2019-12-01] MEDS ORDERED: FOLIC ACID 1 MG, THIAMINE HCL 100 MG, MVI, ADULT NO.1 10 ML in DEXTROSE 5% WATER 1,000 ML IV ONE ×4 (13:00)
[2019-12-01] MEDS ORDERED: ALLOPURINOL 100 MG TABLET PO SCH (13:30)
[2019-12-01] MEDS: PHENYTOIN SODIUM EXTENDED 100MG CAPSULE PO SCH ×3 (13:50→22:16)
[2019-12-01] MEDS: CHLORDIAZEPOXIDE 25MG CAPSULE PO SCH ×3 (13:50→22:16)
[2019-12-01] MEDS ORDERED: SODIUM CHLORIDE 0.9% 1,000 ML IV ONE (16:00)
[2019-12-01] MEDS ORDERED: SODIUM CHLORIDE 0.9% 1,000 ML IV NR (16:00)
[2019-12-01] MEDS: GABAPENTIN 300MG CAPSULE PO SCH (16:56)
[2019-12-01] MEDS: CARISOPRODOL 350 MG TABLET PO SCH (17:54)
[2019-12-01] MEDS: PANTOPRAZOLE SODIUM 40 MG/VIAL IV SCH (17:54)
[2019-12-01] MEDS: ATORVASTATIN CALCIUM 20MG TABLET PO SCH ×2 (21:00→22:16)
[2019-12-02] VITALS (7 sets, daily range): BP systolic 100–134; BP diastolic 77–89
[2019-12-02] MEDS: HYDROMORPHONE HCL/PF 2MG/ML CPJ IV PRN (04:24)
[2019-12-02 05:48] LABS: BASOPHILS % 0.6 % (0.0-2.0); EOSINOPHILS % 0.2 % (0.0-5.0); HEMATOCRIT. 36.2 % (42.0-52.0); HEMOGLOBIN. 11.9 g/dL (14.0-18.0); LYMPHOCYTES % 23.4 % (20.0-50.0); MEAN CORPUSCULAR HEMOGLOBIN 28.7 pg (28.0-32.0); MEAN CORPUSCULAR VOLUME 87.3 fL (80.0-94.0); MONOCYTES % 11.6 % (2.0-8.0); NEUTROPHILS % 64.2 % (40.0-76.0); RED BLOOD CELL COUNT 4.14 mill/uL (4.7-6.1); RED CELL DISTRIBUTION WIDTH 14.9 % (11.6-14.6)
[2019-12-02 05:51] LABS: CHLORIDE 101 mEq/L (98-107)
[2019-12-02] MEDS: PHENYTOIN SODIUM EXTENDED 100MG CAPSULE PO SCH (06:00)
[2019-12-02] MEDS: CHLORDIAZEPOXIDE 25MG CAPSULE PO SCH ×2 (06:00→13:28)
[2019-12-02] MEDS ORDERED: OMEPRAZOLE 20MG CAPSULE EXTENDED RELEASE PO SCH (07:10)
[2019-12-02] MEDS: CARISOPRODOL 350 MG TABLET PO SCH ×2 (09:19→17:29)
[2019-12-02] MEDS: GABAPENTIN 300MG CAPSULE PO SCH ×3 (09:19→17:29)
[2019-12-02] MEDS: QUETIAPINE FUMARATE 50MG TABLET PO SCH ×2 (09:20→17:29)
[2019-12-02] MEDS: PANTOPRAZOLE SODIUM 40 MG/VIAL IV SCH ×2 (09:21→17:00)
[2019-12-02] MEDS: LEVETIRACETAM 500MG PREMIX 100 ML IV SCH (09:21)
[2019-12-02] MEDS ORDERED: DEXT 5%/0.9% NACL 1,000 ML IV SCH (09:30)
[2019-12-02 12:03] LABS: PLATELET 121 x1000/uL (130-400)
[2019-12-02] MEDS ORDERED: PHENYTOIN SODIUM 500MG in SODIUM CHLORIDE 0.9% 50ML IV SCH (13:00)
[2019-12-02] MEDS: METOCLOPRAMIDE HCL 10MG/2ML VIAL IV SCH (16:15)
[2019-12-02] MEDS ORDERED: FOLI-43 MT (16:26)
[2019-12-02] MEDS ORDERED: FERR325T6 MT (16:26)
[2019-12-02] MEDS ORDERED: THIA100T88 MT (16:26)
[2019-12-02] MEDS ORDERED: MULT-230 MT (16:26)
[2019-12-02] MEDS ORDERED: CHLO25CA10 MT (16:26)
[2020-01-09] MEDS ORDERED: PANT40TA4 MT (14:34)
[2020-01-09] MEDS ORDERED: MAGN400T26 MT (14:34)
[2020-01-09] MEDS ORDERED: COLC0.6C3 MT (14:34)
[2020-01-09] MEDS ORDERED: AMLO5TAB88 PO (14:34)
== END 2019-12-02 18:35 | disposition home or self-care (01) | DRG 241 ==
LOC: ER 22:17 → 6EST 12-01 02:33 → ENRESERV 12-01 04:15 → 8WST 12-01 16:13
PROVIDERS: ADMIT Internal Medicine; ATTEND Internal Medicine
DX: K27.9 Peptic ulcer, site unspecified, unspecified as acute or chronic, without hemorrhage or perforation (principal); K85.20 Alcohol induced acute pancreatitis without necrosis or infection; K22.6 Gastro-esophageal laceration-hemorrhage syndrome; I85.00 Esophageal varices without bleeding; G40.909 Epilepsy, unspecified, not intractable, without status epilepticus; D64.9 Anemia, unspecified; K76.9 Liver disease, unspecified; E16.2 Hypoglycemia, unspecified; G89.29 Other chronic pain; R80.9 Proteinuria, unspecified; F10.239 Alcohol dependence with withdrawal, unspecified; K86.0 Alcohol-induced chronic pancreatitis; J45.909 Unspecified asthma, uncomplicated; I95.9 Hypotension, unspecified; M19.90 Unspecified osteoarthritis, unspecified site; Z91.018 Allergy to other foods; Z79.899 Other long term (current) drug therapy; K29.70 Gastritis, unspecified, without bleeding
CPT/HCPCS: 36415; 80048; 80053; 80185; 80305; 80320; 81003; 82962; 85025; 93005; 99285; C9113; J1165; J1170; J1953; J2270; J2405; J3411; J3490; J7030; J7042; J7070; Q0163; G0480

== ENCOUNTER 2019-12-14 20:35 | Inpatient (IN) | payer MEDICAID ==
[~2019-12-14] VITALS: Ht 185.4 cm; Wt 81.6 kg
[~2019-12-14 20:35] MED LIST changes: +CHLO25CA10 MT; +FERR325T6 MT; +FOLI-43 MT; +MULT-230 MT
[2019-12-14] MEDS ORDERED: ONDANSETRON HCL 4MG/2ML INJ IV STA (21:57)
[2019-12-14] MEDS ORDERED: MORPHINE SULFATE 4 MG/ML CPJ (NOT FOR IM USE) IV STA (21:57)
[2019-12-14] MEDS ORDERED: SODIUM CHLORIDE 0.9% 1,000 ML IV ONE (21:57)
[2019-12-14] MEDS ORDERED: AZITHROMYCIN 500 MG in DEXT 5% WATER 250 ML IV STA (23:02)
[2019-12-14] MEDS ORDERED: CEFTRIAXONE 1 G PREMIX 50 ML IV ONE (23:15)
[2019-12-14 23:52] LABS: BASOPHILS % 1.2 % (0.0-2.0); EOSINOPHILS % 0.3 % (0.0-5.0); HEMATOCRIT. 37.9 % (42.0-52.0); HEMOGLOBIN. 12.6 g/dL (14.0-18.0); LYMPHOCYTES % 47.4 % (20.0-50.0); MEAN CORPUSCULAR HEMOGLOBIN 28.3 pg (28.0-32.0); MEAN CORPUSCULAR VOLUME 85.6 fL (80.0-94.0); MEAN PLATELET VOLUME 6.8 fl (7.4-10.4); MONOCYTES % 9.4 % (2.0-8.0); NEUTROPHILS % 41.7 % (40.0-76.0); PLATELET 235 x1000/uL (130-400); RED BLOOD CELL COUNT 4.43 mill/uL (4.7-6.1); RED CELL DISTRIBUTION WIDTH 15.5 % (11.6-14.6)
[2019-12-14 23:57] LABS: CHLORIDE 102 mEq/L (98-107)
[2019-12-15 00:01] LABS: ETHANOL BLOOD 292 mg/dL
[2019-12-15] MEDS ORDERED: MORPHINE SULFATE 4 MG/ML CPJ (NOT FOR IM USE) IV ONE (00:45)
[2019-12-15] MEDS ORDERED: KCL 10MEQ/50ML PREMIX 50 ML IV ONE (01:00)
[2019-12-15 01:20] LABS: CLARITY URINE CLEAR (CLEAR); KETONES URINE NEGATIVE (NEGATIVE); LEUKOCYTE ESTERASE URINE NEGATIVE (NEGATIVE); NITRITE URINE NEGATIVE (NEGATIVE); OCCULT BLOOD URINE NEGATIVE (NEGATIVE); PH URINE 5.5 (4.5-8.0); PROTEIN URINE 2+ (NEGATIVE); SPECIFIC GRAVITY URINE 1.007 (1.005-1.030); UROBILINOGEN URINE 0.2 E.U./dL (0.2-1.0)
[2019-12-15 01:25] LABS: COLOR URINE YELLOW (YELLOW)
[2019-12-15 03:50] VITALS: BP 153/91
[2019-12-15 04:00] VITALS: BP 153/91
[2019-12-15] MEDS ORDERED: OMEP20CA14 MT (05:50)
[2019-12-15] MEDS ORDERED: THIA100T88 MT (05:50)
[2019-12-15] MEDS ORDERED: FOLI0.4T2 MT (05:50)
[2019-12-15] MEDS ORDERED: KEPP500 MT (05:50)
[2019-12-15] MEDS ORDERED: ATOR20TA65 MT (05:50)
[2019-12-15] MEDS ORDERED: GABA-531 PO (05:50)
[2019-12-15] MEDS ORDERED: MULT-1146 MT (05:50)
[2019-12-15] MEDS ORDERED: ALLO100T PO (05:50)
[2019-12-15] MEDS ORDERED: CLONIDINE 0.1MG TABLET PO PRN (06:15)
[2019-12-15] MEDS: MORPHINE SULFATE 2 MG/ML CPJ (NOT FOR IM USE) IV PRN ×4 (06:35→21:35)
[2019-12-15] MEDS: SODIUM CHLORIDE 0.9% 1,000 ML IV SCH ×2 (07:07→14:15)
[2019-12-15 08:00] VITALS: BP 135/92
[2019-12-15] MEDS: ALLOPURINOL 100 MG TABLET PO SCH (08:43)
[2019-12-15] MEDS: LEVETIRACETAM 500MG TABLET PO SCH ×2 (08:43→21:34)
[2019-12-15] MEDS: PANTOPRAZOLE SODIUM 40 MG/VIAL IV SCH (08:44)
[2019-12-15] MEDS: ONDANSETRON HCL 4MG/2ML INJ IV PRN ×2 (10:35→15:21)
[2019-12-15 11:08] LABS: CHLORIDE 106 mEq/L (98-107)
[2019-12-15 11:12] LABS: AMYLASE 204 IU/L (25-115)
[2019-12-15 11:48] LABS: *AMPHETAMINES SCREEN URINE NEGATIVE (NEGATIVE); *BARBITURATES SCREEN URINE NEGATIVE (NEGATIVE); *BENZODIAZEPINES SCREEN URINE NEGATIVE (NEGATIVE)
[2019-12-15 11:49] LABS: *COCAINE SCREEN URINE NEGATIVE (NEGATIVE); METHADONE URINE SCREEN NEGATIVE (NEGATIVE); OPIATES URINE SCREEN PRESUMTIVE POSITIVE (NEGATIVE); PHENCYCLIDINE URINE SCREEN NEGATIVE (NEGATIVE)
[2019-12-15 11:53] LABS: CANNABINOID URINE SCREEN NEGATIVE (NEGATIVE)
[2019-12-15 12:00] VITALS: BP 134/83
[2019-12-15 12:56] LABS: EOSINOPHILS % 0.2 % (0.0-5.0); HEMATOCRIT. 37.6 % (42.0-52.0); HEMOGLOBIN. 12.4 g/dL (14.0-18.0); LYMPHOCYTES % 25.9 % (20.0-50.0); MEAN CORPUSCULAR VOLUME 85.3 fL (80.0-94.0); MEAN PLATELET VOLUME 6.9 fl (7.4-10.4); MONOCYTES % 8.1 % (2.0-8.0); NEUTROPHILS % 64.8 % (40.0-76.0); PLATELET 192 x1000/uL (130-400); RED BLOOD CELL COUNT 4.41 mill/uL (4.7-6.1); RED CELL DISTRIBUTION WIDTH 15.5 % (11.6-14.6)
[2019-12-15 16:00] VITALS: BP 130/89
[2019-12-15] MEDS ORDERED: [UNRECOGNIZED DRUG - REMARK] IV ONE (16:15)
[2019-12-15] MEDS ORDERED: MVI, ADULT NO.1 10 ML, FOLIC ACID 1 MG, THIAMINE HCL 100 MG in DEXT 5%/0.45% NACL 1000M... IV SCH ×4 (17:30)
[2019-12-15] MEDS ORDERED: ENOXAPARIN 40MG/0.4ML SYR SUBCUT SCH (18:00)
[2019-12-16] MEDS: MORPHINE SULFATE 2 MG/ML CPJ (NOT FOR IM USE) IV PRN ×4 (02:01→20:40)
[2019-12-16] MEDS: ONDANSETRON HCL 4MG/2ML INJ IV PRN ×3 (02:01→16:13)
[2019-12-16] MEDS: SODIUM CHLORIDE 0.9% 1,000 ML IV SCH ×3 (06:51→22:33)
[2019-12-16 08:00] VITALS: BP 131/89
[2019-12-16] MEDS: PANTOPRAZOLE SODIUM 40 MG/VIAL IV SCH ×2 (09:31→20:39)
[2019-12-16] MEDS: LEVETIRACETAM 500MG TABLET PO SCH ×2 (09:31→20:39)
[2019-12-16] MEDS: ALLOPURINOL 100 MG TABLET PO SCH (09:31)
[2019-12-16 14:57] LABS: HEMATOCRIT 39.3 % (42.0-52.0); HEMOGLOBIN 12.9 g/dL (14.0-18.0)
[2019-12-16] MEDS: METOCLOPRAMIDE HCL 10MG/2ML VIAL IV SCH (17:28)
[2019-12-16] MEDS: SUCRALFATE 1 G/10 ML UDC PO SCH (17:28)
[2019-12-16 20:00] VITALS: BP 124/87
[2019-12-17] VITALS: BP 135/94
[2019-12-17] MEDS: SUCRALFATE 1 G/10 ML UDC PO SCH ×3 (01:24→12:56)
[2019-12-17] MEDS: METOCLOPRAMIDE HCL 10MG/2ML VIAL IV SCH ×3 (01:24→12:56)
[2019-12-17] MEDS: MORPHINE SULFATE 2 MG/ML CPJ (NOT FOR IM USE) IV PRN ×3 (02:17→10:37)
[2019-12-17 04:00] VITALS: BP 138/92
[2019-12-17] MEDS: SODIUM CHLORIDE 0.9% 1,000 ML IV SCH ×2 (06:07→14:15)
[2019-12-17 08:00] VITALS: BP 144/94
[2019-12-17 08:46] LABS: CHLORIDE 103 mEq/L (98-107)
[2019-12-17 08:47] LABS: BASOPHILS % 1.1 % (0.0-2.0); EOSINOPHILS % 0.6 % (0.0-5.0); HEMATOCRIT. 36.6 % (42.0-52.0); HEMOGLOBIN. 11.8 g/dL (14.0-18.0); LYMPHOCYTES % 22.9 % (20.0-50.0); MEAN CORPUSCULAR HEMOGLOBIN 27.8 pg (28.0-32.0); MEAN CORPUSCULAR VOLUME 86.3 fL (80.0-94.0); MEAN PLATELET VOLUME 7.4 fl (7.4-10.4); NEUTROPHILS % 64.4 % (40.0-76.0); PLATELET 165 x1000/uL (130-400); RED BLOOD CELL COUNT 4.24 mill/uL (4.7-6.1); RED CELL DISTRIBUTION WIDTH 15.1 % (11.6-14.6)
[2019-12-17 08:54] LABS: AMYLASE 88 IU/L (25-115)
[2019-12-17] MEDS: PANTOPRAZOLE SODIUM 40 MG/VIAL IV SCH (09:12)
[2019-12-17] MEDS: ALLOPURINOL 100 MG TABLET PO SCH (09:12)
[2019-12-17] MEDS: LEVETIRACETAM 500MG TABLET PO SCH (09:12)
[2019-12-17 11:47] LABS: HEPATITIS B SURFACE ANTIGEN NEGATIVE
[2019-12-17 12:00] VITALS: BP 140/93
[2019-12-17 12:15] LABS: HEPATITIS A AB IGM NEGATIVE (NEGATIVE)
[2019-12-17 13:56] VITALS: BP 140/93
[2020-01-09] MEDS ORDERED: MAGN400T26 MT (14:34)
[2020-01-09] MEDS ORDERED: COLC0.6C3 MT (14:34)
[2020-01-09] MEDS ORDERED: AMLO5TAB88 PO (14:34)
[2020-01-09] MEDS ORDERED: PANT40TA4 MT (14:34)
== END 2019-12-17 15:27 | disposition home or self-care (01) | DRG 282 ==
LOC: ER 20:35 → MERGE 12-15 01:33 → 6EST 12-15 01:33 → ENRESERV 12-15 02:34
PROVIDERS: ADMIT Internal Medicine; ATTEND Internal Medicine
DX: K85.20 Alcohol induced acute pancreatitis without necrosis or infection (principal); K29.21 Alcoholic gastritis with bleeding; K22.6 Gastro-esophageal laceration-hemorrhage syndrome; F10.129 Alcohol abuse with intoxication, unspecified; J45.909 Unspecified asthma, uncomplicated; Y90.8 Blood alcohol level of 240 mg/100 ml or more; K86.89 Other specified diseases of pancreas; D64.9 Anemia, unspecified; F20.9 Schizophrenia, unspecified; G40.909 Epilepsy, unspecified, not intractable, without status epilepticus; E87.6 Hypokalemia; M10.9 Gout, unspecified; M19.90 Unspecified osteoarthritis, unspecified site; I25.10 Atherosclerotic heart disease of native coronary artery without angina pectoris; Q45.3 Other congenital malformations of pancreas and pancreatic duct; Z79.899 Other long term (current) drug therapy
CPT/HCPCS: 36415; 71045; 74176; 74181; 80048; 80053; 80305; 80320; 81003; 82150; 85014; 85018; 85025; 86705; 86709; 86803; 87340; 93005; 99285; C9113; J0456; J1650; J2270; J2405; J2765; J3411; J3480; J3490; J7030; J7060; G0480

== ENCOUNTER 2020-02-14 15:07 | Emergency (ER) | payer MEDICAID ==
[~2020-02-14] VITALS: Ht 175.3 cm; Wt 91.0 kg
[~2020-02-14 15:07] MED LIST changes: +ALLO100T MT; +AMLO5TAB88 MT; +ATOR20TA MT; -ATOR20TA PO; -CARI350T27 PO; -CHLO25CA10 MT; -COLC0.6C3 MT; +COLC0.6C3 PO; -FERR325T6 MT; -FOLI-43 PO; +GABA-531 MT; -GABA-531 PO; +KEPP500 MT; -KEPP500 PO; -MAGN400C PO; -MULT-230 MT; +MULT-379 MT; +OMEP20CA14 MT; -OMEP20CA14 PO; -ONDA4TAB5 PO; +ONDA8TAB13 MT; +PHEN100C4 MT; -PHEN100C4 PO; +QUET300T2 MT; -QUET300T2 PO; +THIA100T72 MT; -THIA100T88 MT
[2020-02-14] MEDS ORDERED: SODIUM CHLORIDE 0.9% 1,000 ML IV ONE (18:15)
[2020-02-14] MEDS ORDERED: ONDANSETRON HCL 4MG/2ML INJ IV STA (18:15)
[2020-02-14] MEDS ORDERED: KETOROLAC 30MG/ML VIAL IV STA (18:15)
[2020-02-14] MEDS ORDERED: LEVETIRACETAM 500MG PREMIX 100 ML IV ONE (18:30)
[2020-02-14 18:44] LABS: CLARITY URINE CLEAR (CLEAR); COLOR URINE YELLOW (YELLOW); KETONES URINE NEGATIVE (NEGATIVE); LEUKOCYTE ESTERASE URINE NEGATIVE (NEGATIVE); NITRITE URINE NEGATIVE (NEGATIVE); OCCULT BLOOD URINE NEGATIVE (NEGATIVE); PH URINE 7.5 (4.5-8.0); PROTEIN URINE 1+ (NEGATIVE); SPECIFIC GRAVITY URINE 1.007 (1.005-1.030); UROBILINOGEN URINE 0.2 E.U./dL (0.2-1.0)
[2020-02-14 18:53] LABS: *AMPHETAMINES SCREEN URINE NEGATIVE (NEGATIVE); *BARBITURATES SCREEN URINE NEGATIVE (NEGATIVE); *BENZODIAZEPINES SCREEN URINE PRESUMTIVE POSITIVE (NEGATIVE); *COCAINE SCREEN URINE NEGATIVE (NEGATIVE); CANNABINOID URINE SCREEN NEGATIVE (NEGATIVE); METHADONE URINE SCREEN NEGATIVE (NEGATIVE)
[2020-02-14 18:54] LABS: OPIATES URINE SCREEN NEGATIVE (NEGATIVE); PHENCYCLIDINE URINE SCREEN NEGATIVE (NEGATIVE)
[2020-02-14 21:42] LABS: BASOPHILS % 0.8 % (0.0-2.0); EOSINOPHILS % 0.2 % (0.0-5.0); HEMATOCRIT. 36.1 % (42.0-52.0); LYMPHOCYTES % 54.8 % (20.0-50.0); MEAN CORPUSCULAR HEMOGLOBIN 27.5 pg (28.0-32.0); MEAN CORPUSCULAR VOLUME 82.4 fL (80.0-94.0); MEAN PLATELET VOLUME 7.8 fl (7.4-10.4); MONOCYTES % 11.2 % (2.0-8.0); PLATELET 158 x1000/uL (130-400); RED BLOOD CELL COUNT 4.38 mill/uL (4.7-6.1); RED CELL DISTRIBUTION WIDTH 16.4 % (11.6-14.6)
[2020-02-14] MEDS ORDERED: LEVETIRACETAM 500MG TABLET PO ONE (21:45)
[2020-02-14] MEDS ORDERED: IBUPROFEN 400MG TABLET PO ONE (21:45)
[2020-02-14 21:50] LABS: CHLORIDE 102 mEq/L (98-107)
[2020-02-14 22:30] LABS: ETHANOL BLOOD 175 mg/dL
[2020-02-14 22:33] LABS: VALPROIC ACID <3.0 ug/mL ug/mL (50-100)
[2020-02-14 22:34] LABS: CARBAMAZEPINE < 0.5 ug/mL (4-12)
[2020-02-14 22:49] LABS: PHENOBARBITAL < 2.1 ug/mL (15.0-40.0)
[2020-02-15 01:16] VITALS: BP 133/82
[2020-02-15] MEDS ORDERED: PHENYTOIN SODIUM EXTENDED 100MG CAPSULE PO ONE (01:45)
== END 2020-02-15 01:59 | disposition home or self-care (01) ==
LOC: ER 15:07
DX: R10.13 Epigastric pain (principal); R11.2 Nausea with vomiting, unspecified; R56.9 Unspecified convulsions; F10.229 Alcohol dependence with intoxication, unspecified; Y90.6 Blood alcohol level of 120-199 mg/100 ml; J45.909 Unspecified asthma, uncomplicated; E11.9 Type 2 diabetes mellitus without complications; I10 Essential (primary) hypertension; F17.290 Nicotine dependence, other tobacco product, uncomplicated; Z79.899 Other long term (current) drug therapy
CPT/HCPCS: 36415; 70450; 71045; 73560; 74176; 80053; 80156; 80165; 80184; 80185; 80305; 80320; 81003; 83690; 85025; 93005; 99285; J7030; G0480

== ENCOUNTER 2020-02-15 04:00 | Emergency (ER) | payer MEDICAID ==
[~2020-02-15] VITALS: Ht 170.2 cm; Wt 82.1 kg
[2020-02-15 04:03] VITALS: BP 144/97
[2020-02-15] MEDS ORDERED: LORAZEPAM 2MG/ML CPJ IM ONE (04:30)
[2020-02-15] MEDS ORDERED: ONDANSETRON HCL 4MG/2ML INJ IM ONE (04:30)
[2020-02-15] MEDS ORDERED: METOCLOPRAMIDE HCL 10MG/2ML VIAL IM ONE (04:30)
[2020-02-15] MEDS ORDERED: IBUPROFEN 600MG TABLET PO STA (06:35)
== END 2020-02-15 07:38 | disposition left against medical advice (07) ==
LOC: ER 04:00
DX: R10.13 Epigastric pain (principal); R11.2 Nausea with vomiting, unspecified; J45.909 Unspecified asthma, uncomplicated; E11.9 Type 2 diabetes mellitus without complications; I10 Essential (primary) hypertension; F10.20 Alcohol dependence, uncomplicated; Y90.0 Blood alcohol level of less than 20 mg/100 ml; Z79.899 Other long term (current) drug therapy
CPT/HCPCS: 96372; 99284; J2060; J2405; J2765

== ENCOUNTER 2020-05-26 20:00 | Emergency (ER) | payer MEDICAID ==
[~2020-05-26] VITALS: Ht 175.3 cm; Wt 79.0 kg
[~2020-05-26 20:00] MED LIST changes: -GABA-531 MT; +GABA-532 MT
[2020-05-26] MEDS ORDERED: SODIUM CHLORIDE 0.9% 1,000 ML IV ONE (20:30)
[2020-05-26 21:56] LABS: BASOPHILS % 0.7 % (0.0-2.0); EOSINOPHILS % 0.2 % (0.0-5.0); HEMATOCRIT. 39.2 % (42.0-52.0); HEMOGLOBIN. 12.3 g/dL (14.0-18.0); MEAN CORPUSCULAR HEMOGLOBIN 25.7 pg (28.0-32.0); MEAN CORPUSCULAR VOLUME 82.1 fL (80.0-94.0); MEAN PLATELET VOLUME 8.4 fl (7.4-10.4); NEUTROPHILS % 37.1 % (40.0-76.0); PLATELET 152 x1000/uL (130-400); RED BLOOD CELL COUNT 4.77 mill/uL (4.7-6.1)
[2020-05-26 21:58] LABS: CHLORIDE 105 mEq/L (98-107)
[2020-05-26 22:13] LABS: ETHANOL BLOOD 349 mg/dL
[2020-05-26 22:22] LABS: PLATELET ESTIMATE NORMAL
[2020-05-26 23:12] LABS: CLARITY URINE CLEAR (CLEAR); COLOR URINE YELLOW (YELLOW); KETONES URINE NEGATIVE (NEGATIVE); LEUKOCYTE ESTERASE URINE 3+ (NEGATIVE); NITRITE URINE NEGATIVE (NEGATIVE); OCCULT BLOOD URINE NEGATIVE (NEGATIVE); PH URINE 7.5 (4.5-8.0); PROTEIN URINE 2+ (NEGATIVE); SPECIFIC GRAVITY URINE 1.009 (1.005-1.030); UROBILINOGEN URINE 0.2 E.U./dL (0.2-1.0)
[2020-05-26 23:24] LABS: *AMPHETAMINES SCREEN URINE NEGATIVE (NEGATIVE); *BARBITURATES SCREEN URINE NEGATIVE (NEGATIVE); *BENZODIAZEPINES SCREEN URINE NEGATIVE (NEGATIVE); *COCAINE SCREEN URINE NEGATIVE (NEGATIVE); METHADONE URINE SCREEN NEGATIVE (NEGATIVE)
[2020-05-26 23:25] LABS: CANNABINOID URINE SCREEN NEGATIVE (NEGATIVE); OPIATES URINE SCREEN NEGATIVE (NEGATIVE); PHENCYCLIDINE URINE SCREEN NEGATIVE (NEGATIVE)
[2020-05-27] MEDS ORDERED: SULFAMETHOXAZOLE/TRIMETHOPRIM 800/160MG TABLET PO SCH (01:00)
[2020-05-27] MEDS ORDERED: SULF1TAB48 MT (01:08)
[2020-05-27 05:51] VITALS: BP 142/91
== END 2020-05-27 06:33 | disposition home or self-care (01) ==
LOC: ER 20:00
DX: T51.0X1A Toxic effect of ethanol, accidental (unintentional), initial encounter (principal); G92 Toxic encephalopathy; F10.129 Alcohol abuse with intoxication, unspecified; Y90.8 Blood alcohol level of 240 mg/100 ml or more; Y92.488 Other paved roadways as the place of occurrence of the external cause; N39.0 Urinary tract infection, site not specified; Z79.899 Other long term (current) drug therapy
CPT/HCPCS: 36415; 70450; 71045; 80053; 80305; 80320; 81003; 85025; 87086; 93005; 96360; 96361; 99285; J7030; G0480

== ENCOUNTER 2020-07-27 16:44 | Emergency (ER) | payer MEDICAID ==
[~2020-07-27] VITALS: Ht 175.3 cm; Wt 85.0 kg
[~2020-07-27 16:44] MED LIST changes: -ALLO100T MT; +HYDR-4001 PO; -ONDA8TAB13 MT
[2020-07-27] MEDS ORDERED: MAGNESIUM/ALUMINUM HYDROXIDE/SIMETHICONE 30ML UDC PO STA (16:53)
[2020-07-27 17:39] LABS: HEMATOCRIT. 36.8 % (42.0-52.0); HEMOGLOBIN. 12.1 g/dL (14.0-18.0); MEAN CORPUSCULAR HEMOGLOBIN 27.9 pg (28.0-32.0); MEAN CORPUSCULAR VOLUME 84.9 fL (80.0-94.0); MEAN PLATELET VOLUME 7.5 fl (7.4-10.4); PLATELET 206 x1000/uL (130-400); RED BLOOD CELL COUNT 4.34 mill/uL (4.7-6.1); RED CELL DISTRIBUTION WIDTH 16.5 % (11.6-14.6)
[2020-07-27 17:49] LABS: CHLORIDE 103 mEq/L (98-107)
[2020-07-27 18:17] LABS: PLATELET ESTIMATE NORMAL
[2020-07-27 18:21] LABS: ETHANOL BLOOD 401 mg/dL
[2020-07-27] MEDS ORDERED: CHLORDIAZEPOXIDE 25MG CAPSULE PO ONE (19:30)
[2020-07-27] MEDS ORDERED: ACETAMINOPHEN 325MG TABLET PO ONE (19:30)
[2020-07-27] MEDS ORDERED: LEVETIRACETAM 500MG TABLET PO ONE (20:30)
[2020-07-28 04:38] VITALS: BP 127/72
== END 2020-07-28 04:42 | disposition home or self-care (01) ==
LOC: ER 16:44
DX: K85.20 Alcohol induced acute pancreatitis without necrosis or infection (principal); J45.909 Unspecified asthma, uncomplicated; E11.9 Type 2 diabetes mellitus without complications; I10 Essential (primary) hypertension; Z85.9 Personal history of malignant neoplasm, unspecified; Z79.899 Other long term (current) drug therapy
CPT/HCPCS: 36415; 80053; 80320; 83690; 85025; 99285; Z7610; G0480

== ENCOUNTER 2020-08-09 21:00 | Emergency (ER) | payer MEDICAID ==
[~2020-08-09] VITALS: Ht 177.8 cm; Wt 91.0 kg
[2020-08-09] MEDS ORDERED: FAMOTIDINE 20MG/2ML VIAL IV STA (22:11)
[2020-08-09] MEDS ORDERED: ONDANSETRON HCL 4MG/2ML INJ IV STA (22:11)
[2020-08-09] MEDS ORDERED: SODIUM CHLORIDE 0.9% 1,000 ML IV ONE (22:15)
[2020-08-09] MEDS ORDERED: LEVETIRACETAM 500MG PREMIX 100 ML IV ONE (22:15)
[2020-08-10 00:08] LABS: BASOPHILS % 0.8 % (0.0-2.0); EOSINOPHILS % 0.1 % (0.0-5.0); HEMATOCRIT. 36.8 % (42.0-52.0); HEMOGLOBIN. 12.4 g/dL (14.0-18.0); LYMPHOCYTES % 55.5 % (20.0-50.0); MEAN CORPUSCULAR HEMOGLOBIN 28.1 pg (28.0-32.0); MEAN CORPUSCULAR VOLUME 83.3 fL (80.0-94.0); MEAN PLATELET VOLUME 7.2 fl (7.4-10.4); MONOCYTES % 13.9 % (2.0-8.0); NEUTROPHILS % 29.7 % (40.0-76.0); PLATELET 116 x1000/uL (130-400); RED BLOOD CELL COUNT 4.42 mill/uL (4.7-6.1); RED CELL DISTRIBUTION WIDTH 16.4 % (11.6-14.6)
[2020-08-10 00:16] LABS: INR 1.1; PROTHROMBIN TIME 11.4 sec (9.6-11.0)
[2020-08-10 00:17] LABS: CHLORIDE 99 mEq/L (98-107)
[2020-08-10 00:42] LABS: ETHANOL BLOOD 369 mg/dL
[2020-08-10 00:53] LABS: CLARITY URINE CLEAR (CLEAR); COLOR URINE YELLOW (YELLOW); KETONES URINE NEGATIVE (NEGATIVE); LEUKOCYTE ESTERASE URINE NEGATIVE (NEGATIVE); NITRITE URINE NEGATIVE (NEGATIVE); OCCULT BLOOD URINE TRACE (NEGATIVE); PH URINE 6.5 (4.5-8.0); PROTEIN URINE 3+ (NEGATIVE); SPECIFIC GRAVITY URINE 1.007 (1.005-1.030); UROBILINOGEN URINE 0.2 E.U./dL (0.2-1.0)
[2020-08-10 01:24] LABS: OPIATES URINE SCREEN NEGATIVE (NEGATIVE)
[2020-08-10 01:25] LABS: *AMPHETAMINES SCREEN URINE NEGATIVE (NEGATIVE); *BARBITURATES SCREEN URINE NEGATIVE (NEGATIVE); *BENZODIAZEPINES SCREEN URINE PRESUMTIVE POSITIVE (NEGATIVE); *COCAINE SCREEN URINE NEGATIVE (NEGATIVE); CANNABINOID URINE SCREEN NEGATIVE (NEGATIVE); PHENCYCLIDINE URINE SCREEN NEGATIVE (NEGATIVE)
[2020-08-10 01:26] LABS: METHADONE URINE SCREEN NEGATIVE (NEGATIVE)
[2020-08-10] MEDS ORDERED: HYDROCODONE/ACETAMINOPHEN 5/325MG TABLET PO STA (02:08)
[2020-08-10] MEDS ORDERED: ONDANSETRON 4MG ODT PO STA (02:08)
[2020-08-10] MEDS ORDERED: LEVETIRACETAM 500MG/5ML CUP PO STA (02:12)
[2020-08-10] MEDS ORDERED: LEVETIRACETAM 500MG TABLET PO STA (02:13)
[2020-08-10] MEDS ORDERED: ONDA4TAB5 MT (04:24)
[2020-08-10 06:08] VITALS: BP 154/86
== END 2020-08-10 08:22 | disposition home or self-care (01) ==
LOC: ER 21:00
DX: K85.90 Acute pancreatitis without necrosis or infection, unspecified (principal); T51.0X1A Toxic effect of ethanol, accidental (unintentional), initial encounter; Y92.89 Other specified places as the place of occurrence of the external cause; J45.909 Unspecified asthma, uncomplicated; Z85.6 Personal history of leukemia; E11.9 Type 2 diabetes mellitus without complications; I10 Essential (primary) hypertension; Z79.899 Other long term (current) drug therapy
CPT/HCPCS: 36415; 80053; 80185; 80305; 80320; 81003; 83690; 83735; 85025; 85610; 93005; 99285; J1953; J7030; Q0162; J2405; J3490; G0480

== ENCOUNTER 2020-09-06 21:26 | Emergency (ER) | payer MEDICAID ==
[~2020-09-06] VITALS: Ht 177.8 cm; Wt 87.0 kg
[~2020-09-06 21:26] MED LIST changes: +ONDA4TAB5 MT
[2020-09-06] MEDS ORDERED: MAGNESIUM/ALUMINUM HYDROXIDE/SIMETHICONE 30ML UDC PO STA (23:19)
[2020-09-06] MEDS ORDERED: ONDANSETRON 4MG ODT PO STA (23:19)
[2020-09-06] MEDS ORDERED: ACETAMINOPHEN WITH CODEINE 300/30MG TABLET PO STA (23:19)
[2020-09-07 02:17] LABS: EOSINOPHILS % 0.4 % (0.0-5.0); HEMATOCRIT. 36.4 % (42.0-52.0); HEMOGLOBIN. 11.8 g/dL (14.0-18.0); LYMPHOCYTES % 54.9 % (20.0-50.0); MEAN CORPUSCULAR HEMOGLOBIN 27.9 pg (28.0-32.0); MEAN CORPUSCULAR VOLUME 86.4 fL (80.0-94.0); MEAN PLATELET VOLUME 7.7 fl (7.4-10.4); MONOCYTES % 13.6 % (2.0-8.0); NEUTROPHILS % 30.1 % (40.0-76.0); PLATELET 136 x1000/uL (130-400); RED BLOOD CELL COUNT 4.22 mill/uL (4.7-6.1); RED CELL DISTRIBUTION WIDTH 17.9 % (11.6-14.6)
[2020-09-07 02:21] LABS: CHLORIDE 104 mEq/L (98-107)
[2020-09-07 02:27] LABS: ETHANOL BLOOD 265 mg/dL
[2020-09-07] MEDS ORDERED: KETOROLAC 30MG/ML VIAL IM ONE (03:30)
[2020-09-07] MEDS ORDERED: IBUP-2029 MT (03:55)
[2020-09-07] MEDS ORDERED: ONDA4TAB5 MT (03:55)
[2020-09-07 04:16] VITALS: BP 134/78
== END 2020-09-07 04:17 | disposition home or self-care (01) ==
LOC: ER 21:26
DX: T51.0X1A Toxic effect of ethanol, accidental (unintentional), initial encounter (principal); F10.20 Alcohol dependence, uncomplicated; Y90.8 Blood alcohol level of 240 mg/100 ml or more; I10 Essential (primary) hypertension
CPT/HCPCS: 36415; 80053; 80320; 83690; 85025; 93005; 96372; 99284; J1885; Q0162; G0480

== ENCOUNTER 2020-09-25 21:06 | Inpatient (IN) | payer MEDICAID ==
[~2020-09-25] VITALS: Ht 170.2 cm; Wt 91.6 kg
[~2020-09-25 21:06] MED LIST changes: -HYDR-4001 PO; -KEPP500 MT; +LEVE750T10 MT; -PHEN100C4 MT
[2020-09-25] MEDS ORDERED: SODIUM CHLORIDE 0.9% 1,000 ML IV ONE (23:15)
[2020-09-25 23:32] LABS: BASOPHILS % 0.6 % (0.0-2.0); EOSINOPHILS % 0.2 % (0.0-5.0); HEMATOCRIT. 38.2 % (42.0-52.0); HEMOGLOBIN. 12.4 g/dL (14.0-18.0); LYMPHOCYTES % 57.8 % (20.0-50.0); MEAN CORPUSCULAR HEMOGLOBIN 27.2 pg (28.0-32.0); MEAN CORPUSCULAR VOLUME 83.9 fL (80.0-94.0); MEAN PLATELET VOLUME 6.9 fl (7.4-10.4); MONOCYTES % 9.2 % (2.0-8.0); NEUTROPHILS % 32.2 % (40.0-76.0); PLATELET 360 x1000/uL (130-400); RED BLOOD CELL COUNT 4.56 mill/uL (4.7-6.1)
[2020-09-25 23:39] LABS: CHLORIDE 102 mEq/L (98-107)
[2020-09-26 00:01] LABS: ETHANOL BLOOD 437 mg/dL
[2020-09-26] MEDS ORDERED: IOHEXOL 350 MG/ML 200ML INFUS..BTL IV ONE (03:18)
[2020-09-26 08:00] VITALS: BP 126/89
[2020-09-26 10:40] VITALS: BP 126/89
[2020-09-26 12:00] VITALS: BP 123/83
[2020-09-26] MEDS ORDERED: ACETAMINOPHEN 325MG TABLET PO PRN (12:00)
[2020-09-26] MEDS ORDERED: POTASSIUM CHLORIDE 20MEQ TABLET SR PO SCH (12:00)
[2020-09-26] MEDS ORDERED: LORAZEPAM 2MG/ML CPJ IV PRN (12:00)
[2020-09-26] MEDS: SODIUM CHLORIDE 0.9% 1,000 ML IV SCH (12:38)
[2020-09-26] MEDS ORDERED: ONDANSETRON HCL 4MG TABLET PO SCH (12:45)
[2020-09-26] MEDS ORDERED: [UNRECOGNIZED DRUG - OTHER] MT SCH (12:45)
[2020-09-26] MEDS ORDERED: MEDICATION NOT ON FORMULARY EA (Colchicine 0.6 MG) PO SCH (12:45)
[2020-09-26] MEDS ORDERED: MULTIVITAMIN WITH MINERALS MT SCH (12:45)
[2020-09-26] MEDS ORDERED: ONDANSETRON HCL 4MG TABLET PO PRN (12:45)
[2020-09-26] MEDS: OMEPRAZOLE 20MG CAPSULE EXTENDED RELEASE PO SCH (13:23)
[2020-09-26] MEDS: THIAMINE HCL 100MG TABLET PO SCH (13:23)
[2020-09-26] MEDS: MULTIVITAMINS,THER W-MINERALS TABLET PO SCH (13:23)
[2020-09-26] MEDS: LEVETIRACETAM 500MG TABLET PO SCH ×2 (13:23→17:26)
[2020-09-26] MEDS: FOLIC ACID 1MG TABLET PO SCH (13:23)
[2020-09-26] MEDS: ALLOPURINOL 100 MG TABLET PO SCH (13:23)
[2020-09-26] MEDS: GABAPENTIN 300MG CAPSULE PO SCH ×2 (13:23→17:26)
[2020-09-26] MEDS: HYDROCODONE/ACETAMINOPHEN 5/325MG TABLET PO PRN ×2 (13:24→19:04)
[2020-09-26] MEDS: COLCHICINE 0.6MG TABLET PO SCH (13:26)
[2020-09-26] MEDS: AMLODIPINE 5MG TABLET PO SCH (13:26)
[2020-09-26 16:00] VITALS: BP 116/70
[2020-09-26] MEDS ORDERED: MEDICATION NOT ON FORMULARY EA (Levetiracetam 1 TAB) MT SCH (17:00)
[2020-09-26] MEDS ORDERED: QUETIAPINE FUMARATE 50MG TABLET PO SCH (21:00)
[2020-09-26] MEDS ORDERED: MEDICATION NOT ON FORMULARY EA (Quetiapine Fumarate (Seroquel) 1 TAB) MT SCH (21:00)
[2020-09-26 21:01] VITALS: BP 108/68
[2020-09-26] MEDS: ATORVASTATIN CALCIUM 20MG TABLET PO SCH (21:55)
[2020-09-26] MEDS: QUETIAPINE FUMARATE 50MG TABLET PO SCH (21:55)
[2020-09-27] VITALS: BP 97/71
[2020-09-27 05:10] VITALS: BP 107/39
[2020-09-27 05:58] LABS: BASOPHILS % 1.3 % (0.0-2.0); EOSINOPHILS % 0.4 % (0.0-5.0); HEMOGLOBIN. 10.3 g/dL (14.0-18.0); LYMPHOCYTES % 40.5 % (20.0-50.0); MEAN CORPUSCULAR HEMOGLOBIN 27.9 pg (28.0-32.0); MEAN CORPUSCULAR VOLUME 84.2 fL (80.0-94.0); MEAN PLATELET VOLUME 6.8 fl (7.4-10.4); MONOCYTES % 9.8 % (2.0-8.0); PLATELET 247 x1000/uL (130-400); RED BLOOD CELL COUNT 3.68 mill/uL (4.7-6.1); RED CELL DISTRIBUTION WIDTH 17.1 % (11.6-14.6)
[2020-09-27 06:16] LABS: CHLORIDE 105 mEq/L (98-107)
[2020-09-27] MEDS: OMEPRAZOLE 20MG CAPSULE EXTENDED RELEASE PO SCH (06:30)
[2020-09-27] MEDS: SODIUM CHLORIDE 0.9% 1,000 ML IV SCH ×2 (06:30→18:36)
[2020-09-27 08:00] VITALS: BP 124/84
[2020-09-27] MEDS: THIAMINE HCL 100MG TABLET PO SCH (09:48)
[2020-09-27] MEDS: LEVETIRACETAM 500MG TABLET PO SCH ×2 (09:48→17:30)
[2020-09-27] MEDS: GABAPENTIN 300MG CAPSULE PO SCH ×3 (09:48→17:28)
[2020-09-27] MEDS: AMLODIPINE 5MG TABLET PO SCH (09:48)
[2020-09-27] MEDS: MULTIVITAMINS,THER W-MINERALS TABLET PO SCH (09:48)
[2020-09-27] MEDS: COLCHICINE 0.6MG TABLET PO SCH (09:48)
[2020-09-27] MEDS: ALLOPURINOL 100 MG TABLET PO SCH (09:48)
[2020-09-27] MEDS: FOLIC ACID 1MG TABLET PO SCH (09:48)
[2020-09-27 12:00] VITALS: BP 132/91
[2020-09-27 16:00] VITALS: BP 122/76
[2020-09-27] MEDS: HYDROCODONE/ACETAMINOPHEN 5/325MG TABLET PO PRN (17:30)
[2020-09-27 20:00] VITALS: BP 121/74
[2020-09-27] MEDS ORDERED: ZOLPIDEM TARTRATE 5MG TABLET PO PRN (21:45)
[2020-09-27] MEDS: ATORVASTATIN CALCIUM 20MG TABLET PO SCH (22:24)
[2020-09-27] MEDS: QUETIAPINE FUMARATE 50MG TABLET PO SCH (22:27)
[2020-09-27] MEDS: HYDROCODONE/ACETAMINOPHEN 10/325MG TABLET PO PRN (22:30)
[2020-09-28] VITALS: BP 135/87
[2020-09-28 04:00] VITALS: BP 126/89
[2020-09-28] MEDS: SODIUM CHLORIDE 0.9% 1,000 ML IV SCH (04:15)
[2020-09-28] MEDS: OMEPRAZOLE 20MG CAPSULE EXTENDED RELEASE PO SCH (05:56)
[2020-09-28 08:00] VITALS: BP 134/96
[2020-09-28] MEDS: FOLIC ACID 1MG TABLET PO SCH (08:46)
[2020-09-28 08:47] VITALS: BP 126/89
[2020-09-28] MEDS: MULTIVITAMINS,THER W-MINERALS TABLET PO SCH (08:47)
[2020-09-28] MEDS: LEVETIRACETAM 500MG TABLET PO SCH (08:47)
[2020-09-28] MEDS: THIAMINE HCL 100MG TABLET PO SCH (08:47)
[2020-09-28] MEDS: HYDROCODONE/ACETAMINOPHEN 10/325MG TABLET PO PRN (08:47)
[2020-09-28] MEDS: ALLOPURINOL 100 MG TABLET PO SCH (08:47)
[2020-09-28] MEDS: AMLODIPINE 5MG TABLET PO SCH (08:48)
[2020-09-28] MEDS: COLCHICINE 0.6MG TABLET PO SCH (08:48)
[2020-09-28] MEDS: GABAPENTIN 300MG CAPSULE PO SCH (08:48)
[2020-09-28 09:49] LABS: BASOPHILS % 0.8 % (0.0-2.0); EOSINOPHILS % 1.5 % (0.0-5.0); HEMATOCRIT. 34.3 % (42.0-52.0); HEMOGLOBIN. 11.3 g/dL (14.0-18.0); LYMPHOCYTES % 43.4 % (20.0-50.0); MEAN CORPUSCULAR HEMOGLOBIN 28.1 pg (28.0-32.0); MEAN CORPUSCULAR VOLUME 85.2 fL (80.0-94.0); MEAN PLATELET VOLUME 7.3 fl (7.4-10.4); NEUTROPHILS % 42.3 % (40.0-76.0); PLATELET 225 x1000/uL (130-400); RED BLOOD CELL COUNT 4.03 mill/uL (4.7-6.1)
[2020-09-28 09:54] LABS: CHLORIDE 104 mEq/L (98-107)
== END 2020-09-28 11:15 | disposition left against medical advice (07) | DRG 241 ==
LOC: ER 21:08 → 5WST 09-26 01:01 → ENRESERV 09-26 07:26
PROVIDERS: ADMIT Internal Medicine; ATTEND Internal Medicine
DX: K29.70 Gastritis, unspecified, without bleeding (principal); I11.0 Hypertensive heart disease with heart failure; I50.9 Heart failure, unspecified; G40.909 Epilepsy, unspecified, not intractable, without status epilepticus; E11.9 Type 2 diabetes mellitus without complications; F10.129 Alcohol abuse with intoxication, unspecified; F31.9 Bipolar disorder, unspecified; I25.10 Atherosclerotic heart disease of native coronary artery without angina pectoris; J45.909 Unspecified asthma, uncomplicated; Y90.8 Blood alcohol level of 240 mg/100 ml or more; F99 Mental disorder, not otherwise specified; Z53.29 Procedure and treatment not carried out because of patient's decision for other reasons; Z79.899 Other long term (current) drug therapy
CPT/HCPCS: 36415; 71045; 73600; 74177; 80048; 80053; 80320; 82140; 82962; 83605; 85025; 99285; J2060; J7030; Q0162; Q9967; G0480

== ENCOUNTER 2020-10-06 22:54 | Emergency (ER) | payer MEDICAID ==
[~2020-10-06] VITALS: Ht 167.6 cm; Wt 71.0 kg
[2020-10-07 00:36] LABS: BASOPHILS % 1.4 % (0.0-2.0); EOSINOPHILS % 0.1 % (0.0-5.0); HEMATOCRIT. 36.8 % (42.0-52.0); HEMOGLOBIN. 12.3 g/dL (14.0-18.0); LYMPHOCYTES % 63.7 % (20.0-50.0); MEAN CORPUSCULAR HEMOGLOBIN 27.2 pg (28.0-32.0); MEAN CORPUSCULAR VOLUME 81.2 fL (80.0-94.0); MEAN PLATELET VOLUME 7.7 fl (7.4-10.4); MONOCYTES % 9.7 % (2.0-8.0); NEUTROPHILS % 25.1 % (40.0-76.0); PLATELET 156 x1000/uL (130-400); RED BLOOD CELL COUNT 4.53 mill/uL (4.7-6.1); RED CELL DISTRIBUTION WIDTH 17.1 % (11.6-14.6)
[2020-10-07 00:43] LABS: CHLORIDE 104 mEq/L (98-107)
[2020-10-07 01:03] LABS: ETHANOL BLOOD 317 mg/dL
[2020-10-07] MEDS ORDERED: ACETAMINOPHEN 325MG TABLET PO SCH (04:15)
[2020-10-07] MEDS ORDERED: ONDANSETRON 4MG ODT PO SCH (04:15)
[2020-10-07] MEDS ORDERED: ONDA4TAB5 MT (04:18)
[2020-10-07 04:30] VITALS: BP 121/82
== END 2020-10-07 04:35 | disposition home or self-care (01) ==
LOC: ER 22:54
DX: F10.229 Alcohol dependence with intoxication, unspecified (principal); Y90.8 Blood alcohol level of 240 mg/100 ml or more; R10.13 Epigastric pain; I10 Essential (primary) hypertension; E11.9 Type 2 diabetes mellitus without complications
CPT/HCPCS: 36415; 80053; 80320; 85025; 93005; 99284; G0480

== ENCOUNTER 2020-10-10 12:46 | Inpatient (IN) | payer MEDICAID ==
[~2020-10-10] VITALS: Ht 167.6 cm; Wt 79.9 kg
[2020-10-10] MEDS ORDERED: MORPHINE SULFATE 4 MG/ML CPJ (NOT FOR IM USE) IV STA ×2 (13:19→17:05)
[2020-10-10] MEDS ORDERED: ONDANSETRON HCL 4MG/2ML INJ IV STA ×2 (13:19→17:05)
[2020-10-10] MEDS ORDERED: SODIUM CHLORIDE 0.9% 1,000 ML IV ONE (13:30)
[2020-10-10] MEDS ORDERED: LEVETIRACETAM 1000MG PREMIX 100 ML IV ONE (14:15)
[2020-10-10 15:34] LABS: BASOPHILS % 0.3 % (0.0-2.0); HEMATOCRIT. 32.9 % (42.0-52.0); HEMOGLOBIN. 11.2 g/dL (14.0-18.0); LYMPHOCYTES % 10.2 % (20.0-50.0); MEAN CORPUSCULAR HEMOGLOBIN 27.9 pg (28.0-32.0); MEAN CORPUSCULAR VOLUME 81.5 fL (80.0-94.0); MEAN PLATELET VOLUME 7.7 fl (7.4-10.4); MONOCYTES % 5.3 % (2.0-8.0); NEUTROPHILS % 84.2 % (40.0-76.0); PLATELET 112 x1000/uL (130-400); RED BLOOD CELL COUNT 4.03 mill/uL (4.7-6.1); RED CELL DISTRIBUTION WIDTH 16.7 % (11.6-14.6)
[2020-10-10 15:35] LABS: CHLORIDE 104 mEq/L (98-107)
[2020-10-10 15:38] LABS: ETHANOL BLOOD 221 mg/dL
[2020-10-10] MEDS ORDERED: BUPIVACAINE HCL/PF 0.5% (5MG/ML) 10ML INFIL ONE (15:45)
[2020-10-10] MEDS ORDERED: LEVETIRACETAM 500MG TABLET PO ONE (15:45)
[2020-10-10] MEDS ORDERED: KEPP500 MT (15:46)
[2020-10-10] MEDS ORDERED: METOCLOPRAMIDE HCL 10MG/2ML VIAL IV ONE (17:00)
[2020-10-10 17:37] LABS: CLARITY URINE CLEAR (CLEAR); COLOR URINE YELLOW (YELLOW); KETONES URINE NEGATIVE (NEGATIVE); LEUKOCYTE ESTERASE URINE NEGATIVE (NEGATIVE); NITRITE URINE NEGATIVE (NEGATIVE); OCCULT BLOOD URINE 1+ (NEGATIVE); PROTEIN URINE 3+ (NEGATIVE); SPECIFIC GRAVITY URINE 1.019 (1.005-1.030)
[2020-10-10 17:54] LABS: *AMPHETAMINES SCREEN URINE NEGATIVE (NEGATIVE); *BARBITURATES SCREEN URINE NEGATIVE (NEGATIVE); *BENZODIAZEPINES SCREEN URINE PRESUMTIVE POSITIVE (NEGATIVE); *COCAINE SCREEN URINE PRESUMTIVE POSITIVE (NEGATIVE)
[2020-10-10 17:55] LABS: CANNABINOID URINE SCREEN NEGATIVE (NEGATIVE); METHADONE URINE SCREEN NEGATIVE (NEGATIVE); OPIATES URINE SCREEN PRESUMTIVE POSITIVE (NEGATIVE); PHENCYCLIDINE URINE SCREEN NEGATIVE (NEGATIVE)
[2020-10-10] MEDS ORDERED: IOHEXOL-300 100 ML BOTTLE ONE (20:10)
[2020-10-11] VITALS (8 sets, daily range): BP systolic 119–156; BP diastolic 75–97
[2020-10-11] MEDS ORDERED: ONDANSETRON HCL 4MG TABLET PO PRN (01:00)
[2020-10-11] MEDS: KETOROLAC 30MG/ML VIAL IV PRN ×3 (01:37→21:16)
[2020-10-11] MEDS: ONDANSETRON HCL 4MG/2ML INJ IV PRN ×2 (01:38→06:16)
[2020-10-11] MEDS: AMLODIPINE 5MG TABLET PO SCH (01:38)
[2020-10-11] MEDS: SODIUM CHLORIDE 0.9% 1,000 ML IV SCH ×2 (01:39→15:07)
[2020-10-11] MEDS: OMEPRAZOLE 20MG CAPSULE EXTENDED RELEASE PO SCH (06:17)
[2020-10-11 08:23] LABS: BASOPHILS % 0.4 % (0.0-2.0); CHLORIDE 99 mEq/L (98-107); EOSINOPHILS % 0.1 % (0.0-5.0); HEMATOCRIT. 37.2 % (42.0-52.0); HEMOGLOBIN. 12.5 g/dL (14.0-18.0); LYMPHOCYTES % 15.8 % (20.0-50.0); MEAN CORPUSCULAR VOLUME 83.6 fL (80.0-94.0); NEUTROPHILS % 71.7 % (40.0-76.0); RED BLOOD CELL COUNT 4.45 mill/uL (4.7-6.1)
[2020-10-11] MEDS: LEVETIRACETAM 500MG TABLET PO SCH ×2 (08:45→21:15)
[2020-10-11] MEDS: THIAMINE HCL 100MG TABLET PO SCH (08:45)
[2020-10-11] MEDS: COLCHICINE 0.6MG TABLET PO SCH (08:45)
[2020-10-11] MEDS: FOLIC ACID 1MG TABLET PO SCH (08:45)
[2020-10-11] MEDS: ALLOPURINOL 100 MG TABLET PO SCH (08:45)
[2020-10-11] MEDS: GABAPENTIN 300MG CAPSULE PO SCH ×3 (08:45→16:05)
[2020-10-11] MEDS ORDERED: ENOXAPARIN 40MG/0.4ML SYR SUBCUT SCH (09:00)
[2020-10-11 09:42] LABS: PLATELET ESTIMATE DECREASED
[2020-10-11 09:43] LABS: PLATELET 62 x1000/uL (130-400)
[2020-10-11] MEDS: DIPHENHYDRAMINE 50MG/ML VIAL IM PRN (11:04)
[2020-10-11] MEDS ORDERED: POTASSIUM CHLORIDE 20MEQ TABLET SR PO SCH (12:30)
[2020-10-11] MEDS: METOCLOPRAMIDE HCL 10MG/2ML VIAL IV SCH ×2 (13:01→21:15)
[2020-10-11 14:59] LABS: AMYLASE 146 IU/L (25-115)
[2020-10-11] MEDS: HYDROCODONE/ACETAMINOPHEN 5/325MG TABLET PO PRN (18:02)
[2020-10-11] MEDS: ATORVASTATIN CALCIUM 20MG TABLET PO SCH (21:15)
[2020-10-11] MEDS: QUETIAPINE FUMARATE 50MG TABLET PO SCH (21:15)
[2020-10-12] VITALS: BP 125/75
[2020-10-12 04:00] VITALS: BP 115/71
[2020-10-12] MEDS: METOCLOPRAMIDE HCL 10MG/2ML VIAL IV SCH ×3 (05:30→22:05)
[2020-10-12] MEDS: OMEPRAZOLE 20MG CAPSULE EXTENDED RELEASE PO SCH (05:30)
[2020-10-12 06:17] LABS: BASOPHILS % 0.3 % (0.0-2.0); EOSINOPHILS % 0.6 % (0.0-5.0); HEMATOCRIT. 30.1 % (42.0-52.0); HEMOGLOBIN. 10.2 g/dL (14.0-18.0); LYMPHOCYTES % 28.6 % (20.0-50.0); MEAN CORPUSCULAR HEMOGLOBIN 28.3 pg (28.0-32.0); MEAN CORPUSCULAR VOLUME 83.7 fL (80.0-94.0); MEAN PLATELET VOLUME 7.9 fl (7.4-10.4); MONOCYTES % 11.4 % (2.0-8.0); NEUTROPHILS % 59.1 % (40.0-76.0); PLATELET 73 x1000/uL (130-400); RED BLOOD CELL COUNT 3.59 mill/uL (4.7-6.1); RED CELL DISTRIBUTION WIDTH 16.8 % (11.6-14.6)
[2020-10-12 06:43] LABS: CHLORIDE 99 mEq/L (98-107)
[2020-10-12] MEDS: SODIUM CHLORIDE 0.9% 1,000 ML IV SCH ×2 (07:29→17:23)
[2020-10-12 07:38] VITALS: BP 132/87
[2020-10-12] MEDS: LEVETIRACETAM 500MG TABLET PO SCH ×2 (08:18→20:35)
[2020-10-12] MEDS: COLCHICINE 0.6MG TABLET PO SCH (08:18)
[2020-10-12] MEDS: GABAPENTIN 300MG CAPSULE PO SCH ×3 (08:18→17:20)
[2020-10-12] MEDS: AMLODIPINE 5MG TABLET PO SCH (08:18)
[2020-10-12] MEDS: THIAMINE HCL 100MG TABLET PO SCH (08:18)
[2020-10-12] MEDS: ALLOPURINOL 100 MG TABLET PO SCH (08:18)
[2020-10-12] MEDS: FOLIC ACID 1MG TABLET PO SCH (08:18)
[2020-10-12] MEDS: HYDROCODONE/ACETAMINOPHEN 5/325MG TABLET PO PRN (10:34)
[2020-10-12] MEDS ORDERED: POTASSIUM CHLORIDE INJ 40 MEQ in DEXT 5% WATER 250 ML IV NR (11:00)
[2020-10-12] MEDS: ONDANSETRON HCL 4MG/2ML INJ IV PRN (11:38)
[2020-10-12 12:00] VITALS: BP 137/87
[2020-10-12] MEDS: KETOROLAC 30MG/ML VIAL IV PRN ×2 (13:10→20:36)
[2020-10-12] MEDS ORDERED: CEFTRIAXONE 1 G PREMIX 50 ML IV SCH (13:15)
[2020-10-12] MEDS: CEFTRIAXONE 1,000 MG in DEXTROSE 5% WATER 50 ML IV SCH (15:40)
[2020-10-12 16:00] VITALS: BP 139/82
[2020-10-12] MEDS ORDERED: POTASSIUM CHLORIDE 20MEQ TABLET SR PO NR (16:00)
[2020-10-12] MEDS: METRONIDAZOLE 500 MG PREMIX 100 ML IV SCH ×2 (16:43→22:05)
[2020-10-12] MEDS: LACTOBACILLUS GG CAPSULE PO SCH (18:00)
[2020-10-12 20:00] VITALS: BP 126/91
[2020-10-12] MEDS: QUETIAPINE FUMARATE 50MG TABLET PO SCH (20:35)
[2020-10-12] MEDS: ATORVASTATIN CALCIUM 20MG TABLET PO SCH (20:35)
[2020-10-12] MEDS: DIPHENHYDRAMINE 50MG/ML VIAL IM PRN (20:37)
[2020-10-13] VITALS: BP 119/76
[2020-10-13 04:00] VITALS: BP 155/86
[2020-10-13] MEDS: METOCLOPRAMIDE HCL 10MG/2ML VIAL IV SCH ×3 (05:55→22:10)
[2020-10-13] MEDS: METRONIDAZOLE 500 MG PREMIX 100 ML IV SCH ×3 (05:56→23:38)
[2020-10-13] MEDS: OMEPRAZOLE 20MG CAPSULE EXTENDED RELEASE PO SCH (05:56)
[2020-10-13] MEDS: KETOROLAC 30MG/ML VIAL IV PRN ×2 (05:56→15:08)
[2020-10-13 08:00] VITALS: BP 142/92
[2020-10-13] MEDS: SODIUM CHLORIDE 0.9% 1,000 ML IV SCH ×2 (09:04→22:10)
[2020-10-13] MEDS: AMLODIPINE 5MG TABLET PO SCH (09:04)
[2020-10-13] MEDS: LACTOBACILLUS GG CAPSULE PO SCH (09:04)
[2020-10-13] MEDS: LEVETIRACETAM 500MG TABLET PO SCH ×2 (09:04→22:10)
[2020-10-13] MEDS: ONDANSETRON HCL 4MG/2ML INJ IV PRN (09:05)
[2020-10-13] MEDS: THIAMINE HCL 100MG TABLET PO SCH (09:05)
[2020-10-13] MEDS: GABAPENTIN 300MG CAPSULE PO SCH ×3 (09:05→16:30)
[2020-10-13] MEDS: FOLIC ACID 1MG TABLET PO SCH (09:05)
[2020-10-13] MEDS: COLCHICINE 0.6MG TABLET PO SCH (09:05)
[2020-10-13] MEDS: DIPHENHYDRAMINE 50MG/ML VIAL IM PRN (09:05)
[2020-10-13] MEDS: ALLOPURINOL 100 MG TABLET PO SCH (09:05)
[2020-10-13 12:15] VITALS: BP 121/73
[2020-10-13 12:31] LABS: CHLORIDE 103 mEq/L (98-107)
[2020-10-13] MEDS: CEFTRIAXONE 1,000 MG in DEXTROSE 5% WATER 50 ML IV SCH (13:09)
[2020-10-13 16:00] VITALS: BP 122/81
[2020-10-13] MEDS: CHLORDIAZEPOXIDE 10MG CAPSULE PO SCH ×2 (16:31→22:41)
[2020-10-13 20:00] VITALS: BP 150/93
[2020-10-13] MEDS: ATORVASTATIN CALCIUM 20MG TABLET PO SCH (22:10)
[2020-10-13] MEDS: QUETIAPINE FUMARATE 50MG TABLET PO SCH (22:10)
[2020-10-14] VITALS: BP 127/91
[2020-10-14] MEDS: KETOROLAC 30MG/ML VIAL IV PRN (01:39)
[2020-10-14] MEDS: DIPHENHYDRAMINE 50MG/ML VIAL IM PRN (02:42)
[2020-10-14 04:00] VITALS: BP 133/97
[2020-10-14] MEDS: METOCLOPRAMIDE HCL 10MG/2ML VIAL IV SCH ×2 (05:09→14:00)
[2020-10-14] MEDS: METRONIDAZOLE 500 MG PREMIX 100 ML IV SCH ×3 (05:09→14:00)
[2020-10-14] MEDS: OMEPRAZOLE 20MG CAPSULE EXTENDED RELEASE PO SCH (06:14)
[2020-10-14 08:00] VITALS: BP 117/76
[2020-10-14] MEDS: THIAMINE HCL 100MG TABLET PO SCH (09:00)
[2020-10-14] MEDS: FOLIC ACID 1MG TABLET PO SCH (09:00)
[2020-10-14] MEDS ORDERED: LORAZEPAM 0.5MG TABLET PO SCH (10:30)
[2020-10-14] MEDS: GABAPENTIN 300MG CAPSULE PO SCH ×2 (10:59→13:00)
[2020-10-14] MEDS: LEVETIRACETAM 500MG TABLET PO SCH (10:59)
[2020-10-14] MEDS: CHLORDIAZEPOXIDE 10MG CAPSULE PO SCH ×2 (10:59→13:00)
[2020-10-14] MEDS: LACTOBACILLUS GG CAPSULE PO SCH (10:59)
[2020-10-14] MEDS ORDERED: THIAMINE HCL 100MG TABLET PO SCH (11:00)
[2020-10-14] MEDS: ALLOPURINOL 100 MG TABLET PO SCH (11:00)
[2020-10-14] MEDS: COLCHICINE 0.6MG TABLET PO SCH (11:00)
[2020-10-14] MEDS ORDERED: FOLIC ACID 1MG TABLET PO SCH (11:00)
[2020-10-14] MEDS ORDERED: MULTIVITAMINS,THER W-MINERALS TABLET PO SCH (11:00)
[2020-10-14] MEDS: AMLODIPINE 5MG TABLET PO SCH (11:01)
[2020-10-14] MEDS: SODIUM CHLORIDE 0.9% 1,000 ML IV SCH (11:02)
[2020-10-14 12:00] VITALS: BP 131/96
[2020-10-14] MEDS: CEFTRIAXONE 1,000 MG in DEXTROSE 5% WATER 50 ML IV SCH (14:17)
[2020-10-14 15:40] VITALS: BP 139/89
[2020-10-14 16:00] VITALS: BP 125/87
== END 2020-10-14 18:10 | disposition home or self-care (01) | DRG 241 ==
LOC: ER 12:46 → 5WST 19:02 → ENRESERV 23:19 → 5WST 10-13 07:35
PROVIDERS: ADMIT Internal Medicine; ATTEND Internal Medicine
PROC: 2W3FX1Z Immobilization of Left Hand using Splint (ICD-10-PCS; principal; 2020-10-10)
DX: K29.20 Alcoholic gastritis without bleeding (principal); E11.9 Type 2 diabetes mellitus without complications; G40.909 Epilepsy, unspecified, not intractable, without status epilepticus; K52.9 Noninfective gastroenteritis and colitis, unspecified; I25.10 Atherosclerotic heart disease of native coronary artery without angina pectoris; M10.9 Gout, unspecified; I10 Essential (primary) hypertension; E87.6 Hypokalemia; F10.229 Alcohol dependence with intoxication, unspecified; W18.39XA Other fall on same level, initial encounter; F10.239 Alcohol dependence with withdrawal, unspecified; F99 Mental disorder, not otherwise specified; F17.200 Nicotine dependence, unspecified, uncomplicated; S63.502A Unspecified sprain of left wrist, initial encounter; Y90.7 Blood alcohol level of 200-239 mg/100 ml; Z86.11 Personal history of tuberculosis; Z87.19 Personal history of other diseases of the digestive system; Z79.899 Other long term (current) drug therapy; Y93.89 Activity, other specified; Y92.89 Other specified places as the place of occurrence of the external cause; Y99.8 Other external cause status; M19.032 Primary osteoarthritis, left wrist
CPT/HCPCS: 36415; 71045; 73110; 74177; 80048; 80053; 80305; 80320; 81003; 82150; 82962; 83880; 84484; 84550; 85025; 87015; 87045; 87427; 87449; 89055; 93005; 97162; 97166; 99285; C1893; J0696; J1200; J1650; J1885; J1953; J2270; J2405; J2765; J3480; J3490; J7030; J7060; Q9967; G0480

== ENCOUNTER 2020-12-26 19:38 | Emergency (ER) | payer MEDICAID ==
[~2020-12-26] VITALS: Ht 175.3 cm; Wt 69.0 kg
[~2020-12-26 19:38] MED LIST changes: +ALLO100T MT; -ALLO100T PO; -AMLO5TAB88 MT; -ATOR20TA MT; +ATOR20TA65 MT; -COLC0.6C3 PO; +COLC0.6T66 MT; +DILT90TA2 PO; -FOLI-43 MT; +FOLI-43 PO; -GABA-532 MT; +KEPP500 PO; -LEVE750T10 MT; +MAGN400T39 MT; +MIDO5TAB4 PO; -MULT-379 MT; -ONDA4TAB5 MT; -QUET300T2 MT; -THIA100T72 MT; +THIA100T72 PO
[2020-12-26] MEDS ORDERED: PANTOPRAZOLE SODIUM 40 MG/VIAL IV ONE (20:15)
[2020-12-26] MEDS ORDERED: ONDANSETRON HCL 4MG/2ML INJ IV STA (20:15)
[2020-12-26] MEDS ORDERED: SODIUM CHLORIDE 0.9% 1,000 ML IV ONE (20:15)
[2020-12-26] MEDS ORDERED: FAMOTIDINE 20MG/2ML VIAL IV ONE (20:15)
[2020-12-26 22:29] LABS: BASOPHILS % 0.6 % (0.0-2.0); EOSINOPHILS % 0.3 % (0.0-5.0); HEMATOCRIT. 33.8 % (42.0-52.0); LYMPHOCYTES % 65.4 % (20.0-50.0); MEAN CORPUSCULAR HEMOGLOBIN 24.7 pg (28.0-32.0); MEAN CORPUSCULAR VOLUME 75.8 fL (80.0-94.0); NEUTROPHILS % 29.7 % (40.0-76.0); PLATELET 462 x1000/uL (130-400); RED BLOOD CELL COUNT 4.45 mill/uL (4.7-6.1); RED CELL DISTRIBUTION WIDTH 22.6 % (11.6-14.6)
[2020-12-26 22:31] LABS: CLARITY URINE CLEAR (CLEAR); COLOR URINE YELLOW (YELLOW); KETONES URINE NEGATIVE (NEGATIVE); LEUKOCYTE ESTERASE URINE 1+ (NEGATIVE); NITRITE URINE NEGATIVE (NEGATIVE); OCCULT BLOOD URINE NEGATIVE (NEGATIVE); PROTEIN URINE NEGATIVE (NEGATIVE); SPECIFIC GRAVITY URINE 1.005 (1.005-1.030); UROBILINOGEN URINE 0.2 E.U./dL (0.2-1.0)
[2020-12-26 22:33] LABS: CHLORIDE 107 mEq/L (98-107)
[2020-12-26 22:40] LABS: *AMPHETAMINES SCREEN URINE NEGATIVE (NEGATIVE); *BARBITURATES SCREEN URINE NEGATIVE (NEGATIVE); *BENZODIAZEPINES SCREEN URINE NEGATIVE (NEGATIVE); *COCAINE SCREEN URINE NEGATIVE (NEGATIVE); METHADONE URINE SCREEN NEGATIVE (NEGATIVE)
[2020-12-26 22:41] LABS: CANNABINOID URINE SCREEN NEGATIVE (NEGATIVE); OPIATES URINE SCREEN NEGATIVE (NEGATIVE); PHENCYCLIDINE URINE SCREEN NEGATIVE (NEGATIVE)
[2020-12-26 22:52] LABS: ETHANOL BLOOD 305 mg/dL
[2020-12-26 23:01] LABS: PLATELET ESTIMATE INCREASED
[2020-12-26] MEDS ORDERED: PROT40 PO (23:47)
[2020-12-26] MEDS ORDERED: DICY20TA11 MT (23:47)
[2020-12-26] MEDS ORDERED: ONDA4TAB5 MT (23:47)
[2020-12-27] MEDS ORDERED: DICYCLOMINE HCL 10MG/ML 2ML AMP IM ONE
[2020-12-27 00:30] VITALS: BP 115/75
== END 2020-12-27 00:51 | disposition home or self-care (01) ==
LOC: ER 19:38
DX: F10.129 Alcohol abuse with intoxication, unspecified (principal); J45.909 Unspecified asthma, uncomplicated; E11.9 Type 2 diabetes mellitus without complications; I10 Essential (primary) hypertension; K85.90 Acute pancreatitis without necrosis or infection, unspecified; Z79.899 Other long term (current) drug therapy
CPT/HCPCS: 36415; 71045; 80053; 80305; 80320; 81003; 83690; 84484; 85025; 93005; 96361; 96372; 96374; 96375; 99285; C9113; J0500; J2405; J3490; J7030; G0480

== ENCOUNTER 2021-01-26 21:20 | Inpatient (IN) | payer MEDICAID ==
[~2021-01-26] VITALS: Ht 167.6 cm; Wt 72.6 kg
[~2021-01-26 21:20] MED LIST changes: +DICY20TA11 MT; +ONDA4TAB5 MT; +PROT40 PO
[2021-01-26] MEDS ORDERED: MORPHINE SULFATE 4 MG/ML CPJ (NOT FOR IM USE) IV STA (21:41)
[2021-01-26] MEDS ORDERED: PANTOPRAZOLE SODIUM 40 MG/VIAL IV STA (21:41)
[2021-01-26] MEDS ORDERED: ONDANSETRON HCL 4MG/2ML INJ IV STA (21:41)
[2021-01-26] MEDS ORDERED: MAGNESIUM/ALUMINUM HYDROXIDE/SIMETHICONE 30ML UDC PO STA (21:41)
[2021-01-26] MEDS ORDERED: FOLIC ACID 1 MG, THIAMINE HCL 100 MG, MVI, ADULT NO.1 10 ML in DEXTROSE 5% WATER 1,000 ML IV ONE (21:45)
[2021-01-26] MEDS ORDERED: SODIUM CHLORIDE 0.9% 1,000 ML IV ONE (21:45)
[2021-01-26] MEDS ORDERED: PANTOPRAZOLE 40MG DR TABLET PO ONE (22:00)
[2021-01-26] MEDS ORDERED: VISCOUS LIDOCAINE 2% 15 ML UDC MM ONE (22:00)
[2021-01-26] MEDS ORDERED: THIAMINE HCL 100MG TABLET PO ONE (22:00)
[2021-01-26 22:10] LABS: HEMATOCRIT. 34.7 % (42.0-52.0); HEMOGLOBIN. 11.6 g/dL (14.0-18.0); MEAN CORPUSCULAR VOLUME 80.6 fL (80.0-94.0); MEAN PLATELET VOLUME 8.2 fl (7.4-10.4); PLATELET 193 x1000/uL (130-400); RED CELL DISTRIBUTION WIDTH 25.4 % (11.6-14.6)
[2021-01-26 22:17] LABS: CHLORIDE 105 mEq/L (98-107)
[2021-01-26 22:20] LABS: PROTHROMBIN TIME 11.1 sec (9.6-11.0)
[2021-01-26 22:31] LABS: ETHANOL BLOOD 452 mg/dL
[2021-01-26 22:33] LABS: PLATELET ESTIMATE NORMAL
[2021-01-26 23:39] LABS: CLARITY URINE CLEAR (CLEAR); COLOR URINE YELLOW (YELLOW); KETONES URINE NEGATIVE (NEGATIVE); LEUKOCYTE ESTERASE URINE NEGATIVE (NEGATIVE); NITRITE URINE NEGATIVE (NEGATIVE); OCCULT BLOOD URINE NEGATIVE (NEGATIVE); PH URINE 7.5 (4.5-8.0); PROTEIN URINE 1+ (NEGATIVE); SPECIFIC GRAVITY URINE 1.008 (1.005-1.030); UROBILINOGEN URINE 0.2 E.U./dL (0.2-1.0)
[2021-01-26 23:53] LABS: *BARBITURATES SCREEN URINE NEGATIVE (NEGATIVE); *BENZODIAZEPINES SCREEN URINE NEGATIVE (NEGATIVE); *COCAINE SCREEN URINE NEGATIVE (NEGATIVE); CANNABINOID URINE SCREEN NEGATIVE (NEGATIVE); METHADONE URINE SCREEN NEGATIVE (NEGATIVE); OPIATES URINE SCREEN NEGATIVE (NEGATIVE); PHENCYCLIDINE URINE SCREEN NEGATIVE (NEGATIVE)
[2021-01-26 23:54] LABS: *AMPHETAMINES SCREEN URINE NEGATIVE (NEGATIVE)
[2021-01-27] MEDS ORDERED: MORPHINE SULFATE 4 MG/ML CPJ (NOT FOR IM USE) IV ONE (02:15)
[2021-01-27] MEDS ORDERED: ONDANSETRON HCL 4MG/2ML INJ IV ONE (02:15)
[2021-01-27] MEDS ORDERED: SODIUM CHLORIDE 0.9% 1,000 ML IV ONE ×2 (02:30)
[2021-01-27] MEDS ORDERED: MORPHINE SULFATE 2 MG/ML CPJ (NOT FOR IM USE) IV SCH (02:30)
[2021-01-27] MEDS ORDERED: FOLIC ACID 1 MG, THIAMINE HCL 100 MG, MVI, ADULT NO.1 10 ML in DEXTROSE 5% WATER 1,000 ML IV ONE (09:30)
[2021-01-27] MEDS ORDERED: LORAZEPAM 2MG/ML CPJ IV PRN (09:30)
[2021-01-27] MEDS ORDERED: NALOXONE HCL 0.4MG/ML VIAL IV PRN (09:45)
[2021-01-27] MEDS: CHLORDIAZEPOXIDE 5 MG CAPSULE PO SCH ×2 (15:00→22:44)
[2021-01-27] MEDS: HYDROCODONE/ACETAMINOPHEN 5/325MG TABLET PO PRN ×2 (15:15→22:45)
[2021-01-27] MEDS: ONDANSETRON HCL 4MG/2ML INJ IV PRN ×2 (15:49→22:47)
[2021-01-27 17:00] VITALS: BP 137/82
[2021-01-27 17:37] VITALS: BP 127/84
[2021-01-27 20:00] VITALS: BP 136/83
[2021-01-27] MEDS ORDERED: POTASSIUM CHLORIDE 20MEQ TABLET SR PO NR (20:00)
[2021-01-27] MEDS ORDERED: POTASSIUM CHLORIDE INJ 40 MEQ in DEXT 5% WATER 500 ML IV NR (21:45)
[2021-01-28] VITALS: BP 138/87
[2021-01-28 04:00] VITALS: BP 130/80
[2021-01-28] MEDS: CHLORDIAZEPOXIDE 5 MG CAPSULE PO SCH ×2 (05:55→13:30)
[2021-01-28 08:21] LABS: CHLORIDE 100 mEq/L (98-107)
[2021-01-28] MEDS ORDERED: PROT40 PO (09:32)
[2021-01-28] MEDS ORDERED: THIA100T72 PO (09:32)
[2021-01-28 12:00] VITALS: BP 147/92
[2021-01-28] MEDS: ONDANSETRON HCL 4MG/2ML INJ IV PRN (12:44)
[2021-01-28] MEDS: HYDROCODONE/ACETAMINOPHEN 5/325MG TABLET PO PRN ×2 (12:47→18:26)
[2021-01-28 13:13] LABS: EOSINOPHILS % 0.2 % (0.0-5.0); HEMOGLOBIN. 11.5 g/dL (14.0-18.0); LYMPHOCYTES % 44.5 % (20.0-50.0); MEAN CORPUSCULAR HEMOGLOBIN 26.7 pg (28.0-32.0); MEAN CORPUSCULAR VOLUME 85.7 fL (80.0-94.0); MEAN PLATELET VOLUME 7.2 fl (7.4-10.4); NEUTROPHILS % 40.3 % (40.0-76.0); PLATELET 142 x1000/uL (130-400); RED BLOOD CELL COUNT 4.31 mill/uL (4.7-6.1); RED CELL DISTRIBUTION WIDTH 24.2 % (11.6-14.6)
[2021-01-28 15:49] VITALS: BP 147/92
[2021-01-28 16:00] VITALS: BP_SYST 130; BP_SYST 147; BP_DIAS 80; BP_DIAS 92
[2021-01-28 18:26] VITALS: BP 147/92
== END 2021-01-28 20:16 | disposition home or self-care (01) | DRG 282 ==
LOC: ER 21:20 → MICUSO 01-27 01:20 → EDBEDREQTM 01-27 01:33 → EDBEDREQDT 01-27 01:33 → EDBEDREQ 01-27 01:33 → 6EST 01-27 16:53
PROVIDERS: ADMIT Internal Medicine; ATTEND Internal Medicine
DX: K85.90 Acute pancreatitis without necrosis or infection, unspecified (principal); E44.1 Mild protein-calorie malnutrition; N13.30 Unspecified hydronephrosis; D64.9 Anemia, unspecified; D72.819 Decreased white blood cell count, unspecified; E11.9 Type 2 diabetes mellitus without complications; E87.6 Hypokalemia; M10.9 Gout, unspecified; F10.10 Alcohol abuse, uncomplicated; J45.909 Unspecified asthma, uncomplicated; N32.0 Bladder-neck obstruction; I10 Essential (primary) hypertension; F17.200 Nicotine dependence, unspecified, uncomplicated; Y90.8 Blood alcohol level of 240 mg/100 ml or more; Z86.11 Personal history of tuberculosis; Z85.89 Personal history of malignant neoplasm of other organs and systems; Z82.49 Family history of ischemic heart disease and other diseases of the circulatory system; Z83.3 Family history of diabetes mellitus; Z68.25 Body mass index [BMI] 25.0-25.9, adult; Z79.899 Other long term (current) drug therapy; Z71.41 Alcohol abuse counseling and surveillance of alcoholic
CPT/HCPCS: 36415; 74176; 80048; 80053; 80305; 80320; 81003; 84484; 85025; 93005; 99285; J2060; J2270; J2405; J3411; J3480; J3490; J7030; J7040; J7060; J7070; G0480

== ENCOUNTER 2021-02-23 19:57 | Emergency (ER) | payer MEDICAID ==
[~2021-02-23] VITALS: Ht 170.2 cm; Wt 87.0 kg
[~2021-02-23 19:57] MED LIST changes: +METO-293 MT; -MIDO5TAB4 PO
[2021-02-23] MEDS ORDERED: LEVETIRACETAM 1000MG PREMIX 100 ML IV ONE (20:45)
[2021-02-23 21:21] LABS: BASOPHILS % 1.1 % (0.0-2.0); EOSINOPHILS % 0.2 % (0.0-5.0); HEMATOCRIT. 36.7 % (42.0-52.0); HEMOGLOBIN. 12.5 g/dL (14.0-18.0); LYMPHOCYTES % 43.7 % (20.0-50.0); MEAN CORPUSCULAR HEMOGLOBIN 28.1 pg (28.0-32.0); MEAN CORPUSCULAR VOLUME 82.3 fL (80.0-94.0); MEAN PLATELET VOLUME 6.9 fl (7.4-10.4); MONOCYTES % 9.2 % (2.0-8.0); NEUTROPHILS % 45.8 % (40.0-76.0); PLATELET 242 x1000/uL (130-400); RED BLOOD CELL COUNT 4.46 mill/uL (4.7-6.1); RED CELL DISTRIBUTION WIDTH 19.4 % (11.6-14.6)
[2021-02-23 21:27] LABS: CHLORIDE 101 mEq/L (98-107)
[2021-02-23] MEDS ORDERED: LEVETIRACETAM 1,000 MG in SODIUM CHLORIDE 0.9% 100 ML IV NR (21:30)
[2021-02-23 21:55] LABS: ETHANOL BLOOD 401 mg/dL
[2021-02-23 23:12] LABS: CLARITY URINE CLEAR (CLEAR); COLOR URINE YELLOW (YELLOW); KETONES URINE NEGATIVE (NEGATIVE); LEUKOCYTE ESTERASE URINE 1+ (NEGATIVE); NITRITE URINE POSITIVE (NEGATIVE); OCCULT BLOOD URINE NEGATIVE (NEGATIVE); PH URINE 5.5 (4.5-8.0); PROTEIN URINE 2+ (NEGATIVE); SPECIFIC GRAVITY URINE 1.005 (1.005-1.030); UROBILINOGEN URINE 0.2 E.U./dL (0.2-1.0)
[2021-02-23 23:29] LABS: METHADONE URINE SCREEN NEGATIVE (NEGATIVE); OPIATES URINE SCREEN NEGATIVE (NEGATIVE)
[2021-02-23 23:30] LABS: *AMPHETAMINES SCREEN URINE NEGATIVE (NEGATIVE); *BARBITURATES SCREEN URINE NEGATIVE (NEGATIVE); *BENZODIAZEPINES SCREEN URINE NEGATIVE (NEGATIVE); *COCAINE SCREEN URINE NEGATIVE (NEGATIVE); CANNABINOID URINE SCREEN NEGATIVE (NEGATIVE); PHENCYCLIDINE URINE SCREEN NEGATIVE (NEGATIVE)
[2021-02-24] MEDS ORDERED: CEPH500C2 MT (00:42)
[2021-02-24 01:43] VITALS: BP 140/85
== END 2021-02-24 01:44 | disposition home or self-care (01) ==
LOC: ER 19:57
DX: G40.909 Epilepsy, unspecified, not intractable, without status epilepticus (principal); F10.129 Alcohol abuse with intoxication, unspecified; Y90.8 Blood alcohol level of 240 mg/100 ml or more; E87.6 Hypokalemia; I10 Essential (primary) hypertension; E11.9 Type 2 diabetes mellitus without complications; J45.909 Unspecified asthma, uncomplicated; Z87.820 Personal history of traumatic brain injury; Z85.9 Personal history of malignant neoplasm, unspecified; Z79.899 Other long term (current) drug therapy
CPT/HCPCS: 36415; 70450; 80053; 80305; 80320; 81003; 85025; 93005; 96365; 99285; J1953; J7050; G0480

== ENCOUNTER 2021-02-28 08:16 | Inpatient (IN) | payer MEDICAID ==
[~2021-02-28] VITALS: Ht 167.6 cm; Wt 79.5 kg
[2021-02-28] MEDS: METOCLOPRAMIDE HCL 10MG/2ML VIAL IV SCH ×2 (00:47→18:26)
[~2021-02-28 08:16] MED LIST changes: +CEPH500C2 MT
[2021-02-28] MEDS ORDERED: ONDANSETRON HCL 4MG/2ML INJ IV STA (08:54)
[2021-02-28] MEDS ORDERED: MORPHINE SULFATE 4 MG/ML CPJ (NOT FOR IM USE) IV STA (08:54)
[2021-02-28] MEDS ORDERED: PANTOPRAZOLE SODIUM 40 MG/VIAL IV ONE (09:00)
[2021-02-28] MEDS ORDERED: OCTREOTIDE 1,000 MCG in SODIUM CHLORIDE 0.9% 100 ML IV ONE ×2 (09:00→09:15)
[2021-02-28] MEDS ORDERED: SODIUM CHLORIDE 0.9% 1,000 ML IV ONE ×2 (09:00→11:00)
[2021-02-28] MEDS ORDERED: CEFTRIAXONE 1 G PREMIX 50 ML IV ONE (09:00)
[2021-02-28] MEDS ORDERED: MORPHINE SULFATE 2 MG/ML CPJ (NOT FOR IM USE) IV NR (09:15)
[2021-02-28 09:35] LABS: BASOPHILS % 0.4 % (0.0-2.0); HEMATOCRIT. 41.3 % (42.0-52.0); HEMOGLOBIN. 13.6 g/dL (14.0-18.0); LYMPHOCYTES % 33.1 % (20.0-50.0); MEAN CORPUSCULAR HEMOGLOBIN 27.3 pg (28.0-32.0); MEAN CORPUSCULAR VOLUME 82.9 fL (80.0-94.0); MEAN PLATELET VOLUME 7.3 fl (7.4-10.4); MONOCYTES % 8.2 % (2.0-8.0); NEUTROPHILS % 58.3 % (40.0-76.0); PLATELET 271 x1000/uL (130-400); RED BLOOD CELL COUNT 4.98 mill/uL (4.7-6.1); RED CELL DISTRIBUTION WIDTH 18.5 % (11.6-14.6)
[2021-02-28 09:39] LABS: CHLORIDE 101 mEq/L (98-107)
[2021-02-28] MEDS ORDERED: ONDANSETRON HCL 4MG/2ML INJ IV ONE (10:45)
[2021-02-28] MEDS ORDERED: HALOPERIDOL LACTATE 5MG/ML VIAL IM ONE (12:30)
[2021-02-28] MEDS ORDERED: ACETAMINOPHEN 325MG TABLET PO PRN (13:00)
[2021-02-28] MEDS ORDERED: IPRATROPIUM/ALBUTEROL 0.5-3(2.5)MG/3ML NEB HHN PRN (13:00)
[2021-02-28] MEDS ORDERED: CLONIDINE 0.1MG TABLET PO PRN (13:00)
[2021-02-28] MEDS ORDERED: ONDANSETRON HCL 4MG/2ML INJ IV PRN ×2 (13:00→18:15)
[2021-02-28] MEDS: SODIUM CHLORIDE 0.9% 1,000 ML IV SCH (13:25)
[2021-02-28 17:45] VITALS: BP 147/95
[2021-02-28 17:59] VITALS: BP 147/95
[2021-02-28] MEDS ORDERED: OCTREOTIDE 1,000 MCG in SODIUM CHLORIDE 0.9% 98 ML IV PRN (18:30)
[2021-02-28 20:00] VITALS: BP 155/101
[2021-02-28] MEDS: LORAZEPAM 2MG/ML CPJ IV PRN (20:12)
[2021-02-28 21:00] VITALS: BP 127/87
[2021-02-28] MEDS ORDERED: FOLIC ACID 1 MG, THIAMINE HCL 100 MG, MVI, ADULT NO.1 10 ML in DEXTROSE 5% WATER 1,000 ML IV NR (21:00)
[2021-02-28] MEDS: SUCRALFATE 1 G/10 ML UDC PO SCH (21:00)
[2021-02-28] MEDS: PANTOPRAZOLE SODIUM 40 MG/VIAL IV SCH (21:07)
[2021-02-28] MEDS ORDERED: IOHEXOL-300 100 ML BOTTLE ONE (21:17)
[2021-02-28 22:00] VITALS: BP 137/96
[2021-02-28] MEDS ORDERED: CHLORDIAZEPOXIDE 5 MG CAPSULE PO SCH (22:00)
[2021-02-28] MEDS: CHLORDIAZEPOXIDE 25MG CAPSULE PO SCH (22:00)
[2021-03-01] VITALS (12 sets, daily range): BP systolic 100–136; BP diastolic 70–94
[2021-03-01] MEDS: MORPHINE SULFATE 2 MG/ML CPJ (NOT FOR IM USE) IV PRN ×3 (00:47→12:28)
[2021-03-01] MEDS: METOCLOPRAMIDE HCL 10MG/2ML VIAL IV SCH ×4 (05:16→21:12)
[2021-03-01] MEDS: CHLORDIAZEPOXIDE 25MG CAPSULE PO SCH ×3 (05:37→21:12)
[2021-03-01 06:32] LABS: BASOPHILS % 0.6 % (0.0-2.0); HEMATOCRIT. 39.2 % (42.0-52.0); HEMOGLOBIN. 12.9 g/dL (14.0-18.0); LYMPHOCYTES % 24.6 % (20.0-50.0); MEAN CORPUSCULAR HEMOGLOBIN 27.5 pg (28.0-32.0); MEAN CORPUSCULAR VOLUME 83.2 fL (80.0-94.0); MEAN PLATELET VOLUME 7.6 fl (7.4-10.4); MONOCYTES % 10.4 % (2.0-8.0); NEUTROPHILS % 64.4 % (40.0-76.0); PLATELET 172 x1000/uL (130-400); RED BLOOD CELL COUNT 4.71 mill/uL (4.7-6.1)
[2021-03-01 07:00] LABS: CHLORIDE 102 mEq/L (98-107)
[2021-03-01 07:08] LABS: LDL CHOLESTEROL 120 mg/dL (5-100)
[2021-03-01 07:10] LABS: HDL CHOLESTEROL 135 mg/dL (40-59); TOTAL IRON BINDING CAPACITY 310 ug/dL (250-450)
[2021-03-01 07:16] LABS: VITAMIN B12 SERUM 489 pg/mL (211-911)
[2021-03-01 07:17] LABS: FOLIC ACID (FOLATE) SERUM > 20.00 ng/mL (>5.38)
[2021-03-01] MEDS: SUCRALFATE 1 G/10 ML UDC PO SCH ×4 (07:30→21:12)
[2021-03-01] MEDS ORDERED: PANTOPRAZOLE SODIUM 40 MG/VIAL IV SCH (09:00)
[2021-03-01] MEDS: PANTOPRAZOLE SODIUM 40 MG/VIAL IV SCH ×2 (09:24→17:08)
[2021-03-01] MEDS: CEFTRIAXONE 1,000 MG in DEXTROSE 5% WATER 50 ML IV SCH (09:25)
[2021-03-01] MEDS: SODIUM CHLORIDE 0.9% 1,000 ML IV SCH ×2 (09:26→22:20)
[2021-03-01 12:25] LABS: FERRITIN 78 ng/mL (22-322)
[2021-03-01] MEDS: DIPHENHYDRAMINE 50MG/ML VIAL IV PRN ×2 (14:30→23:14)
[2021-03-01 19:29] LABS: CLARITY URINE CLOUDY (CLEAR); COLOR URINE YELLOW (YELLOW); KETONES URINE 1+ (NEGATIVE); LEUKOCYTE ESTERASE URINE 1+ (NEGATIVE); NITRITE URINE POSITIVE (NEGATIVE); OCCULT BLOOD URINE 3+ (NEGATIVE); PROTEIN URINE 3+ (NEGATIVE); SPECIFIC GRAVITY URINE 1.018 (1.005-1.030); UROBILINOGEN URINE 0.2 E.U./dL (0.2-1.0)
[2021-03-01] MEDS: HYDROCODONE/ACETAMINOPHEN 5/325MG TABLET PO PRN (21:27)
[2021-03-01] MEDS: LORAZEPAM 2MG/ML CPJ IV PRN (23:14)
[2021-03-02] VITALS (12 sets, daily range): BP systolic 117–138; BP diastolic 66–93
[2021-03-02] MEDS: METOCLOPRAMIDE HCL 10MG/2ML VIAL IV SCH ×3 (04:00→16:00)
[2021-03-02] MEDS: CHLORDIAZEPOXIDE 25MG CAPSULE PO SCH ×2 (05:07→13:04)
[2021-03-02] MEDS: SODIUM CHLORIDE 0.9% 1,000 ML IV SCH (05:08)
[2021-03-02 06:39] LABS: CHLORIDE 100 mEq/L (98-107)
[2021-03-02 06:42] LABS: BASOPHILS % 0.7 % (0.0-2.0); EOSINOPHILS % 0.3 % (0.0-5.0); HEMATOCRIT. 34.3 % (42.0-52.0); HEMOGLOBIN. 11.2 g/dL (14.0-18.0); LYMPHOCYTES % 31.3 % (20.0-50.0); MEAN CORPUSCULAR HEMOGLOBIN 27.5 pg (28.0-32.0); MEAN CORPUSCULAR VOLUME 84.4 fL (80.0-94.0); MEAN PLATELET VOLUME 7.8 fl (7.4-10.4); MONOCYTES % 9.7 % (2.0-8.0); PLATELET 122 x1000/uL (130-400); RED BLOOD CELL COUNT 4.06 mill/uL (4.7-6.1); RED CELL DISTRIBUTION WIDTH 17.8 % (11.6-14.6)
[2021-03-02] MEDS: SUCRALFATE 1 G/10 ML UDC PO SCH ×3 (06:49→17:30)
[2021-03-02] MEDS: HYDROCODONE/ACETAMINOPHEN 5/325MG TABLET PO PRN ×2 (08:55→14:41)
[2021-03-02] MEDS: PANTOPRAZOLE SODIUM 40 MG/VIAL IV SCH ×2 (09:20→17:00)
[2021-03-02] MEDS: CEFTRIAXONE 1,000 MG in DEXTROSE 5% WATER 50 ML IV SCH (09:21)
[2021-03-02] MEDS ORDERED: NITR100C MT (15:12)
[2021-03-02] MEDS ORDERED: L25 MT (15:12)
[2021-03-02] MEDS ORDERED: PROT40 PO (15:12)
[2021-03-02] MEDS ORDERED: POTASSIUM CHLORIDE 20MEQ TABLET SR PO NR (15:30)
== END 2021-03-02 22:52 | disposition home or self-care (01) | DRG 244 ==
LOC: ER 08:16 → EDBEDREQ 08:50 → 5EST 11:43 → EDBEDREQ 11:45 → ENRESERV 14:05
PROVIDERS: ADMIT Internal Medicine; ATTEND Internal Medicine
DX: K57.91 Diverticulosis of intestine, part unspecified, without perforation or abscess with bleeding (principal); K76.0 Fatty (change of) liver, not elsewhere classified; N13.6 Pyonephrosis; D64.9 Anemia, unspecified; G40.909 Epilepsy, unspecified, not intractable, without status epilepticus; I10 Essential (primary) hypertension; J45.909 Unspecified asthma, uncomplicated; K86.1 Other chronic pancreatitis; Z60.2 Problems related to living alone; F10.229 Alcohol dependence with intoxication, unspecified; N28.89 Other specified disorders of kidney and ureter; N34.2 Other urethritis; M10.9 Gout, unspecified; Z82.49 Family history of ischemic heart disease and other diseases of the circulatory system; Z83.3 Family history of diabetes mellitus; Z79.899 Other long term (current) drug therapy; Z86.11 Personal history of tuberculosis; Z85.9 Personal history of malignant neoplasm, unspecified
CPT/HCPCS: 36415; 74022; 74177; 76700; 80048; 80053; 80061; 80076; 80320; 81003; 82248; 82607; 82728; 82746; 83540; 83550; 83605; 84443; 85025; 87077; 87186; 93970; 99291; C1893; C9113; J0696; J1200; J1630; J2060; J2270; J2354; J2405; J2765; J3411; J3490; J7030; J7050; J7060; J7070; Q9967; G0480

== ENCOUNTER 2021-03-11 20:47 | Emergency (ER) | payer MEDICAID ==
[~2021-03-11] VITALS: Ht 175.3 cm; Wt 73.0 kg
[~2021-03-11 20:47] MED LIST changes: -CEPH500C2 MT; +L25 MT; +NITR100C MT; -OMEP20CA14 MT
[2021-03-11 21:18] VITALS: BP 114/78
[2021-03-11] MEDS ORDERED: VISCOUS LIDOCAINE 2% 15 ML UDC PO STA (22:12)
[2021-03-11] MEDS ORDERED: MAGNESIUM/ALUMINUM HYDROXIDE/SIMETHICONE 30ML UDC PO STA (22:12)
[2021-03-11] MEDS ORDERED: SODIUM CHLORIDE 0.9% 1,000 ML IV ONE (22:15)
[2021-03-11] MEDS ORDERED: LEVETIRACETAM 500MG PREMIX 100 ML IV ONE (22:15)
[2021-03-11] MEDS ORDERED: LIDOCAINE HCL 20 MG/ML 100ML BOTTLE PO NR (23:45)
[2021-03-11 23:58] LABS: BASOPHILS % 1.1 % (0.0-2.0); CHLORIDE 104 mEq/L (98-107); EOSINOPHILS % 0.3 % (0.0-5.0); HEMATOCRIT. 36.6 % (42.0-52.0); LYMPHOCYTES % 68.2 % (20.0-50.0); MEAN CORPUSCULAR HEMOGLOBIN 27.2 pg (28.0-32.0); MEAN CORPUSCULAR VOLUME 82.6 fL (80.0-94.0); MEAN PLATELET VOLUME 7.6 fl (7.4-10.4); MONOCYTES % 11.7 % (2.0-8.0); NEUTROPHILS % 18.7 % (40.0-76.0); PLATELET 197 x1000/uL (130-400); RED BLOOD CELL COUNT 4.43 mill/uL (4.7-6.1); RED CELL DISTRIBUTION WIDTH 17.2 % (11.6-14.6)
[2021-03-12 00:01] LABS: INR 1.1; PROTHROMBIN TIME 11.9 sec (9.6-11.0)
[2021-03-12 00:43] LABS: ETHANOL BLOOD 310 mg/dL
[2021-03-12] MEDS ORDERED: HALOPERIDOL LACTATE 5MG/ML VIAL IM NR (02:45)
== END 2021-03-12 06:27 | disposition home or self-care (01) ==
LOC: ER 20:47
DX: R10.13 Epigastric pain (principal)
CPT/HCPCS: 36415; 76700; 80053; 80320; 83605; 83690; 84484; 85025; 85610; 86850; 86900; 86901; 96361; 96365; 96372; 99284; J1630; J1953; J7030; G0480

== ENCOUNTER 2021-03-16 17:32 | Emergency (ER) | payer MEDICAID ==
[~2021-03-16] VITALS: Ht 182.9 cm; Wt 90.0 kg
[2021-03-16 17:36] VITALS: BP 144/71
== END 2021-03-16 21:15 | disposition left against medical advice (07) ==
LOC: ER 17:32
DX: F10.10 Alcohol abuse, uncomplicated (principal); Z53.21 Procedure and treatment not carried out due to patient leaving prior to being seen by health care provider; Y90.9 Presence of alcohol in blood, level not specified

== ENCOUNTER 2021-04-28 02:08 | Emergency (ER) | payer MEDICAID ==
[~2021-04-28] VITALS: Ht 175.3 cm; Wt 70.0 kg
[2021-04-28 02:10] VITALS: BP 124/83
[2021-04-28] MEDS ORDERED: METOCLOPRAMIDE HCL 10MG/2ML VIAL IV STA (02:30)
[2021-04-28] MEDS ORDERED: MAGNESIUM/ALUMINUM HYDROXIDE/SIMETHICONE 30ML UDC PO STA (02:30)
[2021-04-28] MEDS ORDERED: VISCOUS LIDOCAINE 2% 15 ML UDC PO STA (02:30)
[2021-04-28] MEDS ORDERED: SODIUM CHLORIDE 0.9% 1,000 ML IV ONE (02:30)
[2021-04-28 03:41] LABS: EOSINOPHILS % 0.6 % (0.0-5.0); HEMATOCRIT. 38.2 % (42.0-52.0); HEMOGLOBIN. 12.4 g/dL (14.0-18.0); LYMPHOCYTES % 34.9 % (20.0-50.0); MEAN CORPUSCULAR HEMOGLOBIN 26.9 pg (28.0-32.0); MEAN PLATELET VOLUME 7.2 fl (7.4-10.4); MONOCYTES % 12.5 % (2.0-8.0); PLATELET 172 x1000/uL (130-400); RED CELL DISTRIBUTION WIDTH 18.5 % (11.6-14.6)
[2021-04-28 03:51] LABS: CHLORIDE 102 mEq/L (98-107)
[2021-04-28 03:55] LABS: ETHANOL BLOOD 158 mg/dL
[2021-04-28] MEDS ORDERED: POTASSIUM CHLORIDE 20MEQ TABLET SR PO ONE (05:30)
[2021-04-29] MEDS ORDERED: CEPH500C2 MT (01:47)
== END 2021-04-28 13:35 | disposition home or self-care (01) ==
LOC: ER 02:08
DX: F10.129 Alcohol abuse with intoxication, unspecified (principal); R10.13 Epigastric pain; R11.2 Nausea with vomiting, unspecified; E87.6 Hypokalemia; I10 Essential (primary) hypertension; G40.909 Epilepsy, unspecified, not intractable, without status epilepticus; J45.909 Unspecified asthma, uncomplicated; Z79.899 Other long term (current) drug therapy; Y90.6 Blood alcohol level of 120-199 mg/100 ml
CPT/HCPCS: 36415; 80053; 80320; 84484; 85025; 93005; 99284; J7030; G0480

== ENCOUNTER 2021-04-28 15:01 | Emergency (ER) | payer MEDICAID ==
[~2021-04-28] VITALS: Ht 167.6 cm; Wt 83.0 kg
[2021-04-28] MEDS ORDERED: VISCOUS LIDOCAINE 2% 15 ML UDC PO STA (20:35)
[2021-04-28] MEDS ORDERED: ONDANSETRON 4MG ODT PO STA (20:35)
[2021-04-28] MEDS ORDERED: ACETAMINOPHEN 325MG TABLET PO STA (20:35)
[2021-04-28] MEDS ORDERED: MAGNESIUM/ALUMINUM HYDROXIDE/SIMETHICONE 30ML UDC PO STA (20:35)
[2021-04-28 21:58] LABS: CHLORIDE 99 mEq/L (98-107)
[2021-04-28 22:02] LABS: ETHANOL BLOOD < 10 mg/dL
[2021-04-28] MEDS ORDERED: POTASSIUM CHLORIDE 20MEQ TABLET SR PO NR (22:30)
[2021-04-29] LABS: CLARITY URINE TURBID (CLEAR); COLOR URINE DARK YELLOW (YELLOW); KETONES URINE TRACE (NEGATIVE); LEUKOCYTE ESTERASE URINE 2+ (NEGATIVE); NITRITE URINE NEGATIVE (NEGATIVE); OCCULT BLOOD URINE 1+ (NEGATIVE); PROTEIN URINE 4+ (NEGATIVE); SPECIFIC GRAVITY URINE 1.025 (1.005-1.030)
[2021-04-29] MEDS ORDERED: CEFTRIAXONE SODIUM 1 G/VIAL IM NR (00:30)
[2021-04-29 00:39] LABS: HEMATOCRIT. 40.1 % (42.0-52.0); HEMOGLOBIN. 13.1 g/dL (14.0-18.0); MEAN CORPUSCULAR HEMOGLOBIN 27.1 pg (28.0-32.0); MEAN CORPUSCULAR VOLUME 83.3 fL (80.0-94.0); MEAN PLATELET VOLUME 7.5 fl (7.4-10.4); PLATELET 175 x1000/uL (130-400); RED BLOOD CELL COUNT 4.82 mill/uL (4.7-6.1); RED CELL DISTRIBUTION WIDTH 18.2 % (11.6-14.6)
[2021-04-29] MEDS ORDERED: CEPH500C2 MT (01:47)
[2021-04-29 01:55] VITALS: BP 134/88
[2021-04-29 07:07] LABS: PLATELET ESTIMATE NORMAL
== END 2021-04-29 02:00 | disposition home or self-care (01) ==
LOC: ER 15:01
DX: N10 Acute pyelonephritis (principal); G40.909 Epilepsy, unspecified, not intractable, without status epilepticus; J45.909 Unspecified asthma, uncomplicated; I10 Essential (primary) hypertension; E11.9 Type 2 diabetes mellitus without complications; Z98.890 Other specified postprocedural states; Z79.899 Other long term (current) drug therapy
CPT/HCPCS: 36415; 74176; 80048; 80320; 81003; 83690; 85025; 87077; 87086; 87186; 93005; 96372; 99285; J0696; Q0162; G0480

== ENCOUNTER 2021-05-14 06:52 | Emergency (ER) | payer MEDICAID ==
[~2021-05-14] VITALS: Ht 177.8 cm; Wt 80.0 kg
[~2021-05-14 06:52] MED LIST changes: +CEPH500C2 MT
[2021-05-14] MEDS ORDERED: ONDANSETRON HCL 4MG/2ML INJ IV STA (09:12)
[2021-05-14] MEDS ORDERED: SODIUM CHLORIDE 0.9% 1,000 ML IV ONE (09:15)
[2021-05-14] MEDS ORDERED: LORAZEPAM 2MG/ML CPJ IV ONE (10:00)
[2021-05-14] MEDS ORDERED: ONDANSETRON 4MG ODT PO ONE (11:30)
[2021-05-14 16:04] LABS: CHLORIDE 94 mEq/L (98-107)
[2021-05-14 16:10] LABS: ETHANOL BLOOD < 10 mg/dL
[2021-05-14] MEDS ORDERED: ONDA4TAB5 MT (16:51)
[2021-05-14] MEDS ORDERED: POTASSIUM-SODIUM PHOSPHATE POWDER PACKET PO NR (17:00)
[2021-05-14 17:57] VITALS: BP 144/91
== END 2021-05-14 18:04 | disposition home or self-care (01) ==
LOC: ER 06:54
DX: R11.2 Nausea with vomiting, unspecified (principal); E11.9 Type 2 diabetes mellitus without complications; I10 Essential (primary) hypertension; J45.909 Unspecified asthma, uncomplicated; Z79.899 Other long term (current) drug therapy; Z86.59 Personal history of other mental and behavioral disorders
CPT/HCPCS: 36415; 71045; 80053; 80320; 83690; 93005; 96374; 96375; 99285; J2060; J2405; J7030; G0480

== ENCOUNTER 2021-05-27 19:03 | Emergency (ER) | payer MEDICAID ==
[~2021-05-27] VITALS: Ht 177.8 cm; Wt 85.0 kg
[2021-05-27] MEDS ORDERED: ONDANSETRON 4MG ODT PO ONE (21:30)
[2021-05-28 05:26] VITALS: BP 134/91
== END 2021-05-28 05:28 | disposition home or self-care (01) ==
LOC: ER 19:03
DX: F10.129 Alcohol abuse with intoxication, unspecified (principal); R51.9 Headache, unspecified; E11.9 Type 2 diabetes mellitus without complications; J45.909 Unspecified asthma, uncomplicated; Z79.899 Other long term (current) drug therapy; Z98.890 Other specified postprocedural states; Z86.59 Personal history of other mental and behavioral disorders; Y90.9 Presence of alcohol in blood, level not specified
CPT/HCPCS: 70450; 99285; Q0162

== ENCOUNTER 2021-06-14 07:09 | Emergency (ER) | payer MEDICAID ==
[~2021-06-14] VITALS: Ht 170.2 cm; Wt 69.0 kg
[2021-06-14] MEDS ORDERED: ONDANSETRON HCL 4MG/2ML INJ IV STA (08:16)
[2021-06-14] MEDS ORDERED: MORPHINE SULFATE 4 MG/ML CPJ (NOT FOR IM USE) IV STA (08:16)
[2021-06-14] MEDS ORDERED: LORAZEPAM 2MG/ML CPJ IV ONE (08:30)
[2021-06-14] MEDS ORDERED: SODIUM CHLORIDE 0.9% 1,000 ML IV ONE (08:30)
[2021-06-14 08:41] LABS: BASOPHILS % 0.6 % (0.0-2.0); HEMATOCRIT. 38.6 % (42.0-52.0); HEMOGLOBIN. 12.9 g/dL (14.0-18.0); LYMPHOCYTES % 27.2 % (20.0-50.0); MEAN CORPUSCULAR HEMOGLOBIN 27.6 pg (28.0-32.0); MEAN CORPUSCULAR VOLUME 82.4 fL (80.0-94.0); MEAN PLATELET VOLUME 7.2 fl (7.4-10.4); MONOCYTES % 10.3 % (2.0-8.0); NEUTROPHILS % 61.9 % (40.0-76.0); PLATELET 252 x1000/uL (130-400); RED BLOOD CELL COUNT 4.69 mill/uL (4.7-6.1); RED CELL DISTRIBUTION WIDTH 17.6 % (11.6-14.6)
[2021-06-14 08:48] LABS: CHLORIDE 100 mEq/L (98-107)
[2021-06-14 08:52] LABS: ETHANOL BLOOD 51 mg/dL
[2021-06-14] MEDS ORDERED: OMEP20CA14 MT (10:50)
[2021-06-14] MEDS ORDERED: ONDA4TAB11 PO (10:50)
[2021-06-14] MEDS ORDERED: POTA20TA82 MT (10:50)
[2021-06-14 11:01] VITALS: BP 121/80
== END 2021-06-14 11:10 | disposition home or self-care (01) ==
LOC: ER 07:09
DX: F10.129 Alcohol abuse with intoxication, unspecified (principal); Y90.2 Blood alcohol level of 40-59 mg/100 ml; E87.6 Hypokalemia; I10 Essential (primary) hypertension
CPT/HCPCS: 36415; 71045; 80053; 80320; 83690; 85025; 93005; 96361; 96374; 96375; 99285; J2060; J2270; J2405; J7030; G0480

== ENCOUNTER 2021-11-05 13:36 | Inpatient (IN) | payer MEDICAID ==
[~2021-11-05] VITALS: Ht 172.7 cm; Wt 69.9 kg
[~2021-11-05 13:36] MED LIST changes: -DICY20TA11 MT; +HYDR-4001 MT; -L25 MT; +L25 PO; -NITR100C MT; +OMEP20CA14 MT; -ONDA4TAB5 MT; -PROT40 PO
[2021-11-05] MEDS ORDERED: MORPHINE SULFATE 4 MG/ML CPJ (NOT FOR IM USE) IV STA (14:19)
[2021-11-05] MEDS ORDERED: ONDANSETRON HCL 4MG/2ML INJ IV STA (14:19)
[2021-11-05] MEDS ORDERED: SODIUM CHLORIDE 0.9% 1,000 ML IV ONE (14:30)
[2021-11-05 15:11] LABS: BASOPHILS % 0.9 % (0.0-2.0); HEMATOCRIT. 34.7 % (42.0-52.0); HEMOGLOBIN. 11.1 g/dL (14.0-18.0); LYMPHOCYTES % 28.7 % (20.0-50.0); MEAN CORPUSCULAR HEMOGLOBIN 26.8 pg (28.0-32.0); MEAN CORPUSCULAR VOLUME 83.7 fL (80.0-94.0); MONOCYTES % 12.1 % (2.0-8.0); NEUTROPHILS % 58.3 % (40.0-76.0); PLATELET 349 x1000/uL (130-400); RED BLOOD CELL COUNT 4.14 mill/uL (4.7-6.1); RED CELL DISTRIBUTION WIDTH 16.9 % (11.6-14.6)
[2021-11-05 15:17] LABS: CHLORIDE 93 mEq/L (98-107)
[2021-11-05 15:55] LABS: CLARITY URINE CLEAR (CLEAR); COLOR URINE YELLOW (YELLOW); KETONES URINE NEGATIVE (NEGATIVE); LEUKOCYTE ESTERASE URINE 2+ (NEGATIVE); NITRITE URINE NEGATIVE (NEGATIVE); OCCULT BLOOD URINE NEGATIVE (NEGATIVE); PH URINE >=9.0 (4.5-8.0); PROTEIN URINE 2+ (NEGATIVE); SPECIFIC GRAVITY URINE 1.011 (1.005-1.030); UROBILINOGEN URINE 0.2 E.U./dL (0.2-1.0)
[2021-11-05] MEDS ORDERED: KCL 10MEQ/50ML PREMIX 50 ML IV ONE (17:00)
[2021-11-05] MEDS ORDERED: POTASSIUM CHLORIDE 20MEQ/PACKET PO ONE (17:00)
[2021-11-05] MEDS ORDERED: CEFTRIAXONE 1 G PREMIX 50 ML IV ONE (17:15)
[2021-11-05] MEDS ORDERED: DEXTROSE 50% WATER 50ML SYRINGE IV PRN (19:00)
[2021-11-05 20:00] VITALS: BP_SYST 122; BP_DIAS 83; BP_DIAS 85
[2021-11-05] MEDS ORDERED: ENOXAPARIN 40MG/0.4ML SYR SUBCUT NR (20:15)
[2021-11-05 20:36] LABS: CHLORIDE 95 mEq/L (98-107)
[2021-11-05 20:40] LABS: BASOPHILS % 0.6 % (0.0-2.0); EOSINOPHILS % 0.1 % (0.0-5.0); HEMATOCRIT. 31.6 % (42.0-52.0); HEMOGLOBIN. 10.2 g/dL (14.0-18.0); LYMPHOCYTES % 32.2 % (20.0-50.0); MEAN CORPUSCULAR HEMOGLOBIN 26.7 pg (28.0-32.0); MEAN CORPUSCULAR VOLUME 82.9 fL (80.0-94.0); MONOCYTES % 11.2 % (2.0-8.0); NEUTROPHILS % 55.9 % (40.0-76.0); PLATELET 346 x1000/uL (130-400); RED BLOOD CELL COUNT 3.81 mill/uL (4.7-6.1); RED CELL DISTRIBUTION WIDTH 17.4 % (11.6-14.6)
[2021-11-05] MEDS: INSULIN LISPRO 100 UNITS/ML SUBCUT SCH (21:00)
[2021-11-05] MEDS: BLOOD SUGAR DIAGNOSTIC STRIP TEST SCH (21:00)
[2021-11-05] MEDS ORDERED: BECL10.6 IH (21:45)
[2021-11-05] MEDS ORDERED: COLC0.6C3 PO (21:45)
[2021-11-05] MEDS ORDERED: FAMO20TA8 PO (21:45)
[2021-11-05] MEDS ORDERED: LEVE500T19 PO (21:45)
[2021-11-05] MEDS ORDERED: MELO-106 PO (21:45)
[2021-11-05] MEDS ORDERED: NALOXONE HCL 0.4MG/ML VIAL IV PRN (22:00)
[2021-11-05] MEDS: CHLORDIAZEPOXIDE 25MG CAPSULE PO SCH (22:09)
[2021-11-05] MEDS: SODIUM CHLORIDE 0.9% 1,000 ML IV SCH (22:09)
[2021-11-05] MEDS: ONDANSETRON HCL 4MG/2ML INJ IV PRN (22:09)
[2021-11-05] MEDS: MORPHINE SULFATE 2 MG/ML CPJ (NOT FOR IM USE) IV PRN (22:11)
[2021-11-05] MEDS: GABAPENTIN 300MG CAPSULE PO SCH (22:21)
[2021-11-05] MEDS: LEVETIRACETAM 500MG TABLET PO SCH (22:21)
[2021-11-05 23:42] VITALS: BP 122/85
[2021-11-06] VITALS: BP 119/77
[2021-11-06 04:00] VITALS: BP 126/93
[2021-11-06] MEDS ORDERED: ALBUTEROL 6.7GM HFA INHALER ORI PRN (04:30)
[2021-11-06] MEDS: CHLORDIAZEPOXIDE 25MG CAPSULE PO SCH ×3 (06:02→21:17)
[2021-11-06] MEDS: SODIUM CHLORIDE 0.9% 1,000 ML IV SCH ×3 (06:03→23:57)
[2021-11-06] MEDS: MORPHINE SULFATE 2 MG/ML CPJ (NOT FOR IM USE) IV PRN ×2 (06:14→21:18)
[2021-11-06] MEDS: BLOOD SUGAR DIAGNOSTIC STRIP TEST SCH ×4 (07:40→21:19)
[2021-11-06 08:00] VITALS: BP 145/78
[2021-11-06] MEDS: INSULIN LISPRO 100 UNITS/ML SUBCUT SCH ×4 (08:10→21:00)
[2021-11-06] MEDS: MULTIVITAMINS,THER W-MINERALS TABLET PO SCH (09:38)
[2021-11-06] MEDS: FOLIC ACID 1MG TABLET PO SCH (09:38)
[2021-11-06] MEDS: LEVETIRACETAM 500MG TABLET PO SCH ×2 (09:38→21:17)
[2021-11-06] MEDS: THIAMINE HCL 100MG TABLET PO SCH (09:43)
[2021-11-06] MEDS: ONDANSETRON HCL 4MG/2ML INJ IV PRN ×2 (11:30→21:18)
[2021-11-06 12:00] VITALS: BP 128/81
[2021-11-06] MEDS ORDERED: COLCHICINE 0.6MG TABLET PO NR ×2 (14:30→15:45)
[2021-11-06] MEDS: METHYLPREDNISOLONE SOD SUCC 40 MG/ML VIAL IV SCH ×2 (15:17→21:18)
[2021-11-06 16:00] VITALS: BP 104/70
[2021-11-06 20:00] VITALS: BP 121/89
[2021-11-06] MEDS ORDERED: QUETIAPINE FUMARATE 50MG TABLET PO SCH (21:00)
[2021-11-06] MEDS ORDERED: ENOXAPARIN 40MG/0.4ML SYR SUBCUT SCH (21:00)
[2021-11-06] MEDS: COLCHICINE 0.6MG TABLET PO SCH (21:18)
[2021-11-06] MEDS: GABAPENTIN 300MG CAPSULE PO SCH (21:18)
[2021-11-06 21:27] LABS: BASOPHILS % 0.1 % (0.0-2.0); HEMATOCRIT. 32.3 % (42.0-52.0); HEMOGLOBIN. 10.5 g/dL (14.0-18.0); LYMPHOCYTES % 8.8 % (20.0-50.0); MEAN CORPUSCULAR HEMOGLOBIN 27.1 pg (28.0-32.0); MEAN CORPUSCULAR VOLUME 83.6 fL (80.0-94.0); MEAN PLATELET VOLUME 7.1 fl (7.4-10.4); MONOCYTES % 1.5 % (2.0-8.0); NEUTROPHILS % 89.6 % (40.0-76.0); PLATELET 290 x1000/uL (130-400); RED BLOOD CELL COUNT 3.86 mill/uL (4.7-6.1); RED CELL DISTRIBUTION WIDTH 17.3 % (11.6-14.6)
[2021-11-06 21:41] LABS: CHLORIDE 96 mEq/L (98-107)
[2021-11-07] VITALS: BP 124/82
[2021-11-07 04:00] VITALS: BP 137/84
[2021-11-07 06:01] LABS: BASOPHILS % 0.2 % (0.0-2.0); HEMATOCRIT. 32.7 % (42.0-52.0); HEMOGLOBIN. 10.9 g/dL (14.0-18.0); LYMPHOCYTES % 13.9 % (20.0-50.0); MEAN CORPUSCULAR HEMOGLOBIN 27.7 pg (28.0-32.0); MEAN CORPUSCULAR VOLUME 83.3 fL (80.0-94.0); MONOCYTES % 1.3 % (2.0-8.0); NEUTROPHILS % 84.6 % (40.0-76.0); RED BLOOD CELL COUNT 3.93 mill/uL (4.7-6.1)
[2021-11-07] MEDS: METHYLPREDNISOLONE SOD SUCC 40 MG/ML VIAL IV SCH ×2 (06:03→14:10)
[2021-11-07] MEDS: CHLORDIAZEPOXIDE 25MG CAPSULE PO SCH ×2 (06:03→14:10)
[2021-11-07] MEDS: ONDANSETRON HCL 4MG/2ML INJ IV PRN (06:03)
[2021-11-07 06:04] LABS: CHLORIDE 98 mEq/L (98-107)
[2021-11-07] MEDS: MORPHINE SULFATE 2 MG/ML CPJ (NOT FOR IM USE) IV PRN (06:04)
[2021-11-07] MEDS: BLOOD SUGAR DIAGNOSTIC STRIP TEST SCH ×2 (06:47→13:09)
[2021-11-07 08:00] VITALS: BP 147/90
[2021-11-07 08:43] LABS: MEAN PLATELET VOLUME 7.5 fl (7.4-10.4); PLATELET 286 x1000/uL (130-400)
[2021-11-07] MEDS: FOLIC ACID 1MG TABLET PO SCH (08:56)
[2021-11-07] MEDS: LEVETIRACETAM 500MG TABLET PO SCH (08:56)
[2021-11-07] MEDS: THIAMINE HCL 100MG TABLET PO SCH (08:56)
[2021-11-07] MEDS: MULTIVITAMINS,THER W-MINERALS TABLET PO SCH (08:56)
[2021-11-07] MEDS: COLCHICINE 0.6MG TABLET PO SCH (08:56)
[2021-11-07] MEDS: INSULIN LISPRO 100 UNITS/ML SUBCUT SCH ×2 (08:59→13:08)
[2021-11-07] MEDS ORDERED: DIPHENHYDRAMINE 50MG/ML VIAL IV PRN (09:30)
[2021-11-07 12:00] VITALS: BP 141/91
[2021-11-07 15:27] VITALS: BP 141/91
== END 2021-11-07 16:50 | disposition home or self-care (01) | DRG 241 ==
LOC: ER 14:13 → 7WST 17:00 → EDBEDREQ 17:27 → EDBEDREQSVC 17:27 → ENRESERV 17:58
PROVIDERS: ADMIT Internal Medicine; ATTEND Internal Medicine
DX: K29.20 Alcoholic gastritis without bleeding (principal); N13.4 Hydroureter; E11.9 Type 2 diabetes mellitus without complications; E87.6 Hypokalemia; F17.200 Nicotine dependence, unspecified, uncomplicated; M79.89 Other specified soft tissue disorders; G40.909 Epilepsy, unspecified, not intractable, without status epilepticus; J44.9 Chronic obstructive pulmonary disease, unspecified; M10.9 Gout, unspecified; F10.20 Alcohol dependence, uncomplicated; Z79.899 Other long term (current) drug therapy; Z83.3 Family history of diabetes mellitus; Z86.19 Personal history of other infectious and parasitic diseases; Z86.73 Personal history of transient ischemic attack (TIA), and cerebral infarction without residual deficits; Z82.49 Family history of ischemic heart disease and other diseases of the circulatory system
CPT/HCPCS: 36415; 74176; 80048; 80053; 81003; 82962; 83036; 83605; 84484; 85025; 93005; 99285; J0696; J1200; J1650; J1815; J2270; J2405; J2920; J3480; J7030

== ENCOUNTER 2021-12-24 16:26 | Inpatient (IN) | payer MEDICAID ==
[~2021-12-24] VITALS: Ht 182.9 cm; Wt 83.9 kg
[~2021-12-24 16:26] MED LIST changes: +BECL10.6 IH; +COLC0.6C3 PO; +FAMO20TA8 PO; +LEVE500T19 PO; +MELO-106 PO
[2021-12-24 17:17] LABS: BASOPHILS % 0.7 % (0.0-2.0); HEMATOCRIT. 37.2 % (42.0-52.0); HEMOGLOBIN. 12.4 g/dL (14.0-18.0); LYMPHOCYTES % 27.8 % (20.0-50.0); MEAN CORPUSCULAR HEMOGLOBIN 28.7 pg (28.0-32.0); MEAN CORPUSCULAR VOLUME 86.1 fL (80.0-94.0); MEAN PLATELET VOLUME 7.2 fl (7.4-10.4); MONOCYTES % 8.8 % (2.0-8.0); NEUTROPHILS % 62.7 % (40.0-76.0); PLATELET 218 x1000/uL (130-400); RED BLOOD CELL COUNT 4.32 mill/uL (4.7-6.1); RED CELL DISTRIBUTION WIDTH 18.4 % (11.6-14.6)
[2021-12-24 17:24] LABS: CHLORIDE 98 mEq/L (98-107)
[2021-12-24 17:25] LABS: CLARITY URINE CLOUDY (CLEAR); COLOR URINE YELLOW (YELLOW); KETONES URINE TRACE (NEGATIVE); LEUKOCYTE ESTERASE URINE 1+ (NEGATIVE); NITRITE URINE NEGATIVE (NEGATIVE); OCCULT BLOOD URINE NEGATIVE (NEGATIVE); PROTEIN URINE 3+ (NEGATIVE); SPECIFIC GRAVITY URINE 1.019 (1.005-1.030)
[2021-12-24 17:26] LABS: INR 1.1; PROTHROMBIN TIME 12.1 sec (9.6-11.0)
[2021-12-24 17:32] LABS: ETHANOL BLOOD 34 mg/dL
[2021-12-24 17:37] LABS: *AMPHETAMINES SCREEN URINE NEGATIVE (NEGATIVE); *BARBITURATES SCREEN URINE NEGATIVE (NEGATIVE); *BENZODIAZEPINES SCREEN URINE PRESUMTIVE POSITIVE (NEGATIVE); *COCAINE SCREEN URINE NEGATIVE (NEGATIVE); CANNABINOID URINE SCREEN PRESUMTIVE POSITIVE (NEGATIVE); METHADONE URINE SCREEN NEGATIVE (NEGATIVE); OPIATES URINE SCREEN NEGATIVE (NEGATIVE); PHENCYCLIDINE URINE SCREEN NEGATIVE (NEGATIVE)
[2021-12-24] MEDS ORDERED: SODIUM CHLORIDE 0.9% 1,000 ML IV ONE (17:45)
[2021-12-24] MEDS ORDERED: ONDANSETRON HCL 4MG/2ML INJ IV ONE (17:45)
[2021-12-24] MEDS ORDERED: MAGNESIUM/ALUMINUM HYDROXIDE/SIMETHICONE 30ML UDC PO ONE (17:45)
[2021-12-24] MEDS ORDERED: MORPHINE SULFATE 4 MG/ML CPJ (NOT FOR IM USE) IV ONE ×2 (17:45→19:30)
[2021-12-24] MEDS ORDERED: PANTOPRAZOLE SODIUM 40 MG/VIAL IV ONE (17:45)
[2021-12-25 02:00] VITALS: BP 143/97
[2021-12-25 08:05] VITALS: BP 135/91
[2021-12-25] MEDS ORDERED: CLONIDINE 0.1MG TABLET PO PRN (09:30)
[2021-12-25] MEDS ORDERED: NALOXONE HCL 0.4MG/ML VIAL IV PRN (09:30)
[2021-12-25] MEDS ORDERED: IPRATROPIUM/ALBUTEROL 0.5-3(2.5)MG/3ML NEB HHN PRN (09:30)
[2021-12-25] MEDS: CEFTRIAXONE 1,000 MG in DEXTROSE 5% WATER 50 ML IV SCH ×3 (11:00→11:57)
[2021-12-25] MEDS: MORPHINE SULFATE 2 MG/ML CPJ (NOT FOR IM USE) IV PRN ×2 (11:25→19:59)
[2021-12-25] MEDS: POTASSIUM CHLORIDE INJ 40 MEQ in DEXT 5% WATER 500 ML IV NR ×3 (11:25→11:57)
[2021-12-25 12:00] VITALS: BP 124/83
[2021-12-25] MEDS ORDERED: POTASSIUM CHLORIDE 20MEQ/PACKET PO NR (12:45)
[2021-12-25] MEDS: ONDANSETRON HCL 4MG/2ML INJ IV PRN (12:53)
[2021-12-25] MEDS ORDERED: DIAZEPAM 5 MG/ML 2ML CPJ IM PRN (13:00)
[2021-12-25] MEDS ORDERED: PROT40 PO (13:31)
[2021-12-25] MEDS ORDERED: TIZA4CAP6 PO (13:31)
[2021-12-25] MEDS ORDERED: NAPR-681 PO (13:33)
[2021-12-25] MEDS ORDERED: GABA-532 PO (13:34)
[2021-12-25] MEDS: CHLORDIAZEPOXIDE 25MG CAPSULE PO SCH ×2 (14:33→21:01)
[2021-12-25] MEDS: DIPHENHYDRAMINE 50MG/ML VIAL IV PRN (14:34)
[2021-12-25] MEDS ORDERED: LORAZEPAM 2MG/ML CPJ IV PRN (14:45)
[2021-12-25] MEDS ORDERED: FOLIC ACID 1 MG, THIAMINE HCL 100 MG, MVI, ADULT NO.1 10 ML in DEXTROSE 5% WATER 1,000 ML IV ONE ×4 (15:00)
[2021-12-25 16:00] VITALS: BP 122/87
[2021-12-25 21:00] VITALS: BP 122/81
[2021-12-25] MEDS: LEVETIRACETAM 500MG TABLET PO SCH (21:02)
[2021-12-26] VITALS: BP 119/88
[2021-12-26] MEDS: MORPHINE SULFATE 2 MG/ML CPJ (NOT FOR IM USE) IV PRN ×4 (01:39→22:35)
[2021-12-26 03:30] VITALS: BP 121/80
[2021-12-26] MEDS: CHLORDIAZEPOXIDE 25MG CAPSULE PO SCH ×4 (03:45→21:17)
[2021-12-26 08:00] VITALS: BP 113/79
[2021-12-26] MEDS: LEVETIRACETAM 500MG TABLET PO SCH ×2 (09:03→21:17)
[2021-12-26] MEDS: SODIUM CHLORIDE 0.9% 1,000 ML IV SCH ×2 (09:41→21:17)
[2021-12-26 09:48] LABS: BASOPHILS % 0.5 % (0.0-2.0); EOSINOPHILS % 0.2 % (0.0-5.0); HEMATOCRIT. 36.8 % (42.0-52.0); HEMOGLOBIN. 11.9 g/dL (14.0-18.0); LYMPHOCYTES % 21.9 % (20.0-50.0); MEAN CORPUSCULAR HEMOGLOBIN 28.3 pg (28.0-32.0); MEAN CORPUSCULAR VOLUME 87.6 fL (80.0-94.0); MEAN PLATELET VOLUME 7.4 fl (7.4-10.4); MONOCYTES % 10.9 % (2.0-8.0); NEUTROPHILS % 66.5 % (40.0-76.0); PLATELET 157 x1000/uL (130-400); RED CELL DISTRIBUTION WIDTH 17.8 % (11.6-14.6)
[2021-12-26 09:59] LABS: CHLORIDE 97 mEq/L (98-107)
[2021-12-26 12:00] VITALS: BP 110/75
[2021-12-26] MEDS: ONDANSETRON HCL 4MG/2ML INJ IV PRN (13:05)
[2021-12-26 16:00] VITALS: BP 122/88
[2021-12-26 20:00] VITALS: BP 104/63
[2021-12-26] MEDS ORDERED: POTASSIUM CHLORIDE 20MEQ TABLET SR PO NR (23:45)
[2021-12-27] VITALS: BP 103/62
[2021-12-27] MEDS: DIPHENHYDRAMINE 50MG/ML VIAL IV PRN (00:22)
[2021-12-27 04:00] VITALS: BP 108/62
[2021-12-27] MEDS: CHLORDIAZEPOXIDE 25MG CAPSULE PO SCH ×2 (06:50→15:18)
[2021-12-27] MEDS: MORPHINE SULFATE 2 MG/ML CPJ (NOT FOR IM USE) IV PRN ×2 (06:51→12:53)
[2021-12-27 08:00] VITALS: BP 117/86
[2021-12-27] MEDS: LEVETIRACETAM 500MG TABLET PO SCH (08:27)
[2021-12-27] MEDS: SODIUM CHLORIDE 0.9% 1,000 ML IV SCH (08:28)
[2021-12-27] MEDS: CEFTRIAXONE 1,000 MG in DEXTROSE 5% WATER 50 ML IV SCH (09:00)
[2021-12-27 12:00] VITALS: BP 108/72
[2021-12-27] MEDS ORDERED: HYDR-4001 MT (12:38)
[2021-12-27] MEDS ORDERED: ACETAMINOPHEN 325MG TABLET PO PRN (15:15)
[2021-12-27 15:31] VITALS: BP 104/85
[2021-12-27 16:00] VITALS: BP 108/72
== END 2021-12-27 17:09 | disposition home or self-care (01) | DRG 282 ==
LOC: ER 16:26 → 6EST 21:11 → ENRESERV 12-25 00:25
PROVIDERS: ADMIT Internal Medicine; ATTEND Internal Medicine
DX: K85.90 Acute pancreatitis without necrosis or infection, unspecified (principal); E11.9 Type 2 diabetes mellitus without complications; J45.909 Unspecified asthma, uncomplicated; F10.129 Alcohol abuse with intoxication, unspecified; M19.90 Unspecified osteoarthritis, unspecified site; I10 Essential (primary) hypertension; K86.89 Other specified diseases of pancreas; Z86.73 Personal history of transient ischemic attack (TIA), and cerebral infarction without residual deficits; Z82.49 Family history of ischemic heart disease and other diseases of the circulatory system; Z83.3 Family history of diabetes mellitus; Y90.1 Blood alcohol level of 20-39 mg/100 ml
CPT/HCPCS: 36415; 71045; 74176; 80053; 80305; 80320; 81003; 85025; 87077; 87186; 93005; 93970; 99285; C9113; J0696; J1200; J2060; J2270; J2405; J3411; J3480; J3490; J7030; J7060; J7070; G0480

== ENCOUNTER 2022-03-28 07:54 | Inpatient (IN) | payer MEDICAID ==
[~2022-03-28] VITALS: Ht 167.6 cm; Wt 83.9 kg
[~2022-03-28 07:54] MED LIST changes: -CEPH500C2 MT; +CIPR-263 MT; +COLC0.6C3 MT; -COLC0.6T66 MT; -FAMO20TA8 PO; +GABA-532 PO; +INDO75CA66 MT; -L25 PO; -LEVE500T19 PO; +NAPR-681 PO; -OMEP20CA14 MT; +P20 MT; +POTA-205 MT; +PROT40 PO; +QUET50TA PO; +TIZA4CAP6 PO
[2022-03-28] MEDS ORDERED: ONDANSETRON HCL 4MG/2ML INJ IV STA (08:04)
[2022-03-28] MEDS ORDERED: KETOROLAC 30MG/ML VIAL IV STA (08:04)
[2022-03-28] MEDS ORDERED: SODIUM CHLORIDE 0.9% 1,000 ML IV ONE (08:15)
[2022-03-28 09:08] LABS: BASOPHILS % 0.6 % (0.0-2.0); EOSINOPHILS % 0.1 % (0.0-5.0); HEMATOCRIT. 34.1 % (42.0-52.0); HEMOGLOBIN. 11.1 g/dL (14.0-18.0); LYMPHOCYTES % 22.6 % (20.0-50.0); MEAN CORPUSCULAR HEMOGLOBIN 27.8 pg (28.0-32.0); MEAN CORPUSCULAR VOLUME 85.2 fL (80.0-94.0); MEAN PLATELET VOLUME 7.1 fl (7.4-10.4); MONOCYTES % 12.6 % (2.0-8.0); NEUTROPHILS % 64.1 % (40.0-76.0); PLATELET 366 x1000/uL (130-400); RED BLOOD CELL COUNT 4.01 mill/uL (4.7-6.1); RED CELL DISTRIBUTION WIDTH 17.5 % (11.6-14.6)
[2022-03-28 09:11] LABS: CHLORIDE 98 mEq/L (98-107)
[2022-03-28 09:14] LABS: INR 1.2; PROTHROMBIN TIME 12.7 sec (9.6-11.0)
[2022-03-28 09:19] LABS: ETHANOL BLOOD < 10 mg/dL
[2022-03-28 10:24] LABS: CLARITY URINE CLOUDY (CLEAR); COLOR URINE YELLOW (YELLOW); KETONES URINE NEGATIVE (NEGATIVE); LEUKOCYTE ESTERASE URINE 1+ (NEGATIVE); NITRITE URINE NEGATIVE (NEGATIVE); OCCULT BLOOD URINE NEGATIVE (NEGATIVE); PH URINE 8.5 (4.5-8.0); PROTEIN URINE 3+ (NEGATIVE); SPECIFIC GRAVITY URINE 1.016 (1.005-1.030); UROBILINOGEN URINE 0.2 E.U./dL (0.2-1.0)
[2022-03-28] MEDS ORDERED: ONDANSETRON HCL 4MG/2ML INJ IM PRN (14:00)
[2022-03-28] MEDS ORDERED: HYDROCODONE/ACETAMINOPHEN 5/325MG TABLET PO PRN (14:00)
[2022-03-28] MEDS ORDERED: NALOXONE HCL 0.4MG/ML VIAL IV PRN (14:15)
[2022-03-28] MEDS: ONDANSETRON HCL 4MG/2ML INJ IV PRN ×2 (21:34→23:07)
[2022-03-29] MEDS ORDERED: POTASSIUM CHLORIDE 20MEQ TABLET SR PO NR (11:15)
[2022-03-29] MEDS ORDERED: PANTOPRAZOLE SODIUM 40 MG/VIAL IV SCH (11:15)
[2022-03-29] MEDS ORDERED: MAGNESIUM/ALUMINUM HYDROXIDE/SIMETHICONE 30ML UDC PO PRN (11:15)
[2022-03-29 12:00] VITALS: BP 144/91
[2022-03-29] MEDS ORDERED: FOLIC ACID 1 MG, THIAMINE HCL 100 MG, MVI, ADULT NO.1 10 ML in DEXTROSE 5% WATER 1,000 ML IV ONE ×4 (13:00)
[2022-03-29 15:05] VITALS: BP 127/82
[2022-03-29 16:00] VITALS: BP 136/87
[2022-03-29] MEDS: CHLORDIAZEPOXIDE 25MG CAPSULE PO SCH ×2 (16:55→22:11)
[2022-03-29] MEDS ORDERED: POTASSIUM CHLORIDE 20MEQ TABLET SR PO ONE (19:00)
[2022-03-30] VITALS: BP 119/89
[2022-03-30 04:00] VITALS: BP 115/83
[2022-03-30] MEDS: CHLORDIAZEPOXIDE 25MG CAPSULE PO SCH ×2 (06:57→15:20)
[2022-03-30] MEDS ORDERED: PANTOPRAZOLE 40MG DR TABLET PO SCH (07:40)
[2022-03-30 08:00] VITALS: BP 118/82
[2022-03-30] MEDS ORDERED: PNEUMOCOCCAL VACCINE IM SCH (08:00)
[2022-03-30 12:00] VITALS: BP 120/84
[2022-03-30 16:00] VITALS: BP 118/82
[2022-03-30 16:45] VITALS: BP 133/81
== END 2022-03-30 17:10 | disposition home or self-care (01) | DRG 241 ==
LOC: ER 07:54 → 7WST 10:40 → EDBEDREQ 14:32 → ENRESERV 03-29 07:11 → 7WST 03-29 10:35
PROVIDERS: ADMIT Internal Medicine; ATTEND Internal Medicine
DX: K29.20 Alcoholic gastritis without bleeding (principal); E44.0 Moderate protein-calorie malnutrition; D64.9 Anemia, unspecified; E11.9 Type 2 diabetes mellitus without complications; E87.6 Hypokalemia; F10.10 Alcohol abuse, uncomplicated; Y90.9 Presence of alcohol in blood, level not specified; Z20.822 Contact with and (suspected) exposure to COVID-19; G89.29 Other chronic pain; J45.909 Unspecified asthma, uncomplicated; Z86.73 Personal history of transient ischemic attack (TIA), and cerebral infarction without residual deficits; Z79.891 Long term (current) use of opiate analgesic; Z79.899 Other long term (current) drug therapy; Z71.41 Alcohol abuse counseling and surveillance of alcoholic; Z68.29 Body mass index [BMI] 29.0-29.9, adult
CPT/HCPCS: 36415; 74176; 80053; 80320; 81003; 85025; 87077; 87186; 87426; 99285; C9113; C9803; J1885; J2405; J3411; J3490; J7030; J7070; G0480

== ENCOUNTER 2022-07-10 12:02 | Inpatient (IN) | payer MEDICAID ==
[~2022-07-10] VITALS: Ht 165.1 cm; Wt 68.0 kg
[~2022-07-10 12:02] MED LIST changes: -CIPR-263 MT; -INDO75CA66 MT; -MELO-106 PO; -NAPR-681 PO
[2022-07-10] MEDS ORDERED: LEVETIRACETAM 1000MG PREMIX 100 ML IV ONE (12:45)
[2022-07-10] MEDS ORDERED: SODIUM CHLORIDE 0.9% 1,000 ML IV ONE (12:45)
[2022-07-10 13:19] LABS: BASOPHILS % 0.2 % (0.0-2.0); EOSINOPHILS % 0.2 % (0.0-5.0); HEMATOCRIT. 36.4 % (42.0-52.0); HEMOGLOBIN. 11.6 g/dL (14.0-18.0); LYMPHOCYTES % 38.2 % (20.0-50.0); MEAN CORPUSCULAR HEMOGLOBIN 25.8 pg (28.0-32.0); MEAN CORPUSCULAR VOLUME 81.2 fL (80.0-94.0); MEAN PLATELET VOLUME 8.5 fl (7.4-10.4); NEUTROPHILS % 51.4 % (40.0-76.0); PLATELET 181 x1000/uL (130-400); RED BLOOD CELL COUNT 4.48 mill/uL (4.7-6.1); RED CELL DISTRIBUTION WIDTH 16.6 % (11.6-14.6)
[2022-07-10 13:26] LABS: CHLORIDE 108 mEq/L (98-107)
[2022-07-10 13:51] LABS: ETHANOL BLOOD 47 mg/dL
[2022-07-10 15:13] LABS: CARBAMAZEPINE < 0.5 ug/mL (4-12)
[2022-07-10] MEDS ORDERED: FOLIC ACID 1 MG, THIAMINE HCL 100 MG, MVI, ADULT NO.1 10 ML in DEXTROSE 5% WATER 1,000 ML IV ONE ×4 (15:45)
[2022-07-10] MEDS ORDERED: LORAZEPAM 2MG/ML CPJ IV ONE (15:45)
[2022-07-11 04:00] VITALS: BP 111/77
[2022-07-11 08:00] VITALS: BP 138/83
[2022-07-11] MEDS ORDERED: GUAIFENESIN 200MG/10ML SUGAR FREE UDC PO PRN (09:45)
[2022-07-11] MEDS ORDERED: IPRATROPIUM/ALBUTEROL 0.5-3(2.5)MG/3ML NEB HHN PRN (09:45)
[2022-07-11] MEDS ORDERED: ONDANSETRON HCL 4MG/2ML INJ IV PRN (09:45)
[2022-07-11] MEDS ORDERED: ACETAMINOPHEN 325MG TABLET PO PRN (09:45)
[2022-07-11] MEDS ORDERED: DOCUSATE SODIUM 100MG CAPSULE PO PRN (09:45)
[2022-07-11] MEDS ORDERED: CLONIDINE 0.1MG TABLET PO PRN (09:45)
[2022-07-11] MEDS ORDERED: IPRATROPIUM BROMIDE (0.02%) 0.5MG/2.5ML NEB HHN PRN (10:15)
[2022-07-11] MEDS ORDERED: ALBUTEROL (0.083%) 2.5MG/3ML NEB HHN PRN (10:15)
[2022-07-11] MEDS ORDERED: MVI, ADULT NO.1 10 ML, FOLIC ACID 1 MG, THIAMINE HCL 100 MG in SODIUM CHLORIDE 0.9% 1,0... IV ONE ×4 (11:30)
[2022-07-11 12:00] VITALS: BP 129/80
[2022-07-11 16:00] VITALS: BP 109/74
[2022-07-11 16:44] LABS: CREATINE KINASE MB FRACTION 1.3 ng/mL (0.5-3.6)
[2022-07-11] MEDS: LEVETIRACETAM 500MG TABLET PO SCH (16:50)
[2022-07-11 20:00] VITALS: BP 121/71
[2022-07-11] MEDS ORDERED: FAMOTIDINE 20MG TABLET PO SCH (21:00)
[2022-07-12] VITALS (7 sets, daily range): BP systolic 120–138; BP diastolic 66–85
[2022-07-12 00:23] LABS: CREATINE KINASE 204 IU/L (39-308); CREATINE KINASE MB FRACTION < 1.0 ng/mL (0.5-3.6)
[2022-07-12] MEDS ORDERED: PANTOPRAZOLE 40MG DR TABLET PO SCH (07:40)
[2022-07-12 07:58] LABS: FERRITIN 88 ng/mL (22-322)
[2022-07-12 08:06] LABS: VITAMIN B12 SERUM 403 pg/mL (211-911)
[2022-07-12 08:16] LABS: FOLIC ACID (FOLATE) SERUM > 20.00 ng/mL (>5.38)
[2022-07-12] MEDS ORDERED: MULTIVITAMINS,THER W-MINERALS TABLET PO SCH (09:00)
[2022-07-12] MEDS ORDERED: THIAMINE HCL 100MG TABLET PO SCH (09:00)
[2022-07-12] MEDS ORDERED: FOLIC ACID 1MG TABLET PO SCH (09:00)
[2022-07-12] MEDS ORDERED: ENOXAPARIN 40MG/0.4ML SYR SUBCUT SCH (09:00)
[2022-07-12] MEDS: LEVETIRACETAM 500MG TABLET PO SCH (09:09)
[2022-07-12] MEDS ORDERED: KEPP500 PO (15:03)
[2022-07-12 16:45] LABS: CHLORIDE 102 mEq/L (98-107)
[2022-07-12 17:02] LABS: HDL CHOLESTEROL 89 mg/dL (40-59); LDL CHOLESTEROL 137 mg/dL (5-100); PHOSPHORUS 3.4 mg/dL (2.5-4.9); T4 FREE 1.16 ng/dL (0.76-1.46); TOTAL IRON BINDING CAPACITY 441 ug/dL (250-450)
== END 2022-07-12 17:35 | disposition home or self-care (01) | DRG 53 ==
LOC: ER 12:02 → MICUSO 15:39 → 7WST 07-11 03:42
PROVIDERS: ADMIT Internal Medicine; ATTEND Internal Medicine
PROC: 4A00X4Z Measurement of Central Nervous Electrical Activity, External Approach (ICD-10-PCS; principal; 2022-07-12)
DX: G40.909 Epilepsy, unspecified, not intractable, without status epilepticus (principal); N17.9 Acute kidney failure, unspecified; F10.239 Alcohol dependence with withdrawal, unspecified; D64.9 Anemia, unspecified; J45.909 Unspecified asthma, uncomplicated; K86.1 Other chronic pancreatitis; F17.210 Nicotine dependence, cigarettes, uncomplicated; Y90.2 Blood alcohol level of 40-59 mg/100 ml; Z91.14 Patient's other noncompliance with medication regimen; Z79.899 Other long term (current) drug therapy; Z86.73 Personal history of transient ischemic attack (TIA), and cerebral infarction without residual deficits
CPT/HCPCS: 36415; 71045; 76700; 80053; 80061; 80156; 80165; 80185; 80320; 82140; 82550; 82553; 82607; 82728; 82746; 82962; 83540; 83550; 83735; 84100; 84439; 84443; 84484; 85025; 93005; 93970; 95816; 97162; 99291; C1893; J1650; J1953; J2060; J3411; J3490; J7030; J7070; A4315; G0480

== ENCOUNTER 2022-07-23 17:02 | Emergency (ER) | payer MEDICAID ==
[~2022-07-23] VITALS: Ht 175.3 cm; Wt 68.0 kg
[~2022-07-23 17:02] MED LIST changes: -COLC0.6C3 MT; -HYDR-4001 MT; -P20 MT
[2022-07-23 17:15] VITALS: BP 120/81
[2022-07-23] MEDS ORDERED: MAGNESIUM/ALUMINUM HYDROXIDE/SIMETHICONE 30ML UDC PO ONE (19:15)
[2022-07-23] MEDS ORDERED: FAMOTIDINE 20MG TABLET PO ONE (19:15)
[2022-07-23] MEDS ORDERED: ACETAMINOPHEN 325MG TABLET PO ONE (19:15)
== END 2022-07-23 22:24 | disposition home or self-care (01) ==
LOC: ER 17:02
DX: F10.129 Alcohol abuse with intoxication, unspecified (principal); Y90.9 Presence of alcohol in blood, level not specified; R10.9 Unspecified abdominal pain; G40.909 Epilepsy, unspecified, not intractable, without status epilepticus
CPT/HCPCS: 99284

== ENCOUNTER 2022-07-24 21:50 | Inpatient (IN) | payer MEDICAID ==
[~2022-07-24] VITALS: Ht 175.3 cm; Wt 87.5 kg
[2022-07-24] MEDS ORDERED: ONDANSETRON HCL 4MG/2ML INJ IV STA (22:50)
[2022-07-24] MEDS ORDERED: FOLIC ACID 1 MG, THIAMINE HCL 100 MG, MVI, ADULT NO.1 10 ML in DEXTROSE 5% WATER 1,000 ML IV ONE ×4 (23:00)
[2022-07-24] MEDS ORDERED: MAGNESIUM 2 G PREMIX 50 ML IV ONE (23:00)
[2022-07-24] MEDS ORDERED: LEVETIRACETAM 1000MG PREMIX 100 ML IV ONE (23:00)
[2022-07-24 23:54] LABS: BASOPHILS % 0.4 % (0.0-2.0); CHLORIDE 99 mEq/L (98-107); EOSINOPHILS % 0.2 % (0.0-5.0); HEMATOCRIT. 36.6 % (42.0-52.0); HEMOGLOBIN. 12.2 g/dL (14.0-18.0); LYMPHOCYTES % 33.2 % (20.0-50.0); MEAN CORPUSCULAR HEMOGLOBIN 26.9 pg (28.0-32.0); MEAN CORPUSCULAR VOLUME 80.6 fL (80.0-94.0); MEAN PLATELET VOLUME 8.8 fl (7.4-10.4); NEUTROPHILS % 56.2 % (40.0-76.0); PLATELET 165 x1000/uL (130-400); RED BLOOD CELL COUNT 4.54 mill/uL (4.7-6.1); RED CELL DISTRIBUTION WIDTH 16.8 % (11.6-14.6)
[2022-07-25 00:06] LABS: ETHANOL BLOOD < 10 mg/dL
[2022-07-25 05:49] LABS: *AMPHETAMINES SCREEN URINE NEGATIVE (NEGATIVE); *BARBITURATES SCREEN URINE NEGATIVE (NEGATIVE); *BENZODIAZEPINES SCREEN URINE PRESUMTIVE POSITIVE (NEGATIVE); *COCAINE SCREEN URINE NEGATIVE (NEGATIVE); CANNABINOID URINE SCREEN NEGATIVE (NEGATIVE); METHADONE URINE SCREEN NEGATIVE (NEGATIVE); OPIATES URINE SCREEN NEGATIVE (NEGATIVE); PHENCYCLIDINE URINE SCREEN NEGATIVE (NEGATIVE)
[2022-07-25 06:26] LABS: CLARITY URINE CLEAR (CLEAR); COLOR URINE YELLOW (YELLOW); KETONES URINE NEGATIVE (NEGATIVE); LEUKOCYTE ESTERASE URINE NEGATIVE (NEGATIVE); NITRITE URINE NEGATIVE (NEGATIVE); OCCULT BLOOD URINE NEGATIVE (NEGATIVE); PROTEIN URINE TRACE (NEGATIVE); SPECIFIC GRAVITY URINE 1.011 (1.005-1.030); UROBILINOGEN URINE 0.2 E.U./dL (0.2-1.0)
[2022-07-25] MEDS ORDERED: INSULIN LISPRO 100 UNITS/ML SUBCUT SCH (08:20)
[2022-07-25] MEDS ORDERED: NA PHOS,M-B/NA PHOS,DI-BA ENEMA 118ML PR PRN (08:30)
[2022-07-25] MEDS ORDERED: IPRATROPIUM/ALBUTEROL 0.5-3(2.5)MG/3ML NEB HHN PRN (08:30)
[2022-07-25] MEDS ORDERED: CLONIDINE 0.1MG TABLET PO PRN (08:30)
[2022-07-25] MEDS ORDERED: GUAIFENESIN 200MG/10ML SUGAR FREE UDC PO PRN (08:30)
[2022-07-25] MEDS ORDERED: DEXTROSE 50% WATER 50ML SYRINGE IV PRN (08:30)
[2022-07-25] MEDS ORDERED: DOCUSATE SODIUM 100MG CAPSULE PO PRN (09:00)
[2022-07-25] MEDS ORDERED: BLOOD SUGAR DIAGNOSTIC STRIP TEST SCH (09:00)
[2022-07-25] MEDS ORDERED: LEVETIRACETAM 500 MG in SODIUM CHLORIDE 0.9% 100 ML IV SCH (09:00)
[2022-07-25] MEDS ORDERED: QUETIAPINE FUMARATE 50MG TABLET PO SCH (09:00)
[2022-07-25] MEDS ORDERED: MAGNESIUM/ALUMINUM HYDROXIDE/SIMETHICONE 30ML UDC PO PRN (09:00)
[2022-07-25 10:00] VITALS: BP 138/78
[2022-07-25] MEDS: ENOXAPARIN 40MG/0.4ML SYR SUBCUT SCH (10:27)
[2022-07-25] MEDS: COLCHICINE 0.6MG TABLET PO SCH (10:27)
[2022-07-25] MEDS: TIZANIDINE HCL 2MG TABLET PO SCH ×3 (10:27→16:37)
[2022-07-25] MEDS: ALLOPURINOL 100 MG TABLET PO SCH (10:28)
[2022-07-25] MEDS: THIAMINE HCL 100MG TABLET PO SCH (10:28)
[2022-07-25] MEDS: FAMOTIDINE 20MG/2ML VIAL IV SCH ×2 (10:28→21:06)
[2022-07-25] MEDS: FOLIC ACID 1MG TABLET PO SCH (11:03)
[2022-07-25] MEDS ORDERED: POTASSIUM CHLORIDE 20MEQ/PACKET PO NR (11:45)
[2022-07-25 12:00] VITALS: BP 141/89
[2022-07-25] MEDS: LEVETIRACETAM 500MG PREMIX 100 ML IV SCH ×2 (12:55→21:43)
[2022-07-25] MEDS: FLUOXETINE HCL 10 MG CAPSULE PO SCH (12:57)
[2022-07-25] MEDS: RISPERIDONE 1MG TABLET PO SCH ×2 (12:57→21:06)
[2022-07-25] MEDS: DILTIAZEM HCL 90MG TABLET PO SCH ×2 (13:34→21:07)
[2022-07-25] MEDS: CEFTRIAXONE 1GM PREMIX 50 ML IV SCH (13:34)
[2022-07-25 16:00] VITALS: BP 138/79
[2022-07-25 16:41] LABS: BASOPHILS % 0.4 % (0.0-2.0); EOSINOPHILS % 0.2 % (0.0-5.0); HEMATOCRIT. 33.6 % (42.0-52.0); LYMPHOCYTES % 42.2 % (20.0-50.0); MEAN CORPUSCULAR HEMOGLOBIN 26.5 pg (28.0-32.0); MEAN CORPUSCULAR VOLUME 80.7 fL (80.0-94.0); MEAN PLATELET VOLUME 8.4 fl (7.4-10.4); MONOCYTES % 9.8 % (2.0-8.0); NEUTROPHILS % 47.4 % (40.0-76.0); PLATELET 166 x1000/uL (130-400); RED BLOOD CELL COUNT 4.16 mill/uL (4.7-6.1); RED CELL DISTRIBUTION WIDTH 16.6 % (11.6-14.6)
[2022-07-25 16:51] LABS: INR 1.1; PROTHROMBIN TIME 11.6 sec (9.6-11.0)
[2022-07-25 16:57] LABS: CHLORIDE 104 mEq/L (98-107)
[2022-07-25 17:20] LABS: CREATINE KINASE 516 IU/L (39-308); HDL CHOLESTEROL 75 mg/dL (40-59); LDL CHOLESTEROL 123 mg/dL (5-100); PHOSPHORUS 3.4 mg/dL (2.5-4.9); T4 FREE 1.08 ng/dL (0.76-1.46); TOTAL IRON BINDING CAPACITY 333 ug/dL (250-450)
[2022-07-25 17:40] LABS: FOLIC ACID (FOLATE) SERUM >20 ng/mL ng/mL (>5.38); VITAMIN B12 SERUM 437 pg/mL (211-911)
[2022-07-25 20:00] VITALS: BP 90/55
[2022-07-25] MEDS ORDERED: MAGNESIUM 4 G PREMIX 100 ML IV NR (21:00)
[2022-07-25] MEDS: ATORVASTATIN CALCIUM 20MG TABLET PO SCH (21:05)
[2022-07-25] MEDS: QUETIAPINE FUMARATE 50MG TABLET PO SCH (21:06)
[2022-07-26] VITALS: BP 104/67
[2022-07-26 04:00] VITALS: BP 108/72
[2022-07-26] MEDS: DILTIAZEM HCL 90MG TABLET PO SCH ×3 (05:44→21:09)
[2022-07-26 08:02] VITALS: BP 115/74
[2022-07-26 08:24] LABS: CHLORIDE 104 mEq/L (98-107)
[2022-07-26] MEDS: TIZANIDINE HCL 2MG TABLET PO SCH ×3 (10:20→18:59)
[2022-07-26] MEDS: COLCHICINE 0.6MG TABLET PO SCH (10:20)
[2022-07-26] MEDS: FOLIC ACID 1MG TABLET PO SCH (10:20)
[2022-07-26] MEDS: RISPERIDONE 1MG TABLET PO SCH ×2 (10:20→21:10)
[2022-07-26] MEDS: THIAMINE HCL 100MG TABLET PO SCH (10:20)
[2022-07-26] MEDS: ALLOPURINOL 100 MG TABLET PO SCH (10:21)
[2022-07-26] MEDS: FAMOTIDINE 20MG/2ML VIAL IV SCH ×2 (10:21→21:09)
[2022-07-26] MEDS: ENOXAPARIN 40MG/0.4ML SYR SUBCUT SCH (10:21)
[2022-07-26] MEDS: NYSTATIN POWDER 15GM TOP SCH ×3 (10:23→19:00)
[2022-07-26] MEDS: FLUOXETINE HCL 10 MG CAPSULE PO SCH (10:25)
[2022-07-26] MEDS ORDERED: MAGNESIUM 1 G PREMIX 100 ML IV NR (10:30)
[2022-07-26 11:21] VITALS: BP 120/75
[2022-07-26] MEDS: LEVETIRACETAM 500MG PREMIX 100 ML IV SCH ×2 (12:31→21:09)
[2022-07-26] MEDS ORDERED: LORAZEPAM 0.5MG TABLET PO PRN (14:30)
[2022-07-26 15:25] VITALS: BP 105/65
[2022-07-26] MEDS: FERROUS SULFATE 325MG TABLET PO SCH ×2 (15:30→18:59)
[2022-07-26] MEDS: CEFTRIAXONE 1GM PREMIX 50 ML IV SCH (15:40)
[2022-07-26 16:47] LABS: BASOPHILS % 0.3 % (0.0-2.0); EOSINOPHILS % 0.6 % (0.0-5.0); HEMATOCRIT. 33.2 % (42.0-52.0); HEMOGLOBIN. 10.9 g/dL (14.0-18.0); LYMPHOCYTES % 32.5 % (20.0-50.0); MEAN CORPUSCULAR HEMOGLOBIN 26.6 pg (28.0-32.0); MEAN CORPUSCULAR VOLUME 81.4 fL (80.0-94.0); MEAN PLATELET VOLUME 8.6 fl (7.4-10.4); MONOCYTES % 14.2 % (2.0-8.0); NEUTROPHILS % 52.4 % (40.0-76.0); PLATELET 142 x1000/uL (130-400); RED BLOOD CELL COUNT 4.08 mill/uL (4.7-6.1); RED CELL DISTRIBUTION WIDTH 16.8 % (11.6-14.6)
[2022-07-26 20:00] VITALS: BP 107/70
[2022-07-26] MEDS ORDERED: ALBUTEROL (0.083%) 2.5MG/3ML NEB HHN PRN (20:45)
[2022-07-26] MEDS ORDERED: IPRATROPIUM BROMIDE (0.02%) 0.5MG/2.5ML NEB HHN PRN (20:45)
[2022-07-26] MEDS: ATORVASTATIN CALCIUM 20MG TABLET PO SCH (21:09)
[2022-07-26] MEDS: QUETIAPINE FUMARATE 50MG TABLET PO SCH (21:10)
[2022-07-27] VITALS: BP 117/73
[2022-07-27 04:00] VITALS: BP 101/51
[2022-07-27] MEDS: DILTIAZEM HCL 90MG TABLET PO SCH ×2 (05:24→13:35)
[2022-07-27 07:56] LABS: CHLORIDE 105 mEq/L (98-107)
[2022-07-27 08:00] VITALS: BP 113/70
[2022-07-27 08:06] LABS: PHOSPHORUS 3.9 mg/dL (2.5-4.9)
[2022-07-27] MEDS ORDERED: CYANOCOBALAMIN 1000MCG TABLET PO SCH (08:10)
[2022-07-27] MEDS: FERROUS SULFATE 325MG TABLET PO SCH ×3 (08:26→16:30)
[2022-07-27] MEDS: FLUOXETINE HCL 10 MG CAPSULE PO SCH (08:26)
[2022-07-27] MEDS: ENOXAPARIN 40MG/0.4ML SYR SUBCUT SCH (08:26)
[2022-07-27] MEDS: FAMOTIDINE 20MG/2ML VIAL IV SCH (08:26)
[2022-07-27] MEDS: FOLIC ACID 1MG TABLET PO SCH (08:26)
[2022-07-27] MEDS: ALLOPURINOL 100 MG TABLET PO SCH (08:26)
[2022-07-27] MEDS: COLCHICINE 0.6MG TABLET PO SCH (08:26)
[2022-07-27] MEDS: THIAMINE HCL 100MG TABLET PO SCH (08:27)
[2022-07-27] MEDS: RISPERIDONE 1MG TABLET PO SCH (08:27)
[2022-07-27] MEDS: LEVETIRACETAM 500MG PREMIX 100 ML IV SCH (08:32)
[2022-07-27] MEDS: NYSTATIN POWDER 15GM TOP SCH ×3 (08:35→16:32)
[2022-07-27] MEDS: TIZANIDINE HCL 2MG TABLET PO SCH ×3 (09:35→16:30)
[2022-07-27] MEDS ORDERED: MAGNESIUM 2 G PREMIX 50 ML IV NR (10:00)
[2022-07-27 12:00] VITALS: BP 122/69
[2022-07-27] MEDS: CEFTRIAXONE 1GM PREMIX 50 ML IV SCH (13:35)
[2022-07-27 13:43] VITALS: BP 111/71
[2022-07-27 16:00] VITALS: BP 108/76
[2022-07-27] MEDS ORDERED: RISPERIDONE 0.5MG TABLET PO SCH (17:58)
[2022-07-27] MEDS ORDERED: LEVETIRACETAM 500MG TABLET PO SCH (21:00)
== END 2022-07-27 20:15 | disposition home or self-care (01) | DRG 53 ==
LOC: ER 21:50 → 7WST 07-25 01:56 → EDBEDREQ 07-25 02:28 → EDBEDREQTM 07-25 02:28 → ENRESERV 07-25 07:41
PROVIDERS: ADMIT Internal Medicine; ATTEND Internal Medicine
PROC: 4A00X4Z Measurement of Central Nervous Electrical Activity, External Approach (ICD-10-PCS; principal; 2022-07-26)
DX: G40.909 Epilepsy, unspecified, not intractable, without status epilepticus (principal); S91.301A Unspecified open wound, right foot, initial encounter; S91.302A Unspecified open wound, left foot, initial encounter; B35.3 Tinea pedis; E78.5 Hyperlipidemia, unspecified; D64.9 Anemia, unspecified; E83.42 Hypomagnesemia; N39.0 Urinary tract infection, site not specified; Z20.822 Contact with and (suspected) exposure to COVID-19; J45.909 Unspecified asthma, uncomplicated; E87.6 Hypokalemia; M10.9 Gout, unspecified; F10.20 Alcohol dependence, uncomplicated; Z86.73 Personal history of transient ischemic attack (TIA), and cerebral infarction without residual deficits; Z87.891 Personal history of nicotine dependence; Z79.899 Other long term (current) drug therapy; X58.XXXA Exposure to other specified factors, initial encounter; Y93.89 Activity, other specified; Y92.89 Other specified places as the place of occurrence of the external cause; Y99.8 Other external cause status
CPT/HCPCS: 36415; 71045; 80053; 80061; 80305; 80320; 81003; 82542; 82550; 82607; 82746; 82962; 83540; 83550; 83605; 83735; 84100; 84145; 84439; 84443; 84484; 84550; 85025; 87426; 93005; 93970; 95816; 97162; 99291; J0696; J1650; J1953; J2405; J3411; J3475; J3490; J7050; J7070; G0480

== ENCOUNTER 2022-08-10 16:19 | Emergency (ER) | payer MEDICAID ==
[~2022-08-10] VITALS: Ht 172.7 cm; Wt 90.0 kg
[2022-08-10] MEDS ORDERED: LEVETIRACETAM 500MG PREMIX 100 ML IV ONE (16:30)
[2022-08-10] MEDS ORDERED: SODIUM CHLORIDE 0.9% 1,000 ML IV ONE (16:30)
[2022-08-10 17:42] LABS: BASOPHILS % 0.3 % (0.0-2.0); EOSINOPHILS % 0.2 % (0.0-5.0); HEMATOCRIT. 38.2 % (42.0-52.0); HEMOGLOBIN. 12.4 g/dL (14.0-18.0); LYMPHOCYTES % 40.1 % (20.0-50.0); MEAN CORPUSCULAR HEMOGLOBIN 26.5 pg (28.0-32.0); MEAN CORPUSCULAR VOLUME 81.8 fL (80.0-94.0); MEAN PLATELET VOLUME 8.5 fl (7.4-10.4); MONOCYTES % 11.3 % (2.0-8.0); NEUTROPHILS % 48.1 % (40.0-76.0); PLATELET 176 x1000/uL (130-400); RED BLOOD CELL COUNT 4.67 mill/uL (4.7-6.1); RED CELL DISTRIBUTION WIDTH 16.6 % (11.6-14.6)
[2022-08-10] MEDS ORDERED: LORAZEPAM 2MG/ML CPJ IV ONE (17:45)
[2022-08-10 17:56] LABS: INR 1.1; PROTHROMBIN TIME 11.5 sec (9.6-11.0)
[2022-08-10 17:58] LABS: CHLORIDE 105 mEq/L (98-107)
[2022-08-10 18:07] LABS: ETHANOL BLOOD 167 mg/dL; PHOSPHORUS 4.3 mg/dL (2.5-4.9)
[2022-08-10] MEDS ORDERED: MAGNESIUM 2 G PREMIX 50 ML IV ONE (18:15)
[2022-08-10 21:23] VITALS: BP 129/89
== END 2022-08-10 21:35 | disposition short-term general hospital (02) ==
LOC: ER 16:19
DX: E83.42 Hypomagnesemia (principal); F10.239 Alcohol dependence with withdrawal, unspecified; F10.229 Alcohol dependence with intoxication, unspecified; J45.909 Unspecified asthma, uncomplicated; Y90.6 Blood alcohol level of 120-199 mg/100 ml; Z20.822 Contact with and (suspected) exposure to COVID-19; Z79.899 Other long term (current) drug therapy; Z86.73 Personal history of transient ischemic attack (TIA), and cerebral infarction without residual deficits
CPT/HCPCS: 36415; 70450; 71045; 80053; 80320; 82140; 83690; 83735; 84100; 84484; 85025; 85610; 87426; 93005; 96361; 96365; 96375; 99291; C9803; J1953; J2060; J3475; J7030; G0480

== ENCOUNTER 2022-08-22 21:17 | Emergency (ER) | payer MEDICAID ==
[~2022-08-22] VITALS: Ht 182.9 cm; Wt 90.0 kg
[2022-08-22 21:20] VITALS: BP 127/75
[2022-08-23 01:03] LABS: BASOPHILS % 0.5 % (0.0-2.0); EOSINOPHILS % 0.7 % (0.0-5.0); HEMATOCRIT. 35.9 % (42.0-52.0); HEMOGLOBIN. 11.8 g/dL (14.0-18.0); LYMPHOCYTES % 42.9 % (20.0-50.0); MEAN CORPUSCULAR HEMOGLOBIN 26.1 pg (28.0-32.0); MEAN CORPUSCULAR VOLUME 79.6 fL (80.0-94.0); MEAN PLATELET VOLUME 8.1 fl (7.4-10.4); MONOCYTES % 10.3 % (2.0-8.0); NEUTROPHILS % 45.6 % (40.0-76.0); PLATELET 162 x1000/uL (130-400); RED BLOOD CELL COUNT 4.51 mill/uL (4.7-6.1); RED CELL DISTRIBUTION WIDTH 15.6 % (11.6-14.6)
[2022-08-23 01:05] LABS: CHLORIDE 104 mEq/L (98-107)
[2022-08-23 01:13] LABS: ETHANOL BLOOD 95 mg/dL
[2022-08-23] MEDS ORDERED: LEVETIRACETAM 1,500 MG in SODIUM CHLORIDE 0.9% 100 ML IV STA (01:34)
[2022-08-23 03:42] LABS: INR 1.1; PROTHROMBIN TIME 12.2 sec (9.6-11.0)
[2022-08-23] MEDS ORDERED: SIME180C70 PO (03:45)
[2022-08-23] MEDS ORDERED: POTASSIUM CHLORIDE 20MEQ TABLET SR PO NR ×3 (03:45→05:15)
[2022-08-23] MEDS ORDERED: LEVETIRACETAM 1,500 MG in SODIUM CHLORIDE 0.9% 100 ML IV NR (04:00)
[2022-08-23] MEDS ORDERED: LEVETIRACETAM 500MG TABLET PO ONE (07:45)
== END 2022-08-23 08:47 | disposition home or self-care (01) ==
LOC: ER 21:17
DX: R10.84 Generalized abdominal pain (principal); F10.229 Alcohol dependence with intoxication, unspecified; Y90.4 Blood alcohol level of 80-99 mg/100 ml; J45.909 Unspecified asthma, uncomplicated; Z86.73 Personal history of transient ischemic attack (TIA), and cerebral infarction without residual deficits; F12.10 Cannabis abuse, uncomplicated
CPT/HCPCS: 36415; 74176; 80053; 80320; 83605; 83690; 85025; 85610; 99284; J1953; J7050; G0480

== ENCOUNTER 2022-08-26 19:02 | Emergency (ER) | payer MEDICAID ==
[~2022-08-26] VITALS: Ht 172.7 cm; Wt 78.0 kg
[~2022-08-26 19:02] MED LIST changes: +SIME180C70 PO
[2022-08-26 19:09] VITALS: BP 142/89
[2022-08-26] MEDS ORDERED: VISCOUS LIDOCAINE 2% 15 ML UDC PO STA (19:21)
[2022-08-26] MEDS ORDERED: ONDANSETRON HCL 4MG/2ML INJ IV STA (19:21)
[2022-08-26] MEDS ORDERED: MAGNESIUM/ALUMINUM HYDROXIDE/SIMETHICONE 30ML UDC PO STA (19:21)
[2022-08-26] MEDS ORDERED: SODIUM CHLORIDE 0.9% 1,000 ML IV ONE (19:30)
[2022-08-26] MEDS ORDERED: PANTOPRAZOLE 40MG DR TABLET PO ONE (21:15)
[2022-08-26] MEDS ORDERED: ONDANSETRON 4MG ODT PO ONE (21:15)
[2022-08-26 23:19] LABS: CHLORIDE 105 mEq/L (98-107)
[2022-08-26 23:27] LABS: ETHANOL BLOOD 291 mg/dL
[2022-08-26 23:28] LABS: BASOPHILS % 0.4 % (0.0-2.0); EOSINOPHILS % 0.6 % (0.0-5.0); HEMATOCRIT. 40.6 % (42.0-52.0); HEMOGLOBIN. 13.2 g/dL (14.0-18.0); MEAN CORPUSCULAR HEMOGLOBIN 26.2 pg (28.0-32.0); MEAN CORPUSCULAR VOLUME 80.7 fL (80.0-94.0); MEAN PLATELET VOLUME 8.4 fl (7.4-10.4); MONOCYTES % 11.9 % (2.0-8.0); NEUTROPHILS % 34.1 % (40.0-76.0); PLATELET 176 x1000/uL (130-400); RED BLOOD CELL COUNT 5.03 mill/uL (4.7-6.1); RED CELL DISTRIBUTION WIDTH 15.9 % (11.6-14.6)
[2022-08-27] MEDS ORDERED: PANTOPRAZOLE 40MG DR TABLET PO NR (00:45)
== END 2022-08-27 10:17 | disposition home or self-care (01) ==
LOC: ER 19:02
DX: F10.229 Alcohol dependence with intoxication, unspecified (principal); J45.909 Unspecified asthma, uncomplicated; Z86.73 Personal history of transient ischemic attack (TIA), and cerebral infarction without residual deficits; F12.10 Cannabis abuse, uncomplicated; K29.20 Alcoholic gastritis without bleeding; Z00.00 Encounter for general adult medical examination without abnormal findings
CPT/HCPCS: 36415; 80053; 80307; 80320; 80329; 83690; 85025; 96360; 96361; 99283; J2405; J7030; Q0162; G0480

== ENCOUNTER 2022-09-06 18:47 | Emergency (ER) | payer MEDICAID ==
[~2022-09-06] VITALS: Ht 170.2 cm; Wt 82.4 kg
[2022-09-06] MEDS ORDERED: ACETAMINOPHEN 325MG TABLET PO STA (19:00)
[2022-09-06] MEDS ORDERED: VISCOUS LIDOCAINE 2% 15 ML UDC PO STA (19:00)
[2022-09-06] MEDS ORDERED: MAGNESIUM/ALUMINUM HYDROXIDE/SIMETHICONE 30ML UDC PO STA (19:00)
[2022-09-06 20:00] VITALS: BP 130/87
[2022-09-06] MEDS ORDERED: SUCR1TAB MT (20:02)
[2022-09-07] MEDS ORDERED: TOPUD PO (08:19)
== END 2022-09-06 21:35 | disposition home or self-care (01) ==
LOC: ER 18:51
DX: R10.9 Unspecified abdominal pain (principal); G89.29 Other chronic pain; J45.909 Unspecified asthma, uncomplicated; Z86.73 Personal history of transient ischemic attack (TIA), and cerebral infarction without residual deficits
CPT/HCPCS: 99284

== ENCOUNTER 2022-09-07 00:10 | Emergency (ER) | payer MEDICAID, OTHER ==
[~2022-09-07] VITALS: Ht 172.7 cm; Wt 82.0 kg
[~2022-09-07 00:10] MED LIST changes: +SUCR1TAB MT
[2022-09-07] MEDS ORDERED: FOLIC ACID 1 MG, THIAMINE HCL 100 MG, MVI, ADULT NO.1 10 ML in SODIUM CHLORIDE 0.9% 1,0... IV ONE ×4 (02:45)
[2022-09-07] MEDS ORDERED: ACETAMINOPHEN 325MG TABLET PO ONE (02:45)
[2022-09-07] MEDS ORDERED: LORAZEPAM 2MG/ML CPJ IV ONE (02:45)
[2022-09-07 05:25] LABS: CLARITY URINE CLOUDY (CLEAR); COLOR URINE YELLOW (YELLOW); KETONES URINE NEGATIVE (NEGATIVE); LEUKOCYTE ESTERASE URINE TRACE (NEGATIVE); NITRITE URINE NEGATIVE (NEGATIVE); OCCULT BLOOD URINE NEGATIVE (NEGATIVE); PH URINE 6.5 (4.5-8.0); PROTEIN URINE 1+ (NEGATIVE); SPECIFIC GRAVITY URINE 1.014 (1.005-1.030)
[2022-09-07] MEDS ORDERED: PANTOPRAZOLE SODIUM 40 MG/VIAL IV ONE (05:45)
[2022-09-07] MEDS ORDERED: ONDANSETRON HCL 4MG/2ML INJ IV ONE (05:45)
[2022-09-07 08:00] VITALS: BP 113/81
[2022-09-07 08:10] LABS: BASOPHILS % 0.6 % (0.0-2.0); EOSINOPHILS % 0.3 % (0.0-5.0); HEMATOCRIT. 37.5 % (42.0-52.0); HEMOGLOBIN. 12.5 g/dL (14.0-18.0); LYMPHOCYTES % 50.4 % (20.0-50.0); MEAN CORPUSCULAR HEMOGLOBIN 26.4 pg (28.0-32.0); MEAN CORPUSCULAR VOLUME 79.6 fL (80.0-94.0); MEAN PLATELET VOLUME 7.9 fl (7.4-10.4); MONOCYTES % 9.5 % (2.0-8.0); NEUTROPHILS % 39.2 % (40.0-76.0); PLATELET 124 x1000/uL (130-400); RED BLOOD CELL COUNT 4.72 mill/uL (4.7-6.1); RED CELL DISTRIBUTION WIDTH 15.2 % (11.6-14.6)
[2022-09-07] MEDS ORDERED: TOPUD PO (08:19)
[2022-09-07 08:20] LABS: INR 1.2; PROTHROMBIN TIME 12.3 sec (9.6-11.0)
[2022-09-07 08:43] LABS: CHLORIDE 104 mEq/L (98-107)
== END 2022-09-07 09:30 | disposition home or self-care (01) ==
LOC: ER 00:10
DX: R10.9 Unspecified abdominal pain (principal); J45.909 Unspecified asthma, uncomplicated; Z86.59 Personal history of other mental and behavioral disorders; Z79.899 Other long term (current) drug therapy; Z86.73 Personal history of transient ischemic attack (TIA), and cerebral infarction without residual deficits
CPT/HCPCS: 36415; 74176; 80053; 81003; 83690; 85025; 85610; 96365; 96375; 99285; C9113; J2060; J2405; J3411; J3490; J7030

== ENCOUNTER 2022-09-11 18:18 | Emergency (ER) | payer MEDICAID ==
[~2022-09-11] VITALS: Ht 180.3 cm; Wt 82.0 kg
[~2022-09-11 18:18] MED LIST changes: +TOPUD PO
[2022-09-11 18:20] VITALS: BP 156/98
[2022-09-11] MEDS ORDERED: LEVETIRACETAM 1000MG PREMIX 100 ML IV ONE (19:45)
[2022-09-11] MEDS ORDERED: LEVETIRACETAM 500MG/5ML CUP PO ONE (19:45)
[2022-09-11 20:16] LABS: BASOPHILS % 0.7 % (0.0-2.0); EOSINOPHILS % 0.4 % (0.0-5.0); HEMATOCRIT. 37.7 % (42.0-52.0); HEMOGLOBIN. 12.2 g/dL (14.0-18.0); LYMPHOCYTES % 41.1 % (20.0-50.0); MEAN CORPUSCULAR HEMOGLOBIN 26.3 pg (28.0-32.0); MEAN CORPUSCULAR VOLUME 81.2 fL (80.0-94.0); MEAN PLATELET VOLUME 8.4 fl (7.4-10.4); MONOCYTES % 13.4 % (2.0-8.0); NEUTROPHILS % 44.4 % (40.0-76.0); PLATELET 146 x1000/uL (130-400); RED BLOOD CELL COUNT 4.64 mill/uL (4.7-6.1); RED CELL DISTRIBUTION WIDTH 15.2 % (11.6-14.6)
[2022-09-11 20:20] LABS: CHLORIDE 103 mEq/L (98-107)
[2022-09-11 20:23] LABS: INR 1.1; PROTHROMBIN TIME 12.1 sec (9.6-11.0)
[2022-09-11 20:31] LABS: ETHANOL BLOOD 175 mg/dL
[2022-09-11 20:45] LABS: CARBAMAZEPINE < 0.5 ug/mL (4-12)
[2022-09-11 21:24] LABS: CLARITY URINE CLEAR (CLEAR); COLOR URINE YELLOW (YELLOW); KETONES URINE NEGATIVE (NEGATIVE); LEUKOCYTE ESTERASE URINE TRACE (NEGATIVE); NITRITE URINE NEGATIVE (NEGATIVE); OCCULT BLOOD URINE NEGATIVE (NEGATIVE); PROTEIN URINE 1+ (NEGATIVE); SPECIFIC GRAVITY URINE 1.008 (1.005-1.030)
[2022-09-11] MEDS ORDERED: KEPP500 MT (21:35)
[2022-09-11 21:43] LABS: *AMPHETAMINES SCREEN URINE NEGATIVE (NEGATIVE); *BARBITURATES SCREEN URINE NEGATIVE (NEGATIVE); *BENZODIAZEPINES SCREEN URINE NEGATIVE (NEGATIVE); *COCAINE SCREEN URINE NEGATIVE (NEGATIVE); CANNABINOID URINE SCREEN NEGATIVE (NEGATIVE); METHADONE URINE SCREEN NEGATIVE (NEGATIVE); OPIATES URINE SCREEN NEGATIVE (NEGATIVE); PHENCYCLIDINE URINE SCREEN NEGATIVE (NEGATIVE)
== END 2022-09-11 22:02 | disposition home or self-care (01) ==
LOC: ER 18:18
DX: F10.229 Alcohol dependence with intoxication, unspecified (principal); Y90.6 Blood alcohol level of 120-199 mg/100 ml; J45.909 Unspecified asthma, uncomplicated; Z86.73 Personal history of transient ischemic attack (TIA), and cerebral infarction without residual deficits; Z79.899 Other long term (current) drug therapy
CPT/HCPCS: 36415; 71045; 80053; 80156; 80165; 80185; 80305; 80320; 81003; 84484; 85025; 99285; G0480

== ENCOUNTER 2022-09-19 19:58 | Emergency (ER) | payer MEDICAID, OTHER ==
[~2022-09-19] VITALS: Ht 167.6 cm; Wt 81.6 kg
[~2022-09-19 19:58] MED LIST changes: +KEPP500 MT
[2022-09-19] MEDS ORDERED: LEVETIRACETAM 1000MG PREMIX 100 ML IV ONE (20:15)
[2022-09-20 00:44] LABS: BASOPHILS % 0.5 % (0.0-2.0); EOSINOPHILS % 0.2 % (0.0-5.0); HEMATOCRIT. 38.7 % (42.0-52.0); HEMOGLOBIN. 12.8 g/dL (14.0-18.0); LYMPHOCYTES % 31.8 % (20.0-50.0); MEAN CORPUSCULAR HEMOGLOBIN 26.3 pg (28.0-32.0); MEAN CORPUSCULAR VOLUME 79.7 fL (80.0-94.0); MONOCYTES % 11.3 % (2.0-8.0); NEUTROPHILS % 56.2 % (40.0-76.0); PLATELET 146 x1000/uL (130-400); RED BLOOD CELL COUNT 4.85 mill/uL (4.7-6.1); RED CELL DISTRIBUTION WIDTH 15.3 % (11.6-14.6)
[2022-09-20] MEDS ORDERED: ONDANSETRON 4MG ODT PO NR (01:30)
[2022-09-20] MEDS ORDERED: MAGNESIUM/ALUMINUM HYDROXIDE/SIMETHICONE 30ML UDC PO NR (01:30)
[2022-09-20 02:50] LABS: CHLORIDE 102 mEq/L (98-107)
[2022-09-20 02:58] LABS: ETHANOL BLOOD < 10 mg/dL
[2022-09-20 06:38] VITALS: BP 129/78
== END 2022-09-20 06:00 | disposition home or self-care (01) ==
LOC: ER 19:58
DX: G40.909 Epilepsy, unspecified, not intractable, without status epilepticus (principal); F10.21 Alcohol dependence, in remission; J45.909 Unspecified asthma, uncomplicated; F17.210 Nicotine dependence, cigarettes, uncomplicated; Z86.73 Personal history of transient ischemic attack (TIA), and cerebral infarction without residual deficits; Y90.0 Blood alcohol level of less than 20 mg/100 ml
CPT/HCPCS: 36415; 74176; 80053; 80320; 85025; 96365; 96366; 99285; J1953; Q0162; Z7610; G0480

== ENCOUNTER 2022-09-27 07:28 | Emergency (ER) | payer MEDICAID ==
[~2022-09-27] VITALS: Ht 180.3 cm; Wt 77.0 kg
[2022-09-27] MEDS ORDERED: SODIUM CHLORIDE 0.9% 1,000 ML IV ONE (07:45)
[2022-09-27] MEDS ORDERED: LORAZEPAM 2MG/ML CPJ IV ONE (07:45)
[2022-09-27] MEDS ORDERED: LEVETIRACETAM 1000MG PREMIX 100 ML IV ONE (07:45)
[2022-09-27 09:09] LABS: BASOPHILS % 0.3 % (0.0-2.0); HEMOGLOBIN. 13.1 g/dL (14.0-18.0); LYMPHOCYTES % 19.5 % (20.0-50.0); MEAN CORPUSCULAR HEMOGLOBIN 26.6 pg (28.0-32.0); MEAN CORPUSCULAR VOLUME 79.3 fL (80.0-94.0); MEAN PLATELET VOLUME 8.5 fl (7.4-10.4); MONOCYTES % 7.1 % (2.0-8.0); NEUTROPHILS % 73.1 % (40.0-76.0); PLATELET 221 x1000/uL (130-400); RED BLOOD CELL COUNT 4.92 mill/uL (4.7-6.1); RED CELL DISTRIBUTION WIDTH 15.1 % (11.6-14.6)
[2022-09-27 10:00] LABS: CHLORIDE 104 mEq/L (98-107)
[2022-09-27 10:06] LABS: ETHANOL BLOOD < 10 mg/dL (-10)
[2022-09-27 10:17] LABS: CLARITY URINE CLOUDY (CLEAR); COLOR URINE YELLOW (YELLOW); KETONES URINE 1+ (NEGATIVE); LEUKOCYTE ESTERASE URINE TRACE (NEGATIVE); NITRITE URINE NEGATIVE (NEGATIVE); OCCULT BLOOD URINE NEGATIVE (NEGATIVE); PH URINE 6.5 (4.5-8.0); PROTEIN URINE 3+ (NEGATIVE); SPECIFIC GRAVITY URINE 1.017 (1.005-1.030)
[2022-09-27 11:00] LABS: *AMPHETAMINES SCREEN URINE NEGATIVE (NEGATIVE); *BARBITURATES SCREEN URINE NEGATIVE (NEGATIVE); *BENZODIAZEPINES SCREEN URINE NEGATIVE (NEGATIVE); *COCAINE SCREEN URINE NEGATIVE (NEGATIVE); CANNABINOID URINE SCREEN NEGATIVE (NEGATIVE); METHADONE URINE SCREEN NEGATIVE (NEGATIVE); OPIATES URINE SCREEN NEGATIVE (NEGATIVE); PHENCYCLIDINE URINE SCREEN NEGATIVE (NEGATIVE)
[2022-09-27] MEDS ORDERED: CEPH500C2 MT (11:02)
[2022-09-27] MEDS ORDERED: KEPP500 MT (11:02)
[2022-09-27] MEDS ORDERED: POTASSIUM CHLORIDE 20MEQ TABLET SR PO ONE (11:15)
[2022-09-27 17:50] VITALS: BP 124/66
== END 2022-09-27 18:36 | disposition home or self-care (01) ==
LOC: ER 07:28
DX: G40.909 Epilepsy, unspecified, not intractable, without status epilepticus (principal); N39.0 Urinary tract infection, site not specified; E87.6 Hypokalemia; J45.909 Unspecified asthma, uncomplicated; Z79.899 Other long term (current) drug therapy; Z86.73 Personal history of transient ischemic attack (TIA), and cerebral infarction without residual deficits
CPT/HCPCS: 36415; 80053; 80305; 80320; 81003; 82140; 85025; 93005; 96365; 96366; 96375; 99285; C1893; J1953; J2060; J7030; Z7610; G0480

== ENCOUNTER 2022-10-03 17:28 | Emergency (ER) | payer OTHER ==
[~2022-10-03] VITALS: Ht 172.7 cm; Wt 73.0 kg
[~2022-10-03 17:28] MED LIST changes: +CEPH500C2 MT
[2022-10-03] MEDS ORDERED: KETOROLAC 30MG/ML VIAL IV STA (18:22)
[2022-10-03] MEDS ORDERED: LEVETIRACETAM 1000MG PREMIX 100 ML IV ONE (18:30)
[2022-10-03] MEDS ORDERED: SODIUM CHLORIDE 0.9% 1,000 ML IV ONE (18:30)
[2022-10-03 19:49] LABS: HEMATOCRIT. 38.7 % (42.0-52.0); HEMOGLOBIN. 12.5 g/dL (14.0-18.0); MEAN CORPUSCULAR HEMOGLOBIN 26.6 pg (28.0-32.0); MEAN CORPUSCULAR VOLUME 82.1 fL (80.0-94.0); RED BLOOD CELL COUNT 4.71 mill/uL (4.7-6.1); RED CELL DISTRIBUTION WIDTH 15.8 % (11.6-14.6)
[2022-10-03 20:06] LABS: CHLORIDE 107 mEq/L (98-107)
[2022-10-03 20:26] LABS: MEAN PLATELET VOLUME 8.6 fl (7.4-10.4); PLATELET 161 x1000/uL (130-400); PLATELET ESTIMATE NORMAL
[2022-10-03 21:44] LABS: ETHANOL BLOOD 288 mg/dL (-10)
[2022-10-03] MEDS ORDERED: LEVETIRACETAM 500MG TABLET PO STA (23:08)
[2022-10-03 23:12] VITALS: BP 143/91
[2022-10-03] MEDS ORDERED: IBUPROFEN 600MG TABLET PO ONE (23:15)
[2022-10-04] MEDS ORDERED: LEVETIRACETAM 500MG TABLET PO SCH (09:00)
== END 2022-10-03 23:23 | disposition home or self-care (01) ==
LOC: ER 17:28
DX: G40.909 Epilepsy, unspecified, not intractable, without status epilepticus (principal); F10.10 Alcohol abuse, uncomplicated; R10.84 Generalized abdominal pain; J45.909 Unspecified asthma, uncomplicated; Z86.73 Personal history of transient ischemic attack (TIA), and cerebral infarction without residual deficits; Y90.8 Blood alcohol level of 240 mg/100 ml or more
CPT/HCPCS: 36415; 74176; 80053; 80320; 85025; 99284; J7030; G0480

== ENCOUNTER 2022-10-04 01:59 | Emergency (ER) | payer MEDICAID, OTHER ==
[~2022-10-04] VITALS: Ht 172.7 cm; Wt 82.0 kg
[2022-10-04 02:15] VITALS: BP 134/77
[2022-10-04 04:37] LABS: CHLORIDE 105 mEq/L (98-107)
== END 2022-10-04 05:51 | disposition home or self-care (01) ==
LOC: ER 01:59
DX: R10.33 Periumbilical pain (principal); J45.909 Unspecified asthma, uncomplicated; Z79.899 Other long term (current) drug therapy
CPT/HCPCS: 36415; 80053; 99283

== ENCOUNTER 2022-10-10 12:22 | Emergency (ER) | payer OTHER ==
[~2022-10-10] VITALS: Ht 177.8 cm; Wt 91.0 kg
[2022-10-10] MEDS ORDERED: ONDANSETRON HCL 4MG/2ML INJ IV ONE (13:00)
[2022-10-10] MEDS: LORAZEPAM 2MG/ML CPJ IV ONE ×2 (14:30→14:43)
[2022-10-10] MEDS: LORAZEPAM 2MG/ML CPJ ONE ×2 (14:42→14:43)
[2022-10-10 14:44] LABS: CHLORIDE 104 mEq/L (98-107)
[2022-10-10] MEDS ORDERED: SODIUM CHLORIDE 0.9% 1,000 ML IV ONE (14:45)
[2022-10-10 14:53] LABS: ETHANOL BLOOD 45 mg/dL (-10)
[2022-10-10] MEDS ORDERED: LEVETIRACETAM 500MG PREMIX 100 ML IV ONE (15:00)
[2022-10-10] MEDS ORDERED: LORAZEPAM 2MG/ML CPJ IV ONE (15:00)
[2022-10-10 15:07] LABS: BASOPHILS % 0.6 % (0.0-2.0); HEMATOCRIT. 43.6 % (42.0-52.0); HEMOGLOBIN. 13.2 g/dL (14.0-18.0); LYMPHOCYTES % 9.2 % (20.0-50.0); MEAN CORPUSCULAR HEMOGLOBIN 26.4 pg (28.0-32.0); MEAN CORPUSCULAR VOLUME 87.4 fL (80.0-94.0); MEAN PLATELET VOLUME 9.1 fl (7.4-10.4); NEUTROPHILS % 85.2 % (40.0-76.0); PLATELET 171 x1000/uL (130-400); RED BLOOD CELL COUNT 4.99 mill/uL (4.7-6.1); RED CELL DISTRIBUTION WIDTH 17.1 % (11.6-14.6)
[2022-10-10] MEDS ORDERED: FOLIC ACID 1 MG, THIAMINE HCL 100 MG, MVI, ADULT NO.1 10 ML in DEXTROSE 5% WATER 1,000 ML IV ONE ×4 (15:30)
[2022-10-10] MEDS ORDERED: MAGNESIUM 2 G PREMIX 50 ML IV ONE (15:30)
[2022-10-10] MEDS ORDERED: MAGNESIUM 2 G PREMIX 50 ML IV NR (21:45)
[2022-10-11 00:48] VITALS: BP 145/86
== END 2022-10-11 07:12 | disposition short-term general hospital (02) ==
LOC: ER 12:49 → CANBEDREQ 10-11 19:42
DX: G40.909 Epilepsy, unspecified, not intractable, without status epilepticus (principal); F10.988 Alcohol use, unspecified with other alcohol-induced disorder; E87.29 Other acidosis; I10 Essential (primary) hypertension; J45.909 Unspecified asthma, uncomplicated; Z86.73 Personal history of transient ischemic attack (TIA), and cerebral infarction without residual deficits; Y90.2 Blood alcohol level of 40-59 mg/100 ml
CPT/HCPCS: 36415; 80053; 80320; 83735; 85025; 87426; 96361; 96365; 96366; 96367; 96368; 96375; 96376; 99285; C9803; J1953; J2060; J3411; J3475; J3490; J7030; J7070; G0480

== ENCOUNTER 2022-10-15 21:21 | Emergency (ER) | payer OTHER ==
[~2022-10-15] VITALS: Ht 177.8 cm; Wt 97.0 kg
[2022-10-16 00:12] LABS: HEMOGLOBIN. 11.3 g/dL (14.0-18.0); MEAN CORPUSCULAR HEMOGLOBIN 26.5 pg (28.0-32.0); MEAN CORPUSCULAR VOLUME 81.9 fL (80.0-94.0); MEAN PLATELET VOLUME 7.9 fl (7.4-10.4); PLATELET 101 x1000/uL (130-400); RED BLOOD CELL COUNT 4.27 mill/uL (4.7-6.1); RED CELL DISTRIBUTION WIDTH 16.5 % (11.6-14.6)
[2022-10-16 00:20] LABS: CHLORIDE 108 mEq/L (98-107)
[2022-10-16 00:22] LABS: PROTHROMBIN TIME 10.9 sec (9.6-11.0)
[2022-10-16 00:29] LABS: ETHANOL BLOOD 158 mg/dL (-10)
[2022-10-16 00:33] LABS: CARBAMAZEPINE < 0.5 ug/mL (4-12)
[2022-10-16] MEDS ORDERED: LEVETIRACETAM 500MG TABLET PO ONE (01:15)
[2022-10-16 02:45] VITALS: BP 128/79
[2022-10-16 06:18] LABS: PLATELET ESTIMATE SLIGHTLY DECREASED
== END 2022-10-16 03:00 | disposition home or self-care (01) ==
LOC: ER 21:21
DX: F10.229 Alcohol dependence with intoxication, unspecified (principal); Y90.6 Blood alcohol level of 120-199 mg/100 ml; J45.909 Unspecified asthma, uncomplicated; I10 Essential (primary) hypertension; Z86.73 Personal history of transient ischemic attack (TIA), and cerebral infarction without residual deficits; Z79.899 Other long term (current) drug therapy
CPT/HCPCS: 36415; 80053; 80156; 80165; 80185; 80320; 83690; 85025; 85610; 99283; Z7610; G0480

== ENCOUNTER 2022-11-06 15:20 | Emergency (ER) | payer MEDICAID, OTHER ==
[~2022-11-06] VITALS: Ht 172.7 cm; Wt 68.0 kg
[2022-11-06 15:25] VITALS: O2SAT 100
[2022-11-06 18:39] VITALS: BP 135/70; PULSE 65; RESP 17; TEMP 98.3
== END 2022-11-06 18:40 | disposition home or self-care (01) ==
LOC: ER 15:27
DX: F10.229 Alcohol dependence with intoxication, unspecified (principal); J45.909 Unspecified asthma, uncomplicated; I10 Essential (primary) hypertension; Z79.899 Other long term (current) drug therapy; Y90.0 Blood alcohol level of less than 20 mg/100 ml
CPT/HCPCS: 82962; 99283; Z7610

== ENCOUNTER 2022-12-01 03:10 | Emergency (ER) | payer OTHER ==
[~2022-12-01] VITALS: Ht 172.7 cm; Wt 90.0 kg
[2022-12-01 03:12] VITALS: TEMP 99.9; O2SAT 99
[2022-12-01] MEDS ORDERED: LEVETIRACETAM 500MG TABLET PO ONE (05:00)
[2022-12-01 06:01] LABS: CLARITY URINE CLEAR (CLEAR); COLOR URINE YELLOW (YELLOW); GLUCOSE URINE NEGATIVE (NEGATIVE); KETONES URINE NEGATIVE (NEGATIVE); LEUKOCYTE ESTERASE URINE NEGATIVE (NEGATIVE); NITRITE URINE NEGATIVE (NEGATIVE); OCCULT BLOOD URINE NEGATIVE (NEGATIVE); PH URINE 7.5 (4.5-8.0); PROTEIN URINE 3+ (NEGATIVE); SPECIFIC GRAVITY URINE 1.016 (1.005-1.030); UROBILINOGEN URINE 0.2 E.U./dL (0.2-1.0)
[2022-12-01 06:01] LABS: BASOPHILS % 0.1 % (0.0-2.0); CHLORIDE 103 mEq/L (98-107); EOSINOPHILS % 0.2 % (0.0-5.0); HEMATOCRIT. 35.7 % (42.0-52.0); HEMOGLOBIN. 11.7 g/dL (14.0-18.0); INDEX HEMOLYSI 1 (1-3); INDEX ICTERIC 1 (1-4); INDEX LIPEMIC 1 (1-3); LYMPHOCYTES % 13.5 % (20.0-50.0); MEAN CORPUSCULAR HGB CONC 32.7 g/dL (31.0-37.0); MEAN CORPUSCULAR VOLUME 82.6 fL (80.0-94.0); MEAN PLATELET VOLUME 8.8 fl (7.4-10.4); MONOCYTES % 11.3 % (2.0-8.0); NEUTROPHILS % 74.9 % (40.0-76.0); PLATELET 113 x1000/uL (130-400); POTASSIUM 3.4 mEq/L (3.5-5.1); RED BLOOD CELL COUNT 4.33 mill/uL (4.7-6.1); SODIUM 134 mEq/L (136-145); WHITE BLOOD COUNT 8.8 x1000/uL (4.5-11.0)
[2022-12-01 06:08] LABS: ALANINE AMINOTRANSFERASE 19 IU/L (13-61); ALBUMIN 3.4 g/dL (3.4-5.0); ASPARTATE AMINOTRANSFERASE 16 IU/L (15-37); BILIRUBIN TOTAL 0.4 mg/dL (0.1-1.0); CALCIUM 8.9 mg/dL (8.5-10.1); CARBON DIOXIDE 21 mEq/L (21-32); CREATININE 0.7 mg/dL (0.6-1.3); ETHANOL BLOOD < 10 mg/dL (-10); GLUCOSE 119 mg/dL (70-105); PROTEIN TOTAL 8.3 g/dL (6.0-8.3); UREA NITROGEN BLOOD 11 mg/dL (7-21)
[2022-12-01] MEDS ORDERED: KEPP500 MT (06:19)
[2022-12-01] MEDS ORDERED: FAMO-135 MT (06:19)
[2022-12-01 06:30] LABS: RBC URINE 0-2 /hpf (0-2)
[2022-12-01 06:31] LABS: BACTERIA URINE TRACE; SQUAMOUS EPITHELIAL CELL URINE NONE SEEN /lpf (RARE/1+)
[2022-12-01 06:38] VITALS: BP 145/82; PULSE 98; RESP 16
== END 2022-12-01 06:39 | disposition home or self-care (01) ==
LOC: ER 03:10
DX: R10.9 Unspecified abdominal pain (principal); G40.909 Epilepsy, unspecified, not intractable, without status epilepticus
CPT/HCPCS: 36415; 74176; 80053; 80320; 81003; 85025; 99284; G0480

== ENCOUNTER 2022-12-14 17:57 | Emergency (ER) | payer OTHER ==
[~2022-12-14] VITALS: Ht 182.9 cm; Wt 82.0 kg
[~2022-12-14 17:57] MED LIST changes: +FAMO-135 MT
[2022-12-14 18:04] VITALS: O2SAT 100
[2022-12-14] MEDS ORDERED: IBUPROFEN 600MG TABLET PO ONE (21:15)
[2022-12-15 01:45] VITALS: BP 119/78; PULSE 81; RESP 16; TEMP 98.2
== END 2022-12-15 01:42 | disposition home or self-care (01) ==
LOC: ER 18:16
DX: G92.9 Unspecified toxic encephalopathy (principal); I10 Essential (primary) hypertension; J45.909 Unspecified asthma, uncomplicated; Z79.899 Other long term (current) drug therapy; Z86.59 Personal history of other mental and behavioral disorders
CPT/HCPCS: 99285

== ENCOUNTER 2023-01-04 13:57 | Emergency (ER) | payer OTHER ==
[~2023-01-04] VITALS: Ht 177.8 cm; Wt 79.0 kg
[~2023-01-04 13:57] MED LIST changes: -CEPH500C2 MT; -COLC0.6C3 PO; +COLC0.6T66 PO; -DILT90TA2 PO; -FAMO-135 MT; -FOLI-43 PO; -KEPP500 MT; -KEPP500 PO; +LEVE500T19 PO; -MAGN400T39 MT; -METO-293 MT; +METO10TA3 PO; +PHEN300C6 PO; -POTA-205 MT; +QUET50TA23 PO; -SIME180C70 PO; -SUCR1TAB MT; -THIA100T72 PO; +THIA100T88 PO; +TIZA-204 PO; -TIZA4CAP6 PO; -TOPUD PO
[2023-01-04 14:05] VITALS: O2SAT 99
[2023-01-04] MEDS ORDERED: LEVETIRACETAM 1000MG PREMIX 100 ML IV ONE (14:15)
[2023-01-04 16:05] LABS: BASOPHILS % 0.4 % (0.0-2.0); EOSINOPHILS % 0.1 % (0.0-5.0); HEMATOCRIT. 37.7 % (42.0-52.0); HEMOGLOBIN. 12.2 g/dL (14.0-18.0); LYMPHOCYTES % 17.8 % (20.0-50.0); MEAN CORPUSCULAR HEMOGLOBIN 26.1 pg (28.0-32.0); MEAN CORPUSCULAR HGB CONC 32.3 g/dL (31.0-37.0); MEAN CORPUSCULAR VOLUME 80.9 fL (80.0-94.0); MEAN PLATELET VOLUME 8.4 fl (7.4-10.4); MONOCYTES % 8.6 % (2.0-8.0); NEUTROPHILS % 73.1 % (40.0-76.0); PLATELET 197 x1000/uL (130-400); RED BLOOD CELL COUNT 4.66 mill/uL (4.7-6.1); RED CELL DISTRIBUTION WIDTH 16.7 % (11.6-14.6); WHITE BLOOD COUNT 6.3 x1000/uL (4.5-11.0)
[2023-01-04 16:23] LABS: CHLORIDE 108 mEq/L (98-107); INDEX HEMOLYSI 2 (1-3); INDEX ICTERIC 1 (1-4); INDEX LIPEMIC 1 (1-3); POTASSIUM 3.5 mEq/L (3.5-5.1); SODIUM 136 mEq/L (136-145)
[2023-01-04 16:30] LABS: ALBUMIN 3.4 g/dL (3.4-5.0); ASPARTATE AMINOTRANSFERASE 17 IU/L (15-37); BILIRUBIN TOTAL 0.4 mg/dL (0.1-1.0); CARBON DIOXIDE 15 mEq/L (21-32); ETHANOL BLOOD < 10 mg/dL (-10); GLUCOSE 136 mg/dL (70-105); PROTEIN TOTAL 8.4 g/dL (6.0-8.3); UREA NITROGEN BLOOD 25 mg/dL (7-21)
[2023-01-04] MEDS ORDERED: CHLORDIAZEPOXIDE 25MG CAPSULE PO ONE (17:15)
[2023-01-04 18:03] LABS: ALANINE AMINOTRANSFERASE 21 IU/L (13-61)
[2023-01-04] MEDS ORDERED: LORAZEPAM 2MG/ML CPJ IV ONE (18:15)
[2023-01-04] MEDS ORDERED: FOLIC ACID 1 MG, THIAMINE HCL 100 MG, MVI, ADULT NO.1 10 ML in DEXTROSE 5% WATER 1,000 ML IV ONE ×4 (18:15)
[2023-01-04 20:06] LABS: CLARITY URINE CLOUDY (CLEAR); COLOR URINE YELLOW (YELLOW); GLUCOSE URINE NEGATIVE (NEGATIVE); KETONES URINE TRACE (NEGATIVE); LEUKOCYTE ESTERASE URINE 1+ (NEGATIVE); NITRITE URINE NEGATIVE (NEGATIVE); OCCULT BLOOD URINE TRACE (NEGATIVE); PH URINE 5.5 (4.5-8.0); PROTEIN URINE 2+ (NEGATIVE); SPECIFIC GRAVITY URINE 1.019 (1.005-1.030)
[2023-01-04 20:17] LABS: *AMPHETAMINES SCREEN URINE NEGATIVE (NEGATIVE); *BARBITURATES SCREEN URINE NEGATIVE (NEGATIVE); *BENZODIAZEPINES SCREEN URINE NEGATIVE (NEGATIVE); *COCAINE SCREEN URINE NEGATIVE (NEGATIVE); CANNABINOID URINE SCREEN NEGATIVE (NEGATIVE); ECSTASY MDMA SCREEN URINE NEGATIVE (NEGATIVE); METHADONE URINE SCREEN NEGATIVE (NEGATIVE); OPIATES URINE SCREEN NEGATIVE (NEGATIVE); PHENCYCLIDINE URINE SCREEN NEGATIVE (NEGATIVE)
[2023-01-04 21:11] LABS: BACTERIA URINE 3+; RBC URINE 0-2 /hpf (0-2); SQUAMOUS EPITHELIAL CELL URINE 1+ /lpf (RARE/1+)
[2023-01-04 23:42] VITALS: BP 114/70; PULSE 75; RESP 12; TEMP 98.4
== END 2023-01-05 00:08 | disposition short-term general hospital (02) ==
LOC: ER 13:57
DX: R56.9 Unspecified convulsions (principal); Z79.899 Other long term (current) drug therapy
CPT/HCPCS: 80053; 80305; 81003; 80320; 85025; 36415; 70450; 96368; 96365; 96366; 96375; 99285; J1953; J3490 ×2; J2060; J3411; J7070; Z7610 ×5; G0480

== ENCOUNTER 2023-01-28 20:05 | Emergency (ER) | payer OTHER ==
[~2023-01-28] VITALS: Ht 177.8 cm; Wt 87.0 kg
[2023-01-28] MEDS ORDERED: LEVETIRACETAM 500MG PREMIX 100 ML IV ONE (20:15)
[2023-01-28 20:20] VITALS: BP 140/97; PULSE 87; RESP 16; TEMP 98.5; O2SAT 100
[2023-01-28] MEDS ORDERED: SODIUM CHLORIDE 0.9% 1,000 ML IV ONE (20:30)
[2023-01-28 21:22] LABS: BASOPHILS % 0.5 % (0.0-2.0); DIFFERENTIAL COMMENT 0; EOSINOPHILS % 0.1 % (0.0-5.0); HEMATOCRIT. 37.7 % (42.0-52.0); HEMOGLOBIN. 12.1 g/dL (14.0-18.0); LYMPHOCYTES % 60.9 % (20.0-50.0); MEAN CORPUSCULAR HEMOGLOBIN 25.7 pg (28.0-32.0); MEAN CORPUSCULAR HGB CONC 32.2 g/dL (31.0-37.0); MEAN CORPUSCULAR VOLUME 79.8 fL (80.0-94.0); MONOCYTES % 9.7 % (2.0-8.0); NEUTROPHILS % 28.8 % (40.0-76.0); PLATELET 141 x1000/uL (130-400); RED BLOOD CELL COUNT 4.72 mill/uL (4.7-6.1); WHITE BLOOD COUNT 4.7 x1000/uL (4.5-11.0)
[2023-01-28 21:27] LABS: CHLORIDE 106 mEq/L (98-107); INDEX HEMOLYSI 1 (1-3); INDEX ICTERIC 1 (1-4); INDEX LIPEMIC 1 (1-3); POTASSIUM 3.1 mEq/L (3.5-5.1); SODIUM 138 mEq/L (136-145)
[2023-01-28] MEDS ORDERED: POTASSIUM CHLORIDE 20MEQ TABLET SR PO ONE (21:30)
[2023-01-28 21:36] LABS: ALANINE AMINOTRANSFERASE 46 IU/L (13-61); ALBUMIN 3.1 g/dL (3.4-5.0); ASPARTATE AMINOTRANSFERASE 49 IU/L (15-37); BILIRUBIN TOTAL 0.3 mg/dL (0.1-1.0); CALCIUM 8.5 mg/dL (8.5-10.1); CARBON DIOXIDE 29 mEq/L (21-32); CREATININE 0.8 mg/dL (0.6-1.3); ETHANOL BLOOD 368 mg/dL (<10); GLUCOSE 104 mg/dL (70-105); PROTEIN TOTAL 7.9 g/dL (6.0-8.3); UREA NITROGEN BLOOD 20 mg/dL (7-21)
[2023-01-29 02:45] LABS: *AMPHETAMINES SCREEN URINE NEGATIVE (NEGATIVE); *BARBITURATES SCREEN URINE NEGATIVE (NEGATIVE); *BENZODIAZEPINES SCREEN URINE PRESUMTIVE POSITIVE (NEGATIVE); *COCAINE SCREEN URINE NEGATIVE (NEGATIVE); CANNABINOID URINE SCREEN NEGATIVE (NEGATIVE); ECSTASY MDMA SCREEN URINE NEGATIVE (NEGATIVE); OPIATES URINE SCREEN NEGATIVE (NEGATIVE); PHENCYCLIDINE URINE SCREEN NEGATIVE (NEGATIVE)
[2023-01-29] MEDS ORDERED: LEVETIRACETAM 500MG TABLET PO NR (03:00)
[2023-01-29] MEDS ORDERED: POTASSIUM CHLORIDE 20MEQ TABLET SR PO NR (04:00)
== END 2023-01-29 05:22 | disposition home or self-care (01) ==
LOC: ER 20:05
DX: F10.229 Alcohol dependence with intoxication, unspecified (principal); R56.9 Unspecified convulsions; E87.6 Hypokalemia; I10 Essential (primary) hypertension; Z79.899 Other long term (current) drug therapy; Y90.8 Blood alcohol level of 240 mg/100 ml or more
CPT/HCPCS: 80053; 80320; 85025; 36415; 70450; 93005; 99284; 80305; J7030; Z7610 ×2; G0480

== ENCOUNTER 2023-01-30 18:00 | Emergency (ER) | payer OTHER ==
[~2023-01-30] VITALS: Ht 180.3 cm; Wt 79.0 kg
[2023-01-30 18:03] VITALS: O2SAT 100
[2023-01-30] MEDS ORDERED: ONDANSETRON HCL 4MG/2ML INJ IV STA (18:12)
[2023-01-30] MEDS ORDERED: SODIUM CHLORIDE 0.9% 1,000 ML IV ONE (18:15)
[2023-01-30] MEDS ORDERED: LORAZEPAM 2MG/ML CPJ IV ONE ×2 (18:30→20:45)
[2023-01-30 19:26] LABS: CLARITY URINE CLOUDY (CLEAR); COLOR URINE YELLOW (YELLOW); GLUCOSE URINE NEGATIVE (NEGATIVE); KETONES URINE NEGATIVE (NEGATIVE); LEUKOCYTE ESTERASE URINE 1+ (NEGATIVE); NITRITE URINE NEGATIVE (NEGATIVE); OCCULT BLOOD URINE 1+ (NEGATIVE); PH URINE 5.5 (4.5-8.0); PROTEIN URINE 4+ (NEGATIVE)
[2023-01-30 19:37] LABS: *AMPHETAMINES SCREEN URINE NEGATIVE (NEGATIVE); *BARBITURATES SCREEN URINE NEGATIVE (NEGATIVE); *BENZODIAZEPINES SCREEN URINE PRESUMTIVE POSITIVE (NEGATIVE); *COCAINE SCREEN URINE NEGATIVE (NEGATIVE); CANNABINOID URINE SCREEN NEGATIVE (NEGATIVE); ECSTASY MDMA SCREEN URINE NEGATIVE (NEGATIVE); OPIATES URINE SCREEN NEGATIVE (NEGATIVE); PHENCYCLIDINE URINE SCREEN NEGATIVE (NEGATIVE)
[2023-01-30 19:48] LABS: BACTERIA URINE 4+; SQUAMOUS EPITHELIAL CELL URINE FEW /lpf (RARE/1+)
[2023-01-30 20:00] LABS: BASOPHILS % 0.2 % (0.0-2.0); HEMATOCRIT. 39.7 % (42.0-52.0); HEMOGLOBIN. 12.7 g/dL (14.0-18.0); LYMPHOCYTES % 8.5 % (20.0-50.0); MEAN CORPUSCULAR HEMOGLOBIN 25.9 pg (28.0-32.0); MEAN CORPUSCULAR VOLUME 80.8 fL (80.0-94.0); MONOCYTES % 6.7 % (2.0-8.0); NEUTROPHILS % 84.6 % (40.0-76.0); RED BLOOD CELL COUNT 4.91 mill/uL (4.7-6.1); RED CELL DISTRIBUTION WIDTH 17.3 % (11.6-14.6); WHITE BLOOD COUNT 8.1 x1000/uL (4.5-11.0)
[2023-01-30 20:03] LABS: INR 1.1; PROTHROMBIN TIME 11.4 sec (9.6-11.0)
[2023-01-30 20:07] LABS: DIFFERENTIAL COMMENT 1
[2023-01-30 20:35] LABS: CHLORIDE 102 mEq/L (98-107); INDEX HEMOLYSI 1 (1-3); INDEX ICTERIC 1 (1-4); INDEX LIPEMIC 1 (1-3); POTASSIUM 3.1 mEq/L (3.5-5.1); SODIUM 139 mEq/L (136-145)
[2023-01-30 20:41] LABS: ALANINE AMINOTRANSFERASE 42 IU/L (13-61); ALBUMIN 3.1 g/dL (3.4-5.0); ASPARTATE AMINOTRANSFERASE 47 IU/L (15-37); BILIRUBIN TOTAL 0.7 mg/dL (0.1-1.0); CARBON DIOXIDE 19 mEq/L (21-32); CREATININE 1.4 mg/dL (0.6-1.3); ETHANOL BLOOD 23 mg/dL (<10); GLUCOSE 101 mg/dL (70-105); PROTEIN TOTAL 7.8 g/dL (6.0-8.3); UREA NITROGEN BLOOD 23 mg/dL (7-21)
[2023-01-30] MEDS ORDERED: FOLIC ACID 1 MG, THIAMINE HCL 100 MG, MVI, ADULT NO.1 10 ML in DEXTROSE 5% WATER 1,000 ML IV ONE ×4 (20:45)
[2023-01-30] MEDS ORDERED: LEVETIRACETAM 1000MG PREMIX 100 ML IV ONE (20:45)
[2023-01-30 20:49] LABS: CALCIUM 8.4 mg/dL (8.5-10.1)
[2023-01-30 20:59] LABS: MEAN PLATELET VOLUME 8.3 fl (7.4-10.4); PLATELET 163 x1000/uL (130-400)
[2023-01-30] MEDS ORDERED: POTASSIUM CHLORIDE INJ 40 MEQ in DEXT 5% WATER 250 ML IV ONE (21:15)
[2023-01-30] MEDS ORDERED: KCL 20MEQ/100ML X 2 FOR TOTAL KCL 40MEQ/200ML IV SCH (21:30)
[2023-01-30] MEDS ORDERED: CEFTRIAXONE 1GM PREMIX 50 ML IV ONE (22:15)
[2023-01-30 23:50] VITALS: BP 136/89; PULSE 109; RESP 20; TEMP 98.2
== END 2023-01-31 00:16 | disposition hospice, inpatient (51) ==
LOC: ER 18:00
DX: R56.9 Unspecified convulsions (principal); E87.6 Hypokalemia; F10.239 Alcohol dependence with withdrawal, unspecified; F10.229 Alcohol dependence with intoxication, unspecified; Y90.0 Blood alcohol level of less than 20 mg/100 ml
CPT/HCPCS: 80053; 80305; 81003; 80320; 83690; 85025; 85610; 36415; 93005; 96361; 96365; 96375; 96376; 99291; J1953; J3490 ×2; J2060; J2405; J3480; J3411; J7070; J7030; Z7610 ×8; J7060; G0480

== ENCOUNTER 2023-02-06 12:45 | Emergency (ER) | payer OTHER ==
[~2023-02-06] VITALS: Ht 177.8 cm; Wt 85.0 kg
[2023-02-06 12:47] VITALS: O2SAT 100
[2023-02-06] MEDS ORDERED: CHLORDIAZEPOXIDE 25MG CAPSULE PO ONE ×2 (13:00→17:15)
[2023-02-06] MEDS ORDERED: LEVETIRACETAM 500MG PREMIX 100 ML IV ONE (13:00)
[2023-02-06 14:47] LABS: BASOPHILS % 0.3 % (0.0-2.0); EOSINOPHILS % 0.1 % (0.0-5.0); HEMATOCRIT. 37.3 % (42.0-52.0); HEMOGLOBIN. 12.1 g/dL (14.0-18.0); LYMPHOCYTES % 23.9 % (20.0-50.0); MEAN CORPUSCULAR HGB CONC 32.4 g/dL (31.0-37.0); MEAN CORPUSCULAR VOLUME 80.5 fL (80.0-94.0); MEAN PLATELET VOLUME 7.9 fl (7.4-10.4); MONOCYTES % 14.2 % (2.0-8.0); NEUTROPHILS % 61.5 % (40.0-76.0); PLATELET 146 x1000/uL (130-400); RED BLOOD CELL COUNT 4.63 mill/uL (4.7-6.1); RED CELL DISTRIBUTION WIDTH 17.1 % (11.6-14.6); WHITE BLOOD COUNT 6.1 x1000/uL (4.5-11.0)
[2023-02-06 14:50] LABS: ALBUMIN 3.7 g/dL (3.4-5.0); CALCIUM 9.7 mg/dL (8.5-10.1); CHLORIDE 101 mEq/L (98-107); INDEX HEMOLYSI 1 (1-3); INDEX ICTERIC 1 (1-4); INDEX LIPEMIC 1 (1-3); POTASSIUM 3.6 mEq/L (3.5-5.1); SODIUM 132 mEq/L (136-145); UREA NITROGEN BLOOD 11 mg/dL (7-21)
[2023-02-06 14:57] LABS: ALANINE AMINOTRANSFERASE 30 IU/L (13-61); ASPARTATE AMINOTRANSFERASE 17 IU/L (15-37); BILIRUBIN TOTAL 0.5 mg/dL (0.1-1.0); CARBON DIOXIDE 22 mEq/L (21-32); CREATININE 0.8 mg/dL (0.6-1.3); ETHANOL BLOOD < 10 mg/dL (<10); GLUCOSE 108 mg/dL (70-105); PROTEIN TOTAL 8.5 g/dL (6.0-8.3)
[2023-02-06] MEDS ORDERED: CHLORDIAZEPOXIDE 25MG CAPSULE PO NR (15:00)
[2023-02-06 15:40] LABS: CLARITY URINE TURBID (CLEAR); COLOR URINE DARK YELLOW (YELLOW); GLUCOSE URINE NEGATIVE (NEGATIVE); KETONES URINE TRACE (NEGATIVE); LEUKOCYTE ESTERASE URINE 1+ (NEGATIVE); NITRITE URINE NEGATIVE (NEGATIVE); OCCULT BLOOD URINE NEGATIVE (NEGATIVE); PROTEIN URINE 2+ (NEGATIVE); SPECIFIC GRAVITY URINE 1.021 (1.005-1.030)
[2023-02-06 16:03] LABS: BACTERIA URINE 4+; RBC URINE 0-2 /hpf (0-2); SQUAMOUS EPITHELIAL CELL URINE 1+ /lpf (RARE/1+)
[2023-02-06 16:06] LABS: *AMPHETAMINES SCREEN URINE NEGATIVE (NEGATIVE); *BARBITURATES SCREEN URINE NEGATIVE (NEGATIVE); *BENZODIAZEPINES SCREEN URINE PRESUMTIVE POSITIVE (NEGATIVE); *COCAINE SCREEN URINE PRESUMTIVE POSITIVE (NEGATIVE); CANNABINOID URINE SCREEN NEGATIVE (NEGATIVE); ECSTASY MDMA SCREEN URINE NEGATIVE (NEGATIVE); OPIATES URINE SCREEN NEGATIVE (NEGATIVE); PHENCYCLIDINE URINE SCREEN NEGATIVE (NEGATIVE)
[2023-02-06 16:46] VITALS: BP 126/77; PULSE 97; RESP 18; TEMP 98.3
== END 2023-02-06 17:30 | disposition home or self-care (01) ==
LOC: ER 12:45
DX: G40.909 Epilepsy, unspecified, not intractable, without status epilepticus (principal); F10.10 Alcohol abuse, uncomplicated; Y90.0 Blood alcohol level of less than 20 mg/100 ml
CPT/HCPCS: 36415; 80053; 80305; 80320; 81003; 85025; 93005; 96365; 99284; J1953; G0480

== ENCOUNTER 2023-03-18 15:22 | Emergency (ER) | payer OTHER ==
[~2023-03-18] VITALS: Ht 172.7 cm; Wt 79.0 kg
[~2023-03-18 15:22] MED LIST changes: +FOLI-43 PO
[2023-03-18 15:45] VITALS: O2SAT 95
[2023-03-18] MEDS ORDERED: LEVETIRACETAM 500MG TABLET PO SCH (16:56)
[2023-03-18] MEDS ORDERED: ACETAMINOPHEN 325MG TABLET PO ONE (19:15)
[2023-03-18 20:00] VITALS: BP 115/65; PULSE 90; RESP 18; TEMP 97.9
[2023-03-18] MEDS ORDERED: KEPP500 MT (21:45)
== END 2023-03-19 01:44 | disposition home or self-care (01) ==
LOC: ER 15:22
DX: F10.20 Alcohol dependence, uncomplicated (principal); R56.9 Unspecified convulsions; Z79.899 Other long term (current) drug therapy
CPT/HCPCS: 99284

== ENCOUNTER 2023-03-19 03:35 | Emergency (ER) | payer OTHER ==
[~2023-03-19] VITALS: Ht 170.2 cm; Wt 82.0 kg
[~2023-03-19 03:35] MED LIST changes: +KEPP500 MT
[2023-03-19 03:46] VITALS: BP 118/87; PULSE 112; RESP 16; TEMP 98.3; O2SAT 98
== END 2023-03-19 06:45 | disposition home or self-care (01) ==
LOC: ER 03:35
DX: M54.9 Dorsalgia, unspecified (principal); F19.90 Other psychoactive substance use, unspecified, uncomplicated; F10.10 Alcohol abuse, uncomplicated; Y90.9 Presence of alcohol in blood, level not specified
CPT/HCPCS: 99281